=== PATIENT | male | born 1965 | race Caucasian/White ===

== ENCOUNTER → 2017-12-15 08:48 | Outpatient (CLI) | payer BC, SELFPAY ==
[2017-12-15 10:21] LABS: Absolute Lymphocyte Count 1.53 X10^3/ul (0.83-4.51); Absolute Neutrophil Count 3.1 X10^3/uL (2.0-7.7); Basophil# 0.02 X10^3/uL; Basophil% 0.4 % (0-1); Eosinophil# 0.12 X10^3/uL; Eosinophils% 2.4 % (0-5); Hematocrit 48.6 % (40-54); Hemoglobin 16.6 g/dl (13.0-16.5); Lymphocyte # 1.53 X10^3/ul (4.0); Lymphocyte % 30.3 % (19-41); Mean Corp Hgb Conc 34.2 g/gl (32-36); Mean Corpuscular Hgb 31.3 pg (27.0-32.0); Mean Corpuscular Volume 91.5 fL (80-94); Mean Platelet Vol. 10.6 fl (6.2-12.0); Monocyte% 5.9 % (0-10); Neutrophil # 3.07 X10^3/uL (2.7-7.7); Neutrophil % 60.8 % (47-70); Platelet Count 222 K/mm3 (150-450); RBC Distribution Width CV 12.3 % (11.6-14.6); RBC Distribution Width SD 41.3 fl (35.1-43.9); Red Blood Count 5.31 M/mm3 (4.6-6.2); White Blood Count 5.1 K/mm3 (4.4-11.0)
[2017-12-15 10:23] LABS: POSITIVE COUNT NO; POSITIVE DIFFERENTIAL NO; POSITIVE MORPHOLOGY NO
[2017-12-15 10:37] LABS: Erythrocyte Sedimentation Rate 4 mm/hr (0-20)
[2017-12-15 11:03] LABS: ALB/GLOB Ratio 1.1 RATIO (0.9-2.4); AST(SGOT) 25 U/L (15-37); Alanine Aminotransfer ALT/SGPT 56 U/L (16-61); Albumin, Serum 3.9 g/dL (3.2-5.0); Alkaline Phosphatase 90 U/L (45-117); Anion Gap 7 (5-15); BUN 15 mg/dL (7-18); BUN/Creat Ratio 12.6 RATIO (10-20); CRP < 2.90 mg/L (0.0-3.0); Chloride 102 mmol/L (98-107); Creatinine, Serum 1.19 mg/dL (0.70-1.30); EST Glomerular Filtration Rate 68 mL/min (>60); Est Glom Filt Rate - Afr Amer 82 mL/min (>60); Globulin 3.6 g/dL (2.2-4.2); Glucose 114 mg/dL (74-106); Potassium 4.2 mmol/L (3.5-5.1); Protein, Total 7.5 g/dL (6.4-8.2); Rheumatoid Factor < 10.0 IU/mL (<15); Sodium Level 138 mmol/L (136-145)
[2017-12-16 14:07] LABS: Anti-Centromere B Ab <0.2 AI (0.0-0.9); Anti-Chromatin <0.2 AI (0.0-0.9); Anti-Jo <0.2 AI (0.0-0.9); Anti-Scleroderma-70 AB <0.2 AI (0.0-0.9); RNP Ab <0.2 AI (0.0-0.9); SJOGREN'S Anti-SS-A test < 0.2 AI (0.0-0.9); SJOGREN'S Anti-SS-B test < 0.2 AI (0.0-0.9); Smith Ab <0.2 AI (0.0-0.9)
[2017-12-17 09:52] LABS: Angiotensin Convert Enzyme 63 U/L (14-82)
[2017-12-17 09:53] LABS: Anti-dsDNA Ab <1 IU/mL (0-9)
== END ==
PROVIDERS: Family Provider Family Medicine; PCP Family Medicine; Visit Provider Family Medicine
DX: M25.50 Pain in unspecified joint (principal)
CPT/HCPCS: 36415; 80053; 82164; 84443; 84550; 85025; 85652; 86038; 86140; 86225; 86235; 86431

== ENCOUNTER 2018-02-02 18:00 | Outpatient (RCR) | payer BC, SELFPAY ==
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
--- NOTE | 2018-02-24 13:42 | HP.PTDCSUM_ITS ---
HP - PT D/C Summary It has been my pleasure to treat SANTOS LIAO under orders from Ceferino Perez, for the diagnosis of Bilateral elbow pain/left knee pain for a total of 7 visit(s). Discharge Date: 02/02/18 Please see the following information for a summary of their discharge status. - Subjective Subjective: Pt. reports my knee is doing a lot better, but I still get pain in my elbows. Pt. reports knee is 85% better, elbows are 50% better. Pt. reports being HEP compliant without issues. Pt. educated on importantance to body mechanics, stretching and eroganomics with desk. Pt. reports understanding. - Pain B elbows Pain Intensity (Out of 10): 1 L knee Pain Intensity (Out of 10): 0 - Overall Improvement % Improvement: 80 - Objective Objective/Function: Pt. continues to have pain in bilateral lateral epicondyles , but has improved knee pain. Pt. has started a walking progression routine with good tolerance. Pt. continues to stretch with decend results. He is to continue with his HEP as tolerated. - Goals Goal 1:: Patient will be I with HEP and progression Goal 2:: Patient will maintain proper posture t/o tx session to demo increased core/scap s/s Goal 3:: Patient will demo 5/5 strength in elbows with 0/10 pain Goal 4:: Patient will report 2/10 pain for 1 week - Plan Plan: Pt. to be DC to HEP at this point in time. - D/C Information Discharge Comments: Pt. was treated for biltateral elbow pain with strengthening , stretching, eccentric strengthening, postural strengthening. Pt. made some progress with postural changes, but still had irritation with work related activities. He had good progress with his knee pain. Pt. is to trial exercises on his own at this point in time. If there are questions or concerns regarding this patient's physical therapy, please feel free to call me at [phone]. Thank you for the referral of this patient. Sincerely, Sonny Stacy
== END 2018-02-02 19:00 | disposition home or self-care (01) ==
LOC: PT 18:00
PROVIDERS: Family Provider Family Medicine; PCP Family Medicine; Visit Provider Family Medicine
DX: M25.522 Pain in left elbow (principal); M25.521 Pain in right elbow; M79.7 Fibromyalgia
CPT/HCPCS: 97110; 97162

== ENCOUNTER → 2018-02-23 08:42 | Outpatient (CLI) | payer BC, SELFPAY ==
[2018-02-23 10:33] LABS: Absolute Lymphocyte Count 1.46 X10^3/ul (0.83-4.51); Basophil# 0.01 X10^3/uL; Basophil% 0.2 % (0-1); Eosinophil# 0.11 X10^3/uL; Eosinophils% 2.2 % (0-5); Hematocrit 47.6 % (40-54); Hemoglobin 16.5 g/dl (13.0-16.5); Lymphocyte # 1.46 X10^3/ul (4.0); Mean Corp Hgb Conc 34.7 g/gl (32-36); Mean Corpuscular Hgb 31.1 pg (27.0-32.0); Mean Corpuscular Volume 89.6 fL (80-94); Mean Platelet Vol. 10.7 fl (6.2-12.0); Monocyte# 0.44 X10^3/uL; Monocyte% 8.7 % (0-10); Neutrophil # 3.02 X10^3/uL (2.7-7.7); Neutrophil % 59.9 % (47-70); Platelet Count 203 K/mm3 (150-450); RBC Distribution Width CV 12.3 % (11.6-14.6); RBC Distribution Width SD 40.1 fl (35.1-43.9); Red Blood Count 5.31 M/mm3 (4.6-6.2)
[2018-02-23 10:53] LABS: ALB/GLOB Ratio 1.1 RATIO (0.9-2.4); AST(SGOT) 25 U/L (15-37); Alanine Aminotransfer ALT/SGPT 59 U/L (16-61); Alkaline Phosphatase 90 U/L (45-117); Anion Gap 6 (5-15); BUN 16 mg/dL (7-18); BUN/Creat Ratio 13.8 RATIO (10-20); Calcium,Total 8.9 mg/dL (8.5-10.1); Chloride 104 mmol/L (98-107); Creatinine, Serum 1.16 mg/dL (0.70-1.30); EST Glomerular Filtration Rate 70 mL/min (>60); Est Glom Filt Rate - Afr Amer 85 mL/min (>60); Ferritin 185 ng/mL (26-388); Globulin 3.5 g/dL (2.2-4.2); Glucose 116 mg/dL (74-106); Potassium 3.9 mmol/L (3.5-5.1); Protein, Total 7.5 g/dL (6.4-8.2); Sodium Level 139 mmol/L (136-145); T4 Free Direct 0.78 ng/dL (0.76-1.46); Thyroid Stim Hormone (TSH) 1.85 uIU/mL (0.358-3.74)
[2018-02-23 11:13] LABS: POSITIVE COUNT NO; POSITIVE DIFFERENTIAL NO; POSITIVE MORPHOLOGY NO
[2018-02-27 10:28] LABS: Immunoglobulin E 62 IU/mL (0-100)
== END ==
PROVIDERS: Family Provider Family Medicine; PCP Family Medicine; Visit Provider Family Medicine
DX: R19.7 Diarrhea, unspecified (principal); R68.89 Other general symptoms and signs
CPT/HCPCS: 36415; 80053; 82728; 82785; 84439; 84443; 85025; 87506

== ENCOUNTER 2018-06-20 07:55 | Day surgery (SDC) | payer BC, SELFPAY ==
[2018-06-20 08:09] VITALS: BP 159/93; PULSE 98; RESP 18; TEMP 36.9; O2SAT 99; BMI 32.1
[2018-06-20 09:06] VITALS: BP 125/92; BP 159/93; PULSE 99; RESP 18; TEMP 37.6; O2SAT 94
[2018-06-20 09:10] VITALS: BP 101/66; BP 159/93; PULSE 94; RESP 18; O2SAT 95
--- NOTE | 2018-06-20 09:10 | OP.ENDO_ITS ---
Patient Name: Gael Rosado Procedure Date: 06/20/2018 8:43 AM Date of : 1965 Age: 52 Procedure: Colonoscopy Indications: Rectal bleeding Providers: Dangelo Hope MD Referring MD: Dangelo Hope MD Medicines: See the Anesthesia note for documentation of the administered medications Patient Profile: Last Colonoscopy: 3 years ago. Complications: No immediate complications. Procedure: Pre-Anesthesia Assessment: - Prior to the procedure, a History and Physical was performed, and patient medications and allergies were reviewed. The patient's tolerance of previous anesthesia was also reviewed. The risks and benefits of the procedure and the sedation options and risks were discussed with the patient. All questions were answered, and informed consent was obtained. Prior Anticoagulants: The patient has taken no previous anticoagulant or antiplatelet agents. ASA Grade Assessment: II - A patient with mild systemic disease. After reviewing the risks and benefits, the patient was deemed in satisfactory condition to undergo the procedure. After I obtained informed consent, the scope was passed under direct vision. Throughout the procedure, the patient's blood pressure, pulse, and oxygen saturations were monitored continuously. The adult colonoscope was introduced through the anus and advanced to the terminal ileum. The colonoscopy was performed without difficulty. The patient tolerated the procedure well. The quality of the bowel preparation was good. Scope In: 8:53:55 AM Scope Withdrawal Time 0 hours 6 minutes 15 seconds Scope Out: 9:01:56 AM Total Procedure Duration Time 0 hours 8 minutes 1 second Findings: Non-bleeding internal hemorrhoids were found during retroflexion. The hemorrhoids were mild and small. An anal fissure was found on perianal exam. The exam was otherwise without abnormality. Impression: - Non-bleeding internal hemorrhoids. - Anal fissure found on perianal exam. may need to be treated with diltizem cream - The examination was otherwise normal. - No specimens collected. Recommendation: - Resume previous diet. - Continue present medications. - Await pathology results. - Repeat colonoscopy in 10 years for surveillance. - Return to my office in 1 week. Procedure Code(s): --- Professional --- 13287, Colonoscopy, flexible; diagnostic, including collection of specimen(s) by brushing or washing, when performed (separate procedure) Diagnosis Code(s): --- Professional --- K64.8, Other hemorrhoids K60.2, Anal fissure, unspecified K62.5, Hemorrhage of anus and rectum CPT copyright 2017 [employer]. All rights reserved. The codes documented in this report are preliminary and upon drapery operator review may be revised to meet current compliance requirements. MD Dangelo Livingston MD 06/20/2018 9:10:01 AM This report has been signed electronically. Number of Addenda: 0 Note Initiated On: 06/20/2018 8:43 AM
[2018-06-20 09:15] VITALS: BP 117/73; BP 159/93; PULSE 88; RESP 18; O2SAT 95
[2018-06-20 09:22] VITALS: BP 118/80; BP 159/93; PULSE 79; RESP 18; TEMP 36.4; O2SAT 98
[2018-06-20 09:57] VITALS: BP 159/93
== END 2018-06-20 10:01 | disposition home or self-care (01) ==
LOC: EN 07:56 → AC 07:57
PROVIDERS: Family Provider Family Medicine; PCP Family Medicine; Referring Provider Surgery; Visit Provider Surgery
PROC: 0DJD8ZZ Inspection of Lower Intestinal Tract, Via Natural or Artificial Opening Endoscopic (ICD-10-PCS; CPT 45378; principal; 2018-06-20 08:55)
DX: K62.5 Hemorrhage of anus and rectum (principal); K60.2 Anal fissure, unspecified; K64.8 Other hemorrhoids; F32.9 Major depressive disorder, single episode, unspecified; F41.9 Anxiety disorder, unspecified; J45.909 Unspecified asthma, uncomplicated
CPT/HCPCS: 45378; J7120; J1610

== ENCOUNTER 2019-01-31 05:31 | Day surgery (SDC) | payer BC, SELFPAY ==
[2019-01-12 07:29] VITALS: BMI 32.1
--- NOTE | 2019-01-25 06:16 | EKG12_ITS ---
Test Reason : PRE-OP Blood Pressure : / mmHG Vent. Rate : 092 BPM Atrial Rate : 092 BPM P-R Int : 140 ms QRS Dur : 080 ms QT Int : 344 ms P-R-T Axes : 038 035 040 degrees QTc Int : 425 ms Normal sinus rhythm Normal ECG Confirmed by ANGELO PARRISH ([id number]), medical transcription editor LIAT ARREDONDO ([id number]) on 01/30/2019 3:09:30 PM Referred By: Ruddy Vargas Confirmed By:ANGELO PARRISH
[2019-01-25 07:25] LABS: Hematocrit 45.3 % (40-54); Hemoglobin 15.5 g/dl (13.0-16.5); Mean Corp Hgb Conc 34.2 g/gl (32-36); Mean Corpuscular Volume 90.6 fL (80-94); Mean Platelet Vol. 10.3 fl (6.2-12.0); Platelet Count 251 K/mm3 (150-450); RBC Distribution Width CV 12.7 % (11.6-14.6); RBC Distribution Width SD 41.3 fl (35.1-43.9); White Blood Count 6.2 K/mm3 (4.4-11.0)
[2019-01-25 07:27] LABS: Scan Indicated on CBC? Y/N NO
[2019-01-25 07:44] LABS: Anion Gap 3 (5-15); BUN 14 mg/dL (7-18); BUN/Creat Ratio 12.5 RATIO (10-20); Calcium,Total 8.7 mg/dL (8.5-10.1); Chloride 107 mmol/L (98-107); Creatinine, Serum 1.12 mg/dL (0.70-1.30); EST Glomerular Filtration Rate 73 mL/min (>60); Est Glom Filt Rate - Afr Amer 88 mL/min (>60); Glucose 156 mg/dL (74-106); Sodium Level 140 mmol/L (136-145)
[2019-01-31] VITALS (11 sets, daily range): BP systolic 87–155; BP diastolic 59–94; PULSE 63–93; RESP 14–18; TEMP 35.9–36.9; O2SAT 94–100; BMI 33.7
--- NOTE | 2019-01-31 | HEM_PTH ---
PATIENT: SANTOS LIAO [place] [facility] [place][id number] AGE/SX: 53/M ROOM: RE01/31/[address]: Dr. Ruddy Vargas MD : 1965 BED: DIS: 01/31/2019 SPEC #: [id number] RECD: 01/31/19 09:30 STATUS: CRAIG ANGEL #: [id number] DELMER: 01/31/19 00:[address]: Ruddy Vargas DEPT: SURGICAL PATHOLOGY RECD BY: Norbert Avelar ENTERED: 01/31/19 10:31 SP TYPE: HEMORRHOID OTHR DR: Dr. Ceferino Perez MD Tissues: HEMORRHOIDS Procedures: Surgery Specimen Level III HEADER OPERATION: Hemorrhoidopexy, PPH stapled PRE-OP DIAGNOSIS: Internal bleeding hemorrhoids TISSUE SUBMITTED: Internal hemorrhoids MICROSCOPIC DIAGNOSIS Hemorrhoid, hemorrhoidectomy: Submucosal vascular ectasia and thrombosis consistent with hemorrhoid. AM:johnson 02/01/19 MICROSCOPIC DESCRIPTION Slides are reviewed. GROSS DESCRIPTION Received in fixative is one container labeled with the patient's name and designated internal hemorrhoids. The specimen consists of a tortuous segment of mucosal-lined soft tissue measuring 6.1 x 2.8 x 1.3 cm. Sections through the tissue demonstrate recent submucosal hemorrhage. Floor Tech sections are submitted in one cassette. / CE:johnson 01/31/19 TC:5 [facility]: [id number]
--- NOTE | 2019-01-31 06:07 | PCM.HP.BLA ---
Problem List (1) Internal bleeding hemorrhoids Status: Acute History and Physical Date of Admission: 01/31/19 Intake Vital Signs 01/12/19 Body Mass Index (BMI) 32.1 01/12/19 Blood Pressure 150/93 H 01/12/19 Blood Pressure Location Rt brachial 01/12/19 Blood Pressure Position Sitting 01/12/19 Respiratory Rate 18 01/12/19 Pulse Rate 111 H 01/12/19 Pulse Source Monitor 01/12/19 Temperature 98.1 F 01/12/19 Temperature Source Oral 01/12/19 Pulse Ox 98 01/12/19 Oxygen Delivery Method room air Intake Visit Reasons: PPH/PER [place] Chief Complaint: rectal bleeding Mgmt Consultant Required: No Is patient in pain?: No Allergies shellfish derived Allergy (Intermediate, Verified 01/12/19 07:29) Vomiting vilazodone HCl [From [facility]] Allergy (Verified 01/12/19 07:29) Hives Medications Albuterol Inhaler [Ventolin Hfa (SP)] 1 - 2 puff INHALATION Q4H PRN PRN 12/11/14 [History Confirmed 01/12/19] Astepro 2 spray NASAL DAILY 12/11/14 [History Confirmed 01/12/19] escitalopram 10 mg tablet 5 mg PO DAILY tab 06/14/18 [History Confirmed 01/12/19] gabapentin 300 mg capsule 300 mg PO TID 06/14/18 [History Confirmed 01/12/19] milnacipran 12.5 mg tablet 50 mg PO BID tab 06/14/18 [History Confirmed 01/12/19] Ascorbic Acid [Vitamin C] 500 mg PO DAILY 06/17/18 [History Confirmed 01/12/19] Cholecalciferol (Vitamin D3) [Vitamin D3] 1,000 unit PO DAILY 06/17/18 [History Confirmed 01/12/19] Ginkgo Biloba 60 mg PO DAILY 06/17/18 [History Confirmed 01/12/19] L.acidoph,Paracasei, B.lactis [Probiotic] 1 ea PO DAILY 06/17/18 [History Confirmed 01/12/19] Magnesium Oxide [Magnesium] 500 mg PO QHS 06/17/18 [History Confirmed 01/12/19] Melatonin/Pyridoxine [Melatonin 5 mg Tablet] 1 ea PO QHS 06/17/18 [History Confirmed 01/12/19] Turmeric Root Extract [Turmeric] 500 mg PO DAILY 06/17/18 [History Confirmed 01/12/19] nifedipine 60 g TOPICAL BID #60 g 06/20/18 [Rx Confirmed 01/12/19] amlodipine 2.5 mg tablet 2.5 mg PO DAILY 11/01/18 [History Confirmed 01/12/19] cyanocobalamin (B12)-cobamamide 5,000 mcg-100 mcg sublingual lozenge fanta SUBLINGUAL ea 11/01/18 [History Confirmed 01/12/19] [facility] Medical History Anxiety and depression (Acute) Asthma (Acute) Fibromyalgia (Acute) Rectal bleeding (Acute) Sleep apnea (Acute) HTN (hypertension) (Chronic) Surgical History History of colonoscopy (Acute ~06/2018) History of hernia repair (Acute) History of vasectomy (Acute) Family History Mother Arthritis Breast cancer Diabetes Father Arthritis Colon cancer Hypertension Cancer skin cancer Social History Smoking Status: Never smoker alcohol intake: current alcohol intake frequency: a few times a month substance use type: does not use HPI HPI HPI: SANTOS LIAO, is a 53 M who presents to the office today for HPI HPI Surgical H&P: Yes HPI: SANTOS LIAO, is a 53 M who presents to the office today for ongoing surgical consultation regarding bleeding internal hemorrhoids. The patient is referred by Dr. Dangelo Hope. Dr. Hope is already performed a colonoscopy which demonstrated significant internal hemorrhoids. An attempt was made to perform hemorrhoidal banding in the office but the patient did not tolerate that well and became diaphoretic. It is of note that the patient almost literally has daily bright red bleeding. It is usually painless. He is tried diltiazem cream and steroid creams without definitive resolution. It is of additional note that the patient was noted to have a small anal fissure. This was felt to have been successfully treated with diltiazem cream. The patient works with [employer]. He is quite sedentary. He does however take a twice daily fiber supplement. He has initiated a new exercise routine. He is on a self-improvement weight loss program. ROS General General: Yes fatigue; no weight change, appetite, colon cancer, breast cancer or weakness HEENT HEENT: No difficulty swallowing, eye injury, eye surgery, swollen glands or hoarseness Endo Endocrine: No thyroid disease, diabetes mellitus, thyroid cancer, Hair loss, heat intolerance or cold intolerance Skin Skin: No rash or changing moles Breast Breast: No left breast lump, right breast lump, nipple discharge, breast pain, abnormal mammogram, abnormal US or breast enlargement Musc Musculoskeletal: No back problems, arthritis, rheumatoid arthritis, gout or joint pain Cardio Cardiovascular: No murmur, pacemaker, heart disease, atrial fibrillation, high blood pressure, heart attack, heart stent, palpitations, shortness of breat with exertion or chest pain Psych Psychiatric: Yes depression and anxiety; no hearing voices Resp Respiratory: No shortness of breath, Yes sleep apnea, No cough, No COPD, Yes asthma, No emphysema, No wheezing Gastro Gastrointestinal: No abdominal pain, No nausea or vomiting, No diarrhea, No constipation, Yes blood in stool, No acid reflux, Yes hemorrhoids, No ulcers, No gallbladder problem, No black,tarry stools Rajeev Hematologic: No blood thinners, No blood disorders, No bleeding, No anemia, No blood clots Neuro Neurologic: No weakness Exam Const General: cooperative, healthy appearing Nutritional Appearance: overweight Orientation: alert, awake [facility] Head: normal to inspection Chest Breast Palpation: No nipple discharge Resp Effort & Inspection: normal respiratory effort Auscultation: clear to auscultation bilaterally Cardio Rate: regular rate Rhythm: regular rhythm Heart Sounds: no murmurs GI Palpation: soft, no hepatosplenomegaly Auscultation: normal bowel sounds Other: External anus appears clean. Subtle internal hemorrhoid mostly noted on the right on visual inspection. Seemingly healed small anterior anal fissure Skin General: no rashes or lesions noted Neuro General: alert Extrem General: no calf tenderness bilaterally Psych Affect: normal affect Assessment & Plan Problems 1. Internal bleeding hemorrhoids K64.8 Plan Very pleasant 53-year-old gentleman with signs and symptoms of bleeding internal hemorrhoids. I would concur with Dr. Hope that I believe the patient would be a good candidate for a PPH stapled hemorrhoidal pexy. In great detail I described the technique, benefit, risks, alternatives and compared and contrasted it to a surgical hemorrhoidectomy. The patient is otherwise medically nicely compliant. He is aware that the hemorrhoidal pexy can only be performed once. He is aware that there is an increased risk of recurrence. This is contrasted with improved comfort with the procedure. He is aware that placement of the staple line is very important. He has had an opportunity to ask and have questions answered. He is interested in proceeding and attempt to help resolve his rectal bleeding. I appreciate the opportunity of assisting with his surgical care. CC: Dr. Dangelo Hope and Dr. Ceferino Vargas M.D., F.A.C.S. Coding Level of Care Code Off vis,est,level 3 Diagnoses Internal bleeding hemorrhoids K64.8 01/12/19 0751 <Electronically signed by Ruddy Vargas MD> Date Ruddy Vargas MD I have re-examined the patient. There are no clinical changes since date of exam.
--- NOTE | 2019-01-31 06:55 | PCM.DC.REC ---
Discharge Diet: No Restrictions Discharge Activity: Return to Normal Activity, May Not Drive - while you are taking narcotic pain medications. Do not drive, work with heavy equipment or sign legal documents for 24 hours after your surgery. No driving for 3 to 5 days Additional Activity Instructions:: Please continue with taking your fiber supplementation twice daily. Mineral oil 30 cc (1 ounce) daily in food or drink for 1 week Additional Dressing/Incision Instructions:: You may remove any dressings tomorrow. You may use gauze or hygiene pad as needed for any drainage. Sitz baths may be utilized if they offer any comfort. This would be using only warm soapy water. Allergies/Adverse Reactions: Allergies shellfish derived Allergy (Intermediate, Verified 01/24/19 11:26) Vomiting vilazodone HCl [From [facility]] Allergy (Verified 01/24/19 11:26) Hives Medications to take at Discharge Albuterol Inhaler [Ventolin Hfa] 1 - 2 puff INHALATION Q4H PRN PRN 12/11/14 Astepro 2 spray NASAL DAILY 12/11/14 escitalopram 10 mg tablet 2.5 mg PO DAILY tab 06/14/18 gabapentin 300 mg capsule 300 mg PO BID 06/14/18 milnacipran 12.5 mg tablet 100 mg PO BID tab 06/14/18 Ascorbic Acid [Vitamin C] 500 mg PO DAILY 06/17/18 Cholecalciferol (Vitamin D3) [Vitamin D3] 1,000 unit PO DAILY 06/17/18 Ginkgo Biloba 60 mg PO DAILY 06/17/18 L.acidoph,Paracasei, B.lactis [Probiotic] 1 ea PO DAILY 06/17/18 Magnesium Oxide [Magnesium] 500 mg PO BID 06/17/18 Melatonin/Pyridoxine [Melatonin 5 mg Tablet] 1 ea PO QHS 06/17/18 Turmeric Root Extract [Turmeric] 500 mg PO DAILY 06/17/18 amlodipine 2.5 mg tablet 5 mg PO DAILY 11/01/18 cyanocobalamin (B12)-cobamamide 5,000 mcg-100 mcg sublingual lozenge 1 fanta SUBLINGUAL DAILY ea 11/01/18 Hydrocodone Bitart/Apap 5-325 [[place] 5MG-325MG] 1 tablet PO Q4H PRN PRN 3 Days #10 tablet 01/31/19 Metronidazole 250 mg PO TID 5 Days #15 tablet 01/31/19 The following prescriptions were given: Hydrocodone Bitart/Apap 5-325 [[place] 5MG-325MG] 1 tablet PO Q4H PRN PRN 3 Days #10 tablet PRN Reason: Pain Metronidazole 250 mg PO TID 5 Days #15 tablet Primary Care Physician: Ceferino Perez MD [Primary Care Provider] - Test Results: Test results from this visit will be discussed in further detail at your follow-up appointment, if applicable. Please Follow Up With: Ruddy Vargas MD - [phone] When: Plan to have a follow up approximately 3 weeks after surgery.
--- NOTE | 2019-01-31 06:58 | DCINST_ITS ---
Discharge Diet: No Restrictions Discharge Activity: Return to Normal Activity, May Not Drive - while you are taking narcotic pain medications. Do not drive, work with heavy equipment or sign legal documents for 24 hours after your surgery. No driving for 3 to 5 days Additional Activity Instructions:: Please continue with taking your fiber supplementation twice daily. Mineral oil 30 cc (1 ounce) daily in food or drink for 1 week Additional Dressing/Incision Instructions:: You may remove any dressings tomorrow. You may use gauze or hygiene pad as needed for any drainage. Sitz baths may be utilized if they offer any comfort. This would be using only warm soapy water. Allergies/Adverse Reactions: Allergies shellfish derived Allergy (Intermediate, Verified 01/24/19 11:26) Vomiting vilazodone HCl [From [facility]] Allergy (Verified 01/24/19 11:26) Hives Medications to take at Discharge Albuterol Inhaler [Ventolin Hfa] 1 - 2 puff INHALATION Q4H PRN PRN 12/11/14 Astepro 2 spray NASAL DAILY 12/11/14 escitalopram 10 mg tablet 2.5 mg PO DAILY tab 06/14/18 gabapentin 300 mg capsule 300 mg PO BID 06/14/18 milnacipran 12.5 mg tablet 100 mg PO BID tab 06/14/18 Ascorbic Acid [Vitamin C] 500 mg PO DAILY 06/17/18 Cholecalciferol (Vitamin D3) [Vitamin D3] 1,000 unit PO DAILY 06/17/18 Ginkgo Biloba 60 mg PO DAILY 06/17/18 L.acidoph,Paracasei, B.lactis [Probiotic] 1 ea PO DAILY 06/17/18 Magnesium Oxide [Magnesium] 500 mg PO BID 06/17/18 Melatonin/Pyridoxine [Melatonin 5 mg Tablet] 1 ea PO QHS 06/17/18 Turmeric Root Extract [Turmeric] 500 mg PO DAILY 06/17/18 amlodipine 2.5 mg tablet 5 mg PO DAILY 11/01/18 cyanocobalamin (B12)-cobamamide 5,000 mcg-100 mcg sublingual lozenge 1 fanta SUBLINGUAL DAILY ea 11/01/18 Hydrocodone Bitart/Apap 5-325 [[place] 5MG-325MG] 1 tablet PO Q4H PRN PRN 3 Days #10 tablet 01/31/19 Metronidazole 250 mg PO TID 5 Days #15 tablet 01/31/19 The following prescriptions were given: Hydrocodone Bitart/Apap 5-325 [[place] 5MG-325MG] 1 tablet PO Q4H PRN PRN 3 Days #10 tablet PRN Reason: Pain Metronidazole 250 mg PO TID 5 Days #15 tablet Primary Care Physician: Ceferino Perez MD [Primary Care Provider] - Test Results: Test results from this visit will be discussed in further detail at your follow- up appointment, if applicable. Please Follow Up With: Ruddy Vargas MD - [phone] When: Plan to have a follow up approximately 3 weeks after surgery.
[2019-01-31] MEDS: Lubricating Jelly 60 GM Tube 30 GM TOPICAL (07:43)
[2019-01-31] MEDS: Bupivacaine Mpf 0.5% 30 ML VIAL (08:00)
[2019-01-31] MEDS: BUPIVACAINE LIPOSOME/PF 20 ML VIAL OPERA.SITE (08:00)
--- NOTE | 2019-01-31 08:03 | PCM.OPRPT ---
Problem List (1) Internal bleeding hemorrhoids Status: Acute Report of Operation Date of Procedure: 01/31/19 Pre-Operative Diagnosis: Bleeding internal hemorrhoids Post-Operative Diagnosis: same Surgery/Procedure Performed:: PPH stapled hemorrhoidopexy Description of Surgical Findings:: Timeout and informed consent was obtained. 53-year-old gent was taken the operating room. He underwent general endotracheal intubation anesthesia. He was subsequently placed prone jackknife with careful shoulder and pelvic rolls. He received 2 g of cefotetan intravenously preprocedure. The perianal area was prepped with soap because of iodine allergy. 20 cc of Exparel was further diluted with 10 cc of 0.5% Marcaine. 10 cc was initially injected circumferentially. Gentle anal examination demonstrated a 2+ smooth prostate. Rather tight anal tone. I used very gentle pressure on the anal dilator copiously lubricated in order to insert it. Then placed the protective clear plastic circular sheath. I then inserted the measuring suturing plastic device. That allowed me to get 4 cm proximally. A 0 Prolene was then used in a circumferential pursestring fashion at 4 cm from the anal verge completely circumferentially. Took great care inserting that suture line and it adjusting the suturing device to assure that there was no coiling or twisting. Having placed the suture I then remove the plastic suturing device and tested the suture line. To be nicely circumferential. I then inserted the PPH stapler and finished the pursestring lines through the stapler. I applied pressure to secured the pursestring and then carefully inserted and closed with a stapler to depth. 4 cm was achieved. The stapler was then fired. Several minutes were allowed for hemostasis. The stapler was removed. A circumferential portion of internal hemorrhoidal tissue rectal tissue had indeed been removed. I then palpated the staple line appeared to be nicely intact in good position I then inspected the staple line with a lighted anal speculum. Staple line appeared to be intact and hemostatic. I then placed Gelfoam with dibucaine ointment inserted that transanally. It appeared that the small external component particular on the left side had already nicely retracted. The remainder of the local was injected in the perianal tissues. Dry gauze cover dressing applied. Sponge and instrument and needle counts were reported the surgeon be correct. Blood loss was minimal. Specimen internal hemorrhoid tissue. Drains none. Blood loss minimal. Ruddy Vargas M.D., F.A.C.S. Type of Anesthesia:: General Anesthesiologist: Ulices Cruz
[2019-01-31] MEDS: HYDROcodone Bitartrate/Apap 5/325 Tablet PO (12:46)
== END 2019-01-31 13:29 | disposition home or self-care (01) ==
LOC: SDC 05:32 → AC 05:32
PROVIDERS: Family Provider Family Medicine; PCP Family Medicine; Referring Provider Surgery; Visit Provider Surgery
PROC: (CPT 46947; principal; 2019-01-31 07:00)
DX: K64.8 Other hemorrhoids (principal); I10 Essential (primary) hypertension; J45.909 Unspecified asthma, uncomplicated
CPT/HCPCS: 00902; 46947; 36415; 80048; 85027; 88304; 93005; J7120; J2405

== ENCOUNTER → 2019-06-05 12:59 | Outpatient (CLI) | payer BC, SELFPAY ==
[2019-01-31 05:54] VITALS: BMI 33.7
--- NOTE | 2019-06-05 13:02 | RAD_ITS ---
STUDY: X-RAY - LEFT FOOT CLINICAL: Male, 53 years old. Dropped chair on foot a couple weeks ago. Persistent.. TECHNIQUE: 3 view(s) of the foot. COMPARISON: None. FINDINGS: No visible fracture. No osseous destruction. Alignment anatomic. Mild degenerative changes. Soft tissues unremarkable. RAD/Foot min 3 Views IMPRESSION: No acute osseous abnormality. Electronically Signed: Bran Neville, at 19:49 EDT Tel , Service support ,
== END ==
PROVIDERS: Family Provider Family Medicine; PCP Family Medicine; Referring Provider Family Medicine; Visit Provider Family Medicine
DX: S90.30XA Contusion of unspecified foot, initial encounter (principal)
CPT/HCPCS: 73630

== ENCOUNTER → 2019-06-10 10:20 | Outpatient (CLI) | payer BC, SELFPAY ==
[2019-01-31 05:54] VITALS: BMI 33.7
--- NOTE | 2019-06-10 10:23 | US_ITS ---
STUDY: ABDOMINAL ULTRASOUND REASON FOR EXAM: Male, 53 years old. Left upper quadrant pain. TECHNIQUE: Transabdominal ultrasound was performed with real-time and static flores scale imaging. TECHNICAL QUALITY: Limited. Examination limited due to a combination of factors including obesity and bowel gas. COMPARISON: None. FINDINGS: Liver: The liver measures 15.1 cm. There is marked increased echogenicity consistent with fatty infiltration. The bile ducts are within normal limits. There is hepatic color flow. The direction of portal flow is hepatopetal. There is no demonstrated mass lesion. Portal vein measurement: Gallbladder: Normal distended gallbladder. The gallbladder wall measures 2.5 mm. There is a negative sonographic Almanzar's sign. There is no pericholecystic fluid. There are no gallstones. Common Bile Duct (C.B.D.): The common bile duct measures 3.5 mm. Pancreas: There is nonvisualization of the pancreas. Spleen: Normal size of the spleen. The spleen measures 10.4 cm. Right Kidney: Normal size of the right kidney. The right kidney measures 10.0 cm. Normal renal cortex. The right cortex measures 1.6 cm. There is no demonstrated renal mass or cyst. There is no right hydronephrosis. Left Kidney: Normal size of the left kidney. The left kidney measures 9.7 cm. Normal renal cortex. The left cortex measures 1.5 cm. There is no demonstrated renal mass or cyst. There is no left hydronephrosis. Aorta: 2.5 cm I.V.C.: The IVC is patent. There is no ascites. US/Abdomen Complete IMPRESSION: Significantly limited by patient's size and bowel gas. Marked fatty liver. No definite acute abnormalities. Electronically Signed: Manan Garcia MD at 0:00 EDT , Service support ,
== END ==
PROVIDERS: Family Provider Family Medicine; PCP Family Medicine; Referring Provider Family Medicine; Visit Provider Family Medicine
DX: R10.12 Left upper quadrant pain (principal)
CPT/HCPCS: 76700

== ENCOUNTER → 2019-07-10 | Outpatient (CLI) | payer BC, SELFPAY ==
[2019-01-31 05:54] VITALS: BMI 33.7
[2019-07-10 10:00] LABS: Absolute Neutrophil Count 4.2 X10^3/uL (2.0-7.7); Basophil# 0.05 X10^3/uL; Basophil% 0.8 % (0-1); Eosinophil# 0.15 X10^3/uL; Eosinophils% 2.3 % (0-5); Hematocrit 47.4 % (40-54); Hemoglobin 15.8 g/dL (13.0-16.5); Lymphocyte % 27.1 % (19-41); Mean Corp Hgb Conc 33.3 g/dL (32-36); Mean Corpuscular Hgb 30.5 pg (27.0-32.0); Mean Corpuscular Volume 91.5 fL (80-94); Mean Platelet Vol. 10.5 fl (6.2-12.0); Monocyte# 0.47 X10^3/uL; Monocyte% 7.1 % (0-10); NRBC Flagged by Analyzer 0 % (0-5); Neutrophil # 4.15 X10^3/uL (2.7-7.7); Neutrophil % 62.5 % (47-70); Platelet Count 224 K/mm3 (150-450); RBC Distribution Width CV 12.2 % (11.6-14.6); RBC Distribution Width SD 40.8 fl (35.1-43.9); Red Blood Count 5.18 M/mm3 (4.6-6.2); White Blood Count 6.6 K/mm3 (4.4-11.0)
[2019-07-10 10:25] LABS: Microalbumin,Random Urine 38.6 mg/L (NO RANGE EST.)
[2019-07-10 10:29] LABS: BUN 15 mg/dL (7-18); Creatinine, Serum 1.16 mg/dL (0.70-1.30); EST Glomerular Filtration Rate 70 mL/min (>60); Glucose 123 mg/dL (74-106)
[2019-07-10 10:30] LABS: ALB/GLOB Ratio 1.1 RATIO (0.9-2.4); AST(SGOT) 25 U/L (15-37); Alanine Aminotransfer ALT/SGPT 49 U/L (16-61); Albumin, Serum 3.9 g/dL (3.2-5.0); Alkaline Phosphatase 98 U/L (45-117); Anion Gap 6 (5-15); BUN/Creat Ratio 12.9 RATIO (10-20); Calcium,Total 9.1 mg/dL (8.5-10.1); Chloride 103 mmol/L (98-107); Est Glom Filt Rate - Afr Amer 84 mL/min (>60); Globulin 3.5 g/dL (2.2-4.2); Magnesium 2.4 mg/dL (1.6-2.6); Potassium 4.2 mmol/L (3.5-5.1); Protein, Total 7.4 g/dL (6.4-8.2); Sodium Level 138 mmol/L (136-145); Thyroid Stim Hormone (TSH) 2.45 uIU/mL (0.358-3.74)
== END | disposition home or self-care (01) ==
LOC: MTLAB 08:25
PROVIDERS: Family Provider Family Medicine; PCP Family Medicine; Referring Provider Family Medicine; Visit Provider Family Medicine
DX: G43.109 Migraine with aura, not intractable, without status migrainosus (principal); I10 Essential (primary) hypertension; M79.7 Fibromyalgia
CPT/HCPCS: 36415; 80053; 82043; 83735; 84443; 85025

== ENCOUNTER → 2020-07-25 15:26 | Outpatient (CLI) | payer BC, SELFPAY ==
[2019-01-31 05:54] VITALS: BMI 33.7
== END ==
PROVIDERS: PCP Family Medicine; Referring Provider Family Medicine; Visit Provider Family Medicine
DX: U07.1 COVID-19 (principal)
CPT/HCPCS: 87633; 87635; U0003

== ENCOUNTER → 2020-09-24 06:20 | Outpatient (CLI) | payer BC, SELFPAY ==
[2019-01-31 05:54] VITALS: BMI 33.7
--- NOTE | 2020-09-24 06:25 | RAD_ITS ---
STUDY: X-RAY - LEFT SHOULDER REASON FOR EXAM: Pain in left acromioclavicular joint/anterior shoulder, fall 9 days ago. TECHNIQUE: 4 view(s) of the shoulder. COMPARISON: None. FINDINGS: Normal glenohumeral articulation. Normal acromioclavicular joint. Normal acromion. Normal humeral head and visualized proximal humerus. The soft tissue structures are unremarkable. Normal visualized pulmonary apex. RAD/Shoulder min 2 Views IMPRESSION: Normal x-ray examination of the left shoulder. Electronically Signed: Kirill Villela MD at 13:50 EST Tel , Service support ,
== END ==
PROVIDERS: PCP Family Medicine; Referring Provider Pain Medicine Pain Medicine; Visit Provider Pain Medicine Pain Medicine
DX: M25.512 Pain in left shoulder (principal)
CPT/HCPCS: 73030

== ENCOUNTER → 2021-02-04 06:05 | Outpatient (CLI) | payer BC, SELFPAY ==
[2019-01-31 05:54] VITALS: BMI 33.7
[2021-02-04 06:40] LABS: Absolute Lymphocyte Count 2.38 X10^3/uL (0.83-4.51); Absolute Neutrophil Count 3.3 X10^3/uL (2.0-7.7); Basophil# 0.05 X10^3/uL; Basophil% 0.7 % (0-1); Eosinophil# 0.42 X10^3/uL; Eosinophils% 6.3 % (0-5); Hematocrit 48.1 % (40-54); Hemoglobin 16.5 g/dL (13.0-16.5); Lymphocyte # 2.38 X10^3/ul (0.83-4.51); Lymphocyte % 35.5 % (19-41); Mean Corp Hgb Conc 34.3 g/dL (32-36); Mean Corpuscular Hgb 31.1 pg (27.0-32.0); Mean Corpuscular Volume 90.8 fL (80-94); Mean Platelet Vol. 10.1 fl (6.2-12.0); Monocyte# 0.51 X10^3/uL; Monocyte% 7.6 % (0-10); NRBC Flagged by Analyzer 0 % (0-5); Neutrophil # 3.32 X10^3/uL (2.7-7.7); Neutrophil % 49.6 % (47-70); Platelet Count 214 K/mm3 (150-450); RBC Distribution Width CV 12.2 % (11.6-14.6); White Blood Count 6.7 K/mm3 (4.4-11.0)
[2021-02-04 06:44] LABS: Erythrocyte Sedimentation Rate 6 mm/hr (0-20)
[2021-02-04 07:39] LABS: ALB/GLOB Ratio 1.3 RATIO (0.9-2.4); AST(SGOT) 25 U/L (15-37); Alanine Aminotransfer ALT/SGPT 39 U/L (16-61); Albumin, Serum 3.9 g/dL (3.2-5.0); Alkaline Phosphatase 83 U/L (45-117); Anion Gap 8 (5-15); BUN 19 mg/dL (7-18); BUN/Creat Ratio 17.6 RATIO (10-20); CRP < 2.90 mg/L (0.0-3.0); Calcium,Total 9.1 mg/dL (8.5-10.1); Chloride 106 mmol/L (98-107); Cholesterol 293 mg/dL (200); Creatinine, Serum 1.08 mg/dL (0.70-1.30); EST Glomerular Filtration Rate 75 mL/min (>60); Est Glom Filt Rate - Afr Amer 91 mL/min (>60); GGTP 78 U/L (15-85); Globulin 3.1 g/dL (2.2-4.2); Glucose 107 mg/dL (74-106); High Density Lipoprotein 46 mg/dL; Lipase 125 U/L (73-393); PSA,Total - Annual Screen 3.63 ng/mL (0.00-4.00); Potassium 3.8 mmol/L (3.5-5.1); Sodium Level 140 mmol/L (136-145); Thyroid Stim Hormone (TSH) 5.06 uIU/mL (0.358-3.74); Triglycerides 344 mg/dL; Very Low Density Lipoprotein 69 mg/dL (5-40)
[2021-02-05 22:13] LABS: Endomysial Antibody IgA Negative (Negative)
[2021-02-06 17:02] LABS: Immunoglobulin A 99 mg/dL (90-386); t-Transglutaminase IgA <2 U/mL (0-3)
[2021-02-06 17:03] LABS: ANTINUCLEAR ANTIBODIES DIRECT Negative (Negative)
[2021-02-06 17:30] LABS: Calprotectin, Stool 27 ug/g (0-120)
== END ==
PROVIDERS: PCP Family Medicine; Referring Provider Family Medicine; Visit Provider Family Medicine
DX: R19.7 Diarrhea, unspecified (principal); E78.00 Pure hypercholesterolemia, unspecified; Z12.5 Encounter for screening for malignant neoplasm of prostate
CPT/HCPCS: 36415; 80053; 80061; 82784; 82977; 83516; 83690; 83993; 84153; 84443; 85025; 85652; 86038; 86140; 86255; 87177; 87209; 87506; G0103

== ENCOUNTER → 2021-02-05 07:41 | Outpatient (CLI) | payer BC, SELFPAY ==
[2019-01-31 05:54] VITALS: BMI 33.7
--- NOTE | 2021-02-05 07:43 | US_ITS ---
STUDY: ABDOMINAL ULTRASOUND - RIGHT UPPER QUADRANT REASON FOR VISIT: Male, 55 years old . 3 week history of chronic right upper quadrant and epigastric pain. TECHNIQUE: Ultrasound evaluation of the right upper quadrant was performed with real-time and static flores-scale imaging. TECHNICAL QUALITY: Adequate. COMPARISON: Comparison is made with prior examination of 06/10/2019. FINDINGS: Liver: The liver measures 14.1 cm. There is increased echogenicity consistent with fatty infiltration. The bile ducts are within normal limits. There is hepatic color flow. The direction of portal flow is hepatopetal. There is no demonstrated mass lesion. Gallbladder: Normal distended gallbladder. The gallbladder wall measures 2.2 mm. There is a negative sonographic Almanzar''s sign. There is no pericholecystic fluid. There are no gallstones. Common Bile Duct (C.B.D.): The common bile duct measures 3.4 mm. Pancreas: Normal size of the head, body and tail of the pancreas. There is normal echogenicity of the pancreas. There is no demonstrated pancreatic mass or cyst. Right Kidney: Normal size of the right kidney. The right kidney measures 9.9 cm x 5.1 cm x 5.6 cm. Normal renal cortex. The right cortex measures 1.7 cm. There is no demonstrated renal mass or cyst. There is no right hydronephrosis. US/Abdomen Limited IMPRESSION: Fatty infiltration of the liver. Electronically Signed: Abdelrahman Mckeon MD at 10:50 EDT , Service support ,
== END ==
PROVIDERS: PCP Family Medicine; Referring Provider Family Medicine; Visit Provider Family Medicine
DX: R10.84 Generalized abdominal pain (principal)
CPT/HCPCS: 76705

== ENCOUNTER → 2021-02-20 13:41 | Outpatient (CLI) | payer BC, SELFPAY ==
[2019-01-31 05:54] VITALS: BMI 33.7
[2021-02-17 08:16] VITALS: BMI 33.7
--- NOTE | 2021-02-20 14:04 | CT_ITS ---
STUDY: CT ABDOMEN WITH CONTRAST REASON FOR EXAM: Male, 55 years old. Upper abdominal pain and diarrhea. RADIATION DOSAGE (If Supplied By Facility): CTDIvol = ( 15.69 ) mGy, DLP = ( 780.35 ) mGycm TECHNIQUE: Transaxial images were obtained post I.V. administration of Oral and amp; IV Readi-CAT and amp; 100mL Isovue-300, and with oral contrast. Sagittal and coronal images were reconstructed. Individualized dose optimization techniques were used for this CT. COMPARISON: None. FINDINGS: The visualized lung bases are unremarkable. Coronary artery calcification. There is decreased attenuation of the liver consistent with steatosis. Normal gallbladder and extrahepatic biliary system. Normal spleen. Normal pancreas. Normal bilateral adrenal glands. Normal right kidney. Normal left kidney. Normal visualized stomach. Normal small intestine. Normal colon. The appendix is visualized and appears normal. There is scattered atherosclerotic calcification of the abdominal aorta, without a demonstrated aneurysm. Normal inferior vena cava. Normal retroperitoneum. Normal abdominal wall. Normal osseous structures. CT/Abdomen WITH IV Contrast IMPRESSION: Diffuse fatty infiltration of the liver. Electronically Signed: Abdelrahman Mckeon MD at 15:07 EDT , Service support ,
== END ==
PROVIDERS: PCP Family Medicine; Referring Provider Family Medicine; Visit Provider Family Medicine
DX: R10.84 Generalized abdominal pain (principal)
CPT/HCPCS: 74160; Q9967

== ENCOUNTER 2021-02-25 07:24 | Day surgery (SDC) | payer BC, SELFPAY ==
[2021-02-17 08:16] VITALS: BMI 33.7
[2021-02-25] VITALS (7 sets, daily range): BP systolic 116–140; BP diastolic 62–86; PULSE 82–102; RESP 18; TEMP 36.3–36.5; O2SAT 95–98; BMI 31.6
[2021-02-25] MEDS: Lactated Ringers 1,000 ML 100 ML IV (08:05)
--- NOTE | 2021-02-25 08:23 | PCM.HP.BLA ---
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 lactis 1 ea PO DAILY 06/17/18 [History Confirmed 02/17/21] ginkgo biloba 60 mg PO DAILY 06/17/18 [History Confirmed 02/17/21] melatonin-pyridoxine (vit B6) 1 ea PO QHS 06/17/18 [History Confirmed 02/17/21] amlodipine 2.5 mg tablet 5 mg PO DAILY 11/01/18 [History Confirmed 02/17/21] cyanocobalamin (B12)-cobamamide 5,000 mcg-100 mcg sublingual lozenge 1 fanta SUBLINGUAL DAILY ea 11/01/18 [History Confirmed 02/17/21] ascorbic acid (vitamin C) 500 mg tablet,extended release 1,000 mg PO DAILY tab 02/17/21 [History Confirmed 02/17/21] cholecalciferol (vitamin D3) 25 mcg (1,000 unit) capsule 5,000 unit PO DAILY cap 02/17/21 [History Confirmed 02/17/21] levothyroxine 25 mcg capsule 25 mcg PO DAILY 02/17/21 [History Confirmed 02/17/21] pantoprazole 40 mg tablet,delayed release 40 mg PO DAILY 02/17/21 [History Confirmed 02/17/21] sucralfate 1 gram tablet 1 g PO QACHS #90 tab 02/17/21 [Rx Confirmed 02/17/21] [facility] Medical History (Updated 02/17/21 @ 08:[address] Fredrick Evans MD) Abdominal pain Anxiety and depression Asthma Belching Diarrhea Fibromyalgia GERD (gastroesophageal reflux disease) HTN (hypertension) Internal bleeding hemorrhoids Rectal bleeding Sleep apnea Surgical History (Updated 02/17/21 @ 08:05 by Palmira Bell) History of colonoscopy (~06/2018) History of hemorrhoidectomy History of hernia repair History of vasectomy Family History Mother Arthritis Breast cancer Diabetes Father Arthritis Colon cancer Hypertension Cancer skin cancer Social History Smoking Status: Never smoker alcohol intake: current alcohol intake frequency: a few times a month substance use type: does not use HPI HPI HPI: SANTOS LIAO, is a 55 M who presents to the office today for several complaints. The patient reports that he has been having diarrhea since July when he had Covid. The patient also reports he has been having upper abdominal pain in the right upper quadrant and left upper quadrant and it radiates down to his right lower quadrant and back. Patient had several stool studies which were all negative and ultrasound the gallbladder which was normal. The patient was started on a PPI about 2 weeks ago and it has been helping. ROS General General: Yes fatigue; No weight change, appetite, colon cancer, breast cancer or weakness HEENT HEENT: No difficulty swallowing, eye injury, eye surgery, swollen glands or hoarseness Endo Endocrine: Yes thyroid disease; No diabetes mellitus, thyroid cancer, Hair loss, heat intolerance or cold intolerance Skin Skin: No rash or changing moles Breast Breast: No left breast lump, right breast lump, nipple discharge, breast pain, abnormal mammogram, abnormal US or breast enlargement Musc Musculoskeletal: Yes arthritis; No back problems, rheumatoid arthritis, gout or joint pain Cardio Cardiovascular: No murmur, pacemaker, heart disease, atrial fibrillation, high blood pressure, heart attack, heart stent, palpitations, shortness of breat with exertion or chest pain Psych Psychiatric: Yes anxiety; No depression or hearing voices Resp Respiratory: No shortness of breath, Yes sleep apnea, No cough, No COPD, Yes asthma, No emphysema and No wheezing Gastro Gastrointestinal: Yes abdominal pain, Yes nausea or vomiting, Yes diarrhea, No constipation, No blood in stool, Yes acid reflux, No hemorrhoids, No ulcers, No gallbladder problem and No black,tarry stools Rajeev Hematologic: No blood thinners, No blood disorders, No bleeding, No anemia and No blood clots Neuro Neurologic: No system reviewed and no additional complaints, except as documented, No as per HPI, No abnormal gait, No abnormal hearing, No abnormal movements, No abnormal speech, No behavioral changes, No burning sensations, No confusion, No convulsions, No disequilibrium, No dizziness, No localized weakness, No frequent falls, No headache(s), No lack of coordination, No loss of vision, No memory loss, No numbness, No other visual disturbances, No radicular pain, No restless legs, No sensory deficit, No syncope, No tingling, No tremor(s), No weakness and No other Exam Const General: cooperative Orientation: alert and oriented x3 HENMT Head: normal to inspection Neck Neck: normal visual inspection and full ROM Chest Chest palpation & inspection: normal inspection of the chest Resp Effort & Inspection: normal respiratory effort Auscultation: clear to auscultation bilaterally Cardio Rate: regular rate Rhythm: regular rhythm GI Inspection: non-distended Palpation: soft and nontender Skin General: no rashes or lesions noted Neuro General: patient alert and patient oriented x3 Extrem General: full ROM Psych Appearance: grossly normal Mental Status: mental status grossly normal Assessment and Plan Assessment and Plan (1) Diarrhea: Status: Acute Qualifiers: Diarrhea type: unspecified type Qualified Code(s): R19.7 - Diarrhea, unspecified (2) GERD (gastroesophageal reflux disease): Status: Acute Qualifiers: Esophagitis presence: esophagitis presence not specified Qualified Code(s): K21.9 - Gastro-esophageal reflux disease without esophagitis (3) Abdominal pain: Status: Acute Qualifiers: Abdominal location: generalized Qualified Code(s): R10.84 - Generalized abdominal pain Orders: Orders: Colonoscopy Today R19.7, K21.9 EGD Today K21.9 Plan - Dr. Fredrick Evans MD: The patient has generalized abdominal pain especially in his right lower quadrant pain radiating to the back. Patient reports diarrhea since July when he had Covid. Patient has had several stool studies which are normal. I recommend that the patient add Carafate to his regimen of PPI. I have also offered the patient an EGD and colonoscopy to check for H. pylori and microscopic colitis. I will take random biopsies throughout the colon and biopsies of the antrum to check for H. pylori. I explained endoscopy in detail to the patient. I explained the risks including but not limited to stroke or heart attack with anesthesia, perforation of the GI tract, bleeding, infection. I explained that any of these could necessitate further emergency surgery. The patient understands and all questions were answered sufficiently. The patient wishes to proceed with procedure. Fredrick Evans MD Pager: [place] [phone] Office: The patient's EGD was denied by his insurance for precertification. The patient would like to proceed with EGD as well as colonoscopy anyway. He says he will sign a waiver stating that he will pay if his appeals and I have any plans to appeal this after it is done. Plan on proceeding with EGD and colonoscopy and patient will appeal and pay if necessary. Fredrick Evans MD Pager: [address], [place] [phone] Office:
--- NOTE | 2021-02-25 08:30 | IMM_PTH ---
PATIENT: SANTOS LIAO LOC: EN U#:[id number] AGE/SX: 55/M ROOM: RE02/25/[address]: Dr. Fredrick Evans MD : 1965 BED: DIS: 02/25/2021 SPEC #: [id number] RECD: 02/25/21 12:59 STATUS: CRAIG ANGEL #: [id number] DELMER: 02/25/21 08:[address]: Fredrick Evans DEPT: IMMUNOHISTOCHEMISTRY RECD BY: Kimmie Diane ENTERED: 02/25/21 12:59 SP TYPE: IMMUNO OTHR DR: Dr. Ceferino Perez MD Tissues: A - Stomach, NOS Procedures: H Pylori (initial) PHYSICIAN & INSTITUTION [place] [id number] SPECIMEN INFORMATION: Tissue Source: A ? Antrum biopsy Clinical Info: Diarrhea, GERD, abdomen pain Specimen Number: [id number] CPT code: 84383 METHODOLOGY: Deparaffinized sections of prefer/formalin-fixed tissue or PAP/DQ stained slides are incubated with monoclonal/polyclonal antibodies/oligonucleotide probes. Localization is made via biotin free immunoperoxidase method. Appropriate controls are performed and reacted as expected. Results on target cell population are indicated in the following table: RESULTS: ANTIBODY / CLONE RESULT Block A H Pylori (polyclonal) negative These tests were developed and their performance characteristics determined by [facility]. They may not have been cleared or approved by the U.S. Food and Drug Administration. The FDA has determined that such clearance or approval is not necessary. INTERPRETATION: A. Antrum, biopsy: Negative for Helicobacter pylori organisms. SJ:johnson 02/26/2021
--- NOTE | 2021-02-25 08:30 | EGD_PTH ---
PATIENT: SANTOS LIAO LOC: EN U#:[id number] AGE/SX: 55/M ROOM: RE02/25/[address]: Dr. Fredrick Evans MD : 1965 BED: DIS: 02/25/2021 SPEC #: [id number] RECD: 02/25/21 10:30 STATUS: CRAIG ANGEL #: [id number] DELMER: 02/25/21 08:[address]: Fredrick Evans DEPT: SURGICAL PATHOLOGY RECD BY: Elizabeth Camarillo ENTERED: 02/25/21 11:31 SP TYPE: EGD BIOPSY DAVID DR: Dr. Ceferino Perez MD Tissues: A - Gastric mucous membrane B - COLON BIOPSY C - Transverse colon Procedures: Surgery Specimen Level IV HEADER OPERATION: Colonoscopy, EGD ([facility] [place]) PRE-OP DIAGNOSIS: Diarrhea, GERD, abdomen pain TISSUE SUBMITTED: A - Antrum biopsy for histo and H. pylori, B - Random colonic biopsy, C - Transverse polyp MICROSCOPIC DIAGNOSIS A. Antrum biopsy: Mild gastritis. See microscopic description and comment. B. Colon, random biopsy: Fragments of colonic mucosa, no pathologic diagnosis. C. Transverse colon polyp, biopsy: Fragments of tubular adenoma. SJ:johnson 02/26/2021 COMMENT A. The results of immunohistochemistry for Helicobacter pylori will be reported separately ([id number]). MICROSCOPIC DESCRIPTION Slides are reviewed. A. The specimen shows fragments of gastric mucosa with chronic inflammatory cell infiltrates in the lamina propria consisting of lymphocytes and plasma cells, consistent with mild chronic gastritis. GROSS DESCRIPTION A - Received in fixative is one container labeled with the patient's name and designated antrum biopsy. The specimen consists of two irregular fragments of light carlton soft tissue that in aggregate measure 0.4 x 0.3 x 0.1 cm. The specimen is totally submitted in one cassette. B - Received in fixative is one container labeled with the patient's name and designated random colonic biopsy. The specimen consists of multiple irregular fragments of light carlton soft tissue that in aggregate measure 1.5 x 0.5 x 0.1 cm. The specimen is totally submitted in one cassette. C - Received in fixative is one container labeled with the patient's name and designated transverse colon polyp biopsy. The specimen consists of two irregular fragments of light carlton soft tissue that in aggregate measure 0.8 x 0.3 x 0.1 cm. The specimen is totally submitted in one cassette. / SJ:rg 02/25/21 TC:5 CPT: 55160 x3
--- NOTE | 2021-02-25 09:06 | OP.CCLET_ITS ---
02/25/2021 Ceferino Perez [address] [place] [address] Re : Upper GI endoscopy procedure for Gael Rosado Dear Dr. Perez This procedure was performed on Thursday, February 25, 2021. My impressions and recommendations are as follows: Impressions : - Gastritis. Biopsied. - Normal esophagus. - Normal examined duodenum. Recommendations : - Discharge patient to home. - Resume previous diet. - Continue present medications. - Await pathology results. My findings are described in the full procedure note, which is enclosed. If I can be of further assistance, please feel free to contact me at Doctor phone number(s): , Work: . Sincerely, Fredrick Evans MD 02/25/2021 9:05:44 AM This report has been signed electronically.
--- NOTE | 2021-02-25 09:06 | OP.EGD_ITS ---
Patient Name: Gael Rosado Procedure Date: 02/25/2021 8:26 AM Date of : 1965 Age: 55 Procedure: Upper GI endoscopy Indications: Epigastric abdominal pain, Abdominal pain in the right upper quadrant Providers: Fredrick Evans MD Referring MD: Ceferino Perez Medicines: Monitored Anesthesia Care Patient Profile: This is a 55 year old male. Refer to note in patient chart for documentation of history and physical. Complications: No immediate complications. Procedure: Pre-Anesthesia Assessment: - Prior to the procedure, a History and Physical was performed, and patient medications and allergies were reviewed. The patient's tolerance of previous anesthesia was also reviewed. The risks and benefits of the procedure and the sedation options and risks were discussed with the patient. All questions were answered, and informed consent was obtained. Prior Anticoagulants: The patient has taken no previous anticoagulant or antiplatelet agents. After reviewing the risks and benefits, the patient was deemed in satisfactory condition to undergo the procedure. After obtaining informed consent, the endoscope was passed under direct vision. Throughout the procedure, the patient's blood pressure, pulse, and oxygen saturations were monitored continuously. The gastroscope was introduced through the mouth, and advanced to the second part of duodenum. The upper GI endoscopy was accomplished without difficulty. The patient tolerated the procedure well. Scope In: 8:41:04 AM Scope Out: 8:43:26 AM Total Procedure Duration Time 0 hours 2 minutes 22 seconds Findings: Scattered moderate inflammation was found in the gastric antrum. Biopsies were taken with a cold forceps for Helicobacter pylori testing. The esophagus was normal. The examined duodenum was normal. Impression: - Gastritis. Biopsied. - Normal esophagus. - Normal examined duodenum. Recommendation: - Discharge patient to home. - Resume previous diet. - Continue present medications. - Await pathology results. Procedure Code(s): --- Professional --- 14897, Esophagogastroduodenoscopy, flexible, transoral; with biopsy, single or multiple Diagnosis Code(s): --- Professional --- K29.70, Gastritis, unspecified, without bleeding R10.13, Epigastric pain R10.11, Right upper quadrant pain CPT copyright 2017 [employer]. All rights reserved. The codes documented in this report are preliminary and upon adjuster leader review may be revised to meet current compliance requirements. Fredrick Evans MD 02/25/2021 9:05:44 AM This report has been signed electronically. Number of Addenda: 0 Note Initiated On: 02/25/2021 8:26 AM
--- NOTE | 2021-02-25 09:08 | OP.COLON_ITS ---
Patient Name: Gael Rosado Procedure Date: 02/25/2021 8:45 AM Date of : 1965 Age: 55 Procedure: Colonoscopy Indications: Abdominal pain in the right lower quadrant, Abdominal pain in the right upper quadrant, Chronic diarrhea Providers: Fredrick Evans MD Referring MD: Ceferino Perez Medicines: Monitored Anesthesia Care Patient Profile: This is a 55 year old male. Refer to note in patient chart for documentation of history and physical. Last Colonoscopy: date unknown. Complications: No immediate complications. Estimated blood loss: Minimal. Procedure: Pre-Anesthesia Assessment: - Prior to the procedure, a History and Physical was performed, and patient medications and allergies were reviewed. The patient's tolerance of previous anesthesia was also reviewed. The risks and benefits of the procedure and the sedation options and risks were discussed with the patient. All questions were answered, and informed consent was obtained. Prior Anticoagulants: The patient has taken no previous anticoagulant or antiplatelet agents. After reviewing the risks and benefits, the patient was deemed in satisfactory condition to undergo the procedure. After I obtained informed consent, the scope was passed under direct vision. Throughout the procedure, the patient's blood pressure, pulse, and oxygen saturations were monitored continuously. The Colonoscope was introduced through the anus and advanced to the cecum, identified by appendiceal orifice and ileocecal valve. The colonoscopy was performed without difficulty. The patient tolerated the procedure well. The quality of the bowel preparation was good. Scope In: 8:46:41 AM Scope Withdrawal Time 0 hours 12 minutes 43 seconds Scope Out: 9:01:36 AM Total Procedure Duration Time 0 hours 14 minutes 55 seconds Findings: A medium polyp was found in the transverse colon. The polyp was removed with a hot snare. Resection and retrieval were complete. Biopsies for histology were taken with a cold forceps from the entire colon for evaluation of microscopic colitis. For hemostasis, one hemostatic clip was successfully placed in the descending colon. There was no bleeding at the end of the procedure. The exam was otherwise without abnormality on direct and retroflexion views. Impression: - One medium polyp in the transverse colon, removed with a hot snare. Resected and retrieved. - The examination was otherwise normal on direct and retroflexion views. - Biopsies were taken with a cold forceps from the entire colon for evaluation of microscopic colitis. - One hemostatic clip was successfully placed in the descending colon. Recommendation: - Discharge patient to home. - Resume previous diet. - Continue present medications. - Await pathology results. - Repeat colonoscopy in 5 years for surveillance based on pathology results. Procedure Code(s): --- Professional --- 96986, 58, Colonoscopy, flexible; with control of bleeding, any method 19658, Colonoscopy, flexible; with removal of tumor(s), polyp(s), or other lesion(s) by snare technique Diagnosis Code(s): --- Professional --- D12.3, Benign neoplasm of transverse colon (hepatic flexure or splenic flexure) R10.31, Right lower quadrant pain R10.11, Right upper quadrant pain K52.9, Noninfective gastroenteritis and colitis, unspecified CPT copyright 2017 [employer]. All rights reserved. The codes documented in this report are preliminary and upon quantitative manager review may be revised to meet current compliance requirements. Fredrick Evans MD 02/25/2021 9:08:12 AM This report has been signed electronically. Number of Addenda: 0 Note Initiated On: 02/25/2021 8:45 AM
--- NOTE | 2021-02-25 09:09 | OP.CCLET_ITS ---
02/25/2021 Ceferino Perez [address] [place] [address] Re : Colonoscopy procedure for Gael Rosado Dear Dr. Perez This procedure was performed on Thursday, February 25, 2021. My impressions and recommendations are as follows: Impressions : - One medium polyp in the transverse colon, removed with a hot snare. Resected and retrieved. - The examination was otherwise normal on direct and retroflexion views. - Biopsies were taken with a cold forceps from the entire colon for evaluation of microscopic colitis. - One hemostatic clip was successfully placed in the descending colon. Recommendations : - Discharge patient to home. - Resume previous diet. - Continue present medications. - Await pathology results. - Repeat colonoscopy in 5 years for surveillance based on pathology results. My findings are described in the full procedure note, which is enclosed. If I can be of further assistance, please feel free to contact me at Doctor phone number(s): , Work: . Sincerely, Fredrick Evans MD 02/25/2021 9:08:12 AM This report has been signed electronically.
== END 2021-02-25 09:59 ==
LOC: EN 07:24 → AC 07:25
PROVIDERS: PCP Family Medicine; Referring Provider Family Medicine; Visit Provider Surgery
PROC: 0DJD8ZZ Inspection of Lower Intestinal Tract, Via Natural or Artificial Opening Endoscopic (ICD-10-PCS; CPT 45378; principal; 2021-02-25 08:25)
DX: D12.3 Benign neoplasm of transverse colon (principal); K29.50 Unspecified chronic gastritis without bleeding; K21.00 Gastro-esophageal reflux disease with esophagitis, without bleeding; K52.9 Noninfective gastroenteritis and colitis, unspecified; I10 Essential (primary) hypertension; K21.9 Gastro-esophageal reflux disease without esophagitis; M79.7 Fibromyalgia; F41.9 Anxiety disorder, unspecified; F32.9 Major depressive disorder, single episode, unspecified; Z98.52 Vasectomy status
CPT/HCPCS: 43239; 45382; 45385; 88305; 88342; J7120; J2405

== ENCOUNTER → 2021-03-10 08:36 | Outpatient (CLI) | payer BC, SELFPAY ==
[2021-02-25 07:49] VITALS: BMI 31.6
[2021-03-10 11:04] LABS: ALB/GLOB Ratio 1.3 RATIO (0.9-2.4); AST(SGOT) 14 U/L (15-37); Alanine Aminotransfer ALT/SGPT 25 U/L (16-61); Albumin, Serum 3.9 g/dL (3.2-5.0); Alkaline Phosphatase 88 U/L (45-117); Anion Gap 8 (5-15); BUN 14 mg/dL (7-18); BUN/Creat Ratio 11.7 RATIO (10-20); Calcium,Total 9.2 mg/dL (8.5-10.1); Chloride 104 mmol/L (98-107); EST Glomerular Filtration Rate 66 mL/min (>60); Est Glom Filt Rate - Afr Amer 80 mL/min (>60); Glucose 103 mg/dL (74-106); Potassium 3.9 mmol/L (3.5-5.1); Protein, Total 6.9 g/dL (6.4-8.2); Sodium Level 139 mmol/L (136-145); T4 Free Direct 0.97 ng/dL (0.76-1.46); Thyroid Stim Hormone (TSH) 1.28 uIU/mL (0.358-3.74)
[2021-03-10 12:11] LABS: Hepatitis C Antibody Non-Reactive (Nonreactive)
== END ==
PROVIDERS: PCP Family Medicine; Referring Provider Family Medicine; Visit Provider Family Medicine
DX: E03.9 Hypothyroidism, unspecified (principal); K76.0 Fatty (change of) liver, not elsewhere classified
CPT/HCPCS: 36415; 80053; 84439; 84443; 86803

== ENCOUNTER → 2021-03-14 07:47 | Outpatient (CLI) | payer BC, SELFPAY ==
[2021-02-25 07:49] VITALS: BMI 31.6
--- NOTE | 2021-03-14 07:52 | US_ITS ---
STUDY: ABDOMINAL ULTRASOUND - ELASTOGRAPHY REASON FOR VISIT: Male, 55 years old. Fatty infiltration of the liver. TECHNIQUE: Liver stiffness measurements were obtained on a [employer] RS 85 ultrasound machine using a CA 1-7 probe following the SRU guidelines. 3 measurements were obtained using a 2-D-SWE method. The IQR/M was 8% suggesting a quality data set. TECHNICAL QUALITY: Adequate. COMPARISON: Comparison is made with a prior examination dated 02/05/2021. FINDINGS: Liver: Fatty infiltration of the liver. Median liver stiffness measured 7.3 kPa. US/Elastography Parenchyma/Organ IMPRESSION: Liver stiffness measures 7.3 kPa compatible with F2 Metavir score. Electronically Signed: Abdelrahman Mckeon MD at 10:03 EDT , Service support ,
== END ==
PROVIDERS: PCP Family Medicine; Referring Provider Family Medicine; Visit Provider Family Medicine
DX: K76.0 Fatty (change of) liver, not elsewhere classified (principal)
CPT/HCPCS: 76981

== ENCOUNTER → 2021-03-21 09:52 | Outpatient (CLI) | payer BC, SELFPAY ==
[2021-02-25 07:49] VITALS: BMI 31.6
--- NOTE | 2021-03-21 09:59 | NM_ITS ---
CLINICAL: 55-year-old male with history of abdominal pain. RADIONUCLIDE HEPATOBILIARY SCINTIGRAPHY COMPARISON: Abdominal ultrasound report 02/05/2021, CT of the abdomen-pelvis report 02/20/2021 FINDINGS: Following the intravenous administration of 5.0 mCi of 99m Tc Mebrofenin, hepatobiliary images reveal: 1. Relatively prompt and homogeneous radiopharmaceutical concentration is noted by a normal sized liver. No parenchymal defects are identified. 2. Gallbladder activity is identified at 10 minutes post radiopharmaceutical administration. 3. Small intestinal tract is observed at 45 minutes following tracer injection. 4. Washout of the radiopharmaceutical by the hepatic parenchyma appears qualitatively normal. The patient was administered a fatty meal (8 ounces Boost). The post fatty meal ingestion gallbladder ejection fraction calculated at 29 minutes following fatty meal administration was noted to be 92.0 % (normal greater than 30%). Duodenal-gastric reflux is demonstrated following the administration of the fatty meal. NM/Hepatobilliary Img w/Pharm Int IMPRESSION: 1. A gallbladder ejection fraction calculated to be greater than 30% following the administration of an ingested fatty meal makes the probability of functional hepatobiliary disease (gallbladder and/or sphincter of Oddi dyskinesia) and/or organic hepatobiliary disease (chronic acalculous cholecystitis and/or cystic duct syndrome) to be low. ([employer] and [employer], J Nucl Med 43: 1603, 2002). 2. There is scintigraphic evidence of post fatty meal duodenal gastric reflux as described above. Electronically Signed: Saúl Shanks DO at 7:55 EDT Tel , Service support ,
== END ==
PROVIDERS: PCP Family Medicine; Referring Provider Family Medicine; Visit Provider Family Medicine
DX: R10.84 Generalized abdominal pain (principal)
CPT/HCPCS: 78227; A9537

== ENCOUNTER 2021-04-08 08:30 | Outpatient (RCR) | payer BC, SELFPAY ==
[2021-02-25 07:49] VITALS: BMI 31.6
== END 2021-04-12 23:59 ==
LOC: NS 08:30
PROVIDERS: PCP Family Medicine; Visit Provider Family Medicine
DX: Z71.3 Dietary counseling and surveillance (principal); K76.0 Fatty (change of) liver, not elsewhere classified; Z68.32 Body mass index [BMI] 32.0-32.9, adult
CPT/HCPCS: 97802

== ENCOUNTER 2021-05-06 08:23 | Outpatient (RCR) | payer BC, SELFPAY ==
[2021-02-25 07:49] VITALS: BMI 31.6
== END 2021-05-13 23:59 ==
LOC: NS 08:23
PROVIDERS: PCP Family Medicine; Visit Provider Family Medicine
DX: Z71.3 Dietary counseling and surveillance (principal); K76.0 Fatty (change of) liver, not elsewhere classified; Z68.32 Body mass index [BMI] 32.0-32.9, adult
CPT/HCPCS: 97802

== ENCOUNTER → 2021-05-21 06:15 | Outpatient (CLI) | payer BC, SELFPAY ==
[2021-05-21 07:58] LABS: ALB/GLOB Ratio 1.2 RATIO (0.9-2.4); AST(SGOT) 23 U/L (15-37); Alanine Aminotransfer ALT/SGPT 34 U/L (16-61); Albumin, Serum 3.8 g/dL (3.2-5.0); Alkaline Phosphatase 87 U/L (45-117); Anion Gap 3 (5-15); BUN 18 mg/dL (7-18); BUN/Creat Ratio 15.4 RATIO (10-20); CRP, High Sensitivity Cardiac 1.22 mg/L; Calcium,Total 9.2 mg/dL (8.5-10.1); Chloride 106 mmol/L (98-107); Cholesterol 231 mg/dL (200); Creatinine, Serum 1.17 mg/dL (0.70-1.30); EST Glomerular Filtration Rate 68 mL/min (>60); Est Glom Filt Rate - Afr Amer 83 mL/min (>60); Globulin 3.3 g/dL (2.2-4.2); Glucose 111 mg/dL (74-106); High Density Lipoprotein 37 mg/dL; Potassium 3.8 mmol/L (3.5-5.1); Protein, Total 7.1 g/dL (6.4-8.2); Sodium Level 139 mmol/L (136-145); Triglycerides 400 mg/dL
[2021-05-23 10:30] LABS: LDL, Direct 120295 134 mg/dL (0-99)
== END ==
PROVIDERS: PCP Family Medicine; Referring Provider Family Medicine; Visit Provider Family Medicine
DX: E78.00 Pure hypercholesterolemia, unspecified (principal); I10 Essential (primary) hypertension
CPT/HCPCS: 36415; 80053; 80061; 83721; 86141

== ENCOUNTER 2021-06-03 08:31 | Outpatient (RCR) | payer BC, SELFPAY ==
[2021-05-14 00:40] VITALS: BMI 31.6
== END 2021-06-12 23:59 ==
LOC: NS 08:31
PROVIDERS: PCP Family Medicine; Visit Provider Family Medicine
DX: Z71.3 Dietary counseling and surveillance (principal); K76.0 Fatty (change of) liver, not elsewhere classified; Z68.32 Body mass index [BMI] 32.0-32.9, adult
CPT/HCPCS: 97803

== ENCOUNTER 2021-07-01 08:26 | Outpatient (RCR) | payer BC, SELFPAY ==
[2021-06-13 00:30] VITALS: BMI 31.6
== END 2021-07-13 23:59 ==
LOC: NS 08:26
PROVIDERS: PCP Family Medicine; Visit Provider Family Medicine
DX: Z71.3 Dietary counseling and surveillance (principal); K76.0 Fatty (change of) liver, not elsewhere classified; Z68.32 Body mass index [BMI] 32.0-32.9, adult
CPT/HCPCS: 97803

== ENCOUNTER 2021-07-29 08:43 | Outpatient (RCR) | payer BC, SELFPAY ==
[2021-07-14 00:24] VITALS: BMI 31.6
== END 2021-08-12 23:59 ==
LOC: NS 08:43
PROVIDERS: PCP Family Medicine; Visit Provider Family Medicine
DX: Z71.3 Dietary counseling and surveillance (principal); K76.0 Fatty (change of) liver, not elsewhere classified
CPT/HCPCS: 97803

== ENCOUNTER 2021-08-26 11:20 | Outpatient (RCR) | payer BC, SELFPAY ==
[2021-08-13 00:29] VITALS: BMI 31.6
== END 2021-09-12 23:59 ==
LOC: NS 11:20
PROVIDERS: PCP Family Medicine; Visit Provider Family Medicine
DX: Z71.3 Dietary counseling and surveillance (principal); K76.0 Fatty (change of) liver, not elsewhere classified; Z68.32 Body mass index [BMI] 32.0-32.9, adult
CPT/HCPCS: 97803

== ENCOUNTER → 2022-01-12 | Outpatient (CLI) | payer BC, SELFPAY ==
[2022-01-12 07:35] LABS: Microalbumin,Random Urine 7.7 mg/L (NO RANGE EST.); Microalbumin:Creatinine Ratio 3.6 mg/g CRE (<30 mg/g CRE)
[2022-01-12 07:42] LABS: ALB/GLOB Ratio 1.2 RATIO (0.9-2.4); AST(SGOT) 15 U/L (15-37); Alanine Aminotransfer ALT/SGPT 23 U/L (16-61); Albumin, Serum 3.8 g/dL (3.2-5.0); Alkaline Phosphatase 78 U/L (45-117); Anion Gap 4 (5-15); BUN 22 mg/dL (7-18); BUN/Creat Ratio 17.1 RATIO (10-20); Calcium,Total 9.2 mg/dL (8.5-10.1); Chloride 106 mmol/L (98-107); Cholesterol 197 mg/dL (200); Creatinine, Serum 1.29 mg/dL (0.70-1.30); EST Glomerular Filtration Rate 61 mL/min (>60); Est Glom Filt Rate - Afr Amer 74 mL/min (>60); Globulin 3.2 g/dL (2.2-4.2); Glucose 112 mg/dL (74-106); High Density Lipoprotein 64 mg/dL; Potassium 3.7 mmol/L (3.5-5.1); Sodium Level 139 mmol/L (136-145); Triglycerides 73 mg/dL; Very Low Density Lipoprotein 15 mg/dL (5-40)
== END | disposition home or self-care (01) ==
LOC: LAB 06:15
PROVIDERS: PCP Family Medicine; Referring Provider Family Medicine; Visit Provider Family Medicine
DX: I10 Essential (primary) hypertension (principal); E78.00 Pure hypercholesterolemia, unspecified
CPT/HCPCS: 36415; 80053; 80061; 82043; 82570

== ENCOUNTER → 2022-04-16 | Outpatient (CLI) | payer BC, SELFPAY ==
[2022-04-16 07:42] LABS: Absolute Neutrophil Count 3.5 X10^3/uL (2.0-7.7); Basophil# 0.05 X10^3/uL; Basophil% 0.7 % (0-1); Eosinophil# 0.59 X10^3/uL; Eosinophils% 8.8 % (0-5); Hematocrit 45.1 % (40-54); Hemoglobin 15.2 g/dL (13.0-16.5); Lymphocyte % 28.4 % (19-41); Mean Corp Hgb Conc 33.7 g/dL (32-36); Mean Corpuscular Hgb 30.8 pg (27.0-32.0); Mean Corpuscular Volume 91.3 fL (80-94); Mean Platelet Vol. 10.5 fl (6.2-12.0); Monocyte# 0.69 X10^3/uL; Monocyte% 10.3 % (0-10); NRBC Flagged by Analyzer 0 % (0-5); Neutrophil # 3.45 X10^3/uL (2.7-7.7); Neutrophil % 51.5 % (47-70); Platelet Count 253 K/mm3 (150-450); RBC Distribution Width CV 12.2 % (11.6-14.6); RBC Distribution Width SD 40.5 fl (35.1-43.9); Red Blood Count 4.94 M/mm3 (4.6-6.2); White Blood Count 6.7 K/mm3 (4.4-11.0)
== END | disposition home or self-care (01) ==
LOC: LAB 06:15
PROVIDERS: PCP Family Medicine; Visit Provider Family Medicine
DX: J30.9 Allergic rhinitis, unspecified (principal)
CPT/HCPCS: 36415; 85025

== ENCOUNTER → 2022-07-28 | Outpatient (CLI) | payer BC, SELFPAY ==
--- NOTE | 2022-07-28 16:17 | RAD_ITS ---
INDICATION: cough EXAMINATION/TECHNIQUE: X-RAY - XR Chest 2 Views COMPARISON: None. FINDINGS: The lungs are clear. The cardiomediastinal silhouette is unremarkable. No pleural effusion or pneumothorax. No acute osseous abnormalities. RAD/Chest PA and Lateral IMPRESSION: No acute radiographic abnormalities. Electronically Signed: Cheng Royal MD at 17:21 EST ,
== END | disposition home or self-care (01) ==
LOC: MTRAD 16:17
PROVIDERS: PCP Family Medicine; Referring Provider Family Medicine; Visit Provider Family Medicine
DX: R05.9 Cough, unspecified (principal)
CPT/HCPCS: 71046

== ENCOUNTER → 2022-10-13 | Outpatient (CLI) | payer BC, SELFPAY ==
--- NOTE | 2022-10-13 12:45 | RAD_ITS ---
EXAM: XR CHEST, 2 VIEWS CLINICAL INDICATION: COUGH TECHNIQUE: Frontal and lateral views of the chest. This report was created using [employer] report generation technology. COMPARISON: 07/28/2022 FINDINGS: LUNGS AND PLEURAL SPACES: Unremarkable. No consolidation or edema. No pneumothorax. No effusion. HEART: Unremarkable. Cardiac silhouette not enlarged. MEDIASTINUM: Central airways and mediastinal contour are unremarkable. BONES/JOINTS: Unremarkable. SOFT TISSUES: Unremarkable. RAD/Chest PA and Lateral IMPRESSION: No radiographic evidence of acute cardiopulmonary disease. Electronically Signed: Mariusz Rivera MD at 17:34 EST ,
== END | disposition home or self-care (01) ==
LOC: MTRAD 12:44
PROVIDERS: PCP Family Medicine; Referring Provider Family Medicine; Visit Provider Family Medicine
DX: R05.9 Cough, unspecified (principal)
CPT/HCPCS: 71046

== ENCOUNTER → 2022-10-31 | Outpatient (CLI) | payer BC, SELFPAY ==
[2022-10-31 09:57] LABS: Absolute Lymphocyte Count 1.53 X10^3/uL (0.83-4.51); Absolute Neutrophil Count 3.2 X10^3/uL (2.0-7.7); Basophil# 0.03 X10^3/uL; Basophil% 0.5 % (0-1); Eosinophil# 0.38 X10^3/uL; Eosinophils% 6.7 % (0-5); Hematocrit 44.2 % (40-54); Hemoglobin 14.9 g/dL (13.0-16.5); Lymphocyte # 1.53 X10^3/ul (0.83-4.51); Lymphocyte % 26.8 % (19-41); Mean Corp Hgb Conc 33.7 g/dL (32-36); Mean Corpuscular Hgb 31.2 pg (27.0-32.0); Mean Corpuscular Volume 92.7 fL (80-94); Mean Platelet Vol. 10.4 fl (6.2-12.0); Monocyte# 0.56 X10^3/uL; Monocyte% 9.8 % (0-10); NRBC Flagged by Analyzer 0 % (0-5); Neutrophil # 3.18 X10^3/uL (2.7-7.7); Neutrophil % 55.8 % (47-70); Platelet Count 283 K/mm3 (150-450); RBC Distribution Width CV 12.4 % (11.6-14.6); RBC Distribution Width SD 41.9 fl (35.1-43.9); Red Blood Count 4.77 M/mm3 (4.6-6.2); White Blood Count 5.7 K/mm3 (4.4-11.0)
[2022-10-31 10:30] LABS: Microalbumin,Random Urine 15.2 mg/L (NO RANGE EST.); Microalbumin:Creatinine Ratio 10.6 mg/g CRE (<30 mg/g CRE)
[2022-10-31 10:31] LABS: ALB/GLOB Ratio 1.1 RATIO (0.9-2.4); AST(SGOT) 16 U/L (15-37); Alanine Aminotransfer ALT/SGPT 27 U/L (16-61); Albumin, Serum 3.6 g/dL (3.2-5.0); Alkaline Phosphatase 74 U/L (45-117); Anion Gap 7 (5-15); BUN 16 mg/dL (7-18); BUN/Creat Ratio 12.7 RATIO (10-20); Calcium,Total 9.5 mg/dL (8.5-10.1); Chloride 107 mmol/L (98-107); Cholesterol 215 mg/dL (200); Creatinine, Serum 1.26 mg/dL (0.70-1.30); EST Glomerular Filtration Rate 62 mL/min (>60); Est Glom Filt Rate - Afr Amer 76 mL/min (>60); Globulin 3.4 g/dL (2.2-4.2); Glucose 116 mg/dL (74-106); High Density Lipoprotein 67 mg/dL; PSA,Total - Annual Screen 5.09 ng/mL (0.00-4.00); Potassium 4.5 mmol/L (3.5-5.1); Sodium Level 141 mmol/L (136-145); Triglycerides 119 mg/dL; Very Low Density Lipoprotein 24 mg/dL (5-40)
[2022-11-02 08:05] LABS: Vitamin D,25 Hydroxy 76.8 ng/mL
[2022-11-02 09:23] LABS: Hemoglobin A1c 5.5 % (3.8-5.6)
== END | disposition home or self-care (01) ==
LOC: LAB 09:26
PROVIDERS: PCP Family Medicine; Referring Provider Family Medicine; Visit Provider Family Medicine
DX: Z00.00 Encounter for general adult medical examination without abnormal findings (principal)
CPT/HCPCS: 36415; 80053; 80061; 82043; 82306; 82570; 83036; 84153; 84443; 85025; G0103

== ENCOUNTER → 2023-02-04 | Outpatient (CLI) | payer BC, SELFPAY ==
[2023-02-04 10:36] LABS: PSA,Total- Diagnostic 3.98 ng/mL (0.0-4.0)
== END | disposition home or self-care (01) ==
LOC: LAB 09:07
PROVIDERS: PCP Family Medicine; Referring Provider Urology; Visit Provider Urology
DX: R97.20 Elevated prostate specific antigen [PSA] (principal)
CPT/HCPCS: 36415; 84153

== ENCOUNTER → 2023-02-16 | Outpatient (CLI) | payer BC, SELFPAY ==
--- NOTE | 2023-02-16 08:30 | MRI_ITS ---
STUDY: MR PELVIS WITH AND WITHOUT CONTRAST (PROSTATE) REASON FOR EXAM: Male, 57 years old. Elevated PSA TECHNIQUE: Standardized multiparametric prostate MRI with T1, T2, DWI/ADC sequences were obtained in 3 orthogonal planes, and dynamic contrast enhancement sequences. 17ml Clariscan contrast material was administered intravenously for the contrast portion of the examination. COMPARISON: None. FINDINGS: The prostate volume measures 32 mm3. The contours of the prostate gland are smooth. There is not mass effect on the bladder base. The transition zone is homogenous. PI-RADS DWI score 3 - Focal mildly hypointense on ADC and isointense/mildly hyperintense on high b-value DWI, best seen on image 16 series 501 and 500. PI-RADS T2W score 3 - Heterogeneous signal intensity with obscured margins measuring 8 x 8.7 mm in the lateral right prostatic base. Contrast enhancement no early or contemporaneous enhancement; or diffuse multifocal enhancement NOT corresponding to a focal finding on T2W and/or DWI or focal ehancement responding to a lesion demonstrating features of BPH onT2WI (including features of extruded BPH in the PZ). The peripheral zone is homogenous. PI-RADS DWI score 1 - No abnormality (normal) on ADC or high b-value DWI. PI-RADS T2W score 1 - Uniformaly hyperintense (normal). Contrast enhancement no early or contemporaneous enhancement; or diffuse multifocal enhancement NOT corresponding to a focal finding on T2W and/or DWI or focal enhancement responding to a lesion demonstrating features of BPH onT2WI (including features of extruded BPH in the PZ). The seminal vesicles demonstrate normal margins and T2 signal pattern. No mass lesion or invasion depicted. The rectoprostatic angles are normal. Urinary bladder is normal without wall thickening. The vascular structures of the are normal. The visualized hollow viscus structures are normal. No bone marrow edema or mass lesion depicted. MRI/Pelvis W/WO Contrast IMPRESSION: 1. PIRADS v2.1 2019 -- 3 - Intermediate (clinically significant cancer is equivocal). Electronically Signed: Yoshi Leon (Brooks), at 16:06 EDT ,
[2023-02-16 08:39] LABS: CREATININE FINGERSTICK < 0.9 mg/dL (0.70-1.30); EGFR FINGERSTICK > 60.0000 mL/min (>60)
== END | disposition home or self-care (01) ==
PROVIDERS: PCP Family Medicine; Referring Provider Urology; Visit Provider Urology
DX: R97.20 Elevated prostate specific antigen [PSA] (principal)
CPT/HCPCS: 72197; A9575

== ENCOUNTER 2023-03-28 15:50 | Emergency (ER) | payer BC, SELFPAY ==
[2023-03-28 15:50] VITALS: BP 175/93; PULSE 107; RESP 18; TEMP 37.1; O2SAT 98; BMI 31.9
--- NOTE | 2023-03-28 16:24 | EX.ED.GENINJ ---
HPI <JACKY Grant - Last Filed: 03/28/23 17:43> History of Present Illness Chief Complaint: Laceration Narrative Narrative: Patient presenting today with a laceration to his left fifth finger that he got while using hand-held clippers to cut bushes earlier this afternoon. His tetanus is up-to-date. He is not on any blood thinners. He denies any other injury. PFS <JACKY Grant - Last Filed: 03/28/23 17:43> [facility] Medical History Abdominal pain Alcohol use Anxiety and depression Asthma Belching CPAP (continuous positive airway pressure) dependence Diarrhea Fibromyalgia Gastric reflux GERD (gastroesophageal reflux disease) History of edema History of IBS History of pain when walking History of steroid therapy History of stress test History of ulceration HTN (hypertension) Injury of head and neck Internal bleeding hemorrhoids Marijuana use Non-smoker Rectal bleeding Sleep apnea Substance abuse Syncope Thyroid disease Wears glasses Home Medications Astepro 2 spray DAILY 12/11/14 [History Last Taken Unknown] albuterol sulfate 90 mcg/actuation aerosol inhaler 1 - 2 puff inhalation Q4H PRN PRN Asthma 12/11/14 [History Last Taken Unknown] escitalopram oxalate 10 mg tablet (Lexapro) 2.5 mg PO DAILY 06/14/18 [History Last Taken Unknown] L.acidoph, paracasei,B. lactis 10 billion cell capsule 1 ea PO DAILY 06/17/18 [History Last Taken Unknown] ginkgo biloba 60 mg capsule 60 mg PO DAILY 06/17/18 [History Last Taken Unknown] melatonin 5 mg-pyridoxine (vitamin B6) 1 mg tablet 1 ea PO QHS 06/17/18 [History Last Taken Unknown] amlodipine 2.5 mg tablet 5 mg PO DAILY 11/01/18 [History Last Taken 02/25/21] cyanocobalamin (B12)-cobamamide 5,000 mcg-100 mcg sublingual lozenge (B12) 1 fanta sublingual DAILY 11/01/18 [History Last Taken Unknown] ascorbic acid (vitamin C) 500 mg tablet,extended release 1,000 mg PO DAILY 02/17/21 [History Last Taken Unknown] cholecalciferol (vitamin D3) 25 mcg (1,000 unit) capsule 5,000 unit PO DAILY 02/17/21 [History Last Taken Unknown] levothyroxine 25 mcg capsule 25 mcg PO DAILY 02/17/21 [History Last Taken 02/25/21] pantoprazole 40 mg tablet,delayed release 40 mg PO DAILY 02/17/21 [History Last Taken 02/25/21] sucralfate 1 gram tablet (Carafate) 1 g PO QACHS #90 tabs 02/17/21 [Rx Last Taken Unknown] Allergy/AdvReac Type Severity Reaction Status Date / Time shellfish derived Allergy Intermediate Vomiting Verified 03/28/23 15:52 vilazodone HCl [From Viibryd] Allergy Hives Verified 03/28/23 15:52 Family History Mother Arthritis Breast cancer Diabetes Father Arthritis Colon cancer Hypertension Cancer skin cancer Surgical History History of colonoscopy (~06/2018) History of hemorrhoidectomy History of hernia repair History of vasectomy Social History Smoking Status: Never smoker alcohol intake: current alcohol intake frequency: a few times a month substance use type: does not use ROS <JACKY Grant - Last Filed: 03/28/23 17:43> ROS ED Constitutional Constitutional ED: Denies chills or fever(s) Cardiovascular Cardiovascular: Denies chest pain Respiratory/Chest Respiratory/Chest: Denies cough or dyspnea Gastrointestinal Gastrointestinal: Denies abdominal pain, nausea or vomiting Musculoskeletal Musculoskeletal: Denies arthralgias or myalgias Integumentary Reports laceration EXAM <JACKY Grant - Last Filed: 03/28/23 17:43> Physical Exam Const Vital Signs: 03/28/23 15:50 03/28/23 17:39 Temperature 98.7 F Temperature Source Temporal Pulse Rate 107 H Respiratory Rate 18 Blood Pressure 175/93 H 138/75 H Blood Pressure Mean 120 Pulse Ox 98 Oxygen Delivery Method Room Air Positive well nourished, well developed and no apparent distress General Appearance ED: well developed HEENT Reports normocephalic and head/scalp atraumatic Mouth ED: Yes moist mucous membranes normal Eyes PERRL and EOMs intact bilaterally Neck full ROM and supple Chest Wall inspection of chest normal Resp normal respiratory effort and clear to auscultation bilaterally Cardio regular rate and regular rhythm GI soft to palpation, non-tender, non-distended and no masses Back/Spine normal ROM and normal to inspection Extremity normal to inspection and full ROM Extremity Narrative: 3 cm laceration subcutaneous in depth to the left fifth finger with full flexion and extension to the MCP, DIP, and PIP joints. Radial pulses 2+ bilaterally, good capillary refill, sensation intact Neuro oriented x3, CN's II-XII intact bilaterally, moves all extremities, no focal motor deficits and no sensory deficits noted Sensorium / Orientation: awake and alert Psych mental status grossly normal and thought process normal <Dr. Lavon Ochoa, - Last Filed: 03/28/23 22:38> Physical Exam Const Vital Signs: 03/28/23 15:50 03/28/23 17:39 Temperature 98.7 F Temperature Source Temporal Pulse Rate 107 H Respiratory Rate 18 Blood Pressure 175/93 H 138/75 H Blood Pressure Mean 120 Pulse Ox 98 Oxygen Delivery Method Room Air PROC <JACKY Grant - Last Filed: 03/28/23 17:43> Procedures Lacerations Laceration: Depth: Skin Shape: Flap Prep: Chlorhexadine Laceration repair: Digital block, Irrigated, Lidocaine and Skin sutures Irrigated (ml): 50 Number of Sutures/[place]: 7 Suture Information: Ethilon (5-0) [facility] <JACKY Grant - Last Filed: 03/28/23 17:43> [facility] Narrative Medical decision making narrative: 3 cm laceration to the tip of the left fifth finger. This was soaked in warm soapy water and extensively irrigated with saline and cleaned with chlorhexidine. Tetanus is up-to-date. Digital block was performed with 1% lidocaine and this was sutured. Bacitracin ointment was applied and it was bandaged. He has been given education on signs of infection to look out for. He is to have the stitches removed in 7 to 10 days. He will be discharged home in stable condition and is comfortable with plan. <Dr. Lavon Ochoa, - Last Filed: 03/28/23 22:38> [facility] Narrative Medical decision making narrative: 3 cm laceration to the tip of the left fifth finger. This was soaked in warm soapy water and extensively irrigated with saline and cleaned with chlorhexidine. Tetanus is up-to-date. Digital block was performed with 1% lidocaine and this was sutured. Bacitracin ointment was applied and it was bandaged. He has been given education on signs of infection to look out for. He is to have the stitches removed in 7 to 10 days. He will be discharged home in stable condition and is comfortable with plan. This patient was seen with a PA/IT INFRASTRUCTURE MANAGER Individually assessed they patient including history and physical. I have reviewed everything on the chart that is available and agree with the documentation provided by the PA/IT INFRASTRUCTURE MANAGER including discussion about the assessment, treatment plan, discussion, and return precautions. Patient with laceration to left fifth finger. Bleeding is well controlled. Tetanus up-to-date. Sutures were placed. See procedure note. Patient given wound care instructions and return precautions. Discharge Plan Triage Chief Complaint: Laceration ED Midlevel Provider: Olamide Ernst ED Provider: Lavon Ochoa Dx/Rx/DC Orders Clinical Impression: Laceration Instructions: ED Laceration: All Closures Prescriptions: No Action escitalopram oxalate [Lexapro] 10 mg tablet 2.5 mg PO DAILY B12 5,000-100 mcg lozenge 1 fanta SUBLINGUAL DAILY amlodipine 2.5 mg tablet 5 mg PO DAILY sucralfate [Carafate] 1 gram tablet 1 g PO QACHS Qty: 90 0RF pantoprazole 40 mg tablet,delayed release (DR/EC) 40 mg PO DAILY levothyroxine 25 mcg capsule 25 mcg PO DAILY Astepro 2 spray NASAL DAILY albuterol sulfate 1 INHALER inhaler 1 - 2 puff inhalation Q4H PRN PRN (Reason: Asthma) ginkgo biloba 60 MG capsule 60 mg PO DAILY melatonin-pyridoxine (vit B6) 1 EACH tablet 1 ea PO QHS L.acidoph, paracasei,B. lactis 1 EACH capsule 1 ea PO DAILY ascorbic acid (vitamin C) 500 mg tablet extended release 1,000 mg PO DAILY cholecalciferol (vitamin D3) 25 mcg (1,000 unit) capsule 5,000 unit PO DAILY Primary Care Provider: Ceferino Perez Referrals: Ceferino Perez MD [Primary Care Provider] - 10 Day for suture removal Activity Restrictions/Additional Instructions: Have stitches removed in 7 to 10 days. Please return or follow-up with PCP sooner for any signs of infection such as increased redness, swelling, purulent discharge, or fever. Disposition Disposition: Home, Self Care Discharge Date/Time: 03/28/23 17:40
[2023-03-28 17:39] VITALS: BP 138/75
== END 2023-03-28 17:40 | disposition home or self-care (01) ==
PROVIDERS: Emergency Provider Student in an Organized Health Care Education/Training Program; PCP Family Medicine; Visit Provider Student in an Organized Health Care Education/Training Program
DX: S61.217A Laceration without foreign body of left little finger without damage to nail, initial encounter (principal); I10 Essential (primary) hypertension; J45.909 Unspecified asthma, uncomplicated; F41.8 Other specified anxiety disorders; Z79.899 Other long term (current) drug therapy; K21.9 Gastro-esophageal reflux disease without esophagitis; Z99.89 Dependence on other enabling machines and devices; Z98.52 Vasectomy status; W26.8XXA Contact with other sharp object(s), not elsewhere classified, initial encounter; Y93.89 Activity, other specified
CPT/HCPCS: 12002; 99282

== ENCOUNTER → 2023-07-13 | Outpatient (CLI) | payer BC, SELFPAY ==
[2023-07-13 10:02] LABS: Absolute Lymphocyte Count 1.31 X10^3/uL (0.83-4.51); Absolute Neutrophil Count 2.5 X10^3/uL (2.0-7.7); Basophil# 0.04 X10^3/uL; Basophil% 0.8 % (0-1); Eosinophil# 0.74 X10^3/uL; Eosinophils% 14.5 % (0-5); Hematocrit 43.9 % (40-54); Hemoglobin 14.7 g/dL (13.0-16.5); Lymphocyte # 1.31 X10^3/ul (0.83-4.51); Lymphocyte % 25.6 % (19-41); Mean Corp Hgb Conc 33.5 g/dL (32-36); Mean Corpuscular Hgb 31.1 pg (27.0-32.0); Mean Corpuscular Volume 92.8 fL (80-94); Mean Platelet Vol. 10.6 fl (6.2-12.0); Monocyte# 0.51 X10^3/uL; NRBC Flagged by Analyzer 0 % (0-5); Neutrophil % 48.7 % (47-70); Platelet Count 253 K/mm3 (150-450); RBC Distribution Width CV 12.5 % (11.6-14.6); RBC Distribution Width SD 42.5 fl (35.1-43.9); Red Blood Count 4.73 M/mm3 (4.6-6.2); White Blood Count 5.1 K/mm3 (4.4-11.0)
[2023-07-13 10:29] LABS: Microalbumin,Random Urine < 5.0 mg/L (NO RANGE EST.)
[2023-07-13 10:44] LABS: AST(SGOT) 26 U/L (15-37); Alanine Aminotransfer ALT/SGPT 58 U/L (16-61); Albumin, Serum 3.7 g/dL (3.2-5.0); Alkaline Phosphatase 78 U/L (45-117); Anion Gap 3 (5-15); BUN 22 mg/dL (7-18); BUN/Creat Ratio 17.3 RATIO (10-20); Calcium,Total 9.5 mg/dL (8.5-10.1); Chloride 109 mmol/L (98-107); Creatinine, Serum 1.27 mg/dL (0.70-1.30); EST Glomerular Filtration Rate 62 mL/min (>60); Est Glom Filt Rate - Afr Amer 75 mL/min (>60); Globulin 3.6 g/dL (2.2-4.2); Glucose 112 mg/dL (74-106); PSA,Total- Diagnostic 4.93 ng/mL (0.0-4.0); Potassium 4.1 mmol/L (3.5-5.1); Protein, Total 7.3 g/dL (6.4-8.2); Sodium Level 136 mmol/L (136-145)
== END | disposition home or self-care (01) ==
LOC: MTLAB 08:58
PROVIDERS: PCP Family Medicine; Referring Provider Family Medicine; Visit Provider Family Medicine
DX: J45.909 Unspecified asthma, uncomplicated (principal); R97.20 Elevated prostate specific antigen [PSA]; I10 Essential (primary) hypertension
CPT/HCPCS: 36415; 80053; 82043; 82570; 84153; 85025

== ENCOUNTER → 2024-01-15 | Outpatient (CLI) | payer BC, SELFPAY ==
[2024-01-15 10:05] LABS: Absolute Lymphocyte Count 1.67 X10^3/uL (0.83-4.51); Absolute Neutrophil Count 2.9 X10^3/uL (2.0-7.7); Basophil# 0.03 X10^3/uL; Basophil% 0.5 % (0-1); Eosinophil# 0.54 X10^3/uL; Eosinophils% 9.4 % (0-5); Hematocrit 45.9 % (40-54); Hemoglobin 15.5 g/dL (13.0-16.5); Lymphocyte # 1.67 X10^3/ul (0.83-4.51); Mean Corp Hgb Conc 33.8 g/dL (32-36); Mean Corpuscular Hgb 30.9 pg (27.0-32.0); Mean Corpuscular Volume 91.4 fL (80-94); Mean Platelet Vol. 10.1 fl (6.2-12.0); Monocyte# 0.64 X10^3/uL; Monocyte% 11.1 % (0-10); NRBC Flagged by Analyzer 0 % (0-5); Neutrophil # 2.85 X10^3/uL (2.7-7.7); Neutrophil % 49.7 % (47-70); Platelet Count 286 K/mm3 (150-450); RBC Distribution Width CV 12.5 % (11.6-14.6); RBC Distribution Width SD 41.1 fl (35.1-43.9); Red Blood Count 5.02 M/mm3 (4.6-6.2); White Blood Count 5.8 K/mm3 (4.4-11.0)
[2024-01-15 10:35] LABS: ALB/GLOB Ratio 1.2 RATIO (0.9-2.4); AST(SGOT) 20 U/L (15-37); Alanine Aminotransfer ALT/SGPT 40 U/L (16-61); Alkaline Phosphatase 80 U/L (45-117); Anion Gap 4 (5-15); BUN 19 mg/dL (7-18); BUN/Creat Ratio 15.3 RATIO (10-20); Calcium,Total 9.7 mg/dL (8.5-10.1); Chloride 107 mmol/L (98-107); Cholesterol 247 mg/dL (200); Creatinine, Serum 1.24 mg/dL (0.70-1.30); EST Glomerular Filtration Rate 63 mL/min (>60); Est Glom Filt Rate - Afr Amer 77 mL/min (>60); Globulin 3.3 g/dL (2.2-4.2); Glucose 119 mg/dL (74-106); High Density Lipoprotein 52 mg/dL; PSA,Total- Diagnostic 4.53 ng/mL (0.0-4.0); Potassium 4.5 mmol/L (3.5-5.1); Protein, Total 7.3 g/dL (6.4-8.2); Sodium Level 139 mmol/L (136-145); Triglycerides 99 mg/dL; Very Low Density Lipoprotein 20 mg/dL (5-40)
[2024-01-15 10:44] LABS: Microalbumin,Random Urine 15.7 mg/L (NO RANGE EST.)
== END | disposition home or self-care (01) ==
LOC: LAB 09:30
PROVIDERS: PCP Family Medicine; Referring Provider Family Medicine; Visit Provider Family Medicine
DX: M79.7 Fibromyalgia (principal); I10 Essential (primary) hypertension; R97.20 Elevated prostate specific antigen [PSA]
CPT/HCPCS: 36415; 80053; 80061; 82043; 82570; 84153; 85025

== ENCOUNTER → 2024-04-25 | Outpatient (CLI) | payer BC, SELFPAY ==
--- NOTE | 2024-04-25 | TISS_PTH ---
PATIENT: SANTOS LIAO [facility]: [facility] U#:[id number] AGE/SX: 58/M ROOM: RE04/25/[address]: Dr. Ceferino Perez MD : 1965 BED: DIS: 04/25/2024 SPEC #: [id number] RECD: 04/25/24 17:24 STATUS: CRAIG ANGEL #: [id number] DELMER: 04/25/24 00:[address]: Ceferino Perez DEPT: SURGICAL PATHOLOGY RECD BY: Vinicius Preciado Tissues: TISSUE SURGICALLY REMOVED Procedures: Surgery Specimen Level IV HEADER OPERATION: Mole excision PRE-OP DIAGNOSIS: Atypical nevus, right lower abdomen TISSUE SUBMITTED: Elliptical lesion right mid abdomen MICROSCOPIC DIAGNOSIS Skin lesion, right mid abdomen, biopsy: Verrucoid keratosis and hyperkeratosis with focal actinic change. AM 04/27/2024 COMMENT Case has been reviewed in consultation with Dr. Ashraf who concurs with the above diagnosis. IDC:SJ MICROSCOPIC DESCRIPTION Slides are reviewed. GROSS DESCRIPTION Received is one container labeled with the patient's name and not further designated. The specimen consists of a carlton-white skin ellipse measuring 0.8 x 0.3cm and up to 0.3cm in thickness. The skin surface shows a carlton-brown lesion measuring 0.5 x 0.3cm. The specimen is inked, serially sectioned and submitted entirely in one cassette. 04/26/2024 TC:5 CPT:94465
== END | disposition home or self-care (01) ==
PROVIDERS: PCP Family Medicine; Referring Provider Family Medicine; Visit Provider Family Medicine
DX: D36.7 Benign neoplasm of other specified sites (principal)
CPT/HCPCS: 88305

== ENCOUNTER → 2024-06-01 | Outpatient (CLI) | payer BC, SELFPAY ==
--- NOTE | 2024-06-01 08:50 | RAD_ITS ---
STUDY: X-RAY - LEFT SHOULDER REASON FOR EXAM: Male, 58 years old. left shoulder pain TECHNIQUE: 4 view(s) of the shoulder. COMPARISON: None. FINDINGS: Normal glenohumeral articulation. Normal acromioclavicular joint. Normal acromion. Normal humeral head and visualized proximal humerus. The soft tissue structures are unremarkable. There is no demonstrated fracture. Normal visualized pulmonary apex. RAD/Shoulder min 2 Views IMPRESSION: Normal x-ray examination of the shoulder. Electronically Signed: Manan Garcia MD at 23:56 EDT ,
== END | disposition home or self-care (01) ==
PROVIDERS: PCP Family Medicine; Referring Provider Family Medicine; Visit Provider Family Medicine
DX: M25.512 Pain in left shoulder (principal)
CPT/HCPCS: 73030

== ENCOUNTER → 2024-06-10 | Outpatient (CLI) | payer BC, SELFPAY ==
[2024-06-10 09:21] LABS: Absolute Lymphocyte Count 1.71 X10^3/uL (0.83-4.51); Absolute Neutrophil Count 3.1 X10^3/uL (2.0-7.7); Basophil# 0.04 X10^3/uL; Basophil% 0.7 % (0-1); Eosinophil# 0.62 X10^3/uL; Eosinophils% 10.3 % (0-5); Hematocrit 43.1 % (40-54); Hemoglobin 14.9 g/dL (13.0-16.5); Lymphocyte # 1.71 X10^3/ul (0.83-4.51); Lymphocyte % 28.5 % (19-41); Mean Corp Hgb Conc 34.6 g/dL (32-36); Mean Corpuscular Hgb 31.4 pg (27.0-32.0); Mean Corpuscular Volume 90.7 fL (80-94); Mean Platelet Vol. 10.1 fl (6.2-12.0); Monocyte# 0.55 X10^3/uL; Monocyte% 9.2 % (0-10); NRBC Flagged by Analyzer 0 % (0-5); Neutrophil # 3.06 X10^3/uL (2.7-7.7); Platelet Count 269 K/mm3 (150-450); RBC Distribution Width CV 12.2 % (11.6-14.6); RBC Distribution Width SD 40.3 fl (35.1-43.9); Red Blood Count 4.75 M/mm3 (4.6-6.2)
[2024-06-10 09:47] LABS: ALB/GLOB Ratio 1.2 RATIO (0.9-2.4); AST(SGOT) 16 U/L (15-37); Alanine Aminotransfer ALT/SGPT 35 U/L (16-61); Alkaline Phosphatase 91 U/L (45-117); Anion Gap 5 (5-15); BUN 18 mg/dL (7-18); BUN/Creat Ratio 13.6 RATIO (10-20); Calcium,Total 9.4 mg/dL (8.5-10.1); Chloride 110 mmol/L (98-107); Cholesterol 180 mg/dL (200); Creatinine, Serum 1.32 mg/dL (0.70-1.30); EST Glomerular Filtration Rate 59 mL/min (>60); Est Glom Filt Rate - Afr Amer 71 mL/min (>60); Globulin 3.3 g/dL (2.2-4.2); Glucose 110 mg/dL (74-106); High Density Lipoprotein 64 mg/dL; PSA,Total - Annual Screen 4.33 ng/mL (0.00-4.00); Potassium 4.3 mmol/L (3.5-5.1); Protein, Total 7.3 g/dL (6.4-8.2); Sodium Level 140 mmol/L (136-145); T4 Free Direct 0.96 ng/dL (0.76-1.46); Triglycerides 59 mg/dL; Very Low Density Lipoprotein 12 mg/dL (5-40)
== END | disposition home or self-care (01) ==
LOC: LAB 09:06
PROVIDERS: PCP Family Medicine; Referring Provider Family Medicine; Visit Provider Family Medicine
DX: E03.9 Hypothyroidism, unspecified (principal); E78.5 Hyperlipidemia, unspecified; I10 Essential (primary) hypertension; M79.7 Fibromyalgia; R97.20 Elevated prostate specific antigen [PSA]
CPT/HCPCS: 36415; 80053; 80061; 84153; 84439; 84443; 85025; G0103

== ENCOUNTER 2024-07-03 10:07 | Emergency (ER) | payer BC, SELFPAY ==
[2024-07-03 10:07] VITALS: BP 161/89; PULSE 69; RESP 16; TEMP 36.7; O2SAT 100; BMI 30.6
--- NOTE | 2024-07-03 11:26 | CT_ITS ---
STUDY: CT ABDOMEN AND PELVIS WITH CONTRAST REASON FOR EXAM: Male, 58 years old. RLQ Pain RADIATION DOSAGE (If Supplied By Facility): CTDIvol = ( 14.40 ) mGy, DLP = ( 870.14 ) mGycm TECHNIQUE: IV 100mL Isovue-300 was administered. Transaxial images were obtained from the dome of the diaphragm to the symphysis pubis. Multiplanar coronal and sagittal images were reformatted. The protocol utilizes one or more of the following dose reduction techniques: automated exposure control, adjustment of mA and/or kV according to patient size,and/or use of iterative reconstruction technique. COMPARISON: No relevant prior comparison study available FINDINGS: The visualized lung bases are unremarkable. The visualized portions of the heart are within normal limits. Hepatic steatosis. No focal lesion is seen. Normal gallbladder and extrahepatic biliary system. Septated 1.6 cm low-density lesion in the spleen could represent cyst or hemangioma. Normal pancreas. Normal bilateral adrenal glands. Normal visualized stomach. Normal caliber small bowel loops. The descending colon is not well distended. No evidence of acute diverticulitis. The appendix is visualized and appears normal. Normal abdominal aorta. No retroperitoneal adenopathy. Normal right kidney. Normal left kidney. Normal urinary bladder. Enlarged heterogeneous prostate. Correlation with PSA level is recommended. Densities in the region of the rectum could represent surgical anastomosis sutures or foreign body. Normal abdominal wall. Degenerative changes at the level of L5-S1. CT/Abdomen/Pelvis W IV Cont ONLY IMPRESSION: 1. No focal acute inflammatory process. 2. Splenic lesion could represent cysts or hemangioma. Correlation with nonemergent ultrasound might be of value. 3. Surgical clips or less likely foreign body in the region of the rectum. Electronically Signed: Burt Ramos MD at 12:37 EDT ,
--- NOTE | 2024-07-03 11:31 | ED.VIS.GI ---
HPI HPI - GI History of Present Illness Chief Complaint: Abd Pain Informant: patient and spouse/S.O. Narrative Narrative: 58-year-old male presenting to the emergency room with right lower quadrant abdominal pain. Patient states that for the past week he has had some discomfort on the right side of his abdomen. He notes chronic diarrhea but no change in that. States by Wednesday it seemed to have gotten better but symptoms returned Wednesday and are now worsening. Notes loss of appetite last ate around 2200 hrs. last night. He went to primary care today who felt that he had rebound on exam and felt he could have appendicitis so sent him to emergency. Patient notes a prior umbilical hernia repair. No other abdominal surgeries per the patient [facility] Medical History Wears glasses Alcohol use Substance abuse Marijuana use History of steroid therapy Thyroid disease Injury of head and neck Syncope History of ulceration History of IBS Gastric reflux Non-smoker CPAP (continuous positive airway pressure) dependence History of pain when walking History of edema History of stress test Abdominal pain Diarrhea Belching GERD (gastroesophageal reflux disease) Internal bleeding hemorrhoids HTN (hypertension) Fibromyalgia Sleep apnea Asthma Anxiety and depression Rectal bleeding Home Medications ?Medication ?Instructions ?Recorded ?Last Taken ?Type Astepro 2 spray DAILY 12/11/14 Unknown History albuterol sulfate 90 mcg/actuation 1 - 2 puff inhalation Q4H PRN PRN 12/11/14 Unknown History aerosol inhaler Asthma escitalopram oxalate 10 mg tablet 2.5 mg PO DAILY 06/14/18 Unknown History (Lexapro) L.acidoph, paracasei,B. lactis 10 1 ea PO DAILY 06/17/18 Unknown History billion cell capsule ginkgo biloba 60 mg capsule 60 mg PO DAILY 06/17/18 Unknown History melatonin 5 mg-pyridoxine (vitamin 1 ea PO QHS 06/17/18 Unknown History B6) 1 mg tablet amlodipine 2.5 mg tablet 5 mg PO DAILY 11/01/18 02/25/21 History cyanocobalamin (B12)-cobamamide 1 fanta sublingual DAILY 11/01/18 Unknown History 5,000 mcg-100 mcg sublingual lozenge (B12) ascorbic acid (vitamin C) 500 mg 1,000 mg PO DAILY 02/17/21 Unknown History tablet,extended release cholecalciferol (vitamin D3) 25 5,000 unit PO DAILY 02/17/21 Unknown History mcg (1,000 unit) capsule levothyroxine 25 mcg capsule 25 mcg PO DAILY 02/17/21 02/25/21 History pantoprazole 40 mg tablet,delayed 40 mg PO DAILY 02/17/21 02/25/21 History release sucralfate 1 gram tablet (Carafate) 1 g PO QACHS #90 tabs 02/17/21 Unknown Rx Allergy/AdvReac Type Severity Reaction Status Date / Time shellfish derived Allergy Intermediate Vomiting Verified 07/03/24 10:07 vilazodone HCl (From Viibryd) Allergy Hives Verified 07/03/24 10:07 Family History Mother Arthritis Breast cancer Diabetes Father Arthritis Colon cancer Hypertension Cancer skin cancer Surgical History History of hemorrhoidectomy History of colonoscopy (~06/2018) History of hernia repair History of vasectomy Social History Smoking Status: Never smoker alcohol intake: current alcohol intake frequency: a few times a month substance use type: does not use ROS ROS ED Constitutional Constitutional ED: Denies chills, fever(s) or weight loss Eyes Eyes: Denies change in vision or diplopia ENT ENT ED: Denies ear pain, rhinorrhea or sore throat Cardiovascular Cardiovascular: Denies chest pain, orthopnea, palpitations or racing heartbeat Respiratory/Chest Respiratory/Chest: Denies cough, dyspnea or orthopnea Gastrointestinal Gastrointestinal: Reports abdominal pain and diarrhea; Denies nausea or vomiting Genitourinary Genitourinary ED: Denies dysuria, hematuria or urinary frequency Musculoskeletal Musculoskeletal: Denies arthralgias or myalgias Integumentary Denies abscess or rash Neurologic Neurologic: Denies headache(s) or weakness Psychiatric Psychiatric: Denies anxiety, depression, suicidal ideation or suicidal thoughts Endocrine Endocrinology: Denies polydipsia, polyphagia or polyuria Allergic/Immunologic Allergic/Immunologic ED: Denies mouth swelling, tongue swelling or urticaria EXAM Physical Exam Const Vital Signs: 07/03/24 10:07 07/03/24 12:07 Temperature 98.0 F Temperature Source Oral Pulse Rate 69 64 Respiratory Rate 16 16 Blood Pressure 161/89 H 126/76 H Blood Pressure Mean 113 92 Pulse Ox 100 98 Oxygen Delivery Method Room Air Positive well nourished General Appearance ED: NAD HEENT Reports normocephalic, head/scalp atraumatic and moist mucous membranes Eyes PERRL and EOMs intact bilaterally Neck no lymphadenopathy, supple and no JVD Resp normal respiratory effort and clear to auscultation bilaterally Cardio regular rate, regular rhythm and no murmurs GI GI Narrative: Mild tenderness right lower quadrant of the abdomen without guarding or rebound normal active bowel sounds. The abdomen is soft Palpation: soft Back/Spine no CVA tenderness and normal ROM Extremity normal to inspection General Extremety ED: Negative for edema General Extremity: Negative for edema Neuro oriented x3 and CN's II-XII intact bilaterally Sensorium / Orientation: alert Motor Exam: strength 5/5 throughout Psych mental status grossly normal Mood & Affect: Negative for depressed or tearful Skin no rashes or lesions noted and no wounds MDM MDM MDM Narrative Medical decision making narrative: Differential diagnosis includes but not limited to appendicitis colitis mesenteric adenitis epiploic appendagitis ureteral stone UTI White count 5.3 hemoglobin 15.2 platelet count 288 BUN and creatinine normal glucose is 112 urinalysis is normal LFTs within normal limits. CT then pelvis does not demonstrate any evidence of appendicitis or colitis. I do not see any kidney stone. Please see radiologist read for full details. At this point I do not believe the patient needs to be admitted to the hospital. I do not see an obvious cause for the patient's right lower quadrant pain. Would recommend PCP follow-up if symptoms persist return if worsening History & Record Review Discussion w/independent historian: Patient Lab Data Attestation: I reviewed the patient's lab results. Labs: Laboratory Results - last 24 hr 07/03/24 11:15 WBC 5.3 RBC 4.55 L Hgb 15.2 Hct 41.2 MCV 90.5 MCH 33.4 H MCHC 36.9 H RDW Std Deviation 41.3 RDW Coeff of Raymon 12.7 Plt Count 288 MPV 10.8 Immature Gran % (Auto) 0.000 Neut % (Auto) 60.8 Lymph % (Auto) 25.5 Hoke % (Auto) 9.1 Eos % (Auto) 4.2 Baso % (Auto) 0.4 Absolute Neuts (auto) 3.2 Absolute Lymphs (auto) 1.34 Nucleated RBC % 0 Sodium 141 Potassium 4.2 Chloride 109 H Carbon Dioxide 27.0 Anion Gap 6 BUN 15 Creatinine 1.00 Estim Creat Clear Calc 79.07 Est GFR (MDRD) Af Amer 99 Est GFR (MDRD) Non-Af 82 BUN/Creatinine Ratio 15.1 Glucose 112 H Calcium 9.6 Total Bilirubin 0.60 Direct Bilirubin 0.20 AST 14 L ALT 35 Alkaline Phosphatase 81 Total Protein 6.7 Albumin 3.8 Globulin 2.9 Urine Color Yellow Urine Clarity Clear Urine pH 6.0 Ur Specific [place] 1.015 Urine Protein Negative Urine Glucose (UA) Normal Urine Ketones Negative Urine Occult Blood Negative Urine Nitrite Negative Urine Bilirubin Negative Urine Urobilinogen Normal Ur Leukocyte Esterase Negative Urine RBC 0 SEEN Urine WBC 0 SEEN Ur Squamous Epith Cells 0 SEEN Urine Bacteria 0 SEEN Urine Mucus 0 SEEN Radiography Diagnostic Testing: Clinical Impression(s) from Imaging Studies Abdomen/Pelvis CT 07/03/24 11:26 IMPRESSION: 1. No focal acute inflammatory process. 2. Splenic lesion could represent cysts or hemangioma. Correlation with nonemergent ultrasound might be of value. 3. Surgical clips or less likely foreign body in the region of the rectum. Electronically Signed: Burt Ramos MD at 12:37 EDT , Discharge Plan Triage Chief Complaint: Abd Pain ED Provider: Dangelo Quintero Dx/Rx/DC Orders Clinical Impression: Abdominal pain Instructions: ED Abdominal Pain Unkn Cause Male... Prescriptions: No Action escitalopram oxalate [Lexapro] 10 mg tablet 2.5 mg PO DAILY B12 5,000-100 mcg lozenge 1 fanta SUBLINGUAL DAILY amlodipine 2.5 mg tablet 5 mg PO DAILY sucralfate [Carafate] 1 gram tablet 1 g PO QACHS Qty: 90 0RF pantoprazole 40 mg tablet,delayed release (DR/EC) 40 mg PO DAILY levothyroxine 25 mcg capsule 25 mcg PO DAILY Astepro 2 spray NASAL DAILY albuterol sulfate 1 INHALER inhaler 1 - 2 puff inhalation Q4H PRN PRN (Reason: Asthma) ginkgo biloba 60 MG capsule 60 mg PO DAILY melatonin-pyridoxine (vit B6) 1 EACH tablet 1 ea PO QHS justin Issa,B. lactis 1 EACH capsule 1 ea PO DAILY ascorbic acid (vitamin C) 500 mg tablet extended release 1,000 mg PO DAILY cholecalciferol (vitamin D3) 25 mcg (1,000 unit) capsule 5,000 unit PO DAILY Primary Care Provider: Ceferino Perez Referrals: Ceferino Perez MD [Primary Care Provider] - 3-5 Days if not improving Print Language: Guyanese Disposition Disposition: Home, Self Care Discharge Date/Time: 07/03/24 13:25
[2024-07-03 11:39] LABS: Bacteria 0 SEEN /hpf (None Seen); Mucous, Urine 0 SEEN /hpf (<or=2+); Red Blood Cells-Urine 0 SEEN /hpf (0-5); Squamous Epithelial Cells - UA 0 SEEN /hpf (0-5); White Blood Cells 0 SEEN /hpf (0-5)
[2024-07-03] MEDS: Ondansetron 4 MG/2 ML Vial IV (11:39)
[2024-07-03] MEDS: Morphine 4 MG/ML Syringe IV (11:39)
[2024-07-03 11:43] LABS: Absolute Lymphocyte Count 1.34 X10^3/uL (0.83-4.51); Absolute Neutrophil Count 3.2 X10^3/uL (2.0-7.7); Basophil# 0.02 X10^3/uL; Basophil% 0.4 % (0-1); Color, Urine Yellow (Yellow); Eosinophil# 0.22 X10^3/uL; Eosinophils% 4.2 % (0-5); Glucose, Dipstick Normal (Normal); Hematocrit 41.2 % (40-54); Hemoglobin 15.2 g/dL (13.0-16.5); Ketone-Dipstick Negative (Negative); Leukocyte Esterase-Dipstick Negative /ul (Negative); Lymphocyte # 1.34 X10^3/ul (0.83-4.51); Lymphocyte % 25.5 % (19-41); Mean Corp Hgb Conc 36.9 g/dL (32-36); Mean Corpuscular Hgb 33.4 pg (27.0-32.0); Mean Corpuscular Volume 90.5 fL (80-94); Mean Platelet Vol. 10.8 fl (6.2-12.0); Monocyte# 0.48 X10^3/uL; Monocyte% 9.1 % (0-10); NRBC Flagged by Analyzer 0 % (0-5); Neutrophil % 60.8 % (47-70); Nitrite-Dipstick Negative (Negative); Occult Blood-Urine Negative /ul (Negative); Platelet Count 288 K/mm3 (150-450); Protein-Dipstick Negative (Negative); RBC Distribution Width CV 12.7 % (11.6-14.6); RBC Distribution Width SD 41.3 fl (35.1-43.9); Red Blood Count 4.55 M/mm3 (4.6-6.2); Specific Gravity, Urine 1.015 (1.002-1.030); Urine Bilirubin Dipstick Negative (Negative); Urine Clarity Clear (Clear); Urine Urobilinogen Normal (Normal); White Blood Count 5.3 K/mm3 (4.4-11.0)
[2024-07-03 12:07] VITALS: BP 126/76; PULSE 64; RESP 16; O2SAT 98
[2024-07-03 12:08] LABS: AST(SGOT) 14 U/L (15-37); Alanine Aminotransfer ALT/SGPT 35 U/L (16-61); Albumin, Serum 3.8 g/dL (3.2-5.0); Alkaline Phosphatase 81 U/L (45-117); Anion Gap 6 (5-15); BUN 15 mg/dL (7-18); BUN/Creat Ratio 15.1 RATIO (10-20); Calcium,Total 9.6 mg/dL (8.5-10.1); Chloride 109 mmol/L (98-107); EST Glomerular Filtration Rate 82 mL/min (>60); Est Glom Filt Rate - Afr Amer 99 mL/min (>60); Estimated Creatinine Clearance 79.07 ml/min; Globulin 2.9 g/dL (2.2-4.2); Glucose 112 mg/dL (74-106); Potassium 4.2 mmol/L (3.5-5.1); Protein, Total 6.7 g/dL (6.4-8.2); Sodium Level 141 mmol/L (136-145)
== END 2024-07-03 13:25 | disposition home or self-care (01) ==
PROVIDERS: Emergency Provider Emergency Medicine; PCP Family Medicine; Visit Provider Emergency Medicine
DX: R10.9 Unspecified abdominal pain (principal); I10 Essential (primary) hypertension; Z80.0 Family history of malignant neoplasm of digestive organs; R19.7 Diarrhea, unspecified; K21.9 Gastro-esophageal reflux disease without esophagitis; G47.30 Sleep apnea, unspecified; Z99.89 Dependence on other enabling machines and devices; J45.909 Unspecified asthma, uncomplicated; F41.9 Anxiety disorder, unspecified; F32.A Depression, unspecified; Z98.52 Vasectomy status
CPT/HCPCS: 74177; 80048; 80076; 81001; 85025; 96374; 96375; 99283; Q9967; A4216; J2405

== ENCOUNTER 2024-07-04 07:00 | Outpatient (RCR) | payer BC, SELFPAY | END 2024-07-04 19:00 | disposition home or self-care (01) | LOC: PT 07:00 | PROVIDERS: PCP Family Medicine; Referring Provider Physician Assistant; Visit Provider Physician Assistant | DX: M25.512 Pain in left shoulder (principal) | CPT/HCPCS: 97110; 97162 ==

== ENCOUNTER 2024-09-07 10:00 | Outpatient (RCR) | payer BC, SELFPAY ==
--- NOTE | 2024-08-22 08:45 | HP.PTEVAL_ITS ---
Patient's Visit Information Visit Information Visit Information: SANTOS LIAO is a 58 year old M referred to Physical Therapy by Lei Villegas PA-C with a diagnosis of IMPINGEMENT SYNDROME OF LEFT SHOULDER, PAIN IN LEFT SHOULDER. Date of Evaluation: 08/22/24 Physical Therapist: Luis Soriano, PT, Cert MDT, OCS Visit Plan Frequency: 2x /Week Duration: 4 Weeks Plan: PT INTERVENTIONS RTC/SCAPULAR STRENGTHENING ,POSTURAL EX'S , AND US/ESTIM FOR PAIN TO SHOULDER AND LONG HEAD Subjective Subjective: This 58 y/o male presents to physical therapy with left shoulder pain . Patient developed left shoulder FOR ~ [address] did x- rays -. Patient had PT for 6 visits not getting better ,seen orthopedic DR tried prednisone pack which helped but stopped and pain return . Dr prescribed muscle relaxer. Orthopedic PA and recommended PT . RTD orthopedic 09/12/24 ,.Pain anterior > posterior described as ache occasional sharp pain. cat Aggravating factors lifting OH ,reaching behind back activities above 90 degrees . Patient used leave blower increase pain. Alleviating factors rest and medication. Has occasional paresthesia/tingling in hands. Pain affects sleeping. Pain cand affects job demands and housework . Goals to decrease pain during work and ADLS. SOCIAL: VOCATION: [employer] Pain Left Shoulder: Pain Intensity (Out of 10): 5 Pain Intensity Range: 9 Objective Objective: POSTURE: mild forward posture rounded shoulders NEURO: denies paresthesia/tingling ,reflexes C5-6-7 2/3 PALAPTION: bicipital groove ,longg head AROM: shoulder flexion 160 degrees ,abduction 160 degrees ,ER 90 degree ,IR T12 MMT: infraspinatus 16.9 ,supraspinatus 12.8 pain ,deltoid 12.2 ,subscapularis 17.3 Special Tests R Shoulder Drop Sign - IS Test: Negative R Shoulder Empty Can - SS: Positive R Shoulder Belly Press - SupScap: Negative R Shoulder Neer - Impingement: Positive R Shoulder [place] Don - Impingement: Positive R Shoulder [place]ri[place] - SLAP/A-C: Positive R Shoulder Shrug Sign - OA/Adhesive Capsulitis: Negative Balance/Special Test Scores Quick DASH Score: 25.0000 Goals Goal 1:: Patient to be I with HEP for shoulder Goal Time Frame: 4-6 Weeks Goal 2:: Patient to improve peak force RTC /deltoid ny 5-10 # to improve function with ADL and housework tasks Goal Time Frame: 4-6 Weeks Goal 3:: Patient to improve quick dash by 5 points to improve QOL and function Goal Time Frame: 4-6 Weeks Goal 4:: Patient to demonstrate 60% improvement with less pain and improved function Goal Time Frame: 4-6 Weeks Goal 5:: Patient to AROM without pain with all functional activities. Goal Time Frame: 4-6 Weeks Rehabilitation Potential Physical Therapy Diagnosis: Patient to has pain in shoulder with possible tendinopathy and and long head bicep tender with pain with motion and weakness thus benefit from skilled PT Rehabilitation Potential: Good Anticipated Interventions Patient/Client Instruction: Educate patient on: Condition and Plan of Care For the Purpose of:: To decrease pain, To increase ROM, To improve muscle performance and motor function, To improve ability to perform ADL's, To improve ability of physical actions for home/community/work/leisure, To improve health of tissue, To decrease soft tissue restriction, To increase flexibility/ROM, To improve balance, To prevent re-injury and To improve tolerance to ADL's Therapeutic Exercise to Include: Strength training, Postural training, Flexibilty training and Active ROM Comment: RTC For the Purpose of:: To decrease pain, To increase ROM, To improve muscle performance and motor function, To improve ability to perform ADL's, To increase tolerance to activity/condition/position, To improve ability of physical actions for home/community/work/leisure, To improve health of tissue, To decrease soft tissue restriction and To increase flexibility/ROM TENS: Yes IF ES: Yes Cryotherapy (ice pack, ice massage): Yes Thermo therapy (hot pack): Yes Ultrasound (thermal/non thermal): Yes For the Purpose of:: To decrease pain, To increase ROM, To improve nutrient delivery to tissue, To increase oxygenation perfusion, To improve health of tissue and To decrease soft tissue restriction Text: Thank you for the opportunity to evaluate your patient. For Medicare and Medicare HMO plans, please review the plan of care and approve it. It will need to be FAXED BACK to us at [phone] for Medicare purposes. For Medicare only, by signing this I certify the plan of care. Please let me know if there are questions or concerns regarding this plan of care. Physician Signature: Date:
--- NOTE | 2024-09-07 10:35 | HP.PTDCSUM ---
Discharge Summary D/C summary: It has been my pleasure to treat SANTOS LIAO referred by Lei Villegas PA-C, with the diagnosis of IMPINGEMENT SYNDROME OF LEFT SHOULDER, PAIN IN LEFT SHOULDER for a total of 6 visit(s). Discharge Date: Please see the following information for a summary of their discharge status. Subjective Subjective: About same ,pain worse in morning Pain Left Shoulder: Pain Intensity (Out of 10): 5 Overall Improvement % Improvement: 20 Objective Objective/Function: POSTURE: mild forward posture rounded shoulders NEURO: denies paresthesia/tingling ,reflexes C5-6-7 2/3 PALAPTION: bicipital groove ,longg head AROM: shoulder flexion 160 degrees ,abduction 160 degrees ,ER 90 degree ,IR T12 MMT: infraspinatus 22.9 ,supraspinatus 17.8 pain ,deltoid 18.2 ,subscapularis 23.3 Goals Goal 1:: Patient to be I with HEP for shoulder Goal 2:: Patient to improve peak force RTC /deltoid ny 5-10 # to improve function with ADL and housework tasks Goal 3:: Patient to improve quick dash by 5 points to improve QOL and function Goal 4:: Patient to demonstrate 60% improvement with less pain and improved function Goal 5:: Patient to AROM without pain with all functional activities. Plan Plan: D/C RTD D/C Information d/c sentence: If there are questions or concerns regarding this patient's physical therapy, please feel free to call me at [phone]. Thank you for the referral of this patient. Sincerely, Luis Soriano, PT, Cert MDT, OCS Balance/Gait/Functional tests Balance/Special Test Scores Quick DASH Score: 22.7250 Improvement % Improvement: 20
== END 2024-09-07 19:00 | disposition home or self-care (01) ==
LOC: PT 10:00
PROVIDERS: PCP Family Medicine; Referring Provider Physician Assistant; Visit Provider Physician Assistant
DX: M75.42 Impingement syndrome of left shoulder (principal); M25.512 Pain in left shoulder
CPT/HCPCS: 97035; 97110; 97162; 97530

== ENCOUNTER → 2024-09-22 | Outpatient (CLI) | payer BC, SELFPAY ==
[2024-09-22 10:32] LABS: Absolute Lymphocyte Count 1.23 X10^3/uL (0.83-4.51); Absolute Neutrophil Count 4.2 X10^3/uL (2.0-7.7); Basophil# 0.03 X10^3/uL; Basophil% 0.5 % (0-1); Eosinophil# 0.29 X10^3/uL; Eosinophils% 4.6 % (0-5); Hematocrit 47.6 % (40-54); Hemoglobin 15.7 g/dL (13.0-16.5); Lymphocyte # 1.23 X10^3/ul (0.83-4.51); Lymphocyte % 19.5 % (19-41); Mean Corpuscular Hgb 30.3 pg (27.0-32.0); Mean Corpuscular Volume 91.9 fL (80-94); Mean Platelet Vol. 10.4 fl (6.2-12.0); Monocyte# 0.58 X10^3/uL; Monocyte% 9.2 % (0-10); NRBC Flagged by Analyzer 0 % (0-5); Neutrophil # 4.15 X10^3/uL (2.7-7.7); Neutrophil % 65.9 % (47-70); Platelet Count 251 K/mm3 (150-450); RBC Distribution Width CV 12.2 % (11.6-14.6); RBC Distribution Width SD 41.2 fl (35.1-43.9); Red Blood Count 5.18 M/mm3 (4.6-6.2); White Blood Count 6.3 K/mm3 (4.4-11.0)
[2024-09-22 11:08] LABS: ALB/GLOB Ratio 1.3 RATIO (0.9-2.4); AST(SGOT) 13 U/L (15-37); Alanine Aminotransfer ALT/SGPT 27 U/L (16-61); Albumin, Serum 4.1 g/dL (3.2-5.0); Alkaline Phosphatase 90 U/L (45-117); Anion Gap 6 (5-15); BUN 20 mg/dL (7-18); BUN/Creat Ratio 16.3 RATIO (10-20); CRP < 2.90 mg/L (0.0-3.0); Calcium,Total 9.4 mg/dL (8.5-10.1); Chloride 108 mmol/L (98-107); Creatinine, Serum 1.23 mg/dL (0.70-1.30); EST Glomerular Filtration Rate 64 mL/min (>60); Est Glom Filt Rate - Afr Amer 77 mL/min (>60); Globulin 3.2 g/dL (2.2-4.2); Glucose 121 mg/dL (74-106); Lipase 54 U/L (13-75); Magnesium 2.3 mg/dL (1.6-2.6); Potassium 3.9 mmol/L (3.5-5.1); Protein, Total 7.3 g/dL (6.4-8.2); Sodium Level 137 mmol/L (136-145)
== END | disposition home or self-care (01) ==
LOC: MTLAB 08:39
PROVIDERS: PCP Family Medicine; Referring Provider Family Medicine; Visit Provider Family Medicine
DX: K57.32 Diverticulitis of large intestine without perforation or abscess without bleeding (principal); R11.0 Nausea
CPT/HCPCS: 36415; 80053; 83690; 83735; 85025; 86140

== ENCOUNTER → 2025-01-31 | Outpatient (CLI) | payer BC, SELFPAY ==
--- NOTE | 2025-01-31 07:21 | EKG12_ITS ---
Test Reason : PREOP Blood Pressure : */* mmHG Vent. Rate : 74 BPM Atrial Rate : 74 BPM P-R Int : 156 ms QRS Dur : 88 ms QT Int : 356 ms P-R-T Axes : 65 20 24 degrees QTcB Int : 395 ms Normal sinus rhythm RSR' or QR pattern in V1 suggests right ventricular conduction delay Borderline ECG Confirmed by CAMILLE GERMAN, ANUPAM ([id number]), editor magazine [employer] ([id number]) on 01/31/2025 1:01:36 PM Referred By: Jonny Burch Confirmed By: ANUPAM OBRIEN MD
[2025-01-31 08:31] LABS: Absolute Lymphocyte Count 2.15 X10^3/uL (0.83-4.51); Absolute Neutrophil Count 4.3 X10^3/uL (2.0-7.7); Basophil# 0.04 X10^3/uL; Basophil% 0.5 % (0-1); Eosinophils% 2.7 % (0-5); Hematocrit 43.5 % (40-54); Lymphocyte # 2.15 X10^3/ul (0.83-4.51); Lymphocyte % 29.1 % (19-41); Mean Corp Hgb Conc 34.5 g/dL (32-36); Mean Corpuscular Hgb 31.8 pg (27.0-32.0); Mean Corpuscular Volume 92.4 fL (80-94); Mean Platelet Vol. 10.1 fl (6.2-12.0); Monocyte# 0.66 X10^3/uL; Monocyte% 8.9 % (0-10); NRBC Flagged by Analyzer 0 % (0-5); Neutrophil # 4.33 X10^3/uL (2.7-7.7); Neutrophil % 58.5 % (47-70); Platelet Count 226 K/mm3 (150-450); RBC Distribution Width CV 12.3 % (11.6-14.6); RBC Distribution Width SD 41.6 fl (35.1-43.9); Red Blood Count 4.71 M/mm3 (4.6-6.2); White Blood Count 7.4 K/mm3 (4.4-11.0)
[2025-01-31 09:16] LABS: Anion Gap 13 (5-15); BUN 22 mg/dL (4-19); BUN/Creat Ratio 20.2 RATIO (10-20); Calcium,Total 9.5 mg/dL (7.6-11.0); Carbon Dioxide 21.5 mmol/L (21.0-32.0); Chloride 106 mmol/L (98-108); Creatinine, Serum 1.07 mg/dL (0.70-1.20); EST Glomerular Filtration Rate 79 (>60); Glucose 121 mg/dL (70-99); Potassium 3.7 mmol/L (3.3-5.1); Sodium Level 140 mmol/L (133-145)
== END | disposition home or self-care (01) ==
LOC: PSN 07:20
PROVIDERS: PCP Family Medicine; Referring Provider Student in an Organized Health Care Education/Training Program; Visit Provider Student in an Organized Health Care Education/Training Program
DX: Z01.810 Encounter for preprocedural cardiovascular examination (principal); Z01.818 Encounter for other preprocedural examination
CPT/HCPCS: 36415; 80048; 85025; 93005

== ENCOUNTER 2025-06-26 06:59 | Day surgery (SDC) | payer BC, SELFPAY ==
--- NOTE | 2025-06-21 13:53 | PAT.ANE_ITS ---
Pre-Assessment Diagnosis/Proposed Procedure Planned Operative Procedure(s): CSCOPE Anesthesia History Anesthesia History - supervisor lead refinery: Anesthesia History - supervisor lead refinery Hx Hospitalization No 06/21/25 13:26 Any Problems With Anesthesia No 06/21/25 13:26 Cholinesterase deficiency No 06/21/25 13:26 You/Your Family Experience No 06/21/25 13:26 fever (hyperthermia) with Relationship Recent Exposure to Contagious No 02/25/21 07:49 Disease Does patient have nerve No 06/21/25 13:26 stimulator Patient instructed to have device shut off --Does patient have Pacemaker or ICD? When Was Last Pacemaker Check QUESTION #4 FULL TEXT: You/Your Family Experience fever (hyperthermia) with Anesthesia Last Oral Intake Last Oral intake: Last Oral Intake NPO since Meds taken in AM with sips of water? Meds patient instructed to take am of surgery PONV PONV - supervisor lead refinery: PONV - supervisor lead refinery Female No 06/21/25 13:26 HX of Motion Sickness Yes 06/21/25 13:26 HX of N/V After Surgery No 06/21/25 13:26 Non-Smoker Yes 06/21/25 13:26 Duration of Surgery greater No 06/21/25 13:26 than 60 minutes Number of Risk Factors 2 06/21/25 13:26 PONV Score Moderate Risk 06/21/25 13:26 Height & Weight Height & Weight: Anesthesia: Height & Weight Height 5 ft 5 in 06/18/25 08:12 Respiratory Assessment Respiratory Assessment - supervisor lead refinery: Respiratory Tract Infection Hx - supervisor lead refinery Hx Respiratory Tract Infection No 06/21/25 13:26 STOP Sleep Apnea STOP Sleep Apnea - supervisor lead refinery: STOP Sleep Apnea - supervisor lead refinery Hx Hypertension Yes 06/21/25 13:26 Hx Sleep Apnea Yes 06/21/25 13:26 CPAP Yes 06/21/25 13:26 BIPAP No 06/21/25 13:26 Do you snore loudly (louder No 06/21/25 13:26 than talking or can be heard Do you often feel tired/ No 06/21/25 13:26 fatigued/ sleepy during daytime? Has anyone observed you stop No 06/21/25 13:26 breathing during sleep? STOP Results Positive 06/21/25 13:26 QUESTION #5 FULL TEXT : Do you snore loudly (louder than talking or can be heard through closed doors)? Tobacco Use History Tobacco Use History - supervisor lead refinery: Tobacco Use History - supervisor lead refinery Tobacco Use Smoking Status Current every day smoker 06/21/25 13:26 Hx Tobacco Use No 06/21/25 13:26 Years Smoking Packs Smoked per Day Smoking Cessation Date was within the last 15 years Hx Smoking Cessation Date Hx Smoking Cessation Counseling Hematologic Medial History Hematologic Hx - supervisor lead refinery: Hematologic Medical Hx - hr representative Hx of Blood Transfusion No 06/21/25 13:26 Hx of Transfusion in last 3 No 06/21/25 13:26 Months Date of Last Transfusion (if within last 3 months) Ever experience any problems No 06/21/25 13:26 with transfusion(s)? Specify any problems Hx of Preganancy in last 3 N/A 06/21/25 13:26 Months Nurse Filling Out Transfusion NBUCHER 06/21/25 13:26 & Questions: Date: 06/21/25 06/21/25 13:26 Time: 13:27 06/21/25 13:26 Patient unable to answer at this time (ie. confused, unrespo /Reproduction History /Reproductive History - supervisor lead refinery: /Reproductive Hx- supervisor lead refinery Hx Now No 06/21/25 13:26 Gestational Age (in weeks): EDC: Hx Hx Para Hx Section SAB No 06/21/25 13:26 [facility] History (Updated 06/21/25 @ 13:31 by Shira Fox) Loss of hearing Hypothyroid High cholesterol Blood in stool Wears glasses Alcohol use Substance abuse Marijuana use History of steroid therapy Thyroid disease Injury of head and neck Syncope History of ulceration History of IBS Gastric reflux Non-smoker CPAP (continuous positive airway pressure) dependence History of pain when walking History of edema History of stress test Abdominal pain Diarrhea Belching GERD (gastroesophageal reflux disease) Internal bleeding hemorrhoids HTN (hypertension) Fibromyalgia Sleep apnea Asthma Anxiety and depression Rectal bleeding Home Medications ?Medication ?Instructions ?Recorded ?Last Taken ?Type Astepro 2 spray DAILY 12/11/14 Unkno wn History albuterol sulfate 90 mcg/actuation 1 - 2 puff inhalati on Q4H PRN PRN 12/11/14 Unknown History aerosol inhaler Asthma ginkgo biloba 60 mg capsule 60 mg PO DAILY 06/17/18 Un known History amlodipine 2.5 mg tablet 2.5 mg PO DAILY 11/01/18 History cyanocobalamin (B12)-cobamamide 1 fanta sublingual DAILY 11/01/18 Unknown History 5,000 mcg-100 mcg sublingual lozenge (B12) ascorbic acid (vitamin C) 500 mg 1,000 mg PO DAILY 04/02 Unknown History tablet,extended release cholecalciferol (vitamin D3) 25 5,000 unit PO DAILY Unknown History mcg (1,000 unit) capsule levothyroxine 25 mcg capsule 25 mcg PO DAILY 02/17/21 02/25/21 History acetylcysteine 600 mg capsule (NAC) 600 mg PO BID 03/07 Unknown History budesonide-formoterol HFA 160 1 inh inhalation DAILY 1 Unknown History mcg-4.5 mcg/actuation aerosol inhaler clonidine HCl 0.1 mg tablet 0.1 mg PO QHS 06/18/25 Unk nown History escitalopram oxalate 5 mg tablet 5 mg PO QDAY 06/18/25 Unknown History famotidine 20 mg tablet 20 mg PO BID 06/18/25 Unknow n History irbesartan 75 mg tablet 75 mg PO QPM 06/18/25 Unknow n History pantoprazole 20 mg tablet,delayed 20 mg PO QDAY Unknown History release Allergy/AdvReac Type Severity Reaction Status Date / Time shellfish derived Allergy Intermediate Vomiting Verified 06/21/25 13:23 vilazodone HCl (From Viibryd) Allergy Hives Verified 06/21/25 13:23 Family History (Updated 06/18/25 @ 08:12 by Anali Torres LPN) Mother Arthritis Breast cancer Diabetes Father Arthritis Colon cancer Hypertension Cancer skin cancer Acute Crohn's disease Surgical History History of repair of rotator cuff History of hemorrhoidectomy History of colonoscopy (~06/2018) History of hernia repair History of vasectomy Social History (Updated 06/18/25 @ 08:12 by Anali Torres LPN) Smoking Status: Current every day smoker tobacco type: pipe alcohol intake: current alcohol intake frequency: a few times a month substance use type: marijuana Audit: Pertinent Findings Pertinent Findings EKG Perinent findings: 01/31/2025. Normal sinus rhythm. RSR or QR pattern in V1 suggests right ventricular conduction delay. Recommendation Anesthesia Recommendation Anesthesia recommendation: OPTIMIZED for anesthesia
[2025-06-26 07:25] VITALS: BP 138/74; PULSE 67; RESP 16; TEMP 36.9; O2SAT 97; BMI 30.5
[2025-06-26] MEDS: Lactated Ringers 1,000 ML 15 ML IV (07:36)
--- NOTE | 2025-06-26 07:44 | PCM.PRE.AN2 ---
ASA Classification* ASA Classification ASA Classification: 2 Assessment & Plan Anesthesia* Anesthesia Assessment Anesthesia Assessment: Discussed sedation and/or anesthesia options, risks, benefits, and alternatives with patient/parents/legal guardian/POA. Questions invited. The patient/parents/legal guardian/POA seems to understand and agrees to proceed with anesthesia plan. Reviewed the physical assessment, medical history, allergy history and patient home medications list prior to surgery/procedure/anesthetic and documented any changes. Performed airway and anesthesia risk assessments. Anesthesia Type Anesthesia Type: MAC History Source History Obtained from:: Patient and Chart Anesthesia Focused Assessment* Temperature: 98.4 F Pulse Rate: 67 Blood Pressure: 138/74 Respiratory Rate: 16 Pulse Ox: 97 Oxygen Delivery Method: Room Air Airway Assessment Mouth opens: >3 cm Mallampati Score: I Teeth Condition: Intact Neck Range of motion (ROM): Limited ROM (Slight Decrease) Labs Anesthesia Preop lab: CBC WBC, (4.4-11.0) 7.4 K/mm3 01/31/25, 07:39 RBC, (4.6-6.2) 4.71 M/mm3 01/31/25, 07:39 Hgb, (13.0-16.5) 15.0 g/dL 01/31/25, 07:39 Hct, (40-54) 43.5 % 01/31/25, 07:39 Plt Count, (150-450) 226 K/mm3 01/31/25, 07:39 CHEMISTRY Potassium, (3.3-5.1) 3.7 mmol/L 01/31/25, 07:39 Sodium, (133-145) 140 mmol/L 01/31/25, 07:39 Magnesium, (1.6-2.6) 2.3 mg/dL 09/22/24, 08:47 BUN, (4-19) 22 mg/dL H 01/31/25, 07:39 Creatinine, (0.70-1.20) 1.07 mg/dL 01/31/25, 07:39 Glucose, (70-99) 121 mg/dL H 01/31/25, 07:39 TSH, (0.358-3.740) 1.560 uIU/mL 06/10/24, 09:08 COAG Pre-Assessment Diagnosis/Proposed Procedure Planned Operative Procedure(s): CSCOPE Anesthesia History Anesthesia History - extractor loader and unloader: Anesthesia History - extractor loader and unloader Hx Hospitalization No 06/21/25 13:26 Any Problems With Anesthesia No 06/21/25 13:26 Cholinesterase deficiency No 06/21/25 13:26 You/Your Family Experience No 06/21/25 13:26 fever (hyperthermia) with Relationship Recent Exposure to Contagious No 06/26/25 07:25 Disease Does patient have nerve No 06/21/25 13:26 stimulator Patient instructed to have device shut off --Does patient have Pacemaker No 06/26/25 07:25 or ICD? When Was Last Pacemaker Check QUESTION #4 FULL TEXT: You/Your Family Experience fever (hyperthermia) with Anesthesia Last Oral Intake Last Oral intake: Last Oral Intake NPO since 00:00 06/26/25 07:25 Meds taken in AM with sips of Yes 06/26/25 07:25 water? Meds patient instructed to see med list 06/26/25 07:25 take am of surgery Any additional information?: Yes Meds taken in AM with sips of water?: Yes PONV PONV - extractor loader and unloader: PONV - extractor loader and unloader Female No 06/21/25 13:26 HX of Motion Sickness Yes 06/21/25 13:26 HX of N/V After Surgery No 06/21/25 13:26 Non-Smoker Yes 06/21/25 13:26 Duration of Surgery greater No 06/21/25 13:26 than 60 minutes Number of Risk Factors 2 06/21/25 13:26 PONV Score Moderate Risk 06/21/25 13:26 Height & Weight Height & Weight: Anesthesia: Height & Weight Height 5 ft 5 in 06/26/25 07:25 Weight: 83.3 kg 06/26/25 07:25 Body Mass Index (BMI) 30.5 06/26/25 07:25 Respiratory Assessment Respiratory Assessment - extractor loader and unloader: Respiratory Tract Infection Hx - extractor loader and unloader Hx Respiratory Tract Infection No 06/21/25 13:26 STOP Sleep Apnea STOP Sleep Apnea - extractor loader and unloader: STOP Sleep Apnea - extractor loader and unloader Hx Hypertension Yes 06/21/25 13:26 Hx Sleep Apnea Yes 06/21/25 13:26 CPAP Yes 06/21/25 13:26 BIPAP No 06/21/25 13:26 Do you snore loudly (louder No 06/21/25 13:26 than talking or can be heard Do you often feel tired/ No 06/21/25 13:26 fatigued/ sleepy during daytime? Has anyone observed you stop No 06/21/25 13:26 breathing during sleep? STOP Results Positive 06/21/25 13:26 QUESTION #5 FULL TEXT : Do you snore loudly (louder than talking or can be heard through closed doors)? 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 Specify any problems Hx of Preganancy in last 3 N/A 06/21/25 13:26 Months Nurse Filling Out Transfusion NBUCHER 06/21/25 13:26 & Questions: Date: 06/21/25 06/21/25 13:26 Time: 13:27 06/21/25 13:26 Patient unable to answer at this time (ie. confused, unrespo /Reproduction History /Reproductive History - extractor loader and unloader: /Reproductive Hx- extractor loader and unloader Hx Now No 06/21/25 13:26 Gestational Age (in weeks): EDC: Hx Hx Para Hx Section SAB No 06/21/25 13:26 Active Medications Active Medications: Current Medications Generic Name Dose Route Start Last Admin Trade Name Freq PRN Reason Stop Dose Admin Lactated Ringer's 1,000 mls @ 15 mls/hr 06/26/25 07:15 06/26/25 07:36 IV 15 mls/hr .Q48H BERTHA Administration PFSH Medical History Loss of hearing Hypothyroid High cholesterol Blood in stool Wears glasses Alcohol use Substance abuse Marijuana use History of steroid therapy Thyroid disease Injury of head and neck Syncope History of ulceration History of IBS Gastric reflux Non-smoker CPAP (continuous positive airway pressure) dependence History of pain when walking History of edema History of stress test Abdominal pain Diarrhea Belching GERD (gastroesophageal reflux disease) Internal bleeding hemorrhoids HTN (hypertension) Fibromyalgia Sleep apnea Asthma Anxiety and depression Rectal bleeding Home Medications ?Medication ?Instructions ?Recorded ?Last Taken ?Type Astepro 2 spray DAILY 12/11/14 Unknown History albuterol sulfate 90 mcg/actuation 1 - 2 puff inhalation Q4H PRN PRN 12/11/14 Unknown History aerosol inhaler Asthma ginkgo biloba 60 mg capsule 60 mg PO DAILY 06/17/18 Unknown History amlodipine 2.5 mg tablet 2.5 mg PO DAILY 11/01/18 06/26/25 06:00 History cyanocobalamin (B12)-cobamamide 1 fanta sublingual DAILY 11/01/18 Unknown History 5,000 mcg-100 mcg sublingual lozenge (B12) ascorbic acid (vitamin C) 500 mg 1,000 mg PO DAILY 02/17/21 Unknown History tablet,extended release cholecalciferol (vitamin D3) 25 5,000 unit PO DAILY 02/17/21 Unknown History mcg (1,000 unit) capsule levothyroxine 25 mcg capsule 25 mcg PO DAILY 02/17/21 06/26/25 06:00 History acetylcysteine 600 mg capsule (NAC) 600 mg PO BID 06/18/25 Unknown History budesonide-formoterol HFA 160 1 inh inhalation DAILY 06/18/25 Unknown History mcg-4.5 mcg/actuation aerosol inhaler clonidine HCl 0.1 mg tablet 0.1 mg PO QHS 06/18/25 Unknown History escitalopram oxalate 5 mg tablet 5 mg PO QDAY 06/18/25 06/26/25 06:00 History famotidine 20 mg tablet 20 mg PO BID 06/18/25 Unknown History irbesartan 75 mg tablet 75 mg PO QPM 06/18/25 Unknown History pantoprazole 20 mg tablet,delayed 20 mg PO QDAY 06/18/25 06/25/25 06:00 History release Allergy/AdvReac Type Severity Reaction Status Date / Time shellfish derived Allergy Intermediate Vomiting Verified 06/26/25 07:23 vilazodone HCl (From Viibryd) Allergy Hives Verified 06/26/25 07:23 Family History Mother Arthritis Breast cancer Diabetes Father Arthritis Colon cancer Hypertension Cancer skin cancer Acute Crohn's disease Surgical History History of repair of rotator cuff History of hemorrhoidectomy History of colonoscopy (~06/2018) History of hernia repair History of vasectomy Social History Smoking Status: Current every day smoker tobacco type: pipe alcohol intake: current alcohol intake frequency: a few times a month substance use type: marijuana Review of Systems (Anesthesia) ROS Narrative System reviewed and no additional complaints, except as documented. Physical Exam Resp clear to auscultation bilaterally
[2025-06-26 07:50] VITALS: BP 138/74; PULSE 67; RESP 16; TEMP 36.9; O2SAT 97
--- NOTE | 2025-06-26 08:05 | PCM.HP.BLA ---
History and Physical Date of Admission: 06/26/25 Intake Vital Signs 07/03/2410:07 06/18/2508:12 Height 5 ft 5 in 5 ft 5 in Weight: 190 lb BMI 31.6 BP 137/72 H Blood Pressure Location Rt brachial Position Sitting Respiration 18 Pulse 72 Pulse Source Monitor Temp 98.2 F Temp Source Temporal Pulse Oximetry (%) 98 Oxygen Delivery Method room air Intake Visit Reasons: BLOOD IN STOOL Chief Complaint: Diarrhea/abdominal pain/GERD Allergies shellfish derived Allergy (Intermediate, Verified 06/18/25 08:13) Vomiting vilazodone HCl (From Viibryd) Allergy (Verified 06/18/25 08:13) Hives [facility] Medical History (Updated 06/18/25 @ 08:11 by Anali Torres LPN) Blood in stool Wears glasses Alcohol use Substance abuse Marijuana use History of steroid therapy Thyroid disease Injury of head and neck Syncope History of ulceration History of IBS Gastric reflux Non-smoker CPAP (continuous positive airway pressure) dependence History of pain when walking History of edema History of stress test Abdominal pain Diarrhea Belching GERD (gastroesophageal reflux disease) Internal bleeding hemorrhoids HTN (hypertension) Fibromyalgia Sleep apnea Asthma Anxiety and depression Rectal bleeding Surgical History (Updated 06/18/25 @ 08:11 by Anali Torres LPN) History of repair of rotator cuff History of hemorrhoidectomy History of colonoscopy (~06/2018) History of hernia repair History of vasectomy Family History (Updated 06/18/25 @ 08:12 by Anali Torres LPN) Mother Arthritis Breast cancer Diabetes Father Arthritis Colon cancer Hypertension Cancer skin cancer Acute Crohn's disease Social History (Updated 06/18/25 @ 08:12 by Anali Torres LPN) Smoking Status: Never smoker alcohol intake: current alcohol intake frequency: a few times a month substance use type: marijuana HPI HPI HPI: Patient is a 59-year-old male here for blood in the stool. He reports this is the 1 episode that happened and it was bright red. He does not note any pain. He is not having any abdominal pain. His last colonoscopy was in 2020 and a tubular adenoma was removed. He has also been having some diarrhea and notes that his father was recently diagnosed with Crohn's disease. ROS General General: Yes fatigue; No weight change, appetite, colon cancer, breast cancer or weakness HEENT HEENT: No difficulty swallowing, eye injury, eye surgery, swollen glands or hoarseness Endo Endocrine: Yes thyroid disease; No diabetes mellitus, thyroid cancer, Hair loss, heat intolerance or cold intolerance Skin Skin: No rash or changing moles Musc Musculoskeletal: Yes arthritis; No back problems, rheumatoid arthritis, gout or joint pain Cardio Cardiovascular: Yes high blood pressure; No murmur, pacemaker, heart disease, atrial fibrillation, heart attack, heart stent, palpitations, shortness of breath with exertion or chest pain Psych Psychiatric: Yes depression and anxiety; No hearing voices Resp Respiratory: Yes shortness of breath, Yes sleep apnea, No cough, No COPD, Yes asthma, No emphysema and No wheezing Gastro Gastrointestinal: Yes abdominal pain, Yes nausea or vomiting, Yes diarrhea, No constipation, Yes blood in stool, No acid reflux, No hemorrhoids, No ulcers, No gallbladder problem and No black,tarry stools Rajeev Hematologic: No blood thinners, No blood disorders, No bleeding, No anemia and No blood clots Neuro Neurologic: No numbness, No tingling and No weakness Exam Const General: cooperative Orientation: alert and oriented x3 HENMT Head: normal to inspection Neck Neck: normal visual inspection and full ROM Chest Chest palpation & inspection: normal inspection of the chest Resp Effort & Inspection: normal respiratory effort Auscultation: clear to auscultation bilaterally Cardio Rate: regular rate Rhythm: regular rhythm GI Inspection: non-distended Palpation: soft and nontender Skin General: no rashes or lesions noted Neuro General: patient alert and patient oriented x3 Extrem General: full ROM Psych Appearance: grossly normal Mental Status: mental status grossly normal Assessment and Plan Assessment and Plan (1) Blood in stool: Status: Acute Plan: I explained endoscopy in detail to the patient. I explained the risks including but not limited to stroke or heart attack with anesthesia, perforation of the GI tract, bleeding, infection. I explained that any of these could necessitate further emergency surgery. The patient understands and all questions were answered sufficiently. The patient wishes to proceed with procedure. Fredrick Evans MD Pager: [facility] [address] [place] [address], [address] [place] [address] Office: I have examined the patient and the H&P has been reviewed. There are no clinical changes since date of exam.
--- NOTE | 2025-06-26 08:27 | OP.PROVAT_ITS ---
06/26/2025 Ceferino Perez [address]] [address] [place] [address] Re : Colonoscopy procedure for Gael Rosado Dear Dr. Perez This procedure was performed on Thursday, June 26, 2025. My impressions and recommendations are as follows: Impressions : - The entire examined colon is normal on direct and retroflexion views. - No specimens collected. Recommendations : - Discharge patient to home. - Resume previous diet. - Continue present medications. - Repeat colonoscopy in 10 years for screening purposes. My findings are described in the full procedure note, which is enclosed. If I can be of further assistance, please feel free to contact me at Doctor phone number(s): , Work: . Sincerely, Fredrick Evans MD 06/26/2025 8:27:11 AM This report has been signed electronically.
--- NOTE | 2025-06-26 08:27 | OP.COLON_ITS ---
Patient Name: Gael Rosado Procedure Date: 06/26/2025 8:10 AM Date of : 1965 Age: 59 Procedure: Colonoscopy Indications: Gastrointestinal bleeding Providers: Fredrick Evans MD Referring MD: Ceferino Perez Medicines: Propofol per Anesthesia Patient Profile: This is a 59 year old male. Refer to note in patient chart for documentation of history and physical. Last Colonoscopy: none. The patient's first colonoscopy is today. Complications: No immediate complications. Procedure: Pre-Anesthesia Assessment: - Prior to the procedure, a History and Physical was performed, and patient medications and allergies were reviewed. The patient's tolerance of previous anesthesia was also reviewed. The risks and benefits of the procedure and the sedation options and risks were discussed with the patient. All questions were answered, and informed consent was obtained. Prior Anticoagulants: The patient has taken no anticoagulant or antiplatelet agents. After reviewing the risks and benefits, the patient was deemed in satisfactory condition to undergo the procedure. After I obtained informed consent, the scope was passed under direct vision. Throughout the procedure, the patient's blood pressure, pulse, and oxygen saturations were monitored continuously. The colonoscope was introduced through the anus and advanced to the cecum, identified by appendiceal orifice and ileocecal valve. The colonoscopy was performed without difficulty. The patient tolerated the procedure well. The quality of the bowel preparation was good. The ileocecal valve, appendiceal orifice, and rectum were photographed. Scope In: 8:16:00 AM Scope Withdrawal Time 0 hours 6 minutes 35 seconds Scope Out: 8:24:46 AM Total Procedure Duration Time 0 hours 8 minutes 46 seconds Findings: The entire examined colon appeared normal on direct and retroflexion views. Impression: - The entire examined colon is normal on direct and retroflexion views. - No specimens collected. Recommendation: - Discharge patient to home. - Resume previous diet. - Continue present medications. - Repeat colonoscopy in 10 years for screening purposes. Procedure Code(s): --- Professional --- 35261, Colonoscopy, flexible; diagnostic, including collection of specimen(s) by brushing or washing, when performed (separate procedure) Diagnosis Code(s): --- Professional --- K92.2, Gastrointestinal hemorrhage, unspecified CPT copyright 2021 [employer]. All rights reserved. The codes documented in this report are preliminary and upon director funds development review may be revised to meet current compliance requirements. Fredrick Evans MD 06/26/2025 8:27:11 AM This report has been signed electronically. Number of Addenda: 0 Note Initiated On: 06/26/2025 8:10 AM
[2025-06-26 08:30] VITALS: BP 103/71; BP 138/74; PULSE 70; RESP 16; TEMP 36.2; O2SAT 94
--- NOTE | 2025-06-26 08:34 | PCM.POST.ANE ---
Anesthesia: Postop Eval I Current Vital Signs Temperature: 97 F Pulse Rate: 67 Blood Pressure: 103/71 Respiratory Rate: 16 Pulse Ox: 96 Oxygen Delivery Method: Room Air Assessment Airway patent: Yes Spontaneous unlabored respirations: Yes Mental status: Awake and Calm nausea: No Vomiting: No Anesthesia Complication: No Fluid Hydration Crystalloid volume administer (ml): 300 Total IV fluid infused: 300 Progress Note Anesthesia document: Postop Eval 1 completed: Yes
[2025-06-26 08:35] VITALS: BP 103/71; BP 115/58; BP 138/74; PULSE 67; RESP 16; TEMP 36.1; O2SAT 95; O2SAT 96
[2025-06-26 08:40] VITALS: BP 121/71; BP 138/74; PULSE 63; RESP 16; TEMP 36.1; O2SAT 98
--- NOTE | 2025-06-26 08:51 | PCM.POSTANE2 ---
Anesthesia Postop Eval I Sum Postop Eval Completion status Anesthesia document: Postop Eval 1 completed: Yes Anesthesia Postop Eval I Summary Anesthesia Postop Eval I Summary: Anesthesia Postop Eval I: Assessment Summary Airway patent Yes 06/26/25 08:35 [email or web address] Spontaneous unlabored Yes 06/26/25 08:35 [email or web address] respirations Mental status Awake,Calm 06/26/25 08:35 [email or web address] nausea No 06/26/25 08:35 [email or web address] Vomiting No 06/26/25 08:35 [email or web address] Anesthesia Postop Eval I: Fluid Summary Crystalloid volume administer 300 06/26/25 08:35 [email or web address] (ml) Colloids volume administered ( ml) Blood Product volume administered (ml) Total IV fluid infused 300 06/26/25 08:35 [email or web address] Anesthesia Postop Eval I: Summary Notes Anesthesia Complication No 06/26/25 08:35 [email or web address] Anesthesia Complication Comment: Post-operative progress note Anesthesia: Postop Eval II Evaluation Mental status: Awake and Calm Pain Level: 0 nausea: No Vomiting: No Complications Anesthesia Complication: No
[2025-06-26 08:53] VITALS: BP 138/74
== END 2025-06-26 09:18 | disposition home or self-care (01) ==
LOC: EN 07:00 → AC 07:01
PROVIDERS: PCP Family Medicine; Referring Provider Family Medicine; Visit Provider Surgery
PROC: 0DJD8ZZ Inspection of Lower Intestinal Tract, Via Natural or Artificial Opening Endoscopic (ICD-10-PCS; CPT 45378; principal; 2025-06-26 07:55)
DX: K92.2 Gastrointestinal hemorrhage, unspecified (principal); I10 Essential (primary) hypertension; K21.9 Gastro-esophageal reflux disease without esophagitis; J45.909 Unspecified asthma, uncomplicated; F17.200 Nicotine dependence, unspecified, uncomplicated; E03.9 Hypothyroidism, unspecified; Z79.890 Hormone replacement therapy; Z79.899 Other long term (current) drug therapy
CPT/HCPCS: 45378; J2405

== ENCOUNTER → 2025-06-28 | Outpatient (CLI) | payer BC, SELFPAY ==
--- OUTSIDE RECORDS SUMMARY | 2025-06-28 06:29 | XMS RPT_ITS | CCD ---
Author Organization [facility] Care Team Providers Care Decontamination Technician Name Role Phone Chris GERMAN, Dr. De La Vega Primary Care Provider [phone] Dr. Jonny Burch DO Attending Provider Dr. Jonny Burch DO Referring Provider Kelly GERMAN, Dr. Tomas Attending Provider Chris GERMAN, Dr. De La Vega Primary Care Physician Dr. Ceferino Perez MD Referring Provider [phone] Nathan GERMAN, Dr. Alcala Attending Physician Lei De La Fuente Attending Unavailable Lei De La Fuente Referring Unavailable Perez, Ceferino Primary Care Unavailable Perez, Ceferino Primary Care Unavailable Lei De La Fuente Attending Unavailable Lei De La Fuente Referring Unavailable Perez, Ceferino Primary Care Unavailable Dangelo Quintero Attending Unavailable Perez, Ceferino Primary Care Unavailable Jonny Burch Attending Unavailable Jonny Burch Referring Unavailable Perez, Ceferino Attending Unavailable Perez, Ceferino Referring Unavailable Perez, Ceferino Primary Care Unavailable Perez, Ceferino Referring Unavailable Perez, Ceferino Primary Care Unavailable Fredrick Evans Consulting Unavailable Fredrick Evans Attending Unavailable Thom Mendoza Attending Unavailable Perez, Ceferino Primary Care Unavailable Jonny Burch Referring Unavailable Perez, Ceferino Referring Unavailable Perez, Ceferino Primary Care Unavailable Fredrick Evans Attending Unavailable Perez, Ceferino Referring Unavailable Perez, Ceferino Primary Care Unavailable Fredrick Evans Attending Unavailable Allergies Allergy Classification Reported Allergen(s) Allergy Type Date of Onset Reaction(s) Facility (11 sources) Shellfish; Translations: [shellfish derived] Allergy to substance 02-25-2021 Vomiting [facility] (11 sources) vilazodone; Translations: [vilazodone HCl] Drug Allergy 02-25-2021 Hives [facility] Medications Current Medications Medication Drug Class(es) Dates Sig (Normalized) Sig (Original) acetylcysteine 600 mg oral capsule (1 source) Antidote, Mucolytic, Antidote for Acetaminophen Overdose Start: 06-18-2025 take 1 capsule by mouth twice daily Albuterol Sulfate (10 sources) beta2-Adrenergic Agonist Start: 12-11-2014 take 1 puff(s) by inhalation every four hours as needed Albuterol Sulfate Active 1 - 2 PUFF INHALATION EVERY 4 HOURS NEEDED December 11, 2014 9:08am Start: 12-11-2014 Start: 12-11-2014 Albuterol Sulf ate 1 INHALER inhaler Active 1 - 2 NMA INHALATION EVERY 4 HOURS NEEDED as needed for Asthma December 11, 2014 12:00am Start: 12-11-2014 take 1 puff(s) by in halation every four hours as needed Albuterol Sulfate Active 1 - 2 PUFF INHALATION EVERY 4 HOURS NEEDED December 10, 2014 11:00pm Start: 12-11-2014 take 1 puff(s) by in halation every four hours as needed Albuterol Sulfate Active 1 - 2 PUFF INHALATION EVERY 4 HOURS NEEDED December 11, 2014 12:00am amLODIPine 2.5 mg oral tablet (10 sources) Dihydropyridine Calcium Channel Mandy Start: 11-01-2018 take 2 tablets by mouth once daily Start: 11-01-2018 take 5 mg by mouth once daily Amlodipine Active 5 MG PO DAILY November 01, 2018 1:00am ascorbic acid 500 mg extended release oral tablet (20 sources) Vitamin C Start: 02-17-2021 take 2 tablets by mo uth once daily Start: 02-17-2021 take 1000 mg by mout h once daily Ascorbic Acid (Vitamin C) Active 1000 MG PO DAILY February 17, 2021 8:11am Start: 06-17-2018 End: 02-17-2021 take 1 tablet by mouth once daily Ascorbic Acid (Vitamin C) 500 MG tablet extended release Discontinued 500 mg PO DAILY June 17, 2018 12:00am February 17, 2021 8:14am azelastine (10 sources) Histamine-1 Receptor Antagonist Start: 12-11-2014 Astepro Active 2 SPR AY NASAL DAILY December 11, 2014 8:58am Start: 12-11-2014 Start: 12-11-2014 Astepro Active 2 NMA NASAL DAILY December 11, 2014 12:00am Start: 12-11-2014 Astepro Active 2 SPRAY NASAL DAILY December 10, 2014 11:00pm Start: 12-11-2014 Astepro Active 2 SPRAY NASAL DAILY December 11, 2014 12:00am Budesonide-Formoterol (1 source) Corticosteroid, beta2-Adrenergic Agonist Start: 06-18-2025 cholecalciferol 0.025 mg ora l capsule (20 sources) Vitamin D Start: 02-17-2021 take 1 capsule by mouth once daily Start: 06-17-2018 End: 02-17-2021 take 1 capsule by mouth once daily Cholecalciferol (Vitamin D3) 1,000 UNIT capsule Discontinued 1000 U PO DAILY June 17, 2018 12:00am February 17, 2021 8:14am cloNIDine hydrochloride 0.1 mg oral tablet (1 source) Central alpha-2 Adrenergic Agonist Start: 06-18-2025 take 1 tablet by mouth at bedtime cobamamide 0.1 mg / vitamin b12 5 mg sublingual tablet (10 sources) Vitamin B12 Start: 11-01-2018 Start: 11-01-2018 Cyanocobalamin -Cobamamide (B12) 5,000-100 mcg lozenge Active 1 LOZENGE SL DAILY November 01, 2018 1:00am escitalopram 5 mg oral tablet (11 sources) Serotonin Reuptake Inhibitor Start: 06-18-2025 take 1 tablet by mouth once daily Start: 06-14-2018 End: 06-18-2025 take 2.5 mg by mouth once daily Escitalopram Oxalate (Lexapro) 10 mg tablet Discontinued 2.5 mg PO DAILY June 14, 2018 12:00am June 18, 2025 8:16am famotidine 20 mg oral tablet (1 source) Histamine-2 Receptor Antagonist Start: 06-18-2025 take 1 tablet by mouth twice daily Ginkgo Biloba (10 sources) Start: 06-17-2018 take 60 mg by mouth once daily Ginkgo Biloba Active 60 MG PO DAILY June 17, 2018 8:39am Start: 06-17-2018 take 1 capsule by mouth once d aily Start: 06-17-2018 take 1 capsule by mouth once d aily Ginkgo Biloba 60 MG capsule Active 60 mg PO DAILY June 17, 2018 12:00am Start: 06-17-2018 take 60 mg by mouth once daily Ginkgo Biloba Active 60 MG PO DAILY June 16, 2018 11:00pm Start: 06-17-2018 take 60 mg by mouth once daily Ginkgo Biloba Active 60 MG PO DAILY June 17, 2018 12:00am irbesartan 75 mg oral tablet (1 source) Angiotensin 2 Receptor Mandy Start: 06-18-2025 take 1 tablet by mouth once daily in the evening L.Acidoph, Paracasei,B. Lactis (8 sources) Start: 06-17-2018 L.Acidoph, Paracasei,B. Lactis Active 1 EACH PO DAILY June 17, 2018 8:39am Start: 06-17-2018 L.Acidoph, Par acasei,B. Lactis Active 1 EACH PO DAILY June 16, 2018 11:00pm Start: 06-17-2018 L.Acidoph, Par acasei,B. Lactis Active 1 EACH PO DAILY June 17, 2018 12:00am levothyroxine sodium 0.025 mg oral capsule (10 sources) l-Thyroxine Start: 02-17-2021 take 1 capsule by mouth once daily pantoprazole 20 mg delayed release oral tablet (11 sources) Proton Pump Inhibitor Start: 06-18-2025 take 1 tablet by mouth once daily Start: 02-17-2021 End: 06-18-2025 take 1 tablet by mouth once daily Pantoprazole 40 mg tablet,delayed release (DR/EC) Discontinued 40 mg PO DAILY February 17, 2021 12:00am June 18, 2025 8:14am Completed/Discontinued Medications Medication Drug Class(es) Dates Sig (Normalized) Sig (Original) acetaminophen 325 mg / HYDROcodone bitartrate 5 mg oral tablet (10 sources) Opioid Agonist Start: 01-31-2019 End: 02-03-2019 Hydrocodone-Acetamino phen 1 TABLET tablet Discontinued 1 {tbl} PO EVERY 4 HOURS NEEDED as needed for Pain 10 3 0 January 31, 2019 12:00am February 02, 2019 12:00am February 03, 2019 12:08am Postoperative pain Other acute postprocedural pain Start: 01-31-2019 End: 02-03-2019 take 1 tablet by mouth every four hours as needed Hydrocodone-Acetaminophen Discontinued 1 TABLET PO EVERY 4 HOURS NEEDED 10 January 31, 2019 12:00am February 03, 2019 12:08am busPIRone hydrochloride 5 mg oral tablet (20 sources) Start: 06-17-2018 End: 11-01-2018 take 1 tablet by mouth once daily Buspirone 10 MG tablet Discontinued 10 mg PO DAILY June 17, 2018 12:00am November 01, 2018 9:20am Start: 06-17-2018 End: 11-01-2018 take 1 tablet by mouth at bedtime Buspirone 5 MG tablet Discontinued 5 mg PO AT BEDTIME June 17, 2018 12:00am November 01, 2018 9:20am gabapentin 300 mg oral capsule (10 sources) Anti-epileptic Agent Start: 06-14-2018 End: 02-17-2021 take 1 capsule by mouth twice daily Gabapentin 300 mg capsule Discontinued 300 mg PO TWICE A DAY June 14, 2018 12:00am February 17, 2021 8:13am hydrocortisone 25 mg/ml topical cream (10 sources) Corticosteroid Start: 11-01-2018 End: 12-13-2018 Hydrocortisone (Proctozone-Hc) 2.5 % cream with perineal applicator Discontinued 1 NMA RC TWICE A DAY as needed for hemorrhoids 30 14 2 November 01, 2018 1:00am December 12, 2018 12:00am December 13, 2018 12:07am L.Acidoph,Paracasei, B.Animalis 1 EACH capsule (2 sources) Start: 06-17-2018 End: 06-18-2025 take 1 capsule by mouth once daily L.Acidoph,Paracasei ,B.Animalis 1 EACH capsule Discontinued 1 NMA PO DAILY June 17, 2018 12:00am June 18, 2025 8:14am Start: 06-17-2018 take 1 capsule by mouth once daily L.Acidoph,Paracasei,B.Animalis 1 EACH ca psule Active 1 NMA PO DAILY June 17, 2018 12:00am magnesium oxide 500 mg oral capsule (10 sources) Start: 06-17-2018 End: 02-17-2021 take 1 capsule by mouth twice daily Magnesium Oxide 500 MG capsule Discontinued 500 mg PO TWICE A DAY June 17, 2018 12:00am February 17, 2021 8:12am melatonin 5 mg / vitamin b6 1 mg oral tablet (10 sources) Start: 06-17-2018 End: 06-18-2025 take 1 tablet by mouth at bedtime Melatonin-Pyridoxine (Vit B6) 1 EACH tablet Discontinued 1 NMA PO AT BEDTIME June 17, 2018 12:00am June 18, 2025 8:14am Start: 06-17-2018 Melatonin-Pyri doxine (Vit B6) Active 1 EACH PO AT BEDTIME June 17, 2018 12:00am metroNIDAZOLE 250 mg oral tablet (10 sources) Nitroimidazole Antimicrobial Start: 01-31-2019 End: 02-05-2019 take 1 tablet by mouth three times daily Metronidazole 250 MG tablet Discontinued 250 mg PO THREE TIMES A DAY 15 5 0 January 31, 2019 12:00am February 04, 2019 12:00am February 05, 2019 12:07am milnacipran hydrochloride 12.5 mg oral tablet (10 sources) Serotonin and Norepinephrine Reuptake Inhibitor Start: 06-14-2018 End: 02-17-2021 take 1 tablet by mouth twice daily Milnacipran (Savella) 12.5 mg tablet Discontinued 100 mg PO TWICE A DAY June 14, 2018 12:00am February 17, 2021 8:13am naproxen 500 mg oral tablet (10 sources) Nonsteroidal Anti-inflammatory Drug Start: 12-11-2014 End: 11-01-2018 take 1 tablet by mouth once daily as needed for pain Naproxen 500 MG tablet Discontinued 500 mg PO DAILY NEEDED as needed for Mild/Moderate Pain December 11, 2014 12:00am November 01, 2018 9:20am sucralfate 1000 mg oral tablet (10 sources) Aluminum Complex Start: 02-17-2021 End: 06-18-2025 take 1 tablet by mouth at bedtime Sucralfate (Carafate) 1 gram tablet Discontinued 1 g PO before meals and at bedtime 90 0 February 17, 2021 12:00am June 18, 2025 8:15am Turmeric Root Extract (10 sources) Start: 06-17-2018 End: 02-17-2021 take 500 mg by mouth once daily Turmeric Root Extract Discontinued 500 MG PO DAILY June 17, 2018 8:39am February 17, 2021 8:13am Start: 06-17-2018 End: 02-17-2021 take 1 capsule by mouth once daily Turmeric Root Extract 500 MG capsule Discontinued 500 mg PO DAILY June 17, 2018 12:00am February 17, 2021 8:13am Start: 06-17-2018 End: 02-17-2021 take 500 mg by mouth once daily Turmeric Root Extract Discontinued 500 MG PO DAILY June 16, 2018 11:00pm February 17, 2021 7:13am Start: 06-17-2018 End: 02-17-2021 take 500 mg by mouth once daily Turmeric Root Extract Discontinued 500 MG PO DAILY June 17, 2018 12:00am February 17, 2021 8:13am Problems Active Problems Problem Classification Problem Date Documented Da te Episodic/Chronic Diverticulosis and diverticulitis (1 source) Diverticulitis of large intestine without perforation or abscess without bleeding; Translations: [Diverticulitis of large intestine without perforation or abscess without bleeding] Onset: Chronic Esophageal disorders (10 sources) Gastroesophageal reflux disease; Translations: [Gastro-esophageal reflux disease without esophagitis] 02-17-2021 Chronic Gastrointestinal hemorrhage (3 sources) Hematochezia; Translations: [Melena] Onset: 06-18-2025 Episodic Hemorrhoids (10 sources) Bleeding internal hemorrhoids; Translations: [Other hemorrhoids] 01-31-2019 Episodic Open wounds of head; neck; and trunk (6 sources) Laceration - injury; Translations: [Laceration] 03-28-2023 Episodic Other gastrointestinal disorders (10 sources) Diarrhea; Translations: [Diarrhea, unspecified] 02-17-2021 Episodic Other gastrointestinal disorders (10 sources) Burping; Translations: [Eructation] 02-17-2021 Episodic Past or Other Problems Problem Classification Problem Date Documented Da te Episodic/Chronic Abdominal pain (11 sources) Abdominal pain; Translations: [Unspecified abdominal pain] Onset: 07-25-2024 02-17-2021 Episodic Other connective tissue disease (1 source) Impingement syndrome of left shoulder; Translations: [Impingement syndrome of left shoulder] Onset: 09-08-2024 Episodic Other non-traumatic joint disorders (1 source) Pain in left shoulder; Translations: [Pain in left shoulder] Onset: 09-08-2024 Episodic Results Test Name Value Interpretation Reference Range Facility Colonoscopy Reporton 14-2 025 Colonoscopy Report [facility] Records Department [address] [place] [address] Colonoscopy Report MR#: [id number] Acct: [id number] Name: SANTOS ROSADO Rep #: [id number] : 1965 59 From: Fredrick Evans MD PCP: Dr. Ceferino Perez MD Status:REG [facility] Patient Name: Santos Rosado Procedure Date: 06/26/2025 8:10 AM Date of : 1965 Age: 59 Procedure: Colonoscopy Indications: Gastrointestinal bleeding Providers: Fredrick Evans MD Referring MD: Ceferino Perez Medicines: Propofol per Anesthesia Patient Profile: This is a 59 year old male. Refer to note in patient chart for documentation of history and physical. Last Colonoscopy: none. The patient's first colonoscopy is today. Complications: No immediate complications. Procedure: Pre-Anesthesia Assessment: - Prior to the procedure, a History and Physical was performed, and patient medications and allergies were reviewed. The patient's tolerance of previous anesthesia was also reviewed. The risks and benefits of the procedure and the sedation options and risks were discussed with the patient. All questions were answered, and informed consent was obtained. Prior Anticoagulants: The patient has taken no anticoagulant or antiplatelet agents. After reviewing the risks and benefits, the patient was deemed in satisfactory condition to undergo the procedure. After I obtained informed consent, the scope was passed under direct vision. Throughout the procedure, the patient's blood pressure, pulse, and oxygen saturations were monitored continuously. The colonoscope was introduced through the anus and advanced to the cecum, identified by appendiceal orifice and ileocecal valve. The colonoscopy was performed without difficulty. The patient tolerated the procedure well. The quality of the bowel preparation was good. The ileocecal valve, appendiceal orifice, and rectum were photographed. Scope In: 8:16:00 AM Scope Withdrawal Time 0 hours 6 minutes 35 seconds Scope Out: 8:24:46 AM Total Procedure Duration Time 0 hours 8 minutes 46 seconds Findings: The entire examined colon appeared normal on direct and retroflexion views. Impression: - The entire examined colon is normal on direct and retroflexion views. - No specimens collected. Recommendation: - Discharge patient to home. - Resume previous diet. - Continue present medications. - Repeat colonoscopy in 10 years for screening purposes. Procedure Code(s): --- Professional --- 38248, Colonoscopy, flexible; diagnostic, including collection of specimen(s) by brushing or washing, when performed (separate procedure) Diagnosis Code(s): --- Professional --- K92.2, Gastrointestinal hemorrhage, unspecified CPT copyright 2021 [employer]. All rights reserved. The codes documented in this report are preliminary and upon label coder review may be revised to meet current compliance requirements. Fredrick Evans MD 06/26/2025 8:27:11 AM This report has been signed electronically. Number of Addenda: 0 Note Initiated On: 06/26/2025 8:10 AM 06/26/25826 Date Fredrick Evans MD Cosigner Signature: Date (if indicated) CC: Dr. Fredrick Evans MD; Dr. Ceferino Perez MD Date Dictated: 06/26/25809 Date Transcribed: Skin Care Consultant: LO [facility] MR/OP.Shi 06-26-2025 MR/OP.[facility] Medical Records Department [address] [place] [id number] [place] [address] Physician Letter MR#: [id number] Acct: [id number] Name: SANTOS ROSADO Rep #: [id number] : 1965 59 From: Fredrick Evans MD PCP: Dr. Ceferino Perez MD Status:REG [facility] 06/26/2025 Ceferino Perez [address] [place] [address] Re : Colonoscopy procedure for Santos Rosado Dear Dr. Perez This procedure was performed on Thursday, June 26, 2025. My impressions and recommendations are as follows: Impressions : - The entire examined colon is normal on direct and retroflexion views. - No specimens collected. Recommendations : - Discharge patient to home. - Resume previous diet. - Continue present medications. - Repeat colonoscopy in 10 years for screening purposes. My findings are described in the full procedure note, which is enclosed. If I can be of further assistance, please feel free to contact me at Doctor phone number(s): , Work: . Sincerely, Fredrick Evans MD 06/26/2025 8:27:11 AM This report has been signed electronically. 06/26/25826 Date Fredrick Evans MD Cosign Signature: Date (if indicated) CC: Dr. Fredrick Evans MD; Dr. Ceferino Perez MD Date Dictated: 06/26/25809 Date Transcribed: Skin Care Consultant: [facility] Medical Records Department [address] [place] [address] Anesthesia Postop Eval I 06/26/25833 MR#: [id number] Acct: [id number] Name: SANTOS ROSADO Rep #: [id number] : 1965 59 From: Lei Girard PCP: Dr. Ceferino Perez MD Status:REG SDC Y Race: C Location: [facility] Anesthesia: Postop Eval I Current Vital Signs Temperature: 97 F Pulse Rate: 67 Blood Pressure: 103/71 Respiratory Rate: 16 Pulse Ox: 96 Oxygen Delivery Method: Room Air Assessment Airway patent: Yes Spontaneous unlabored respirations: Yes Mental status: Awake and Calm nausea: No Vomiting: No Anesthesia Complication: No Fluid Hydration Crystalloid volume administer (ml): 300 Total IV fluid infused: 300 Progress Note Anesthesia document: Postop Eval 1 completed: Yes 06/26/25834 Date Lei Moser Signature: Date CC: Signed Normal [facility] MR/CBNAOTYO6jv 06-26-2025 MR/POSTOPAN2 [facility] Medical Records Department [address] [place] [address] Anesthesia Postop Eval II 06/26/25850 MR#: [id number] Acct: [id number] Name: SANTOS ROSADO Rep #: [id number] : 1965 59 From: Miguel Cornejo MD PCP: Dr. Ceferino Perez MD Status:REG [facility] Y Race: C Location: [place] [address] Anesthesia Postop Eval I Sum Postop Eval Completion status Anesthesia document: Postop Eval 1 completed: Yes Anesthesia Postop Eval I Summary Anesthesia Postop Eval I Summary: Anesthesia Postop Eval I: Assessment Summary Airway patent Yes 06/26/25 08:35 [email or web address] Spontaneous unlabored Yes 06/26/25 08:35 [email or web address] respirations Mental status Awake,Calm 06/26/25 08:35 [email or web address] nausea No 06/26/25 08:35 [email or web address] Vomiting No 06/26/25 08:35 [email or web address] Anesthesia Postop Eval I: Fluid Summary Crystalloid volume administer 300 06/26/25 08:35 [email or web address] (ml) Colloids volume administered ( ml) Blood Product volume administered (ml) Total IV fluid infused 300 06/26/25 08:35 [email or web address] Anesthesia Postop Eval I: Summary Notes Anesthesia Complication No 06/26/25 08:35 [email or web address] Anesthesia Complication Comment: Post-operative progress note Anesthesia: Postop Eval II Evaluation Mental status: Awake and Calm Pain Level: 0 nausea: No Vomiting: No Complications Anesthesia Complication: No 06/26/25850 Miguel Moser Signature: Date CC: Signed Normal [facility] MR/PATErnesto 06-21-2025 MR/PAT.SCOTTY [facility] Medical Records Department [address] [place] [address] PAT - Anesthesia 06/21/25 1353 MR#: [id number] Acct: [id number] Name: SANTOS ROSADO Rep #: [id number] : 1965 59 From: Juan Daniel Ramires MD PCP: Dr. Ceferino Perez MD Status:PRE [facility] Y Race: C Location: [facility] Pre-Assessment Diagnosis/Proposed Procedure Planned Operative Procedure(s): CSCOPE Anesthesia History Anesthesia History - food and beverage analyst: Anesthesia History - food and beverage analyst Hx Hospitalization No 06/21/25 13:26 Any Problems With Anesthesia No 06/21/25 13:26 Cholinesterase deficiency No 06/21/25 13:26 You/Your Family Experience No 06/21/25 13:26 fever (hyperthermia) with Relationship Recent Exposure to Contagious No 02/25/21 07:49 Disease Does patient have nerve No 06/21/25 13:26 stimulator Patient instructed to have device shut off --Does patient have Pacemaker or ICD? When Was Last Pacemaker Check QUESTION #4 FULL TEXT: You/Your Family Experience fever (hyperthermia) with Anesthesia Last Oral Intake Last Oral intake: Last Oral Intake NPO since Meds taken in AM with sips of water? Meds patient instructed to take am of surgery PONV PONV - food and beverage analyst: PONV - food and beverage analyst Female No 06/21/25 13:26 HX of Motion Sickness Yes 06/21/25 13:26 HX of N/V After Surgery No 06/21/25 13:26 Non-Smoker Yes 06/21/25 13:26 Duration of Surgery greater No 06/21/25 13:26 than 60 minutes Number of Risk Factors 2 06/21/25 13:26 PONV Score Moderate Risk 06/21/25 13:26 Height Weight Height Weight: Anesthesia: Height Weight Height 5 ft 5 in 06/18/25 08:12 Respiratory Assessment Respiratory Assessment - food and beverage analyst: Respiratory Tract Infection Hx - food and beverage analyst Hx Respiratory Tract Infection No 06/21/25 13:26 STOP Sleep Apnea STOP Sleep Apnea - food and beverage analyst: STOP Sleep Apnea - food and beverage analyst Hx Hypertension Yes 06/21/25 13:26 Hx Sleep Apnea Yes 06/21/25 13:26 CPAP Yes 06/21/25 13:26 BIPAP No 06/21/25 13:26 Do you snore loudly (louder No 06/21/25 13:26 than talking or can be heard Do you often feel tired/ No 06/21/25 13:26 fatigued/ sleepy during daytime? Has anyone observed you stop No 06/21/25 13:26 breathing during sleep? STOP Results Positive 06/21/25 13:26 QUESTION #5 FULL TEXT : Do you snore loudly (louder than talking or can be heard through closed doors)? 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 Specify any problems Hx of Preganancy in last 3 N/A 06/21/25 13:26 Months Nurse Filling Out Transfusion NBUCHER 06/21/25 13:26 Questions: Date: 06/21/25 06/21/25 13:26 Time: 13:27 06/21/25 13:26 Patient unable to answer at this time (ie. confused, unrespo /Reproducti on History /Reproducti ve History - food and beverage analyst: /Reproducti ve Hx- food and beverage analyst Hx Now No 06/21/25 13:26 Gestational Age (in weeks): EDC: Hx Hx Para Hx Section SAB No 06/21/25 13:26 [facility] Medical History (Updated 06/21/25 @ 13:31 by Shira Fox) Loss of hearing Hypothyroid High cholesterol Blood in stool Wears glasses Alcohol use Substance abuse Marijuana use History of steroid therapy Thyroid disease Injury of head and neck Syncope History of ulceration History of IBS Gastric reflux Non-smoker CPAP (continuous positive airway pressure) dependence History of pain when walking History of edema History of stress test Abdominal pain Diarrhea Belching GERD (gastroesophageal reflux disease) Internal bleeding hemorrhoids HTN (hypertension) Fibromyalgia Sleep apnea Asthma Anxiety and depression Rectal bleeding Home Medications ???Medication ???Instructions ???Recorded ???Last Taken ???Type Astepro 2 spray DAILY 12/11/14 Unknown His tory albuterol sulfate 90 mcg/actuation 1 - 2 puff inhalation Q4H PRN [place] N 12/11/14 Unknown History aerosol inhaler Asthma (more content not included)... Normal [facility] Surgery Visit Reporton 06-18 Surgery Visit Report [facility] [address] [place] [address] OFFICE VISIT Date of Service: 06/18/25 MR#: [id number] Acct: [id number] Name: SANTOS ROSADO Rep #: [id number] : 1965 Provider: Dr. Fredrick yang MD Age/Sex: 59/M Location: [facility] Status: Signed Intake Vital Signs 07/03/24 10:07 06/18/25 08:12 Height 5 ft 5 in 5 ft 5 in Weight: 190 lb BMI 31.6 BP 137/72 H Blood Pressure Location Rt brachial Position Sitting Respiration 18 Pulse 72 Pulse Source Monitor Temp 98.2 F Temp Source Temporal Pulse Oximetry (%) 98 Oxygen Delivery Method room air Intake Visit Reasons: BLOOD IN STOOL Chief Complaint: Diarrhea/abdominal pain/GERD Allergies shellfish derived Allergy (Intermediate, Verified 06/18/25 08:13) Vomiting vilazodone HCl (From Viibryd) Allergy (Verified 06/18/25 08:13) Hives [facility] Medical History (Updated 06/18/25 @ 08:11 by Anali Torres LPN) Blood in stool Wears glasses Alcohol use Substance abuse Marijuana use History of steroid therapy Thyroid disease Injury of head and neck Syncope History of ulceration History of IBS Gastric reflux Non-smoker CPAP (continuous positive airway pressure) dependence History of pain when walking History of edema History of stress test Abdominal pain Diarrhea Belching GERD (gastroesophageal reflux disease) Internal bleeding hemorrhoids HTN (hypertension) Fibromyalgia Sleep apnea Asthma Anxiety and depression Rectal bleeding Surgical History (Updated 06/18/25 @ 08:11 by Anali Torres LPN) History of repair of rotator cuff History of hemorrhoidectomy History of colonoscopy ( 06/2018) History of hernia repair History of vasectomy Family History (Updated 06/18/25 @ 08:12 by Anali Torres LPN) Mother Arthritis Breast cancer Diabetes Father Arthritis Colon cancer Hypertension Cancer skin cancer Acute Crohn's disease Social History (Updated 06/18/25 @ 08:12 by Anali Torres LPN) Smoking Status: Never smoker alcohol intake: current alcohol intake frequency: a few times a month substance use type: marijuana HPI HPI HPI: Patient is a 59-year-old male here for blood in the stool. He reports this is the 1 episode that happened and it was bright red. He does not note any pain. He is not having any abdominal pain. His last colonoscopy was in 2020 and a tubular adenoma was removed. He has also been having some diarrhea and notes that his father was recently diagnosed with Crohn's disease. ROS General General: Yes fatigue; No weight change, appetite, colon cancer, breast cancer or weakness HEENT HEENT: No difficulty swallowing, eye injury, eye surgery, swollen glands or hoarseness Endo Endocrine: Yes thyroid disease; No diabetes mellitus, thyroid cancer, Hair loss, heat intolerance or cold intolerance Skin Skin: No rash or changing moles Musc Musculoskeletal: Yes arthritis; No back problems, rheumatoid arthritis, gout or joint pain Cardio Cardiovascular: Yes high blood pressure; No murmur, pacemaker, heart disease, atrial fibrillation, heart attack, heart stent, palpitations, shortness of breath with exertion or chest pain Psych Psychiatric: Yes depression and anxiety; No hearing voices Resp Respiratory: Yes shortness of breath, Yes sleep apnea, No cough, No COPD, Yes asthma, No emphysema and No wheezing Gastro Gastrointestinal: Yes abdominal pain, Yes nausea or vomiting, Yes diarrhea, No constipation, Yes blood in stool, No acid reflux, No hemorrhoids, No ulcers, No gallbladder problem and No black,tarry stools Rajeev Hematologic: No blood thinners, No blood disorders, No bleeding, No anemia and No blood clots Neuro Neurologic: No numbness, No tingling and No weakness Exam Const General: cooperative Orientation: alert and oriented x3 HENMT Head: normal to inspection Neck Neck: normal visual inspection and full ROM Chest Chest palpation inspection: normal inspection of the chest Resp Effort Inspection: normal respiratory effort Auscultation: clear to auscultation bilaterally Cardio Rate: regular rate Rhythm: regular rhythm GI Inspection: non-distended Palpation: soft and nontender Skin General: no rashes or lesions noted Neuro General: patient alert and patient oriented x3 Extrem General: full ROM Psych Appearance: grossly normal Mental Status: mental status grossly normal Assessment and Plan Assessment and Plan (1) Blood in stool: Status: Acute Plan: I explained endoscopy in detail to the patient. I explained the risks including but not limited to stroke or heart attack with anesthesia, perforation of the GI tract, bleeding, infection. I explained that any of these could (more content not included)... Normal [facility] 12 Lead EKGon 01-31-2025 12 Lead EKG [facility] Cardiovascular Services [address] [place] [address] 12 Lead EKG 01/31/25 0733 MR#: [id number] Acct: [id number] Name: SANTOS ROSADO Rep #: [id number] : 1965 59 From: Thom Mendoza MD Attending Dr: Dr. Jonny Burch, Status: REG CLI Ordering Dr: Juany Whitney Date: 01/31/25 Location: [facility] Sex: M C Admitted: Test Reason : PREOP Blood Pressure : */* mmHG Vent. Rate : 74 BPM Atrial Rate : 74 BPM P-R Int : 156 ms QRS Dur : 88 ms QT Int : 356 ms P-R-T Axes : 65 20 24 degrees QTcB Int : 395 ms Normal sinus rhythm RSR' or QR pattern in V1 suggests right ventricular conduction delay Borderline ECG Confirmed by KELLY GERMAN, THOM ([id number]), technical editor DK PACE ([id number]) on 01/31/2025 1:01:36 PM Referred By: Jonny Burch Confirmed By: THOM MENDOZA MD 01/31/25 1301 Date Thom Mendoza MD CC: Dr. Ceferino Perez MD; Dr. Jonny Burch DO; JACKY Lee Signed Normal [facility] Absolute lymphocyte countOrd ered By: Jonny Burch on 01-31-2025 Lymphocytes Auto (Unsp spec) [#/Vol] 2.15 10*3/uL 0.83-4.51 [facility] Absolute neutrophil countOrd ered By: Jonny Burch on 01-31-2025 Neutrophils (Bld) [#/Vol] 4.3 10*3/uL 2.0-7.7 [facility] Anion gap in Serum or Plasma Ordered By: Jonny Burch on 01-31-2025 Anion gap [Moles/Vol] 13 mmol/L 01-25 [facility] Automated lymphocyte count a s percentage of total leukocytesOrdered By: Jonny Burch on 01-31-2025 Lymphocytes/100 WBC Auto (Unsp spec) 29.1 % [facility] BUN/creatinine ratioOrdered By: Jonny Burch on 01-31-2025 Urea nitrogen/Creatinine [Mass ratio] 20.2 mg/mg High 07-02 [facility] Basic Metabolic Profile (BMP )on 01-31-2025 BUN/CRE 20.2 RATIO High 07-02 [facility] Comment on above: Performed By: #### L 500.2500, L100.0100 #### [facility] [address] [place], [address] Calcium [Mass/Vol] 9.5 mg/dL Normal 7.6-11.0 [facility] Comment on above: Performed By: #### L 500.2500, L100.0100 #### [facility] [address] [place], [address] Chloride [Moles/Vol] 106 mmol/L Normal 98-108 [facility] Comment on above: Performed By: #### L 500.2500, L100.0100 #### [facility] [address] [place], [address] CO2 [Moles/Vol] 21.5 mmol/L Normal 21.0-32.0 [facility] Comment on above: Performed By: #### L 500.2500, L100.0100 #### [facility] [address] [place], [address] Creatinine [Mass/Vol] 1.07 mg/dL Normal 0.70-1.20 [facility] Comment on above: Performed By: #### L 500.2500, L100.0100 #### [facility] [address] [place], [address] GAP 13 Normal 5-15 [facility] Comment on above: Performed By: #### L 500.2500, L100.0100 #### [facility] [address] [place], [address] GFR/1.73 sq M.predicted among non-blacks MDRD (S/P/Bld) [Vol rate/Area] 79 mL/min/{1.73_m2} Normal >60 [facility] Comment on above: Result Comment: mL/m in/1.73m2 CKD-EPI Creatinine Equation (2020) Performed By: #### L 500.2500, L100.0100 #### [facility] [address] [place], [address] Glucose [Mass/Vol] 121 mg/dL High 70-99 [facility] Comment on above: Performed By: #### L 500.2500, L100.0100 #### [facility] [address] [place], [address] Potassium [Moles/Vol] 3.7 mmol/L Normal 3.3-5.1 [facility] Comment on above: Performed By: #### L 500.2500, L100.0100 #### [facility] [address] [place], [address] Sodium [Moles/Vol] 140 mmol/L Normal 133-145 [facility] Comment on above: Performed By: #### L 500.2500, L100.0100 #### [facility] [address] [place], [address] Urea nitrogen [Mass/Vol] 22 mg/dL High 4-19 [facility] Comment on above: Performed By: #### L 500.2500, L100.0100 #### [facility] [address] [place], [address] Basophil percentageOrdered B y: Jonny Burch on 01-31-2025 Basophils/100 WBC (Bld) 0.5 % 0-1 [facility] CBC W/Diff, Automatedon 01-12 Absolute Lymph 2.15 X10 3/uL Normal 0.83-4.51 [facility] Comment on above: Performed By: #### L 500.2500, L100.0100 #### [facility] [address] [place], [address] Absolute Neut 4.3 X10 3/uL Normal 2.0-7.7 [facility] Comment on above: Performed By: #### L 500.2500, L100.0100 #### [facility] [address] [place], [address] Basophils/100 WBC (Bld) 0.5 % Normal 0-1 [facility] Comment on above: Performed By: #### L 500.2500, L100.0100 #### [facility] [address] [place], [address] Eosinophils/100 WBC (Bld) 2.7 % Normal 0-5 [facility] Comment on above: Performed By: #### L 500.2500, L100.0100 #### [facility] [address] [place], [address] Erythrocyte distribution width (RBC) [Ratio] 12.3 % Normal 11.6-14.6 [facility] Comment on above: Performed By: #### L 500.2500, L100.0100 #### [facility] [address] [place], [address] Hematocrit (Bld) [Volume fraction] 43.5 % Normal 40-54 [facility] Comment on above: Performed By: #### L 500.2500, L100.0100 #### [facility] [address] [place], [address] Hemoglobin (Bld) [Mass/Vol] 15.0 g/dL Normal 13.0-16.5 [facility] Comment on above: Performed By: #### L 500.2500, L100.0100 #### [facility] [address] [place], [address] IG% 0.300 Normal 0.0-0.9 [facility] Comment on above: Result Comment: IG% - Immature Granulocytes (promyelocytes, myelocytes and metamyelocytes) > 1% indicates that a LEFT SHIFT is Present. Performed By: #### L 500.2500, L100.0100 #### [facility] [address] [place], [address] Lymphocytes/100 WBC (Bld) 29.1 % Normal 19-41 [facility] Comment on above: Performed By: #### L 500.2500, L100.0100 #### [facility] [address] [place], [address] MCH (RBC) [Entitic mass] 31.8 pg Normal 27.0-32.0 [facility] Comment on above: Performed By: #### L 500.2500, L100.0100 #### [facility] [address] [place], [address] MCHC (RBC) [Mass/Vol] 34.5 g/dL Normal 32-36 [facility] Comment on above: Performed By: #### L 500.2500, L100.0100 #### [facility] [address] [place], [address] MCV (RBC) [Entitic vol] 92.4 fL Normal 80-94 [facility] Comment on above: Performed By: #### L 500.2500, L100.0100 #### [facility] [address] [place], [address] Monocytes/100 WBC (Bld) 8.9 % Normal 0-10 [facility] Comment on above: Performed By: #### L 500.2500, L100.0100 #### [facility] [address] [place], [address] Neutrophils/100 WBC (Bld) 58.5 % Normal 47-70 [facility] Comment on above: Performed By: #### L 500.2500, L100.0100 #### [facility] [address] [place], [address] Nucleated RBC (Bld) [#/Vol] 0 10*3/uL Normal 0-5 [facility] Comment on above: Performed By: #### L 500.2500, L100.0100 #### [facility] [address] [place], [address] Platelet mean volume (Bld) [Entitic vol] 10.1 fL Normal 6.2-12.0 [facility] Comment on above: Performed By: #### L 500.2500, L100.0100 #### [facility] [address] [place], [address] Platelets (Bld) [#/Vol] 226 10*3/uL Normal 150-450 [facility] Comment on above: Performed By: #### L 500.2500, L100.0100 #### [facility] [address] [place], [address] RBC (Bld) [#/Vol] 4.71 10*6/uL Normal 4.6-6.2 [facility] Comment on above: Performed By: #### L 500.2500, L100.0100 #### [facility] [address] [place], [address] RDW SD 41.6 fl Normal 35.1-43.9 [facility] Comment on above: Performed By: #### L 500.2500, L100.0100 #### [facility] [address] [place], [address] WBC (Bld) [#/Vol] 7.4 10*3/uL Normal 4.4-11.0 [facility] Comment on above: Performed By: #### L 500.2500, L100.0100 #### [facility] [address] [place], [address] Carbon dioxide, total [Moles /volume] in Central venous bloodOrdered By: Jonny Burch on 01-31-2025 CO2 [Moles/Vol] 21.5 mmol/L 21.0-32.0 [facility] Chloride assayOrdered By: Megan Burch on 01-31-2025 Chloride [Moles/Vol] 106 mmol/L 98-108 [facility] Electrocardiogram reportOrde red By: Thom Mendoza on 01-31-2025 EKG study [facility] Cardiovascular Services [address] [place] [address] 12 Lead EKG 01/31/25 0733 MR#: [id number] Acct: [id number] Name: SANTOS ROSADO Rep #:[id number] : 1965 59 From: Thom Mendoza MD Attending Dr: Dr. Jonny Burch, DO Status: REG CLI Ordering Dr: Juany Whitney Date: Location: PSN Sex: M C Admitted: Test Reason : PREOP Blood Pressure : */* mmHG Vent. Rate : 74 BPM Atrial Rate : 74 BPM P-R Int : 156 ms QRS Dur : 88 ms QT Int : 356 ms P-R-T Axes : 65 20 24 degrees QTcB Int : 395 ms Normal sinus rhythm RSR' or QR pattern in V1 suggests right ventricular conduction delay Borderline ECG Confirmed by THOM MENDOZA MD ([id number]), technical editor DK PACE ([id number]) on :01:36 PM Referred By: Jonny Burch Confirmed By: THOM MENDOZA MD 01/31/25 1301 Date _ Thom Mendoza MD CC: Dr. Ceferino Perez MD; Dr. Jonny Burch DO; JACKY Lee ~ Signed [facility] Work Phone: Eosinophil percentageOrdered By: Jonny Burch on 01-31-2025 Eosinophils/100 WBC (Bld) 2.7 % 0-5 [facility] Erythrocyte distribution wid th ratioOrdered By: Jonny Burch on 01-31-2025 Erythrocyte distribution width (RBC) [Ratio] 12.3 % 11.6-14.6 [facility] Erythrocyte distribution wid th standard deviationOrdered By: Jonny Burch on 01-31-2025 Erythrocyte distribution width (RBC) [Ratio] 41.6 fl 35.1-43.9 [facility] Glomerular filtration rate ( GFR) estimation/1.73 sq m using serum, plasma, or whole bOrdered By: Jonny Burch on 01-31-2025 GFR/1.73 sq M.predicted among non-blacks MDRD (S/P/Bld) [Vol rate/Area] 79 mL/min/{1.73_m2} >60 [facility] Comment on above: mL/min/1.73m2 CKD-EP I Creatinine Equation (2020) Hematocrit Auto (Bld) [Volum e fraction]Ordered By: Jonny Burch on 01-31-2025 Hematocrit (Bld) [Volume fraction] 43.5 % 40-54 [facility] Hemoglobin measurementOrdere d By: Jonny Burch on 01-31-2025 Hemoglobin (Bld) [Mass/Vol] 15.0 g/dL 13.0-16.5 [facility] Immature granulocytes/100 WB C Auto (Bld)Ordered By: Jonny Burch on 01-31-2025 Immature granulocytes/100 WBC (Bld) 0.300 % 0.0-0.9 [facility] Comment on above: IG% - Immature Granu locytes (promyelocytes, myelocytes and metamyelocytes) > 1% indicates that a LEFT SHIFT is Present. MCV (mean corpuscular volume ) determinationOrdered By: Jonny Burch on 01-31-2025 MCV (RBC) [Entitic vol] 92.4 fL 80-94 [facility] Mean corpuscular hemoglobin (MCH) determinationOrdered By: Jonny Burch on 01-31-2025 MCH (RBC) [Entitic mass] 31.8 pg 27.0-32.0 [facility] Mean corpuscular hemoglobin concentration (MCHC) determinationOrdered By: Jonny Burch on 01-31-2025 MCHC (RBC) [Mass/Vol] 34.5 g/dL 32-36 [facility] Mean platelet volume determi nationOrdered By: Jonny Burch on 01-31-2025 Platelet mean volume (Bld) [Entitic vol] 10.1 fL 6.2-12.0 [facility] Monocyte percentageOrdered B y: Jonny Burch on 01-31-2025 Monocytes/100 WBC (Bld) 8.9 % 0-10 [facility] Neutrophil percentageOrdered By: Jonny Burch on 01-31-2025 Neutrophils/100 WBC (Bld) 58.5 % 47-70 [facility] Nucleated red blood cell per centageOrdered By: Jonny Burch on 01-31-2025 Nucleated RBC/100 WBC (Bld) [Ratio] 0 % 0-5 [facility] Platelet countOrdered By: Megan Burch on 01-31-2025 Platelets (Bld) [#/Vol] 226 10*3/uL 150-450 [facility] Potassium measurement (mass/ volume)Ordered By: Jnony Burch on 01-31-2025 Potassium (Unsp spec) [Mass/Vol] 3.7 mmol/L 3.3-5.1 [facility] RBC Auto (Bld) [#/Vol]Ordere d By: Jonny Burch on 01-31-2025 RBC (Bld) [#/Vol] 4.71 10*6/uL 4.6-6.2 [facility] Serum creatinine measurement (mass/volume)Ordered By: Jonny Burch on 01-31-2025 Creatinine [Mass/Vol] 1.07 mg/dL 0.70-1.20 [facility] Serum glucose measurement (m ass/volume)Ordered By: Jonny Burch on 01-31-2025 Glucose [Mass/Vol] 121 mg/dL High 70-99 [facility] Serum or plasma calcium hanny urement (mass/volume)Ordered By: Jonny Burch on 01-31-2025 Calcium [Mass/Vol] 9.5 mg/dL 7.6-11.0 [facility] Serum or plasma urea nitroge n measurement (mass/volume)Ordered By: Jonny Burch on 01-31-2025 Urea nitrogen [Mass/Vol] 22 mg/dL High 4-19 [facility] Sodium levelOrdered By: Don Burch on 01-31-2025 Sodium [Moles/Vol] 140 mmol/L 133-145 [facility] White blood cell (WBC) count Ordered By: Jonny Burch on 01-31-2025 WBC (Bld) [#/Vol] 7.4 10*3/uL 4.4-11.0 [facility] CBC W/Diff, Automatedon 09-13 Absolute Lymph 1.23 X10 3/uL Normal 0.83-4.51 [facility] Comment on above: Order Comment: Order Date: 09/22/24 Order Info: 0184-1 - CBCD Performed By: #### L 100.0100, L500.4050, L501.2450, L501.5200, L501.6710 #### [facility] [address] [place], [address] Absolute Neut 4.2 X10 3/uL Normal 2.0-7.7 [facility] Comment on above: Order Comment: Order Date: 09/22/24 Order Info: 0184-1 - CBCD Performed By: #### L 100.0100, L500.4050, L501.2450, L501.5200, L501.6710 #### [facility] [address] [place], [address] Basophils/100 WBC (Bld) 0.5 % Normal 0-1 [facility] Comment on above: Order Comment: Order Date: 09/22/24 Order Info: 0184-1 - CBCD Performed By: #### L 100.0100, L500.4050, L501.2450, L501.5200, L501.6710 #### [facility] [address] [place], [address] Eosinophils/100 WBC (Bld) 4.6 % Normal 0-5 [facility] Comment on above: Order Comment: Order Date: 09/22/24 Order Info: 0184-1 - CBCD Performed By: #### L 100.0100, L500.4050, L501.2450, L501.5200, L501.6710 #### [facility] [address] [place], [address] Erythrocyte distribution width (RBC) [Ratio] 12.2 % Normal 11.6-14.6 [facility] Comment on above: Order Comment: Order Date: 09/22/24 Order Info: 0184-1 - CBCD Performed By: #### L 100.0100, L500.4050, L501.2450, L501.5200, L501.6710 #### [facility] [address] [place], [address] Hematocrit (Bld) [Volume fraction] 47.6 % Normal 40-54 [facility] Comment on above: Order Comment: Order Date: 09/22/24 Order Info: 0184-1 - CBCD Performed By: #### L 100.0100, L500.4050, L501.2450, L501.5200, L501.6710 #### [facility] [address] [place], [address] Hemoglobin (Bld) [Mass/Vol] 15.7 g/dL Normal 13.0-16.5 [facility] Comment on above: Order Comment: Order Date: 09/22/24 Order Info: 0184-1 - CBCD Performed By: #### L 100.0100, L500.4050, L501.2450, L501.5200, L501.6710 #### [facility] [address] [place], [address] IG% 0.300 Normal 0.0-0.9 [facility] Comment on above: Order Comment: Order Date: 09/22/24 Order Info: 0184-1 - CBCD Result Comment: IG% - Immature Granulocytes (promyelocytes, myelocytes and metamyelocytes) > 1% indicates that a LEFT SHIFT is Present. Performed By: #### L 100.0100, L500.4050, L501.2450, L501.5200, L501.6710 #### [facility] [address] [place], [address] Lymphocytes/100 WBC (Bld) 19.5 % Normal 19-41 [facility] Comment on above: Order Comment: Order Date: 09/22/24 Order Info: 0184-1 - CBCD Performed By: #### L 100.0100, L500.4050, L501.2450, L501.5200, L501.6710 #### [facility] [address] [place], [address] MCH (RBC) [Entitic mass] 30.3 pg Normal 27.0-32.0 [facility] Comment on above: Order Comment: Order Date: 09/22/24 Order Info: 0184-1 - CBCD Performed By: #### L 100.0100, L500.4050, L501.2450, L501.5200, L501.6710 #### [facility] [address] [place], [address] MCHC (RBC) [Mass/Vol] 33.0 g/dL Normal 32-36 [facility] Comment on above: Order Comment: Order Date: 09/22/24 Order Info: 0184-1 - CBCD Performed By: #### L 100.0100, L500.4050, L501.2450, L501.5200, L501.6710 #### [facility] [address] [place], [address] MCV (RBC) [Entitic vol] 91.9 fL Normal 80-94 [facility] Comment on above: Order Comment: Order Date: 09/22/24 Order Info: 0184-1 - CBCD Performed By: #### L 100.0100, L500.4050, L501.2450, L501.5200, L501.6710 #### [facility] [address] [place], [address] Monocytes/100 WBC (Bld) 9.2 % Normal 0-10 [facility] Comment on above: Order Comment: Order Date: 09/22/24 Order Info: 0184-1 - CBCD Performed By: #### L 100.0100, L500.4050, L501.2450, L501.5200, L501.6710 #### [facility] [address] [place], [address] Neutrophils/100 WBC (Bld) 65.9 % Normal 47-70 [facility] Comment on above: Order Comment: Order Date: 09/22/24 Order Info: 0184-1 - CBCD Performed By: #### L 100.0100, L500.4050, L501.2450, L501.5200, L501.6710 #### [facility] [address] [place], [address] Nucleated RBC (Bld) [#/Vol] 0 10*3/uL Normal 0-5 [facility] Comment on above: Order Comment: Order Date: 09/22/24 Order Info: 0184-1 - CBCD Performed By: #### L 100.0100, L500.4050, L501.2450, L501.5200, L501.6710 #### [facility] [address] [place], [address] Platelet mean volume (Bld) [Entitic vol] 10.4 fL Normal 6.2-12.0 [facility] Comment on above: Order Comment: Order Date: 09/22/24 Order Info: 0184-1 - CBCD Performed By: #### L 100.0100, L500.4050, L501.2450, L501.5200, L501.6710 #### [facility] [address] [place], [address] Platelets (Bld) [#/Vol] 251 10*3/uL Normal 150-450 [facility] Comment on above: Order Comment: Order Date: 09/22/24 Order Info: 0184-1 - CBCD Performed By: #### L 100.0100, L500.4050, L501.2450, L501.5200, L501.6710 #### [facility] [address] [place], [address] RBC (Bld) [#/Vol] 5.18 10*6/uL Normal 4.6-6.2 [facility] Comment on above: Order Comment: Order Date: 09/22/24 Order Info: 0184-1 - CBCD Performed By: #### L 100.0100, L500.4050, L501.2450, L501.5200, L501.6710 #### [facility] [address] [place], [address] RDW SD 41.2 fl Normal 35.1-43.9 [facility] Comment on above: Order Comment: Order Date: 09/22/24 Order Info: 0184-1 - CBCD Performed By: #### L 100.0100, L500.4050, L501.2450, L501.5200, L501.6710 #### [facility] [address] [place], [address] WBC (Bld) [#/Vol] 6.3 10*3/uL Normal 4.4-11.0 [facility] Comment on above: Order Comment: Order Date: 09/22/24 Order Info: 0184-1 - CBCD Performed By: #### L 100.0100, L500.4050, L501.2450, L501.5200, L501.6710 #### [facility] [address] [place], [address] CRPon 09-22-2024 C-REACTIVE PROT < 2.90 Normal 0.0-3.0 [facility] Comment on above: Order Comment: Order Date: 09/22/24 Order Info: 0786-1 - CMP Order Info: 3040-3 - LIPASE Order Info: [id number] - MG Order Info: 62237-4 - CRP Result Comment: C-Re active Protein (CRP) provides useful information for the diagnosis, therapy and monitoring of inflammatory processes and associated diseases. For the evaluation of Relative Risk for Cardiovascular Disease, a High Sensitivity CRP (HSCRP) should be ordered. Performed By: #### L 100.0100, L500.4050, L501.2450, L501.5200, L501.6710 #### [facility] [address] [place], [address] Comprehensive Metabolic Prof ilon 09-22-2024 Albumin [Mass/Vol] 4.1 g/dL Normal 3.2-5.0 [facility] Comment on above: Order Comment: Order Date: 09/22/24 Order Info: 0786-1 - CMP Order Info: 3040-3 - LIPASE Order Info: [id number] - MG Order Info: 56270-9 - CRP Performed By: #### L 100.0100, L500.4050, L501.2450, L501.5200, L501.6710 #### [facility] [address] [place], [address] Albumin/Globulin [Mass ratio] 1.3 {ratio} Normal 0.9-2.4 [facility] Comment on above: Order Comment: Order Date: 09/22/24 Order Info: 0786-1 - CMP Order Info: 3040-3 - LIPASE Order Info: 14908-6 - MG Order Info: 02327-9 - CRP Performed By: #### L 100.0100, L500.4050, L501.2450, L501.5200, L501.6710 #### [facility] [address] [place], [address] ALK P 90 U/L Normal 45-117 [facility] Comment on above: Order Comment: Order Date: 09/22/24 Order Info: 0786-1 - CMP Order Info: 3040-3 - LIPASE Order Info: [id number] - MG Order Info: 74660-7 - CRP Performed By: #### L 100.0100, L500.4050, L501.2450, L501.5200, L501.6710 #### [facility] [address] [place], [address] ALT [Catalytic activity/Vol] 27 U/L Normal 16-61 [facility] Comment on above: Order Comment: Order Date: 09/22/24 Order Info: 0786-1 - CMP Order Info: 3040-3 - LIPASE Order Info: [id number] - MG Order Info: 80884-2 - CRP Performed By: #### L 100.0100, L500.4050, L501.2450, L501.5200, L501.6710 #### [facility] [address] [place], [address] AST [Catalytic activity/Vol] 13 U/L Low 15-37 [facility] Comment on above: Order Comment: Order Date: 09/22/24 Order Info: 0786-1 - CMP Order Info: 3040-3 - LIPASE Order Info: [id number] - MG Order Info: 83763-2 - CRP Performed By: #### L 100.0100, L500.4050, L501.2450, L501.5200, L501.6710 #### [facility] [address] [place], [address] Bilirubin [Mass/Vol] 1.20 mg/dL High 0.20-1.00 [facility] Comment on above: Order Comment: Order Date: 09/22/24 Order Info: 0786-1 - CMP Order Info: 3040-3 - LIPASE Order Info: 18347-9 - MG Order Info: 66196-6 - CRP Result Comment: For patients on eltrombopag therapy, use of Dimension [place] TBIL is not recommended. Performed By: #### L 100.0100, L500.4050, L501.2450, L501.5200, L501.6710 #### [facility] [address] [place], [address] BUN/CRE 16.3 RATIO Normal 10-20 [facility] Comment on above: Order Comment: Order Date: 09/22/24 Order Info: 0786-1 - CMP Order Info: 3040-3 - LIPASE Order Info: [id number] - MG Order Info: [id number] - CRP Performed By: #### L 100.0100, L500.4050, L501.2450, L501.5200, L501.6710 #### [facility] [address] [place], [address] CA,Total 9.4 mg/dL Normal 8.5-10.1 [facility] Comment on above: Order Comment: Order Date: 09/22/24 Order Info: 0786-1 - CMP Order Info: 3040-3 - LIPASE Order Info: 69383-2 - MG Order Info: 31256-8 - CRP Performed By: #### L 100.0100, L500.4050, L501.2450, L501.5200, L501.6710 #### [facility] [address] [place], [address] Chloride [Moles/Vol] 108 mmol/L High 98-107 [facility] Comment on above: Order Comment: Order Date: 09/22/24 Order Info: 0786-1 - CMP Order Info: 3040-3 - LIPASE Order Info: [id number] - MG Order Info: 06959-1 - CRP Performed By: #### L 100.0100, L500.4050, L501.2450, L501.5200, L501.6710 #### [facility] [address] [place], [address] CO2 [Moles/Vol] 23.0 mmol/L Normal 21.0-32.0 [facility] Comment on above: Order Comment: Order Date: 09/22/24 Order Info: 0786-1 - CMP Order Info: 3040-3 - LIPASE Order Info: [id number] - MG Order Info: 66357-6 - CRP Performed By: #### L 100.0100, L500.4050, L501.2450, L501.5200, L501.6710 #### [facility] [address] [place], [address] Creatinine [Mass/Vol] 1.23 mg/dL Normal 0.70-1.30 [facility] Comment on above: Order Comment: Order Date: 09/22/24 Order Info: 0786-1 - CMP Order Info: 3040-3 - LIPASE Order Info: 11623-5 - MG Order Info: 11785-4 - CRP Result Comment: The validity of the calculated GFR GFRAA in patients over 70 years has not been determined. Clinical correlation is essential. Performed By: #### L 100.0100, L500.4050, L501.2450, L501.5200, L501.6710 #### [facility] [address] [place], [address] EST GFR - AA 77 mL/min Normal >60 [facility] Comment on above: Order Comment: Order Date: 09/22/24 Order Info: 0786-1 - CMP Order Info: 3040-3 - LIPASE Order Info: 62377-8 - MG Order Info: 28354-0 - CRP Result Comment: Afri can Slovak GFR Calc Performed By: #### L 100.0100, L500.4050, L501.2450, L501.5200, L501.6710 #### [facility] [address] [place], [place], [address] GAP 6 Normal 5-15 [facility] Comment on above: Order Comment: Order Date: 09/22/24 Order Info: 0786-1 - CMP Order Info: 3040-3 - LIPASE Order Info: [id number] - MG Order Info: 41305-2 - CRP Performed By: #### L 100.0100, L500.4050, L501.2450, L501.5200, L501.6710 #### [facility] [address] [place], [place], [address] GFR/1.73 sq M.predicted among non-blacks MDRD (S/P/Bld) [Vol rate/Area] 64 mL/min/{1.73_m2} Normal >60 [facility] Comment on above: Order Comment: Order Date: 09/22/24 Order Info: 0786-1 - CMP Order Info: 3040-3 - LIPASE Order Info: [id number] - MG Order Info: 22982-3 - CRP Result Comment: Non- GFR Calc Performed By: #### L 100.0100, L500.4050, L501.2450, L501.5200, L501.6710 #### [facility] [address] [place], [address] Globulin (S) [Mass/Vol] 3.2 g/dL Normal 2.2-4.2 [facility] Comment on above: Order Comment: Order Date: 09/22/24 Order Info: 0786-1 - CMP Order Info: 3040-3 - LIPASE Order Info: [id number] - MG Order Info: 24600-2 - CRP Performed By: #### L 100.0100, L500.4050, L501.2450, L501.5200, L501.6710 #### [facility] [address] [place], [address] Glucose [Mass/Vol] 121 mg/dL High 74-106 [facility] Comment on above: Order Comment: Order Date: 09/22/24 Order Info: 0786-1 - CMP Order Info: 3040-3 - LIPASE Order Info: 74816-4 - MG Order Info: 52554-3 - CRP Result Comment: Fast ing Glucose result from 100 to 125 mg/dL suggests IMPAIRED HOMEOSTASIS per A.D.A. criteria. Performed By: #### L 100.0100, L500.4050, L501.2450, L501.5200, L501.6710 #### [facility] [address] [place], [address] Potassium [Moles/Vol] 3.9 mmol/L Normal 3.5-5.1 [facility] Comment on above: Order Comment: Order Date: 09/22/24 Order Info: 0786-1 - CMP Order Info: 3040-3 - LIPASE Order Info: [id number] - MG Order Info: 78587-6 - CRP Performed By: #### L 100.0100, L500.4050, L501.2450, L501.5200, L501.6710 #### [facility] [address] [place], [address] Sodium [Moles/Vol] 137 mmol/L Normal 136-145 [facility] Comment on above: Order Comment: Order Date: 09/22/24 Order Info: 86-1 - CMP Order Info: 3040-3 - LIPASE Order Info: [id number] - MG Order Info: 51531-4 - CRP Performed By: #### L 100.0100, L500.4050, L501.2450, L501.5200, L501.6710 #### [facility] [address] [place], [address] T PROT 7.3 g/dL Normal 6.4-8.2 [facility] Comment on above: Order Comment: Order Date: 09/22/24 Order Info: 86-1 - CMP Order Info: 3040-3 - LIPASE Order Info: [id number] - MG Order Info: 11085-2 - CRP Performed By: #### L 100.0100, L500.4050, L501.2450, L501.5200, L501.6710 #### [facility] [address] [place], [address] Urea nitrogen [Mass/Vol] 20 mg/dL High 7-18 [facility] Comment on above: Order Comment: Order Date: 09/22/24 Order Info: 86-1 - CMP Order Info: 3040-3 - LIPASE Order Info: 89510-0 - MG Order Info: 45777-0 - CRP Performed By: #### L 100.0100, L500.4050, L501.2450, L501.5200, L501.6710 #### [facility] [address] [place], [address] Lipaseon 09-22-2024 Lipase [Catalytic activity/Vol] 54 U/L Normal 13-75 [facility] Comment on above: Order Comment: Order Date: 09/22/24 Order Info: 0786-1 - CMP Order Info: 3040-3 - LIPASE Order Info: 63692-9 - MG Order Info: 15194-4 - CRP Result Comment: Mary fitzpatrick note: LIPASE revised reference range effective 22. New Lipase methodology. Expected to produce lower values than the previous assay method. NEW Reference Range: 13 - 75 U/L Performed By: #### L 100.0100, L500.4050, L501.2450, L501.5200, L501.6710 #### [facility] [address] [place], [address] Magnesiumon 09-22-2024 Magnesium [Mass/Vol] 2.3 mg/dL Normal 1.6-2.6 [facility] Comment on above: Order Comment: Order Date: 09/22/24 Order Info: 0786-1 - CMP Order Info: 3040-3 - LIPASE Order Info: 58630-8 - MG Order Info: [id number] - CRP Performed By: #### L 100.0100, L500.4050, L501.2450, L501.5200, L501.6710 #### [facility] [address] [place], [place], [address] PT D/C Summary (1)on 024 PT D/C Summary (1) [facility] [address] [place] [address] / REHABILITATION SERVICES DISCHARGE SUMMARY MR#: [id number] Acct: [id number] Name: SANTOS ROSADO Rep #: [id number] : 1965 59 From: Luis Soriano PT, Cert. MD [place], [facility] Referring DrAshley: MELONIE Villegas Status: REG R CR Insurance: [employer] SELF PAY INSURANCE Discharge Summary D/C summary: It has been my pleasure to treat SANTOS ROSADO referred by Lei Villegas PA-C, with the diagnosis of IMPINGEMENT SYNDROME OF LEFT SHOULDER, PAIN IN LEFT SHOULDER for a total of 6 visit(s). Discharge Date: Please see the following information for a summary of their discharge status. Subjective Subjective: About same ,pain worse in morning Pain Left Shoulder: Pain Intensity (Out of 10): 5 Overall Improvement % Improvement: 20 Objective Objective/Function: POSTURE: mild forward posture rounded shoulders NEURO: denies paresthesia/tingling ,reflexes C5-6-7 2/3 PALAPTION: bicipital groove ,longg head AROM: shoulder flexion 160 degrees ,abduction 160 degrees ,ER 90 degree ,IR T12 MMT: infraspinatus 22.9 ,supraspinatus 17.8 pain ,deltoid 18.2 ,subscapularis 23.3 Goals Goal 1:: Patient to be I with HEP for shoulder Goal 2:: Patient to improve peak force RTC /deltoid ny 5-10 # to improve function with ADL and housework tasks Goal 3:: Patient to improve quick dash by 5 points to improve QOL and function Goal 4:: Patient to demonstrate 60% improvement with less pain and improved function Goal 5:: Patient to AROM without pain with all functional activities. Plan Plan: D/C RTD D/C Information d/c sentence: If there are questions or concerns regarding this patient's physical therapy, please feel free to call me at [phone]. Thank you for the referral of this patient. Sincerely, Luis Soriano PT, Cert T, OCS Balance/Gait/Functio nal tests Balance/Special Test Scores Quick DASH Score: 22.7250 Improvement % Improvement: 09/08/24 1410 CC: MELONIE Villegas; Dr. Ceferino Perez MD JLA Signed Normal [facility] Inital Evaluation (1) - PTon 08-22-2024 Inital Evaluation (1) - PT [facility] [address] [place] [address] [address] [place] [address] / REHABILITATION SERVICES INITIAL EVALUATION MR#: [id number] Acct: [id number] Name: SANTOS ROSADO Rep #: [id number] : 1965 58 From: Luis Soriano PT, Jessica. T, OCS Referring Dr.: Lei Villegas PA-C Status: REG R CR Insurance: [employer] SELF PAY INSURANCE Patient's Visit Information Visit Information Visit Information: SANTOS ROSADO is a 58 year old M referred to Physical Therapy by Lei Villegas PA-C with a diagnosis of IMPINGEMENT SYNDROME OF LEFT SHOULDER, PAIN IN LEFT SHOULDER. Date of Evaluation: 08/22/24 Physical Therapist: Luis Soriano, PT, Cert MDT, OCS Visit Plan Frequency: 2x /Week Duration: 4 Weeks Plan: PT INTERVENTIONS RTC/SCAPULAR STRENGTHENING ,POSTURAL EX'S , AND US/ESTIM FOR PAIN TO SHOULDER AND LONG HEAD Subjective Subjective: This 58 y/o male presents to physical therapy with left shoulder pain . Patient developed left shoulder FOR [address] did x-rays -. Patient had PT for 6 visits not getting better ,seen orthopedic DR tried prednisone pack which helped but stopped and pain return . Dr prescribed muscle relaxer. Orthopedic PA and recommended PT . RTD orthopedic 09/12/24 ,.Pain anterior > posterior described as ache occasional sharp pain. cat Aggravating factors lifting [place] ,reaching behind back activities above 90 degrees . Patient used leave blower increase pain. Alleviating factors rest and medication. Has occasional paresthesia/tingling in hands. Pain affects sleeping. Pain cand affects job demands and housework . Goals to decrease pain during work and ADLS. SOCIAL: VOCATION: [employer] Pain Left Shoulder: Pain Intensity (Out of 10): 5 Pain Intensity Range: 9 Objective Objective: POSTURE: mild forward posture rounded shoulders NEURO: denies paresthesia/tingling ,reflexes C5-6-7 2/3 PALAPTION: bicipital groove ,longg head AROM: shoulder flexion 160 degrees ,abduction 160 degrees ,ER 90 degree ,IR T12 MMT: infraspinatus 16.9 ,supraspinatus 12.8 pain ,deltoid 12.2 ,subscapularis 17.3 Special Tests R Shoulder Drop Sign - IS Test: Negative R Shoulder Empty Can - SS: Positive R Shoulder Belly Press - SupScap: Negative R Shoulder Neer - Impingement: Positive R Shoulder [place] - Impingement: Positive R Shoulder [place] - SLAP/A-C: Positive R Shoulder Shrug Sign - OA/Adhesive Capsulitis: Negative Balance/Special Test Scores Quick DASH Score: 25.0000 Goals Goal 1:: Patient to be I with HEP for shoulder Goal Time Frame: 4-6 Weeks Goal 2:: Patient to improve peak force RTC /deltoid ny 5-10 # to improve function with ADL and housework tasks Goal Time Frame: 4-6 Weeks Goal 3:: Patient to improve quick dash by 5 points to improve QOL and function Goal Time Frame: 4-6 Weeks Goal 4:: Patient to demonstrate 60% improvement with less pain and improved function Goal Time Frame: 4-6 Weeks Goal 5:: Patient to AROM without pain with all functional activities. Goal Time Frame: 4-6 Weeks Rehabilitation Potential Physical Therapy Diagnosis: Patient to has pain in shoulder with possible tendinopathy and and long head bicep tender with pain with motion and weakness thus benefit from skilled PT Rehabilitation Potential: Good Anticipated Interventions Patient/Client Instruction: Educate patient on: Condition and Plan of Care For the Purpose of:: To decrease pain, To increase ROM, To improve muscle performance and motor function, To improve ability to perform ADL's, To improve ability of physical actions for home/community/work/ leisure, To improve health of tissue, To decrease soft tissue restriction, To increase flexibility/ROM, To improve balance, To prevent re-injury and To improve tolerance to ADL's Therapeutic Exercise to Include: Strength training, Postural training, Flexibilty training and Active ROM Comment: RTC For the Purpose of:: To decrease pain, To increase ROM, To improve muscle performance and motor function, To improve ability to perform ADL's, To increase tolerance to activity/condition/p osition, To improve ability of physical actions for home/community/work/ leisure, To improve health of tissue, To decrease soft tissue restriction and To increase flexibility/ROM TENS: Yes IF ES: Yes Cryotherapy (ice pack, ice massage): Yes Thermo therapy (hot pack): Yes Ultrasound (thermal/non thermal): Yes For the Purpose of:: To decrease pain, To increase ROM, To improve nutrient delivery to tissue, To increase oxygenation perfusion, To improve health of tissue and To decrease soft tissue restriction Text: Thank you for the opportunity to evaluate your patient. For Medicare and Medicare HMO plans, please review the plan of care and approve it. It will need to be FAXED BACK to us at (more content not included)... Normal [facility] PT D/C Summary (1)on 024 PT D/C Summary (1) [facility] [address] [place] [address] / REHABILITATION SERVICES DISCHARGE SUMMARY MR#: [id number] Acct: [id number] Name: SANTOS ROSADO Rep #: [id number] : 1965 58 From: Luis Soriano PT, Jessica. MD [place], OCS Referring Dr.: Dr. Foreign Baig MD Status: REG R Insurance: ANTH SELF PAY INSURANCE Discharge Summary D/C summary: It has been my pleasure to treat SANTOS ROSADO referred by Foreign Baig MD, with the diagnosis of LEFT SHOULDER PAIN for a total of 6 visit(s). Discharge Date: Please see the following information for a summary of their discharge status. Subjective Subjective: About same Pain Left Shoulder: Pain Intensity (Out of 10): 4 Objective Objective/Function: POSTURE: mild forward posture NEURO: denies paresthesia/tingling ,reflexes C5-6-7 2/3 PALAPTION: tender anterior AC AROM: shoulder flexion 160 degrees ,abduction 160 degrees eccentric pain ,ER 90 degree ,IR L1 MMT: infraspinatus 15.3 ,supraspinatus 9.7 ,deltoid 13.1 Goals Goal 1:: Patient to be I with HEP for shoulder Goal 2:: Patient to demonstrate 60% improvement with less pain and improved function. Goal 3:: Patient to improve peak force RTC /deltoid ny 5-10 # to improve function with ADL and housework tasks., Goal 4:: Patient to improve quick dash by 5 points to improve QOL and function Plan Plan: RTD ..MAY NEED MRI D/C Information d/c sentence: If there are questions or concerns regarding this patient's physical therapy, please feel free to call me at [phone]. Thank you for the referral of this patient. Sincerely, Luis Soriano, ADIEL, Cert MDT, OCS Balance/Gait/Functio nal tests Balance/Special Test Scores Quick DASH Score: 38.6350 08/15/24 1420 CC: Dr. Foreign Baig MD; Dr. Ceferino Perez MD BERNARDA Signed Normal [facility] Abdomen/Pelvis W IV Cont ONL Yon 07-03-2024 Abdomen/Pelvis W IV Cont ONLY [facility] Imaging Services [address] [place] [id number] Abdomen/Pelvis W IV Cont ONLY MR#: [id number] Acct: [id number] Name: SANTOS ROSADO Rep #: [id number] : 1965 M 58 From: Burt Bender PCP: Dr. Ceferino Perez MD Status: REG ER Study: Abdomen/Pelvis W IV Cont ONLY Date of Exam: Exam# [id number] Ordering Dr: Dangelo Quintero DO [id number] STUDY: CT ABDOMEN AND PELVIS WITH CONTRAST REASON FOR EXAM: Male, 58 years old. RLQ Pain RADIATION DOSAGE (If Supplied By Facility): CTDIvol = ( 14.40 ) mGy, DLP = ( 870.14 ) mGycm TECHNIQUE: IV 100mL Isovue-300 was administered. Transaxial images were obtained from the dome of the diaphragm to the symphysis pubis. Multiplanar coronal and sagittal images were reformatted. The protocol utilizes one or more of the following dose reduction techniques: automated exposure control, adjustment of mA and/or kV according to patient size,and/or use of iterative reconstruction technique. COMPARISON: No relevant prior comparison study available FINDINGS: The visualized lung bases are unremarkable. The visualized portions of the heart are within normal limits. Hepatic steatosis. No focal lesion is seen. Normal gallbladder and extrahepatic biliary system. Septated 1.6 cm low-density lesion in the spleen could represent cyst or hemangioma. Normal pancreas. Normal bilateral adrenal glands. Normal visualized stomach. Normal caliber small bowel loops. The descending colon is not well distended. No evidence of acute diverticulitis. The appendix is visualized and appears normal. Normal abdominal aorta. No retroperitoneal adenopathy. Normal right kidney. Normal left kidney. Normal urinary bladder. Enlarged heterogeneous prostate. Correlation with PSA level is recommended. Densities in the region of the rectum could represent surgical anastomosis sutures or foreign body. Normal abdominal wall. Degenerative changes at the level of L5-S1. CT/Abdomen/Pelvis W IV Cont ONLY IMPRESSION: 1. No focal acute inflammatory process. 2. Splenic lesion could represent cysts or hemangioma. Correlation with nonemergent ultrasound might be of value. 3. Surgical clips or less likely foreign body in the region of the rectum. Electronically Signed: Burt Ramos MD at 12:37 EDT , CC: Dr. Dangelo Quintero DO; Dr. Ceferino Perez MD Skin Care Consultant: Signed Normal [facility] Basic Metabolic Profile (BMP )on 07-03-2024 BUN/CRE 15.1 RATIO Normal 07-02 [facility] Comment on above: Performed By: #### L 100.0100, L500.4050, L501.2450, L501.5200, L501.6710 #### [facility] [address] [place], [address] CA,Total 9.6 mg/dL Normal 8.5-10.1 [facility] [place] Comment on above: Performed By: #### L 100.0100, L500.4050, L501.2450, L501.5200, L501.6710 #### [facility] [address] [place], [address] Chloride [Moles/Vol] 109 mmol/L High 98-107 [facility] Comment on above: Performed By: #### L 100.0100, L500.4050, L501.2450, L501.5200, L501.6710 #### [facility] [address] [place], [address] CO2 [Moles/Vol] 27.0 mmol/L Normal 21.0-32.0 [facility] Comment on above: Performed By: #### L 100.0100, L500.4050, L501.2450, L501.5200, L501.6710 #### [facility] [address] [place], [address] Creatinine [Mass/Vol] 1.00 mg/dL Normal 0.70-1.30 [facility] Comment on above: Result Comment: The validity of the calculated GFR GFRAA in patients over 70 years has not been determined. Clinical correlation is essential. Performed By: #### L 100.0100, L500.4050, L501.2450, L501.5200, L501.6710 #### [facility] [address] [place], [address] ECRCL 79.07 ml/min Normal [facility] Comment on above: Performed By: #### L 100.0100, L500.4050, L501.2450, L501.5200, L501.6710 #### [facility] [address] [place], [address] EST GFR - AA 99 mL/min Normal >60 [facility] Comment on above: Result Comment: Afri can Slovak GFR Calc Performed By: #### L 100.0100, L500.4050, L501.2450, L501.5200, L501.6710 #### [facility] [address] [place], [address] GAP 6 Normal 5-15 [facility] Comment on above: Performed By: #### L 100.0100, L500.4050, L501.2450, L501.5200, L501.6710 #### [facility] [address] [place], [address] GFR/1.73 sq M.predicted among non-blacks MDRD (S/P/Bld) [Vol rate/Area] 82 mL/min/{1.73_m2} Normal >60 [facility] Comment on above: Result Comment: Non- GFR Calc Performed By: #### L 100.0100, L500.4050, L501.2450, L501.5200, L501.6710 #### [facility] [address] [place], [address] Glucose [Mass/Vol] 112 mg/dL High 74-106 [facility] Comment on above: Result Comment: Fast ing Glucose result from 100 to 125 mg/dL suggests IMPAIRED HOMEOSTASIS per A.D.A. criteria. Performed By: #### L 100.0100, L500.4050, L501.2450, L501.5200, L501.6710 #### [facility] [address] [place], [address] Potassium [Moles/Vol] 4.2 mmol/L Normal 3.5-5.1 [facility] Comment on above: Performed By: #### L 100.0100, L500.4050, L501.2450, L501.5200, L501.6710 #### [facility] [address] [place], [address] Sodium [Moles/Vol] 141 mmol/L Normal 136-145 [facility] Comment on above: Performed By: #### L 100.0100, L500.4050, L501.2450, L501.5200, L501.6710 #### [facility] [address] [place], [address] Urea nitrogen [Mass/Vol] 15 mg/dL Normal 7-18 [facility] Comment on above: Performed By: #### L 100.0100, L500.4050, L501.2450, L501.5200, L501.6710 #### [facility] [address] [place], [address] CBC W/Diff, Automatedon 10-2 Absolute Lymph 1.34 X10 3/uL Normal 0.83-4.51 [facility] Comment on above: Performed By: #### L 100.0100, L500.4050, L501.2450, L501.5200, L501.6710 #### [facility] [address] [place], [address] Absolute Neut 3.2 X10 3/uL Normal 2.0-7.7 [facility] Comment on above: Performed By: #### L 100.0100, L500.4050, L501.2450, L501.5200, L501.6710 #### [facility] [address] [place], [address] Basophils/100 WBC (Bld) 0.4 % Normal 0-1 [facility] Comment on above: Performed By: #### L 100.0100, L500.4050, L501.2450, L501.5200, L501.6710 #### [facility] [address] [place], [address] Eosinophils/100 WBC (Bld) 4.2 % Normal 0-5 [facility] Comment on above: Performed By: #### L 100.0100, L500.4050, L501.2450, L501.5200, L501.6710 #### [facility] [address] [place], [address] Erythrocyte distribution width (RBC) [Ratio] 12.7 % Normal 11.6-14.6 [facility] Comment on above: Performed By: #### L 100.0100, L500.4050, L501.2450, L501.5200, L501.6710 #### [facility] [address] [place], [address] Hematocrit (Bld) [Volume fraction] 41.2 % Normal 40-54 [facility] Comment on above: Performed By: #### L 100.0100, L500.4050, L501.2450, L501.5200, L501.6710 #### [facility] [address] [place], [address] Hemoglobin (Bld) [Mass/Vol] 15.2 g/dL Normal 13.0-16.5 [facility] Comment on above: Performed By: #### L 100.0100, L500.4050, L501.2450, L501.5200, L501.6710 #### [facility] [address] [place], [address] IG% 0.000 Normal 0.0-0.9 [facility] Comment on above: Result Comment: IG% - Immature Granulocytes (promyelocytes, myelocytes and metamyelocytes) > 1% indicates that a LEFT SHIFT is Present. Performed By: #### L 100.0100, L500.4050, L501.2450, L501.5200, L501.6710 #### [facility] [address] [place], [address] Lymphocytes/100 WBC (Bld) 25.5 % Normal 19-41 [facility] Comment on above: Performed By: #### L 100.0100, L500.4050, L501.2450, L501.5200, L501.6710 #### [facility] [address] [place], [address] MCH (RBC) [Entitic mass] 33.4 pg High 27.0-32.0 [facility] Comment on above: Performed By: #### L 100.0100, L500.4050, L501.2450, L501.5200, L501.6710 #### [facility] [address] [place], [address] MCHC (RBC) [Mass/Vol] 36.9 g/dL High 32-36 [facility] Comment on above: Performed By: #### L 100.0100, L500.4050, L501.2450, L501.5200, L501.6710 #### [facility] [address] [place], [address] MCV (RBC) [Entitic vol] 90.5 fL Normal 80-94 [facility] Comment on above: Performed By: #### L 100.0100, L500.4050, L501.2450, L501.5200, L501.6710 #### [facility] [address] [place], [address] Monocytes/100 WBC (Bld) 9.1 % Normal 0-10 [facility] Comment on above: Performed By: #### L 100.0100, L500.4050, L501.2450, L501.5200, L501.6710 #### [facility] [address] [place], [address] Neutrophils/100 WBC (Bld) 60.8 % Normal 47-70 [facility] Comment on above: Performed By: #### L 100.0100, L500.4050, L501.2450, L501.5200, L501.6710 #### [facility] [address] [place], [address] Nucleated RBC (Bld) [#/Vol] 0 10*3/uL Normal 0-5 [facility] Comment on above: Performed By: #### L 100.0100, L500.4050, L501.2450, L501.5200, L501.6710 #### [facility] [address] [place], [address] Platelet mean volume (Bld) [Entitic vol] 10.8 fL Normal 6.2-12.0 [facility] Comment on above: Performed By: #### L 100.0100, L500.4050, L501.2450, L501.5200, L501.6710 #### [facility] [address] [place], [address] Platelets (Bld) [#/Vol] 288 10*3/uL Normal 150-450 [facility] Comment on above: Performed By: #### L 100.0100, L500.4050, L501.2450, L501.5200, L501.6710 #### [facility] [address] [place], [address] RBC (Bld) [#/Vol] 4.55 10*6/uL Low 4.6-6.2 [facility] Comment on above: Performed By: #### L 100.0100, L500.4050, L501.2450, L501.5200, L501.6710 #### [facility] [address] [place], [address] RDW SD 41.3 fl Normal 35.1-43.9 [facility] Comment on above: Performed By: #### L 100.0100, L500.4050, L501.2450, L501.5200, L501.6710 #### [facility] [address] [place], [address] WBC (Bld) [#/Vol] 5.3 10*3/uL Normal 4.4-11.0 [facility] Comment on above: Performed By: #### L 100.0100, L500.4050, L501.2450, L501.5200, L501.6710 #### [facility] [address] [place], [address] Emergency Department Summary on 07-03-2024 Emergency Department Summary [facility] Medical Records Department [address] [place] [address] Emergency Department Summary 07/03/24 MR#: [id number] Acct: [id number] Name: SANTOS ROSADO Rep #: [id number] : 1965 58 From: Dangelo Quintero DO PCP: Dr. Ceferino Perez MD Status:DEP ER Location: ED HPI HPI - GI History of Present Illness Chief Complaint: Abd Pain Informant: patient and spouse/S.O. Narrative Narrative: 58-year-old male presenting to the emergency room with right lower quadrant abdominal pain. Patient states that for the past week he has had some discomfort on the right side of his abdomen. He notes chronic diarrhea but no change in that. States by Wednesday it seemed to have gotten better but symptoms returned Wednesday and are now worsening. Notes loss of appetite last ate around 2200 hrs. last night. He went to primary care today who felt that he had rebound on exam and felt he could have appendicitis so sent him to emergency. Patient notes a prior umbilical hernia repair. No other abdominal surgeries per the [facility] Medical History Wears glasses Alcohol use Substance abuse Marijuana use History of steroid therapy Thyroid disease Injury of head and neck Syncope History of ulceration History of IBS Gastric reflux Non-smoker CPAP (continuous positive airway pressure) dependence History of pain when walking History of edema History of stress test Abdominal pain Diarrhea Belching GERD (gastroesophageal reflux disease) Internal bleeding hemorrhoids HTN (hypertension) Fibromyalgia Sleep apnea Asthma Anxiety and depression Rectal bleeding Home Medications ???Medication ???Instructions ???Recorded ???Last Taken ???Type Astepro 2 spray DAILY 12/11/14 Unknown History albuterol sulfate 90 mcg/actuation 1 - 2 puff inhalation Q4H PRN PRN 12/11/14 Unknown History aerosol inhaler Asthma escitalopram oxalate 10 mg tablet 2.5 mg PO DAILY 06/14/18 Unknown History (Lexapro) L.acidoph, paracasei,B. lactis 10 1 ea PO DAILY 06/17/18 Unknown History billion cell capsule ginkgo biloba 60 mg capsule 60 mg PO DAILY 06/17/18 Unknown History melatonin 5 mg-pyridoxine (vitamin 1 ea PO QHS 06/17/18 Unknown History B6) 1 mg tablet amlodipine 2.5 mg tablet 5 mg PO DAILY 11/01/18 02/25/21 History cyanocobalamin (B12)-cobamamide 1 fanta sublingual DAILY 11/01/18 Unknown History 5,000 mcg-100 mcg sublingual lozenge (B12) ascorbic acid (vitamin C) 500 mg 1,000 mg PO DAILY 02/17/21 Unknown History tablet,extended release cholecalciferol (vitamin D3) 25 5,000 unit PO DAILY 02/17/21 Unknown History mcg (1,000 unit) capsule levothyroxine 25 mcg capsule 25 mcg PO DAILY 02/17/21 02/25/21 History pantoprazole 40 mg tablet,delayed 40 mg PO DAILY 02/17/21 02/25/21 History release sucralfate 1 gram tablet (Carafate) 1 g PO QACHS #90 tabs 02/17/21 Unknown Rx Allergy/AdvReac Type Severity Reaction Status Date / Time shellfish derived Allergy Intermediate Vomiting Verified 07/03/24 10:07 vilazodone HCl (From Viibryd) Allergy Hives Verified 07/03/24 10:07 Family History Mother Arthritis Breast cancer Diabetes Father Arthritis Colon cancer Hypertension Cancer skin cancer Surgical History History of hemorrhoidectomy History of colonoscopy ( 06/2018) History of hernia repair History of vasectomy Social History Smoking Status: Never smoker alcohol intake: current alcohol intake frequency: a few times a month substance use type: does not use ROS ROS ED Constitutional Constitutional ED: Denies chills, fever(s) or weight loss Eyes Eyes: Denies change in vision or diplopia ENT ENT ED: Denies ear pain, rhinorrhea or sore throat Cardiovascular Cardiovascular: Denies chest pain, orthopnea, palpitations or racing heartbeat Respiratory/Chest Respiratory/Chest: Denies cough, dyspnea or orthopnea Gastrointestinal Gastrointestinal: Reports abdominal pain and diarrhea; Denies nausea or vomiting Genitourinary Genitourinary ED: Denies dysuria, hematuria or urinary frequency Musculoskeletal Musculoskeletal: Denies arthralgias or myalgias Integumentary Denies abscess or rash Neurologic Neurologic: Denies headache(s) or weakness Psychiatric Psychiatric: Denies anxiety, depression, suicidal ideation or suicidal thoughts Endocrine Endocrinology: Denies polydipsia, polyphagia or polyuria Allergic/Immunologic Allergic/Immunologic ED: Denies mouth swelling, tongue swelling or urticaria EXAM Physical Exam Const Vital Signs: 07/03/24 10:07 07/03/24 12:07 (more content not included)... Normal [facility] Liver Profileon 07-03-2024 Albumin [Mass/Vol] 3.8 g/dL Normal 3.2-5.0 [facility] Comment on above: Performed By: #### L 100.0100, L500.4050, L501.2450, L501.5200, L501.6710 #### [facility] [address] [place], [address] ALK P 81 U/L Normal 45-117 [facility] Comment on above: Performed By: #### L 100.0100, L500.4050, L501.2450, L501.5200, L501.6710 #### [facility] [address] [place], [address] ALT [Catalytic activity/Vol] 35 U/L Normal 16-61 [facility] Comment on above: Performed By: #### L 100.0100, L500.4050, L501.2450, L501.5200, L501.6710 #### [facility] [address] [place], [address] AST [Catalytic activity/Vol] 14 U/L Low 15-37 [facility] Comment on above: Performed By: #### L 100.0100, L500.4050, L501.2450, L501.5200, L501.6710 #### [facility] [address] [place], [address] Bilirubin [Mass/Vol] 0.60 mg/dL Normal 0.20-1.00 [facility] Comment on above: Result Comment: For patients on eltrombopag therapy, use of Dimension [place] TBIL is not recommended. Performed By: #### L 100.0100, L500.4050, L501.2450, L501.5200, L501.6710 #### [facility] [address] [place], [address] Bilirubin.direct [Mass/Vol] 0.20 mg/dL Normal 0.00-0.30 [facility] Comment on above: Performed By: #### L 100.0100, L500.4050, L501.2450, L501.5200, L501.6710 #### [facility] [address] [place], [address] Globulin (S) [Mass/Vol] 2.9 g/dL Normal 2.2-4.2 [facility] Comment on above: Performed By: #### L 100.0100, L500.4050, L501.2450, L501.5200, L501.6710 #### [facility] [address] [place], [address] T PROT 6.7 g/dL Normal 6.4-8.2 [facility] Comment on above: Performed By: #### L 100.0100, L500.4050, L501.2450, L501.5200, L501.6710 #### [facility] [address] [place], [address] Urinalysis, Completeon 07-03 BACTERIA 0 SEEN Normal None Seen [facility] Comment on above: Order Comment: Order Date: 09/22/24 Order Info: [id number] - CMP Order Info: [id number] - LIPASE Order Info: [id number] - MG Order Info: [id number] - CRP Performed By: #### L 100.0100, L500.4050, L501.2450, L501.5200, L501.6710 #### [facility] [address] [place], [address] EPI,SQUAMOUS 0 SEEN Normal 0-5 [facility] Comment on above: Order Comment: Order Date: 09/22/24 Order Info: [id number] - CMP Order Info: [id number] - LIPASE Order Info: [id number] - MG Order Info: [id number] - CRP Performed By: #### L 100.0100, L500.4050, L501.2450, L501.5200, L501.6710 #### [facility] [address] [place], [address] Mucus Ql (Urine sed) 0 SEEN Normal [facility] Comment on above: Order Comment: Order Date: 09/22/24 Order Info: [id number] - CMP Order Info: [id number] - LIPASE Order Info: [id number] - MG Order Info: [id number] - CRP Performed By: #### L 100.0100, L500.4050, L501.2450, L501.5200, L501.6710 #### [facility] [address] [place], [address] RBC 0 SEEN Normal 0-5 [facility] Comment on above: Order Comment: Order Date: 09/22/24 Order Info: [id number] - CMP Order Info: [id number] - LIPASE Order Info: [id number] - MG Order Info: [id number] - CRP Performed By: #### L 100.0100, L500.4050, L501.2450, L501.5200, L501.6710 #### [facility] [address] [place], [address] WBC 0 SEEN Normal 0-5 [facility] Comment on above: Order Comment: Order Date: 09/22/24 Order Info: [id number] - CMP Order Info: [id number] - LIPASE Order Info: [id number] - MG Order Info: [id number] - CRP Performed By: #### L 100.0100, L500.4050, L501.2450, L501.5200, L501.6710 #### [facility] [address] [place], [place], [address] Absolute lymphocyte countOrd ered By: Ceferino Perez on 01-15-2024 Lymphocytes Auto (Unsp spec) [#/Vol] 1.67 10*3/uL 0.83-4.51 [facility] Automated lymphocyte count a s percentage of total leukocytesOrdered By: Ceferino Perez on 01-15-2024 Lymphocytes/100 WBC Auto (Unsp spec) 29.0 % 19-41 [facility] Basophil percentageOrdered B y: Ceferino Perez on 01-15-2024 Basophil percentage 4.53 ng/mL 0.0-4.0 [facility] Comment on above: This test was perfor med using the TPSA assay method for the[employer] chemistry system. Values obtained with differentassay methods cannot be used interchangably.When changing PSA assays in the course of monitoring apatient, additional sequential testing should be carriedout to confirm baseline values. Basophils/100 WBC (Bld) 0.5 % 0-1 [facility] Bilirubin [Mass/Vol] 0.80 mg/dL 0.20-1.00 [facility] Comment on above: For patients on eltr ombopag therapy, use of Dimension [place] TBIL is not recommended. Chloride [Moles/Vol] 107 mmol/L 98-107 [facility] Cholesterol [Mass/Vol] 247 mg/dL <200 [facility] Comment on above: <200 mg/dL Desirable 200-240 mg/dL Borderline >240 mg/dL High Risk Eosinophils/100 WBC (Bld) 9.4 % 0-5 [facility] Glucose [Mass/Vol] 119 mg/dL 74-106 [facility] Comment on above: Fasting Glucose resu lt from 100 to 125 mg/dL suggests IMPAIRED HOMEOSTASIS per A.D.A. criteria. Hemoglobin (Bld) [Mass/Vol] 15.5 g/dL 13.0-16.5 [facility] Monocytes/100 WBC (Bld) 11.1 % 0-10 [facility] Neutrophils (Bld) [#/Vol] 2.9 10*3/uL 2.0-7.7 [facility] Neutrophils/100 WBC (Bld) 49.7 % 47-70 [facility] Potassium [Moles/Vol] 4.5 mmol/L 3.5-5.1 [facility] Protein [Mass/Vol] 7.3 g/dL 6.4-8.2 [facility] Sodium [Moles/Vol] 139 mmol/L 136-145 [facility] Triglyceride [Mass/Vol] 99 mg/dL <199 [facility] Comment on above: The drugs N-Acetylcy steine and Metamizole may falsely depress this assay.Serum Triglycerides Reference Interval Normal <150 mg/dL Borderline high 150 - 199 mg/dL High 200 - 499 mg/dL Very High > or = 500 mg/dL WBC (Bld) [#/Vol] 5.8 10*3/uL 4.4-11.0 [facility] Determination of erythrocyte mean corpuscular volume (MCV)Ordered By: Ceferino Perez on 01-15-2024 MCV (RBC) [Entitic vol] 91.4 fL 80-94 [facility] Erythrocyte distribution wid th ratioOrdered By: Ceferino Perez on 01-15-2024 Erythrocyte distribution width (RBC) [Ratio] 12.5 % 11.6-14.6 [facility] Erythrocyte distribution wid th standard deviationOrdered By: Ceferino Perez on 01-15-2024 Erythrocyte distribution width (RBC) [Entitic vol] 41.1 fL 35.1-43.9 [facility] Hematocrit Auto (Bld) [Volum e fraction]Ordered By: Ceferino Perez on 01-15-2024 Hematocrit (Bld) [Volume fraction] 45.9 % 40-54 [facility] Immature granulocytes/100 WB C Auto (Bld)Ordered By: Ceferino Perez on 01-15-2024 Immature granulocytes/100 WBC (Bld) 0.300 % 0.0-0.9 [facility] Comment on above: IG% - Immature Granu locytes (promyelocytes, myelocytes and metamyelocytes) > 1% indicates that a LEFT SHIFT is Present. Laboratory - Chemistry and C hemistry - challengeOrdered By: Ceferino Perez on 01-15-2024 Albumin/Globulin [Mass ratio] 1.2 {ratio} 0.9-2.4 [facility] ALP [Catalytic activity/Vol] 80 U/L 45-117 [facility] ALT [Catalytic activity/Vol] 40 U/L 16-61 [facility] Cholesterol in HDL [Mass/Vol] 52 mg/dL >40 [facility] Comment on above: The drugs N-Acetylcy steine and Metamizole may falsely depress this assay. Reference Range HDL <40 mg/dL Low HDL Cholesterol HDL >or= 60 mg/dL High HDL Cholesterol Cholesterol in LDL [Mass/Vol] 175 mg/dL 0-130 [facility] CO2 [Moles/Vol] 28.0 mmol/L 21.0-32.0 [facility] Globulin (S) [Mass/Vol] 3.3 g/dL 2.2-4.2 [facility] Urea nitrogen/Creatinine [Mass ratio] 15.3 mg/mg 10-20 [facility] - Hematology and Cell countsOrdered By: Ceferino Perez on 01-15-2024 MCH (RBC) [Entitic mass] 30.9 pg 27.0-32.0 [facility] MCHC (RBC) [Mass/Vol] 33.8 g/dL 32-36 [facility] Nucleated RBC/100 WBC (Bld) [Ratio] 0 % 0-5 [facility] Platelet mean volume (Bld) [Entitic vol] 10.1 fL 6.2-12.0 [facility] Platelets (Bld) [#/Vol] 286 10*3/uL 150-450 [facility] No Panel InformationOrdered By: Ceferino Perez on 01-15-2024 Estimated GFR (MDRD) Amer 77 mL/min >60 [facility] Comment on above: GFR Calc Estimated GFR (MDRD) Non-Af Amer 63 mL/min >60 [facility] Comment on above: Non- GFR Calc Urine Microalbumin/Creatinine Ratio 11.0 mg/g CRE <30 [facility] VLDL Cholesterol 20 mg/dL 5-40 [facility] RBC Auto (Bld) [#/Vol]Ordere d By: Ceferino Perez on 01-15-2024 RBC (Bld) [#/Vol] 5.02 10*6/uL 4.6-6.2 [facility] Serum or plasma calcium hanny urement (mass/volume)Ordered By: Ceferino Perez on 01-15-2024 Calcium [Mass/Vol] 9.7 mg/dL 8.5-10.1 [facility] Serum or plasma creatinine m easurement (mass/volume)Ordered By: Ceferino Perez on 01-15-2024 Creatinine [Mass/Vol] 1.24 mg/dL 0.70-1.30 [facility] Comment on above: The validity of the calculated GFR & GFRAA in patients over 70 years has not been determined. Clinical correlation is essential. Serum or plasma urea nitroge n measurement (mass/volume)Ordered By: Ceferino Perez on 01-15-2024 Urea nitrogen [Mass/Vol] 19 mg/dL 7-18 [facility] Thin prep Papanicolaou smear with manual screeningOrdered By: Ceferino Perez on 01-15-2024 Thin prep Papanicolaou smear with manual screening 4.0 g/dL 3.2-5.0 [facility] Thin prep Papanicolaou smear with manual screening 20 U/L 15-37 [facility] Thin prep Papanicolaou smear with manual screening 4 5-15 [facility] Thin prep Papanicolaou smear with manual screening 15.7 mg/L NO RANGE EST. [facility] Urine creatinine measurement (mass/volume)Ordered By: Ceferino Perez on 01-15-2024 Creatinine (U) [Mass/Vol] 143.00 mg/dL NO RANGE EST. [facility] Absolute lymphocyte countOrd ered By: Ceferino Perez on 07-13-2023 Lymphocytes Auto (Unsp spec) [#/Vol] 1.31 10*3/uL 0.83-4.51 [facility] Basophil percentageOrdered B y: Ceferino Perez on 07-13-2023 Basophils/100 WBC (Bld) 0.8 % 0-1 [facility] Bilirubin [Mass/Vol] 0.60 mg/dL 0.20-1.00 [facility] Comment on above: For patients on eltr ombopag therapy, use of Dimension [place] TBIL is not recommended. Chloride [Moles/Vol] 109 mmol/L 98-107 [facility] Eosinophils/100 WBC (Bld) 14.5 % 0-5 [facility] Glucose [Mass/Vol] 112 mg/dL 74-106 [facility] Comment on above: Fasting Glucose resu lt from 100 to 125 mg/dL suggests IMPAIRED HOMEOSTASIS per A.D.A. criteria. Neutrophils (Bld) [#/Vol] 2.5 10*3/uL 2.0-7.7 [facility] Neutrophils/100 WBC (Bld) 48.7 % 47-70 [facility] Potassium [Moles/Vol] 4.1 mmol/L 3.5-5.1 [facility] Protein [Mass/Vol] 7.3 g/dL 6.4-8.2 [facility] Sodium [Moles/Vol] 136 mmol/L 136-145 [facility] WBC (Bld) [#/Vol] 5.1 10*3/uL 4.4-11.0 [facility] Blood erythrocytes count (nu mber/volume)Ordered By: Ceferino Perez on 07-13-2023 RBC (Bld) [#/Vol] 4.73 10*6/uL 4.6-6.2 [facility] Blood hemoglobin measurement (mass/volume)Ordered By: Ceferino Perez on 07-13-2023 Hemoglobin (Bld) [Mass/Vol] 14.7 g/dL 13.0-16.5 [facility] Blood lymphocytes/100 leukoc ytesOrdered By: Ceferino Perez on 07-13-2023 Lymphocytes/100 WBC (Bld) 25.6 % 19-41 [facility] Blood monocytes/100 leukocyt esOrdered By: Ceferino Perez on 07-13-2023 Monocytes/100 WBC (Bld) 10.0 % 0-10 [facility] Blood platelet mean volumeOr dered By: Ceferino Perez on 07-13-2023 Platelet mean volume (Bld) [Entitic vol] 10.6 fL 6.2-12.0 [facility] Determination of erythrocyte mean corpuscular volume (MCV)Ordered By: Ceferino Perez on 07-13-2023 MCV (RBC) [Entitic vol] 92.8 fL 80-94 [facility] Hematocrit Auto (Bld) [Volum e fraction]Ordered By: Ceferino Perez on 07-13-2023 Hematocrit (Bld) [Volume fraction] 43.9 % 40-54 [facility] Laboratory - Chemistry and C hemistry - challengeOrdered By: Ceferino Perez on 07-13-2023 ALP [Catalytic activity/Vol] 78 U/L 45-117 [facility] ALT [Catalytic activity/Vol] 58 U/L 16-61 [facility] CO2 [Moles/Vol] 24.0 mmol/L 21.0-32.0 [facility] Globulin (S) [Mass/Vol] 3.6 g/dL 2.2-4.2 [facility] Urea nitrogen/Creatinine [Mass ratio] 17.3 mg/mg 10-20 [facility] Laboratory - Hematology and Cell countsOrdered By: Ceferino Perez on 07-13-2023 Erythrocyte distribution width (RBC) [Entitic vol] 42.5 fL 35.1-43.9 [facility] Erythrocyte distribution width (RBC) [Ratio] 12.5 % 11.6-14.6 [facility] Immature granulocytes/100 WBC (Bld) 0.400 % 0.0-0.9 [facility] Comment on above: IG% - Immature Granu locytes (promyelocytes, myelocytes and metamyelocytes) > 1% indicates that a LEFT SHIFT is Present. MCH (RBC) [Entitic mass] 31.1 pg 27.0-32.0 [facility] Nucleated RBC/100 WBC (Bld) [Ratio] 0 % 0-5 [facility] MCHC Auto (RBC) [Mass/Vol]Or dered By: Ceferino Perez on 07-13-2023 MCHC (RBC) [Mass/Vol] 33.5 g/dL 32-36 [facility] No Panel InformationOrdered By: Ceferino Perez on 07-13-2023 Estimated GFR (MDRD) Amer 75 mL/min >60 [facility] Comment on above: GFR Calc Estimated GFR (MDRD) Non-Af Amer 62 mL/min >60 [facility] Comment on above: Non- GFR Calc Prostate Specific Antigen Total 4.93 ng/mL 0.0-4.0 [facility] Comment on above: This test was perfor med using the TPSA assay method [facility]. Values obtained with differentassay methods cannot be used interchangably.When changing PSA assays in the course of monitoring apatient, additional sequential testing should be carriedout to confirm baseline values. Urine Microalbumin/Creatinine Ratio TNP [facility] Comment on above: Test not performed Platelets bldOrdered By: Jeanine Perez on 07-13-2023 Platelets (Bld) [#/Vol] 253 10*3/uL 150-450 [facility] Serum or plasma albumin hanny urement (mass/volume)Ordered By: Ceferino Perez on 07-13-2023 Albumin [Mass/Vol] 3.7 g/dL 3.2-5.0 [facility] Serum or plasma albumin/glob ulin mass ratioOrdered By: Ceferino Perez on 07-13-2023 Albumin/Globulin [Mass ratio] 1.0 {ratio} 0.9-2.4 [facility] Serum or plasma calcium hanny urement (mass/volume)Ordered By: Ceferino Perez on 07-13-2023 Calcium [Mass/Vol] 9.5 mg/dL 8.5-10.1 [facility] Serum or plasma creatinine m easurement (mass/volume)Ordered By: Ceferino Perez on 07-13-2023 Creatinine [Mass/Vol] 1.27 mg/dL 0.70-1.30 [facility] Comment on above: The validity of the calculated GFR & GFRAA in patients over 70 years has not been determined. Clinical correlation is essential. Serum or plasma urea nitroge n measurement (mass/volume)Ordered By: Ceferino Perez on 07-13-2023 Urea nitrogen [Mass/Vol] 22 mg/dL 7-18 [facility] Thin prep Papanicolaou smear with manual screeningOrdered By: Ceferino Perez on 07-13-2023 Thin prep Papanicolaou smear with manual screening 26 U/L 15-37 [facility] Thin prep Papanicolaou smear with manual screening 3 5-15 [facility] Thin prep Papanicolaou smear with manual screening < 5.0 mg/L NO RANGE EST. [facility] Urine creatinine measurement (mass/volume)Ordered By: Ceferino Peerz on 07-13-2023 Creatinine (U) [Mass/Vol] 47.10 mg/dL NO RANGE EST. [facility] Basophil percentageOrdered B y: Michael Bocanegra on 02-16-2023 Basophil percentage < 0.9 mg/dL 0.70-1.30 [facility] No Panel InformationOrdered By: Michael Bocanegra on 02-16-2023 Bedside Estimated GFR (eGFR) > 60.0000 mL/min >60 [facility] No Panel InformationOrdered By: Michael Bocanegra on 02-04-2023 Prostate Specific Antigen Total 3.98 ng/mL 0.0-4.0 [facility] Comment on above: This test was perfor med using the TPSA assay method for the[facility]. Values obtained with differentassay methods cannot be used interchangably.When changing PSA assays in the course of monitoring apatient, additional sequential testing should be carriedout to confirm baseline values. Absolute lymphocyte countOrd ered By: Dr. Perez on 10-31-2022 Lymphocytes Auto (Unsp spec) [#/Vol] 1.53 10*3/uL 0.83-4.51 [facility] Basophil percentageOrdered B y: Dr. Perez on 10-31-2022 Basophils/100 WBC (Bld) 0.5 % 0-1 [facility] Bilirubin [Mass/Vol] 0.50 mg/dL 0.20-1.00 [facility] Comment on above: For patients on eltr ombopag therapy, use of Dimension [place] TBIL is not recommended. Chloride [Moles/Vol] 107 mmol/L 98-107 [facility] Cholesterol [Mass/Vol] 215 mg/dL <200 [facility] Comment on above: <200 mg/dL Desirable 200-240 mg/dL Borderline >240 mg/dL High Risk Eosinophils/100 WBC (Bld) 6.7 % 0-5 [facility] Glucose [Mass/Vol] 116 mg/dL 74-106 [facility] Comment on above: Fasting Glucose resu lt from 100 to 125 mg/dL suggests IMPAIRED HOMEOSTASIS per A.D.A. criteria. Neutrophils (Bld) [#/Vol] 3.2 10*3/uL 2.0-7.7 [facility] Neutrophils/100 WBC (Bld) 55.8 % 47-70 [facility] Potassium [Moles/Vol] 4.5 mmol/L 3.5-5.1 [facility] Protein [Mass/Vol] 7.0 g/dL 6.4-8.2 [facility] Sodium [Moles/Vol] 141 mmol/L 136-145 [facility] Triglyceride [Mass/Vol] 119 mg/dL <199 [facility] Comment on above: The drugs N-Acetylcy steine and Metamizole may falsely depress this assay.Serum Triglycerides Reference Interval Normal <150 mg/dL Borderline high 150 - 199 mg/dL High 200 - 499 mg/dL Very High > or = 500 mg/dL WBC (Bld) [#/Vol] 5.7 10*3/uL 4.4-11.0 [facility] Blood erythrocytes count (nu mber/volume)Ordered By: Dr. Perez on 10-31-2022 RBC (Bld) [#/Vol] 4.77 10*6/uL 4.6-6.2 [facility] Blood hemoglobin measurement (mass/volume)Ordered By: Dr. Perez on 10-31-2022 Hemoglobin (Bld) [Mass/Vol] 14.9 g/dL 13.0-16.5 [facility] Blood lymphocytes/100 leukoc ytesOrdered By: Dr. Perez on 10-31-2022 Lymphocytes/100 WBC (Bld) 26.8 % 19-41 [facility] Blood monocytes/100 leukocyt esOrdered By: Dr. ePrez on 10-31-2022 Monocytes/100 WBC (Bld) 9.8 % 0-10 [facility] Blood platelet mean volumeOr dered By: Dr. Perez on 10-31-2022 Platelet mean volume (Bld) [Entitic vol] 10.4 fL 6.2-12.0 [facility] Determination of erythrocyte mean corpuscular volume (MCV)Ordered By: Dr. Perez on 10-31-2022 MCV (RBC) [Entitic vol] 92.7 fL 80-94 [facility] Hematocrit Auto (Bld) [Volum e fraction]Ordered By: Dr. Perez on 10-31-2022 Hematocrit (Bld) [Volume fraction] 44.2 % 40-54 [facility] Laboratory - Chemistry and C hemistry - challengeOrdered By: Dr. Perez on 10-31-2022 ALP [Catalytic activity/Vol] 74 U/L 45-117 [facility] ALT [Catalytic activity/Vol] 27 U/L 16-61 [facility] CO2 [Moles/Vol] 27.0 mmol/L 21.0-32.0 [facility] Globulin (S) [Mass/Vol] 3.4 g/dL 2.2-4.2 [facility] Urea nitrogen/Creatinine [Mass ratio] 12.7 mg/mg 10-20 [facility] Laboratory - Hematology and Cell countsOrdered By: Dr. Perez on 10-31-2022 Erythrocyte distribution width (RBC) [Entitic vol] 41.9 fL 35.1-43.9 [facility] Erythrocyte distribution width (RBC) [Ratio] 12.4 % 11.6-14.6 [facility] Immature granulocytes/100 WBC (Bld) 0.400 % 0.0-0.9 [facility] Comment on above: IG% - Immature Granu locytes (promyelocytes, myelocytes and metamyelocytes) > 1% indicates that a LEFT SHIFT is Present. MCH (RBC) [Entitic mass] 31.2 pg 27.0-32.0 [facility] Nucleated RBC/100 WBC (Bld) [Ratio] 0 % 0-5 [facility] MCHC Auto (RBC) [Mass/Vol]Or dered By: Dr. Perez on 10-31-2022 MCHC (RBC) [Mass/Vol] 33.7 g/dL 32-36 [facility] No Panel InformationOrdered By: Dr. Perez on 10-31-2022 Estimated GFR (MDRD) Amer 76 mL/min >60 [facility] Comment on above: GFR Calc Estimated GFR (MDRD) Non-Af Amer 62 mL/min >60 [facility] Comment on above: Non- GFR Calc Prostate Specific Antigen Screen 5.09 ng/mL 0.00-4.00 [facility] Comment on above: This test was perfor med using the TPSA assay method [facility]. Values obtained with differentassay methods cannot be used interchangably.When changing PSA assays in the course of monitoring apatient, additional sequential testing should be carriedout to confirm baseline values. Thyroid Stimulating Hormone (TSH) 1.60 uIU/mL 0.358-3.74 [facility] Urine Microalbumin/Creatinine Ratio 10.6 mg/g CRE <30 [facility] Vitamin D 25-Hydroxy 76.8 ng/mL [facility] Comment on above: Vitamin D 25(OH) Sta tus Range Deficiency <20 ng/mL (50nmol/L) Insufficiency 20 - 30 ng/mL (50 - 75 nmol/L) Sufficiency 30 - 100 ng/mL (75 - 250 nmol/L) Toxicity >100 ng/mL (>250 nmol/L) Platelets bldOrdered By: Dr. Perez on 10-31-2022 Platelets (Bld) [#/Vol] 283 10*3/uL 150-450 [facility] Serum or plasma albumin hanny urement (mass/volume)Ordered By: Dr. Perez on 10-31-2022 Albumin [Mass/Vol] 3.6 g/dL 3.2-5.0 [facility] Serum or plasma albumin/glob ulin mass ratioOrdered By: Dr. Perez on 10-31-2022 Albumin/Globulin [Mass ratio] 1.1 {ratio} 0.9-2.4 [facility] Serum or plasma calcium hanny urement (mass/volume)Ordered By: Dr. Perez on 10-31-2022 Calcium [Mass/Vol] 9.5 mg/dL 8.5-10.1 [facility] Serum or plasma cholesterol in HDL measurement (mass/volume)Ordered By: Dr. Perez on 10-31-2022 Cholesterol in HDL [Mass/Vol] 67 mg/dL >40 [facility] Comment on above: The drugs N-Acetylcy steine and Metamizole may falsely depress this assay. Reference Range HDL <40 mg/dL Low HDL Cholesterol HDL >or= 60 mg/dL High HDL Cholesterol Serum or plasma cholesterol in VLDL measurement (mass/volume)Ordered By: Dr. Perez on 10-31-2022 Cholesterol in VLDL [Mass/Vol] 24 mg/dL 5-40 [facility] Serum or plasma creatinine m easurement (mass/volume)Ordered By: Dr. Perez on 10-31-2022 Creatinine [Mass/Vol] 1.26 mg/dL 0.70-1.30 [facility] Comment on above: The validity of the calculated GFR & GFRAA in patients over 70 years has not been determined. Clinical correlation is essential. Serum or plasma low density lipoprotein (LDL) cholesterol measurement (mass/volume)Ordered By: Dr. Perez on 10-31-2022 Cholesterol in LDL [Mass/Vol] 124 mg/dL 0-130 [facility] Serum or plasma urea nitroge n measurement (mass/volume)Ordered By: Dr. Perez on 10-31-2022 Urea nitrogen [Mass/Vol] 16 mg/dL 7-18 [facility] Thin prep Papanicolaou smear with manual screeningOrdered By: Dr. Perez on 10-31-2022 Thin prep Papanicolaou smear with manual screening 16 U/L 15-37 [facility] Thin prep Papanicolaou smear with manual screening 7 5-15 [facility] Thin prep Papanicolaou smear with manual screening 15.2 mg/L NO RANGE EST. [facility] Urine creatinine measurement (mass/volume)Ordered By: Dr. Perez on 10-31-2022 Creatinine (U) [Mass/Vol] 144.00 mg/dL NO RANGE EST. [facility] Whole blood hemoglobin A1c/t otal hemoglobin ratio (mass fraction)Ordered By: Dr. Perez on 10-31-2022 HbA1c (Bld) [Mass fraction] 5.5 % 3.8-5.6 [facility] Comment on above: Normal < 5.7 % Predi abetic 5.7 - 6.4 % Diabetic >or= 6.5 % Please note range changes. Absolute lymphocyte counton 04-16-2022 Lymphocytes Auto (Unsp spec) [#/Vol] 1.90 10*3/uL 0.83-4.51 [facility] Work Phone: Basophil percentageon 2021 Basophils/100 WBC (Bld) 0.7 % 0-1 [facility] Work Phone: [phone] Eosinophils/100 WBC (Bld) 8.8 % 0-5 [facility] Work Phone: [phone] Neutrophils (Bld) [#/Vol] 3.5 10*3/uL 2.0-7.7 [facility] Work Phone: Neutrophils/100 WBC (Bld) 51.5 % 47-70 [facility] Work Phone: WBC (Bld) [#/Vol] 6.7 10*3/uL 4.4-11.0 [facility] Work Phone: [phone] Blood erythrocytes count (nu mber/volume)on 04-16-2022 RBC (Bld) [#/Vol] 4.94 10*6/uL 4.6-6.2 [facility] Work Phone: Blood hemoglobin measurement (mass/volume)on 04-16-2022 Hemoglobin (Bld) [Mass/Vol] 15.2 g/dL 13.0-16.5 [facility] Work Phone: Blood lymphocytes/100 leukoc yteson 04-16-2022 Lymphocytes/100 WBC (Bld) 28.4 % 19-41 [facility] Work Phone: Blood monocytes/100 leukocyt eson 04-16-2022 Monocytes/100 WBC (Bld) 10.3 % 0-10 [facility] Work Phone: Blood platelet mean volumeon 04-16-2022 Platelet mean volume (Bld) [Entitic vol] 10.5 fL 6.2-12.0 [facility] Work Phone: Determination of erythrocyte mean corpuscular volume (MCV)on 04-16-2022 MCV (RBC) [Entitic vol] 91.3 fL 80-94 [facility] Work Phone: Hematocrit Auto (Bld) [Volum e fraction]on 04-16-2022 Hematocrit (Bld) [Volume fraction] 45.1 % 40-54 [facility] Work Phone: Laboratory - Hematology and Cell countson 04-16-2022 Erythrocyte distribution width (RBC) [Entitic vol] 40.5 fL 35.1-43.9 [facility] Work Phone: Erythrocyte distribution width (RBC) [Ratio] 12.2 % 11.6-14.6 [facility] Work Phone: Immature granulocytes/100 WBC (Bld) 0.300 % 0.0-0.9 [facility] Work Phone: Comment on above: IG% - Immature Granu locytes (promyelocytes, myelocytes and metamyelocytes) > 1% indicates that a LEFT SHIFT is Present. MCH (RBC) [Entitic mass] 30.8 pg 27.0-32.0 [facility] Work Phone: Nucleated RBC/100 WBC (Bld) [Ratio] 0 % 0-5 [facility] Work Phone: MCHC Auto (RBC) [Mass/Vol]on 04-16-2022 MCHC (RBC) [Mass/Vol] 33.7 g/dL 32-36 [facility] Work Phone: Platelets bldon 04-16-2022 Platelets (Bld) [#/Vol] 253 10*3/uL 150-450 [facility] Work Phone: Basophil percentageon 2021 Bilirubin [Mass/Vol] 0.50 mg/dL 0.20-1.00 [facility] Work Phone: Comment on above: For patients on eltr ombopag therapy, use of Dimension [place] TBIL is not recommended. Chloride [Moles/Vol] 106 mmol/L 98-107 [facility] Work Phone: Cholesterol [Mass/Vol] 197 mg/dL <200 [facility] Work Phone: Comment on above: <200 mg/dL Desirable 200-240 mg/dL Borderline >240 mg/dL High Risk Glucose [Mass/Vol] 112 mg/dL 74-106 [facility] Work Phone: Comment on above: Fasting Glucose resu lt from 100 to 125 mg/dL suggests IMPAIRED HOMEOSTASIS per A.D.A. criteria. Potassium [Moles/Vol] 3.7 mmol/L 3.5-5.1 [facility] Work Phone: Protein [Mass/Vol] 7.0 g/dL 6.4-8.2 [facility] Work Phone: Sodium [Moles/Vol] 139 mmol/L 136-145 [facility] Work Phone: Triglyceride [Mass/Vol] 73 mg/dL <199 [facility] Work Phone: Comment on above: The drugs N-Acetylcy steine and Metamizole may falsely depress this assay.Serum Triglycerides Reference Interval Normal <150 mg/dL Borderline high 150 - 199 mg/dL High 200 - 499 mg/dL Very High > or = 500 mg/dL Laboratory - Chemistry and C hemistry - challengeon 01-12-2022 ALP [Catalytic activity/Vol] 78 U/L 45-117 [facility] Work Phone: ALT [Catalytic activity/Vol] 23 U/L 16-61 [facility] Work Phone: CO2 [Moles/Vol] 29.0 mmol/L 21.0-32.0 [facility] Work Phone: Globulin (S) [Mass/Vol] 3.2 g/dL 2.2-4.2 [facility] Work Phone: Urea nitrogen/Creatinine [Mass ratio] 17.1 mg/mg 10-20 [facility] Work Phone: No Panel Informationon 01-12 Estimated GFR (MDRD) Amer 74 mL/min >60 [facility] Work Phone: Comment on above: GFR Calc Estimated GFR (MDRD) Non-Af Amer 61 mL/min >60 [facility] Work Phone: Comment on above: Non- GFR Calc Urine Microalbumin/Creatinine Ratio 3.6 mg/g CRE <30 [facility] Work Phone: Serum or plasma albumin hanny urement (mass/volume)on 01-12-2022 Albumin [Mass/Vol] 3.8 g/dL 3.2-5.0 [facility] Work Phone: Serum or plasma albumin/glob ulin mass ratioon 01-12-2022 Albumin/Globulin [Mass ratio] 1.2 {ratio} 0.9-2.4 [facility] Work Phone: Serum or plasma calcium hanny urement (mass/volume)on 01-12-2022 Calcium [Mass/Vol] 9.2 mg/dL 8.5-10.1 [facility] Work Phone: Serum or plasma cholesterol in HDL measurement (mass/volume)on 01-12-2022 Cholesterol in HDL [Mass/Vol] 64 mg/dL >40 [facility] Work Phone: Comment on above: The drugs N-Acetylcy steine and Metamizole may falsely depress this assay. Reference Range HDL <40 mg/dL Low HDL Cholesterol HDL >or= 60 mg/dL High HDL Cholesterol Serum or plasma cholesterol in VLDL measurement (mass/volume)on 01-12-2022 Cholesterol in VLDL [Mass/Vol] 15 mg/dL 5-40 [facility] Work Phone: Serum or plasma creatinine m easurement (mass/volume)on 01-12-2022 Creatinine [Mass/Vol] 1.29 mg/dL 0.70-1.30 [facility] Work Phone: Comment on above: The validity of the calculated GFR & GFRAA in patients over 70 years has not been determined. Clinical correlation is essential. Serum or plasma low density lipoprotein (LDL) cholesterol measurement (mass/volume)on 01-12-2022 Cholesterol in LDL [Mass/Vol] 118 mg/dL 0-130 [facility] Work Phone: Serum or plasma urea nitroge n measurement (mass/volume)on 01-12-2022 Urea nitrogen [Mass/Vol] 22 mg/dL 7-18 [facility] Work Phone: Thin prep Papanicolaou smear with manual screeningon 01-12-2022 Thin prep Papanicolaou smear with manual screening 15 U/L 15-37 [facility] Work Phone: Thin prep Papanicolaou smear with manual screening 4 5-15 [facility] Work Phone: Thin prep Papanicolaou smear with manual screening 7.7 mg/L NO RANGE EST. [facility] Work Phone: Urine creatinine measurement (mass/volume)on 01-12-2022 Creatinine (U) [Mass/Vol] 215.00 mg/dL NO RANGE EST. [facility] Work Phone: CNOVon 10-20-2019 CNOV Office Visit ([facility]) SANTOS ROSADO ([id number]) 1965 M Date Time Provider Department 10/20/19 6:00 PM ALYSSA LEON ([facility]) [facility] During your visit today, we recorded the following information about you: Temperature Pulse Respiration Blood pressure 97.1 degrees 77/minute 16/minute 122/86 Weight 84.3 kg Alyssa Leon APRN.CNP 10/20/2019 6:40 PM Signed Subjective HPI HPI Santos Rosado is a 54 year old male who presents today for CC of sinusitis. This started over 1 week ago. Has tried fluticason. Symptoms are worsened by nothing. Risk factors hx of sinusitis. .Patient presents with: Sinusitis: x 1 week PAST MEDICAL HISTORY Diagnosis Date - Abdominal pain, unspecified site - Allergic rhinitis, cause unspecified Allergic rhinitis - Dysthymic disorder Depression (non-psychotic) - Generalized osteoarthrosis, unspecified site - Internal hemorrhoids without mention of complication - Irritable bowel syndrome - Unspecified asthma(493.90) - Unspecified essential hypertension labile PAST SURGICAL HISTORY Procedure Laterality Date - COLONOSCOP W/ OR W/O BRSH SPEC 02/22/02 Colonoscopy - COLONOSCOPY 2013 - HERNIA REPAIR W/MESH 08/05/16 umbilical - VASECTOMY ALLERGIES Cats; Clindex [Other]; Dust Mites; Grass Pollen; Lobster (Crustaceans); Trees; Iodine [Contrast Dye] MEDICATIONS amLODIPine (NORVASC) 5 mg tablet Take 1 tablet by mouth once daily. escitalopram oxalate (LEXAPRO) 5 mg tablet Take 0.5 tablets by mouth once daily. gabapentin (NEURONTIN) 300 mg capsule Take 1 capsule by mouth twice daily. SAVELLA 100 mg tab Take 1 tablet by mouth twice daily. LACTOBACILLUS BIFIDUS ORAL Take 1 tablet by mouth once daily. OMEGA-3 FATTY ACIDS (FISH OIL CONCENTRATE ORAL) Take 720 mg by mouth once daily. Ascorbic Acid (VITAMIN C WITH RAJNI HIPS) 1,000 mg tablet Take 1,000 mg by mouth once daily. Cholecalciferol, Vitamin D3, (VITAMIN D-3) 5,000 unit tab Take 5,000 Units by mouth once daily. MELATONIN/PYRIDOXINE HCL, B6, (MELATONEX ORAL) Take 3 mg by mouth daily at bedtime. Cyanocobalamin-Cobam amide (B12) 5,000-100 mcg lozg Dissolve under the tongue. albuterol HFA (VENTOLIN HFA) 90 mcg/actuation inhaler Inhale 1 Puff as instructed as needed. CPAP ASTELIN 137 MCG/SPRAY NASAL SPRAY AEROSOL as directed magnesium oxide (MAG-OX) 400 mg (241.3 mg magnesium) tablet Take 1 tablet by mouth twice daily. oxyCODONE-acetaminop hen (PERCOCET) 5-325 mg tablet Take 1 tablet by mouth every 4 hours as needed for Pain. Herbal Complex No.174 (ECHINACEA AND GOLDENSEAL) 450 mg cap Take by mouth. On 1 week off 1 week GLUC/CHND/OM3/DHA/EP A/FISH/STR (GLUCOSAMINE CHONDROITIN PLUS ORAL) Take by mouth. ASPIRIN 81 MG TAB multivitamins(MULTIP LE VITAMIN TAB) Take one(1) tablet daily. NASONEX 50 MCG/ACTUATION SPRAY Two sprays each nostril daily. FAMILY HISTORY Problem Relation Age of Onset - Heart Paternal Grandmother pacemaker Social History Tobacco Use - Smoking status: Never Smoker - Smokeless tobacco: Never Used Substance Use Topics - Alcohol use: Yes Alcohol/week: 10.0 - 62.5 standard drinks Types: 4 - 5 Glasses of Wine (5oz) per week Comment: drinks wine occasionally - Drug use: No Review of Systems Constitutional: Negative for fever. HENT: Positive for congestion and sinus pain. Negative for ear pain, nosebleeds and sore throat. Respiratory: Negative for cough, shortness of breath and wheezing. Musculoskeletal: Negative for neck pain. Skin: Negative for itching and rash. Objective Blood pressure 122/86, pulse 77, temperature 36.2 ?C (97.1 ?F), temperature source Left Tympanic, resp. rate 16, weight 84.3 kg (185 lb 12.8 oz), SpO2 99 %. Physical Exam Constitutional: He is oriented to person, place, and time and well-developed, well-nourished, and in no distress. Non-toxic appearance. He does not have a sickly appearance. No distress. HENT: Head: Normocephalic and atraumatic. Right Ear: Hearing, tympanic membrane, external ear and ear canal normal. Left Ear: Hearing, tympanic membrane, external ear and ear canal normal. Nose: Right sinus exhibits maxillary sinus tenderness. Left sinus exhibits maxillary sinus tenderness. Mouth/Throat: Uvula is midline, oropharynx is clear and moist and mucous membranes are normal. Eyes: Pupils are equal, round, and reactive to light. Conjunctivae and lids are normal. Right eye exhibits no discharge. Left eye exhibits no discharge. No scleral icterus. Neck: Trachea normal and normal range of motion. Neck supple. Cardiovascular: Normal rate, regular rhythm and normal heart sounds. Pulmonary/Chest: Effort normal and breath sounds normal. Lymphadenopathy: He has no cervical adenopathy. Neurological: He is alert and oriented to person, place, and time. Skin: No rash noted. He is not diaphoretic. ASSESSMENT/PLAN: 1. Bacterial sinusitis - ICD9: 473.9, 041.9, ICD10: J32.9, B96.89 - Will begin treatment with Augmentin 875 mg PO BID for 10 days - Supportive care with plenty of fluids, rest, and analgesia prn. - Follow up in one week if symptoms persist or worsen. - AMOXICILLIN 875 MG-POTASSIUM CLAVULANATE 125 MG TABLET Prescription instructions reviewed with patient as applicable. Patient advised if symptoms do not improve or if symptoms worsen sooner, to contact the office for further evaluation by their primary care physician. Potential red flag symptoms discussed with the patient. Reviewed appropriate action plan to take if red flag symptoms occur. Patient agreeable to treatment plan. Alyssa Leon APRN.SPOOLING OPERATOR Referring Provider: SELF [[id number]] Allergies As of Date: 10/20/2019 Noted Allergy Reaction CATS 09/01/2006 5 - Intolerance CLINDEX [Other] 09/18/2005 Comments: HEART PALPITATION DUST MITES 09/01/2006 5 - Intolerance GRASS POLLEN 09/01/2006 5 - Intolerance LOBSTER (CRUSTACEANS) 09/01/2006 8 - GI Upset TREES 09/01/2006 5 - Intolerance IODINE (CONTRAST DYE) 12/11/2008 12 - Shortness of Breath Comments: diarrhea Date Reviewed: 10/20/2019 Reviewed by: Helena Hughes Ma - Fully Assessed Reason for Visit: Sinusitis [127] Cmt: x 1 week Primary Visit Diagnosis:Bacterial sinusitis [J32.9, B96.89] Order(s):amoxicillin -clavulanic acid (AUGMENTIN) 875-125 mg per tabletTake 1 tablet by mouth twice daily for 10 days.Disp: 20 tabletRfl: 0 Prescriptions as of 10/20/2019 Sig: AMLODIPINE 5 MG TABLET Take 1 tablet by mouth once d* ESCITALOPRAM 5 MG TABLET Take 0.5 tablets by mouth onc* GABAPENTIN 300 MG CAPSULE Take 1 capsule by mouth twice* SAVELLA 100 MG TABLET Take 1 tablet by mouth twice * LACTOBACILLUS BIFIDUS ORAL Take 1 tablet by mouth once d* FISH OIL CONCENTRATE ORAL Take 720 mg by mouth once abisai* ASCORBIC ACID (VITAMIN C) 1,0* Take 1,000 mg by mouth once d* CHOLECALCIFEROL (VITAMIN D3) * Take 5,000 Units by mouth onc* MELATONEX ORAL Take 3 mg by mouth daily at b* CYANOCOBALAMIN (B12)-COBAMAMI* Dissolve under the tongue. ALBUTEROL SULFATE HFA 90 MCG/* Inhale 1 Puff as instructed a* CPAP ASTELIN 137 MCG (0.1 %) NASAL* as directed MAGNESIUM OXIDE 400 MG (241.3* Take 1 tablet by mouth twice * AMOXICILLIN 875 MG-POTASSIUM * Take 1 tablet by mouth twice * OXYCODONE-ACETAMINOP HEN 5 MG-* Take 1 tablet by mouth every * Patient not taking: Reported on 10/20/2019 HERBAL COMPLEX NO.174 450 MG * Take by mouth. On 1 week off* GLUCOSAMINE CHONDROITIN PLUS * Take by mouth. ASPIRIN 81 MG TABLET MULTIPLE VITAMIN TABLET Take one(1) tablet daily. NASONEX 50 MCG/ACTUATION SPRAY Two sprays each nostril daily. Problem List As Of Date 10/20/2019 Noted Resolved ALLERGIC RHINITIS NOS [J30.9] More... Mild intermittent asthma without complication [* IRRITABLE COLON [K58.9] HYPERTENSION NOS [I10] More... DYSTHYMIC DISORDER [F34.1] More... INT HEMORRHOID W/O COMPL [K64.8] SKIN ANOMALY NEC [Q82.8] 04/19/2006 ABDOMINAL PAIN UNSPEC SITE [R10.9] Umbilical hernia [K42.9] 07/30/2016 CHRIS on CPAP [G47.33, Z99.89] 07/30/2016 Prescriptions ordered this encounter Disp Refills Start End AMOXICILLIN 875 MG-POTASSIUM CLAVULA* 20 t* 0 10/20/2019 10/30/2019 Route: ORAL Sig: Take 1 tablet by mouth twice daily for 10 days. Encounter Status:Closed by ALYSSA LEON CNP on 10/20/19 [facility] PROGRESSon 10-20-2019 PROGRESS HNO ID: [id number] Author: Alyssa (Mary) Service: ? Author Type: Nurse Practitioner Type: Progress Notes Filed: 10/20/2019 6:40 PM Note Text: Subjective HPI HPI Santos Rosado is a 54 year old male who presents today for CC of sinusitis. This started over 1 week ago. Has tried fluticason. Symptoms are worsened by nothing. Risk factors hx of sinusitis. .Patient presents with: Sinusitis: x 1 week PAST MEDICAL HISTORY Diagnosis Date - Abdominal pain, unspecified site - Allergic rhinitis, cause unspecified Allergic rhinitis - Dysthymic disorder Depression (non-psychotic) - Generalized osteoarthrosis, unspecified site - Internal hemorrhoids without mention of complication - Irritable bowel syndrome - Unspecified asthma(493.90) - Unspecified essential hypertension labile PAST SURGICAL HISTORY Procedure Laterality Date - COLONOSCOP W/ OR W/O [facility] SPEC 02/22/02 Colonoscopy - COLONOSCOPY 2013 - HERNIA REPAIR W/MESH 08/05/16 umbilical - VASECTOMY ALLERGIES Cats; Clindex [Other]; Dust Mites; Grass Pollen; Lobster (Crustaceans); Trees; Iodine [Contrast Dye] MEDICATIONS amLODIPine (NORVASC) 5 mg tablet Take 1 tablet by mouth once daily. escitalopram oxalate (LEXAPRO) 5 mg tablet Take 0.5 tablets by mouth once daily. gabapentin (NEURONTIN) 300 mg capsule Take 1 capsule by mouth twice daily. SAVELLA 100 mg tab Take 1 tablet by mouth twice daily. LACTOBACILLUS BIFIDUS ORAL Take 1 tablet by mouth once daily. OMEGA-3 FATTY ACIDS (FISH OIL CONCENTRATE ORAL) Take 720 mg by mouth once daily. Ascorbic Acid (VITAMIN C WITH RAJNI HIPS) 1,000 mg tablet Take 1,000 mg by mouth once daily. Cholecalciferol, Vitamin D3, (VITAMIN D-3) 5,000 unit tab Take 5,000 Units by mouth once daily. MELATONIN/PYRIDOXINE HCL, B6, (MELATONEX ORAL) Take 3 mg by mouth daily at bedtime. Cyanocobalamin-Cobam amide (B12) 5,000-100 mcg lozg Dissolve under the tongue. albuterol HFA (VENTOLIN HFA) 90 mcg/actuation inhaler Inhale 1 Puff as instructed as needed. CPAP ASTELIN 137 MCG/SPRAY NASAL SPRAY AEROSOL as directed magnesium oxide (MAG-OX) 400 mg (241.3 mg magnesium) tablet Take 1 tablet by mouth twice daily. oxyCODONE-acetaminop hen (PERCOCET) 5-325 mg tablet Take 1 tablet by mouth every 4 hours as needed for Pain. Herbal Complex No.174 (ECHINACEA AND GOLDENSEAL) 450 mg cap Take by mouth. On 1 week off 1 week GLUC/CHND/OM3/DHA/EP A/FISH/STR (GLUCOSAMINE CHONDROITIN PLUS ORAL) Take by mouth. ASPIRIN 81 MG TAB multivitamins(MULTIP LE VITAMIN TAB) Take one(1) tablet daily. NASONEX 50 MCG/ACTUATION SPRAY Two sprays each nostril daily. FAMILY HISTORY Problem Relation Age of Onset - Heart Paternal Grandmother pacemaker Social History Tobacco Use - Smoking status: Never Smoker - Smokeless tobacco: Never Used Substance Use Topics - Alcohol use: Yes Alcohol/week: 10.0 - 62.5 standard drinks Types: 4 - 5 Glasses of Wine (5oz) per week Comment: drinks wine occasionally - Drug use: No Review of Systems Constitutional: Negative for fever. HENT: Positive for congestion and sinus pain. Negative for ear pain, nosebleeds and sore throat. Respiratory: Negative for cough, shortness of breath and wheezing. Musculoskeletal: Negative for neck pain. Skin: Negative for itching and rash. Objective Blood pressure 122/86, pulse 77, temperature 36.2 ?C (97.1 ?F), temperature source Left Tympanic, resp. rate 16, weight 84.3 kg (185 lb 12.8 oz), SpO2 99 %. Physical Exam Constitutional: He is oriented to person, place, and time and well-developed, well-nourished, and in no distress. Non-toxic appearance. He does not have a sickly appearance. No distress. HENT: Head: Normocephalic and atraumatic. Right Ear: Hearing, tympanic membrane, external ear and ear canal normal. Left Ear: Hearing, tympanic membrane, external ear and ear canal normal. Nose: Right sinus exhibits maxillary sinus tenderness. Left sinus exhibits maxillary sinus tenderness. Mouth/Throat: Uvula is midline, oropharynx is clear and moist and mucous membranes are normal. Eyes: Pupils are equal, round, and reactive to light. Conjunctivae and lids are normal. Right eye exhibits no discharge. Left eye exhibits no discharge. No scleral icterus. Neck: Trachea normal and normal range of motion. Neck supple. Cardiovascular: Normal rate, regular rhythm and normal heart sounds. Pulmonary/Chest: Effort normal and breath sounds normal. Lymphadenopathy: He has no cervical adenopathy. Neurological: He is alert and oriented to person, place, and time. Skin: No rash noted. He is not diaphoretic. ASSESSMENT/PLAN: 1. Bacterial sinusitis - ICD9: 473.9, 041.9, ICD10: J32.9, B96.89 - Will begin treatment with Augmentin 875 mg PO BID for 10 days - Supportive care with plenty of fluids, rest, and analgesia prn. - Follow up in one week if symptoms persist or worsen. - AMOXICILLIN 875 MG-POTASSIUM CLAVULANATE 125 MG TABLET Prescription instructions reviewed with patient as applicable. Patient advised if symptoms do not improve or if symptoms worsen sooner, to contact the office for further evaluation by their primary care physician. Potential red flag symptoms discussed with the patient. Reviewed appropriate action plan to take if red flag symptoms occur. Patient agreeable to treatment plan. Alyssa Leon APRN.SPOOLING OPERATOR Normal [facility] Vital Signs Date Time Vital Sign Value Performing Clinician Pushpa ellison 06-18-2025 08:12-0400 Body height 165.[address] Ceferino Perez MD Work Phone: [facility] 06-18-2025 08:12-0400 Body mass index (BMI) [Ratio] 31.6 kg/m2 Dr. Ceferino Perez MD Work Phone: [facility] 06-18-2025 08:12-0400 Body temperature 98.2 [degF] Dr. Ceferino Perez MD Work Phone: [facility] 06-18-2025 08:12-0400 Body weight 86.[address] Ceferino Perez MD Work Phone: [facility] 06-18-2025 08:12-0400 Diastolic blood pressure 72 mm[Hg] Dr. Ceferino Perez MD Work Phone: [facility] 06-18-2025 08:12-0400 Heart rate 72 /min Dr. Ceferino Perez MD Work Phone: [facility] 06-18-2025 08:12-0400 Respiratory rate 18 /min Dr. Ceferino Perez MD Work Phone: [facility] 06-18-2025 08:12-0400 SaO2% (BldA) [Mass fraction] 98 % Dr. Ceferino Perez MD Work Phone: [facility] 06-18-2025 08:12-0400 Systolic blood pressure 137 mm[Hg] Dr. Ceferino Perez MD Work Phone: [facility] 03-28-2023 17:39-0400 Diastolic blood pressure 75 mm[Hg] [facility] 03-28-2023 17:39-0400 Systolic blood pressure 138 mm[Hg] [facility] 03-28-2023 15:50-0400 Body height 165.1 cm [facility] 03-28-2023 15:50-0400 Body mass index (BMI) [Ratio] 31.9 kg/m2 [facility] 03-28-2023 15:50-0400 Body temperature 98.7 [degF] [facility] 03-28-2023 15:50-0400 Body weight 87.08 kg [facility] 03-28-2023 15:50-0400 Heart rate 107 /min [facility] 03-28-2023 15:50-0400 Respiratory rate 18 /min [facility] 03-28-2023 15:50-0400 SaO2% (BldA) [Mass fraction] 98 % [facility] Encounters Encounter Date Encounter Type Care Provider Facility Start: 06-26-2025 ambulatory Ceferino Perez Facility:[facility] Start: 06-26-2025 End: 06-26-2025 ambulatory Ceferino Perez Facility:[facility] Start: 06-18-2025 End: 06-18-[address] Fredrick Evans MD -[facility] Work Phone: Start: 06-18-2025 End: 06-18-[address] Ceferino Perez MD Work Phone: -[facility] Start: 02-07-2025 Encounter for preprocedural cardiovascular examination Jonny Burch [facility] Start: 01-31-2025 End: 01-31-2025 Non-patient / Non-visit Dr. Thom Mendoza MD -[facility] Work Phone: Start: 01-31-2025 End: 01-31-[address] Ceferino Perez MD Work Phone: [facility] Work Phone: Start: 01-31-2025 End: 01-31-[address] Jonny Burch DO -Pulmonary Services/Neurology Work Phone: Start: 01-31-2025 End: 01-31-2025 ambulatory Ceferino Perez Facility:[facility] Start: 09-22-2024 End: 09-22-2024 ambulatory Ceferino Perez Facility:[facility] Start: 09-07-2024 End: 09-07-2024 ambulatory Lei RICO Facility:[facility] Start: 07-04-2024 End: 07-04-2024 ambulatory Ceferino Perez Facility:[facility] Start: 07-03-2024 End: 07-03-2024 Emergency department patient visit Ceferino Perez Facility:[facility] Start: 01-15-2024 End: 01-15-2024 ambulatory [facility] Work Phone: Start: 01-15-2024 End: 01-15-2024 Patient encounter procedure [facility]-Laboratory Work Phone: Start: 07-13-2023 End: 07-13-2023 ambulatory [facility] Work Phone: Start: 07-13-2023 End: 07-13-2023 [facility] Start: 03-28-2023 End: 03-28-2023 [facility] Start: 02-16-2023 End: 02-16-2023 Patient encounter procedure [facility] - [facility] Work Phone: Start: 02-04-2023 End: 02-04-2023 ambulatory [facility] Work Phone: Start: 02-04-2023 End: 02-04-2023 [facility] Start: 10-31-2022 End: 10-31-2022 ambulatory [facility] Work Phone: Start: 10-31-2022 End: 10-31-2022 [facility] Start: 10-13-2022 End: 10-13-2022 [facility] Start: 07-28-2022 End: 07-28-2022 ambulatory [facility] Work Phone: Start: 07-28-2022 End: 07-28-2022 [facility] Start: 04-16-2022 End: 04-16-2022 [facility] Start: 01-12-2022 End: 01-12-2022 [facility] Procedures Date Procedure Procedure Detail Performing Clinician Start: 02-16-2023 MRI of pelvis with contrast Start: 10-13-2022 Plain chest X-ray Start: 07-28-2022 Plain chest X-ray Plan of Treatment Date Care Activity Detail Author Start: 06-18-2025 Colonoscopy [facility] Start: 03-28-2023 Smpl repair scalp/neck/ax/genit/trun k 2.6-7.5cm RPR S/N/AX/GEN/TRNK2.6-7. 5CM [facility] Patient Education ED Laceration: All Closures [facility] Work Phone: Patient referral [facility] Work Phone: Payers Date Payer Category Payer Self-pay [id number] 2011 Unknown [id number] Unknown [id number] 2.16.8 [id number] Unknown [id number] 2.16.8 [id number] Unknown [id number] 2.16.8 [id number] Unknown [id number] 2.16.8 [id number] Unknown [id number] 2.16.8 [id number] Unknown [id number] 2.16.8 [id number] Unknown [id number] 2.16.8 [id number] Unknown [id number] 2.16.8 [id number] Unknown [id number] 2.16.8 [id number] Social History Date Type Detail Facility Start: 02-21-2021 End: 03-28-2023 Tobacco smoking status NHIS Unknown if ever smoked [facility] Start: 01-24-2019 Non-smoker [facility] Start: 1965 Sex Assigned At Male [facility] Start: 07-03-2024 End: 06-18-2025 Tobacco smoking status NHIS Never smoked tobacco (finding) [facility] Sex Male [facility] Medical Equipment Procedure Code Equipment Code Equipment Origin al Text Equipment Identifier Dates Colonoscopy RESOLUTION 360 C LIP 235 CM FDA Start: 02-25-2021 Colonoscopy RESOLUTION 360 C LIP 235 CM FDA Start: 02-25-2021 Colonoscopy RESOLUTION 360 C LIP 235 CM FDA Start: 02-25-2021 Colonoscopy RESOLUTION 360 C LIP 235 CM FDA Start: 02-25-2021 Colonoscopy RESOLUTION 360 C LIP 235 CM FDA Start: 02-25-2021 Colonoscopy RESOLUTION 360 C LIP 235 CM FDA Start: 02-25-2021 Colonoscopy RESOLUTION 360 C LIP 235 CM FDA Start: 02-25-2021 Colonoscopy RESOLUTION 360 C LIP 235 CM FDA Start: 02-25-2021 Colonoscopy RESOLUTION 360 C LIP 235 CM FDA Start: 02-25-2021 Colonoscopy RESOLUTION 360 C LIP 235 CM FDA Start: 02-25-2021 Clinical Note 06-26-2025 Note Date & Type Note Facility 06-26-2025 Note [facility] Medical Records Department [address] [place] [address] History Physical Exam 06/26/25 0805 MR#: [id number] Acct: [id number] Name: SANTOS ROSADO Rep #: [id number] : 1965 59 From: Fredrick Evans MD PCP: Dr. Ceferino Perez MD Status:[facility] Location: [place] [address] History and Physical Date of Admission: 06/26/25 Intake Vital Signs 07/03/2410:07 06/18/2508:12 Height 5 ft 5 in 5 ft 5 in Weight: 190 lb BMI 31.6 BP 137/72 H Blood Pressure Location Rt brachial Position Sitting Respiration 18 Pulse 72 Pulse Source Monitor Temp 98.2 F Temp Source Temporal Pulse Oximetry (%) 98 Oxygen Delivery Method room air Intake Visit Reasons: BLOOD IN STOOL Chief Complaint: Diarrhea/abdominal pain/GERD Allergies shellfish derived Allergy (Intermediate, Verified 06/18/25 08:13) Vomiting vilazodone HCl (From Viibryd) Allergy (Verified 06/18/25 08:13) Hives [facility] Medical History (Updated 06/18/25 @ 08:11 by Anali Torres LPN) Blood in stool Wears glasses Alcohol use Substance abuse Marijuana use History of steroid therapy Thyroid disease Injury of head and neck Syncope History of ulceration History of IBS Gastric reflux Non-smoker CPAP (continuous positive airway pressure) dependence History of pain when walking History of edema History of stress test Abdominal pain Diarrhea Belching GERD (gastroesophageal reflux disease) Internal bleeding hemorrhoids HTN (hypertension) Fibromyalgia Sleep apnea Asthma Anxiety and depression Rectal bleeding Surgical History (Updated 06/18/25 @ 08:11 by Anali Torres LPN) History of repair of rotator cuff History of hemorrhoidectomy History of colonoscopy ( 06/2018) History of hernia repair History of vasectomy Family History (Updated 06/18/25 @ 08:12 by Anali Torres LPN) Mother Arthritis Breast cancer Diabetes Father Arthritis Colon cancer Hypertension Cancer skin cancer Acute Crohn's disease Social History (Updated 06/18/25 @ 08:12 by Anali Torres LPN) Smoking Status: Never smoker alcohol intake: current alcohol intake frequency: a few times a month substance use type: marijuana HPI HPI HPI: Patient is a 59-year-old male here for blood in the stool. He reports this is the 1 episode that happened and it was bright red. He does not note any pain. He is not having any abdominal pain. His last colonoscopy was in 2020 and a tubular adenoma was removed. He has also been having some diarrhea and notes that his father was recently diagnosed with Crohn's disease. ROS General General: Yes fatigue; No weight change, appetite, colon cancer, breast cancer or weakness HEENT HEENT: No difficulty swallowing, eye injury, eye surgery, swollen glands or hoarseness Endo Endocrine: Yes thyroid disease; No diabetes mellitus, thyroid cancer, Hair loss, heat intolerance or cold intolerance Skin Skin: No rash or changing moles Musc Musculoskeletal: Yes arthritis; No back problems, rheumatoid arthritis, gout or joint pain Cardio Cardiovascular: Yes high blood pressure; No murmur, pacemaker, heart disease, atrial fibrillation, heart attack, heart stent, palpitations, shortness of breath with exertion or chest pain Psych Psychiatric: Yes depression and anxiety; No hearing voices Resp Respiratory: Yes shortness of breath, Yes sleep apnea, No cough, No COPD, Yes asthma, No emphysema and No wheezing Gastro Gastrointestinal: Yes abdominal pain, Yes nausea or vomiting, Yes diarrhea, No constipation, Yes blood in stool, No acid reflux, No hemorrhoids, No ulcers, No gallbladder problem and No black,tarry stools Rajeev Hematologic: No blood thinners, No blood disorders, No bleeding, No anemia and No blood clots Neuro Neurologic: No numbness, No tingling and No weakness Exam Const General: cooperative Orientation: alert and oriented x3 HENMT Head: normal to inspection Neck Neck: normal visual inspection and full ROM Chest Chest palpation inspection: normal inspection of the chest Resp Effort Inspection: normal respiratory effort Auscultation: clear to auscultation bilaterally Cardio Rate: regular rate Rhythm: regular rhythm GI Inspection: non-distended Palpation: soft and nontender Skin General: no rashes or lesions noted Neuro General: patient alert and patient oriented x3 Extrem General: full ROM Psych Appearance: grossly normal Mental Status: mental status grossly normal Assessment and Plan Assessment and Plan (1) Blood in stool: Status: Acute Plan: I explained endoscopy in detail to the patient. I explained the risks including but not limited to stroke or heart attack with anesthesia, perforation of the GI tract, bleeding, infection. I e (more content not included)... [facility] Progress note 06-18-2025 Note Date & Type Note Facility 06-18-[address] [facility] Discharge instructions 03-30-2023 Note Date & Type Note Facility 03-30-2023 Hospital Discharg e instructions Additional Instructions Have stitches removed in 7 to 10 days. Please return or follow-up with PCP sooner for any signs of infection such as increased redness, swelling, purulent discharge, or fever. [facility] Work Phone: Hospital Discharge instructions 03-28-2023 Note Date & Type Note Facility 03-28-2023 Hospital Discharg e instructions Additional Instructions Have stitches removed in 7 to 10 days. Please return or follow-up with PCP sooner for any signs of infection such as increased redness, swelling, purulent discharge, or fever. [facility] Work Phone: Evaluation note Note Date & Type Note Facility Evaluation note No assessment information availa ble [facility] Work Phone: Evaluation note Note Date & Type Note Facility Evaluation note Diagnosis Onset Date Resolution Blood in stool acute June 7:59am [facility] Work Phone: Progress note Note Date & Type Note Facility Progress note Note Date/Time June 18, 2025 8:16am [facility] [address] [place] [address] OFFICE VISIT Date of Service: 06/18/25 MR#: [id number] Acct: [id number] Name: SANTOS ROSADO Rep #: [id number] : 1965 Provider: Dr. Brian Evans MD Age/Sex: 59/M Location: [facility] Status: Signed Intake Vital Signs 07/03/24 10:07 06/18/25 08:12 Height 5 ft 5 in 5 ft 5 in Weight: 190 lb BMI 31.6 BP 137/72 H Blood Pressure Location Rt brachial Position Sitting Respiration 18 Pulse 72 Pulse Source Monitor Temp 98.2 F Temp Source Temporal Pulse Oximetry (%) 98 Oxygen Delivery Method room air Intake Visit Reasons: BLOOD IN STOOL Chief Complaint: Diarrhea/abdominal pain/GERD Allergies shellfish derived Allergy (Intermediate, Verified 06/18/25 08:13) Vomiting vilazodone HCl (From Viibryd) Allergy (Verified 06/18/25 08:13) [facility] Medical History (Updated 06/18/25 @ 08:11 by Anali Torres LPN) Blood in stool Wears glasses Alcohol use Substance abuse Marijuana use History of steroid therapy Thyroid disease Injury of head and neck Syncope History of ulceration History of IBS Gastric reflux Non-smoker CPAP (continuous positive airway pressure) dependence History of pain when walking History of edema History of stress test Abdominal pain Diarrhea Belching GERD (gastroesophageal reflux disease) Internal bleeding hemorrhoids HTN (hypertension) Fibromyalgia Sleep apnea Asthma Anxiety and depression Rectal bleeding Surgical History (Updated 06/18/25 @ 08:11 by Anali Torres LPN) History of repair of rotator cuff History of hemorrhoidectomy History of colonoscopy (~06/2018) History of hernia repair History of vasectomy Family History (Updated 06/18/25 @ 08:12 by Anali Torres LPN) Mother Arthritis Breast cancer Diabetes Father Arthritis Colon cancer Hypertension Cancer skin cancer Acute Crohn's disease Social History (Updated 06/18/25 @ 08:12 by Anali Torres LPN) Smoking Status: Never smoker alcohol intake: current alcohol intake frequency: a few times a month substance use type: marijuana HPI HPI HPI: Patient is a 59-year-old male here for blood in the stool. He reports this is the 1 episode that happened and it was bright red. He does not note any pain. He is not having any abdominal pain. His last colonoscopy was in 2020 and a tubular adenoma was removed. He has also been having some diarrhea and notes that his father was recently diagnosed with Crohn's disease. ROS General General: Yes fatigue; No weight change, appetite, colon cancer, breast cancer or weakness HEENT HEENT: No difficulty swallowing, eye injury, eye surgery, swollen glands or hoarseness Endo Endocrine: Yes thyroid disease; No diabetes mellitus, thyroid cancer, Hair loss, heat intolerance or cold intolerance Skin Skin: No rash or changing moles Musc Musculoskeletal: Yes arthritis; No back problems, rheumatoid arthritis, gout or joint pain Cardio Cardiovascular: Yes high blood pressure; No murmur, pacemaker, heart disease, atrial fibrillation, heart attack, heart stent, palpitations, shortness of breath with exertion or chest pain Psych Psychiatric: Yes depression and anxiety; No hearing voices Resp Respiratory: Yes shortness of breath, Yes sleep apnea, No cough, No COPD, Yes asthma, No emphysema and No wheezing Gastro Gastrointestinal: Yes abdominal pain, Yes nausea or vomiting, Yes diarrhea, No constipation, Yes blood in stool, No acid reflux, No hemorrhoids, No ulcers, No gallbladder problem and No black,tarry stools Rajeev Hematologic: No blood thinners, No blood disorders, No bleeding, No anemia and No blood clots Neuro Neurologic: No numbness, No tingling and No weakness Exam Const General: cooperative Orientation: alert and oriented x3 HENMT Head: normal to inspection Neck Neck: normal visual inspection and full ROM Chest Chest palpation & inspection: normal inspection of the chest Resp Effort & Inspection: normal respiratory effort Auscultation: clear to auscultation bilaterally Cardio Rate: regular rate Rhythm: regular rhythm GI Inspection: non-distended Palpation: soft and nontender Skin General: no rashes or lesions noted Neuro General: patient alert and patient oriented x3 Extrem General: full ROM Psych Appearance: grossly normal Mental Status: mental status grossly normal Assessment and Plan Assessment and Plan (1) Blood in stool: Status: Acute Plan: I explained endoscopy in detail to the patient. I explained the risks includingbut not limited to stroke or heart attack with anesthesia, perforation of the GItract, bleeding, infection. I explained that any of these could necessitate further emergency surgery. The patient understands and all questions were answered sufficiently. The patient wishes to proceed with procedure. Fredrick Evans MD Pager: [facility] [address] [place] [address], [address] [place] [address] Office: Orders: Orders Colonoscopy Today Coding Level of Care Code Off vis,new,level 3 Diagnoses Blood in stool K92.1 06/18/25 0816 <Electronically signed by Fredrick rod MD> Date _ Fredrick Evans MD Cosign Signature: Date (if applicable) CC: ~ [facility] Work Phone: Reason for referral (narrative) Note Date & Type Note Facility Reason for referral (narrative) No reason for referral information available [facility] Work Phone: Summary Purpose Family History No Family History Records Found Relationship Condition Age at Onset Recorded Date/T ming mother Arthritis Unknown Malignant neoplasm of breast Unknown Diabetes mellitus Unknown father Arthritis Unknown Malignant neoplasm of colon Unknown Hypertension Unknown Malignant neoplasm Unknown Relationship Condition Age at Onset Recorded Date/T ming mother Arthritis Unknown Malignant neoplasm of breast Unknown Diabetes mellitus Unknown father Arthritis Unknown Malignant neoplasm of colon Unknown Hypertension Unknown Malignant neoplasm Unknown Acute Crohn's disease Unknown Advance Directives No Advanced Directives Records Found Advance Directive Response Recorded Date/ Time Advance Directives Yes December 18 7:23am Living Will Yes February 21, 2021 11:38am Power of Nut Grinder Yes February 21 11:38am Advance Directive Response Recorded Date/ Time Advance Directives Yes December 18 6:23am Living Will Yes February 21, 2021 10:38am Power of Nut Grinder Yes February 21 10:38am Advance Directive Response Recorded Date/ Time Name of Medical Power of Nut Grinder Ashly March 28, 2023 3:58pm Advance Directives Yes December 18 7:23am Living Will Yes March 28, 2023 3:58pm Power of Nut Grinder Yes March 28 3:58pm Advance Directive Response Recorded Date/ Time Advance Directives Yes December 18 7:23am Living Will Yes March 28, 2023 3:58pm Power of Nut Grinder Yes March 28 3:58pm Name of Medical Power of Nut Grinder Ashly March 28, 2023 3:58pm Advance Directive Response Recorded Date/ Time Advance Directives Yes December 18 7:23am Living Will Yes March 28, 2023 3:58pm Power of Nut Grinder Yes March 28 3:58pm Advance Directive Response Recorded Date/ Time Advance Directives Yes December 18 7:23am Chief Complaint and Reason for Visit Chief Complaint E ORDERS Chief Complaint E ORDERS E ORDER Chief Complaint E ORDER EORDER- cough Chief Complaint EORDER- cough Cough EORDER Chief Complaint ELEVATED PSA LAC Chief Complaint LAC Chief Complaint Admit Date PRE OP January 31, 2025 7:20a m PRE OP January 31, 2025 7:33a m Chief Complaint Admit Date BLOOD IN STOOL June 18, 2025 7: 59am Reason for Visit Admit Date Blood in stool June 18, 2025 7: 59am Additional Source Comments (unrecognized sect ion and content) No Status Records FoundNo Status Records Found INFORMATION SOURCE (unrecogn ized section and content) DATE CREATED AUTHOR 10/20/2019 [facility] DATE CREATED AUTHOR AUTHOR'S ORGANIZ ATION 06/26/2025 [facility] Goals (unrecognized section and content) Goals may be documented in a n alternate sectionGoals may be documented in an alternate sectionGoals may be documented in an alternate sectionGoals may be documented in an alternate sectionGoals may be documented in an alternate sectionGoals may be documented in an alternate sectionGoals may be documented in an alternate sectionGoals may be documented in an alternate sectionGoals may be documented in an alternate sectionGoals may be documented in an alternate section Care Teams (unrecognized sec tion and content) Team Status: Active Member Role Status Dates Dr. Ceferino Perez MD Family Provider Active Dr. Ceferino Perez MD Primary Care Provider Active Team Status: Inactive Member Role Status Dates Dr. Ceferino Perez MD Primary Care Provide r, Attending Provider, Referring Provider Active Team Status: Inactive Member Role Status Dates Dr. Ceferino Perez MD Primary Care Provider Active Dr. Yvrose Beltran MD Attending Provider, Referring P marty Active Team Status: Inactive Member Role Status Dates Dr. Ceferino Perez MD Primary Care Provider Active Dr. Michael Bocanegra MD Attending Provider, Referr ing Provider Active Team Status: Active Member Role Status Dates Dr. Ceferino Perez MD Primary Care Provider Active Dr. Michael Bocanegra MD Attending Provider, Referr ing Provider Active Team Status: Inactive Member Role Status Dates Dr. Ceferino Perez MD Primary Care Provider Active Dr. Lavon Ochoa DO Emergency Provider Active Team Status: Inactive Member Role Status Dates Dr. Ceferino Perez MD Primary Care Provider Active Dr. Lavon Ochoa DO Attending Provider, Emergency Provider Active Team Status: Active Member Role Status Dates Dr. Ceferion Perez MD Primary Care Provider Active Team Status: Inactive Member Role Status Dates Dr. Ceferino Perez MD Primary Care Provider Active Start: January 31, 2025 End: January 31, 2025 Dr. Jonny Burch DO Attending Provider Active Start: January 31, 2025 End: January 31, 2025 Dr. Jonny Burch DO Referring Provider Active Start: January 31, 2025 End: January 31, 2025 Team Status: Active Member Role Status Dates Dr. Ceferino Perez MD Primary Care Provider Active Start: January 31, 2025 End: January 31, 2025 Dr. Thom Mendoza MD Attending Provider Active S tart: January 31, 2025 End: January 31, 2025 Dr. Jonny Burch DO Referring Provider Active Start: January 31, 2025 End: January 31, 2025 Team Status: Active Member Role/Relationship Status Dates Dr. Ceferino Perez MD Primary care physician Active Team Status: Inactive Member Role/Relationship Status Dates Dr. Ceferino Perez MD Primary care physician Active Start: June 18, 2025 End: June 18, 2025 Dr. Ceferino Perez MD Referring Provider Active St art: June 18, 2025 End: June 18, 2025 Dr. Fredrick Evans MD Attending physician Active Start: June 18, 2025 End: June 18, 2025 FOR RECORDS PERTAINING TO PATIENTS WHO ARE OR HAVE BEEN ENROLLED IN A CHEMICAL DEPENDENCY/SUBSTANCEABUSE PROGRAM, SOME INFORMATION MAY BE OMITTED. This clinical summary was aggregated from multiple sources. Caution should be exercised in using it in the provision of clinical care. This summary normalizes information from multiple sources, and as a consequence, information in this document may materially change the coding, format and clinical context of patient data. In addition, data may be omitted in some cases. CLINICAL DECISIONS SHOULD BE BASED ON THE PRIMARY CLINICAL RECORDS. [facility] [email or web address] [facility]. provides no warranty or guarantee of the accuracy or completeness of information in this document.
--- OUTSIDE RECORDS SUMMARY | 2025-06-28 06:29 | XMS RPT_ITS | CCD ---
Author Organization [facility] Care Team Providers Care Shotblaster Name Role Phone Chris GERMAN, Dr. De La Vega Primary Care Provider Dr. Jonny Burch DO Attending Provider Dr. Jonny Burch DO Referring Provider Kelly GERMAN, Dr. Tomas Attending Provider [phone] Chris GERMAN, Dr. De La Vega Primary Care Physician Dr. Ceferino Perez MD Referring Provider [phone] Nathan GERMAN, Dr. Alcala Attending Physician Lei [...] [shellfish derived] Allergy to substance 02-25-2021 Vomiting [facility] (11 sources) vilazodone; Translations: [vilazodone HCl] Drug Allergy 02-25-2021 Hives [facility] Medications Current Medications Medication Drug Class(es) Dates [...] Facility Colonoscopy Reporton 14-2 025 Colonoscopy Report [facility] Records Department [address] [place] [address] Colonoscopy Report MR#: [id number] Acct: [id number] Name: SANTOS ROSADO Rep #: [id number] : 1965 59 From: Fredrick Evans MD PCP: Dr. Ceferino Perez MD Status:[place] [facility] [place] Name: Santos Rosado Procedure Date: 06/26/2025 [...] screening purposes. Procedure Code(s): --- Professional --- 28585, Colonoscopy, flexible; diagnostic, including collection of specimen(s) by brushing or washing, when performed (separate procedure) Diagnosis Code(s): --- Professional --- K92.2, Gastrointestinal hemorrhage, unspecified CPT copyright 2021 [employer]. All rights reserved. The codes documented in this report are preliminary and upon treasury agent review may be revised to meet current compliance requirements. Fredrick Evans MD 06/26/2025 8:27:11 AM This report has been signed electronically. Number of Addenda: 0 Note Initiated On: 06/26/2025 8:10 AM 06/26/25826 Date Fredrick Evans MD Cosigner Signature: Date (if indicated) CC: Dr. Fredrick Evans MD; Dr. Ceferino Perez MD Date Dictated: 06/26/25809 Date Transcribed: Hem Marker: LO Vieyra [facility] MR/OP.Shi 06-26-2025 MR/OP.[facility] Medical Records Department [address] [place] [id number] [place] [address] Physician Letter MR#: [id number] Acct: [id number] Name: SANTOS ROSADO Rep #: [id number] : 1965 59 From: Fredrick Evans MD PCP: Dr. Ceferino Perez MD Status:[place] [facility] 06/26/2025 Ceferino Perez [address] [place] [address] Re : Colonoscopy procedure for Santos Rosado [...] Perez MD Date Dictated: 06/26/25809 Date Transcribed: Hem Marker: LO Vieyra [facility]2025 MR/[facility]OP.[facility] Medical Records Department [address] [place] [address] Anesthesia Postop Eval I 06/26/25833 MR#: [id number] Acct: [id number] Name: SANTOS ROSADO Rep #: [id number] : 1965 59 From: Lei Girard PCP: Dr. Ceferino Perez MD Status:REG SDC Y Race: C Location: [facility] Anesthesia: Postop Eval I Current Vital Signs [...] Lei Moser Signature: Date CC: Signed Normal [facility] MR/LTEFXSUR6ax 06-26-2025 MR/POSTOPAN2 [facility] Medical Records Department [address] [place] [address] Anesthesia Postop Eval II 06/26/25850 MR#: [id number] Acct: [id number] Name: SANTOS ROSADO Rep #: [id number] : 1965 59 From: Miguel Cornejo MD PCP: Dr. Ceferino Perez MD Status:[place] [facility] [place] Race: C Location: [place] [address] Anesthesia Postop Eval I Sum Postop Eval [...] Miguel Moser Signature: Date CC: Signed Normal [facility] MR/PATErnesto 06-21-2025 MR/PAT.SCOTTY [facility] Medical Records Department [address] [place] [address] PAT - Anesthesia 06/21/25 1353 MR#: [id number] Acct: [id number] Name: SANTOS ROSADO Rep #: [id number] : 1965 59 From: Juan Daniel Ramires MD PCP: Dr. 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 Hx Hospitalization No 06/21/25 13:26 Any Problems [...] take am of surgery PONV PONV - corporate aircraft mechanic: PONV - corporate aircraft mechanic Female No 06/21/25 13:26 HX of Motion [...] 06/18/25 08:12 Respiratory Assessment Respiratory Assessment - corporate aircraft mechanic: Respiratory Tract Infection Hx - corporate aircraft mechanic Hx Respiratory Tract Infection No 06/21/25 13:26 STOP Sleep Apnea STOP Sleep Apnea - corporate aircraft mechanic: STOP Sleep Apnea - corporate aircraft mechanic Hx Hypertension Yes 06/21/25 13:26 Hx Sleep [...] Tobacco Use History Tobacco Use History - corporate aircraft mechanic: Tobacco Use History - corporate aircraft mechanic Tobacco Use Smoking Status Current every day smoker 06/21/25 13:26 Hx Tobacco Use No 06/21/25 13:26 Years Smoking Packs Smoked per Day Smoking Cessation Date was within the last 15 years Hx Smoking Cessation Date Hx Smoking Cessation Counseling Hematologic Medial History Hematologic Hx - corporate aircraft mechanic: Hematologic 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 Normal [facility] Surgery Visit Reporton 06-18 Surgery Visit Report [facility] [address] [place] [address] OFFICE VISIT Date of Service: 06/18/25 MR#: [id number] Acct: [id number] Name: SANTOS ROSADO Rep #: [id number] : 1965 Provider: Dr. Fredrick yang MD Age/Sex: 59/M Location: [facility] Status: Signed Intake Vital Signs 07/03/24 10:07 [...] (From Viibryd) Allergy (Verified 06/18/25 08:13) Hives [facility] Medical History (Updated 06/18/25 @ 08:11 [...] these could (more content not included)... Normal [facility] 12 Lead EKGon 01-31-2025 12 Lead EKG [facility] Cardiovascular Services [address] [place] [address] 12 Lead EKG 01/31/25 0733 MR#: [id number] Acct: [id number] Name: SANTOS ROSADO Rep #: [id number] : 1965 59 From: Thom Mendoza MD Attending Dr: Dr. Jonny Burch, Status: REG CLI Ordering Dr: Juany Whitney Date: 01/31/25 Location: [facility] Sex: M C Admitted: Test Reason [...] Borderline ECG Confirmed by KELLY GERMAN, THOM ([id number]), supervising editor trailer DK PACE ([id number]) on 01/31/2025 1:01:36 PM Referred By: Jonny Burch Confirmed By: THOM MENDOZA MD 01/31/25 1301 Date Thom Mendoza MD CC: Dr. Ceferino Perez MD; Dr. Jonny Burch DO; JACKY Lee Signed Normal [facility] Absolute lymphocyte countOrd ered By: Jonny Burch on 01-31-2025 Lymphocytes Auto (Unsp spec) [#/Vol] 2.15 10*3/uL 0.83-4.51 [facility] Absolute neutrophil countOrd ered By: Jonny Burch on 01-31-2025 Neutrophils (Bld) [#/Vol] 4.3 10*3/uL 2.0-7.7 [facility] Anion gap in Serum or Plasma Ordered By: Jonny Burch on 01-31-2025 Anion gap [Moles/Vol] 13 mmol/L 01-25 [facility] Automated lymphocyte count a s percentage of total leukocytesOrdered By: Jonny Burch on 01-31-2025 Lymphocytes/100 WBC Auto (Unsp spec) 29.1 % [facility] BUN/creatinine ratioOrdered By: Jonny Burch on 01-31-2025 Urea nitrogen/Creatinine [Mass ratio] 20.2 mg/mg High 07-02 [facility] Basic Metabolic Profile (BMP )on 01-31-2025 BUN/CRE 20.2 RATIO High 07-02 [facility] Comment on above: Performed By: #### L 500.2500, L100.0100 #### [facility] [address] [place], [address] Calcium [Mass/Vol] 9.5 mg/dL Normal 7.6-11.[address] [facility] Comment on above: Performed By: #### L 500.2500, L100.0100 #### [facility] [address] [place], [address] Chloride [Moles/Vol] 106 mmol/L Normal 98-108 [facility] Comment on above: Performed By: #### L 500.2500, L100.0100 #### [facility] [address] [place], [address] CO2 [Moles/Vol] 21.5 mmol/L Normal 21.0-32.0 [facility] Comment on above: Performed By: #### L 500.2500, L100.0100 #### [facility] [address] [place], [address] Creatinine [Mass/Vol] 1.07 mg/dL Normal 0.70-1.20 [facility] Comment on above: Performed By: #### L 500.2500, L100.0100 #### [facility] [address] [place], [address] GAP 13 Normal 5-15 [facility] Comment on above: Performed By: #### L 500.2500, L100.0100 #### [facility] [address] [place], [address] GFR/1.73 sq M.predicted among non-blacks MDRD (S/P/Bld) [Vol rate/Area] 79 mL/min/{1.73_m2} Normal >60 [facility] Comment on above: Result Comment: mL/m in/1.73m2 CKD-EPI Creatinine Equation (2020) Performed By: #### L 500.2500, L100.0100 #### [facility] [address] [place], [address] Glucose [Mass/Vol] 121 mg/dL High 70-[address] [facility] Comment on above: Performed By: #### L 500.2500, L100.0100 #### [facility] [address] [place], [address] Potassium [Moles/Vol] 3.7 mmol/L Normal 3.3-5.1 [facility] Comment on above: Performed By: #### L 500.2500, L100.0100 #### [facility] [address] [place], [address] Sodium [Moles/Vol] 140 mmol/L Normal 133-[address] [facility] Comment on above: Performed By: #### L 500.2500, L100.0100 #### [facility] [address] [place], [address] Urea nitrogen [Mass/Vol] 22 mg/dL High 4-19 [facility] Comment on above: Performed By: #### L 500.2500, L100.0100 #### [facility] [address] [place], [address] Basophil percentageOrdered B y: Jonny Burch on 01-31-2025 Basophils/100 WBC (Bld) 0.5 % 0-1 [facility] CBC W/Diff, Automatedon 01-12 Absolute Lymph 2.15 X10 3/uL Normal 0.83-4.51 [facility] Comment on above: Performed By: #### L 500.2500, L100.0100 #### [facility] [address] [place], [address] Absolute Neut 4.3 X10 3/uL Normal 2.0-7.7 [facility] Comment on above: Performed By: #### L 500.2500, L100.0100 #### [facility] [address] [place], [address] Basophils/100 WBC (Bld) 0.5 % Normal 0-1 [facility] Comment on above: Performed By: #### L 500.2500, L100.0100 #### [facility] [address] [place], [address] Eosinophils/100 WBC (Bld) 2.7 % Normal 0-5 [facility] Comment on above: Performed By: #### L 500.2500, L100.0100 #### [facility] [address] [place], [address] Erythrocyte distribution width (RBC) [Ratio] 12.3 % Normal 11.6-14.6 [facility] Comment on above: Performed By: #### L 500.2500, L100.0100 #### [facility] [address] [place], [address] Hematocrit (Bld) [Volume fraction] 43.5 % Normal 40-54 [facility] Comment on above: Performed By: #### L 500.2500, L100.0100 #### [facility] [address] [place], [address] Hemoglobin (Bld) [Mass/Vol] 15.0 g/dL Normal 13.0-16.5 [facility] Comment on above: Performed By: #### L 500.2500, L100.0100 #### [facility] [address] [place], [address] IG% 0.300 Normal 0.0-0.9 [facility] Comment on above: Result Comment: IG% - Immature Granulocytes (promyelocytes, myelocytes and metamyelocytes) > 1% indicates that a LEFT SHIFT is Present. Performed By: #### L 500.2500, L100.0100 #### [facility] [address] [place], [address] Lymphocytes/100 WBC (Bld) 29.1 % Normal 19-41 [facility] Comment on above: Performed By: #### L 500.2500, L100.0100 #### [facility] [address] [place], [address] MCH (RBC) [Entitic mass] 31.8 pg Normal 27.0-32.0 [facility] Comment on above: Performed By: #### L 500.2500, L100.0100 #### [facility] [address] [place], [address] MCHC (RBC) [Mass/Vol] 34.5 g/dL Normal 32-36 [facility] Comment on above: Performed By: #### L 500.2500, L100.0100 #### [facility] [address] [place], [address] MCV (RBC) [Entitic vol] 92.4 fL Normal 80-94 [facility] Comment on above: Performed By: #### L 500.2500, L100.0100 #### [facility] [address] [place], [address] Monocytes/100 WBC (Bld) 8.9 % Normal 0-10 [facility] Comment on above: Performed By: #### L 500.2500, L100.0100 #### [facility] [address] [place], [address] Neutrophils/100 WBC (Bld) 58.5 % Normal 47-70 [facility] Comment on above: Performed By: #### L 500.2500, L100.0100 #### [facility] [address] [place], [address] Nucleated RBC (Bld) [#/Vol] 0 10*3/uL Normal 0-5 [facility] Comment on above: Performed By: #### L 500.2500, L100.0100 #### [facility] [address] [place], [address] Platelet mean volume (Bld) [Entitic vol] 10.1 fL Normal 6.2-12.0 [facility] Comment on above: Performed By: #### L 500.2500, L100.0100 #### [facility] [address] [place], [address] Platelets (Bld) [#/Vol] 226 10*3/uL Normal 150-450 [facility] Comment on above: Performed By: #### L 500.2500, L100.0100 #### [facility] [address] [place], [address] RBC (Bld) [#/Vol] 4.71 10*6/uL Normal 4.6-6.2 [facility] Comment on above: Performed By: #### L 500.2500, L100.0100 #### [facility] [address] [place], [address] RDW SD 41.6 fl Normal 35.1-43.9 [facility] Comment on above: Performed By: #### L 500.2500, L100.0100 #### [facility] [address] [place], [address] WBC (Bld) [#/Vol] 7.4 10*3/uL Normal 4.4-11.[address] [facility] Comment on above: Performed By: #### L 500.2500, L100.0100 #### [facility] [address] [place], [address] Carbon dioxide, total [Moles /volume] in Central venous bloodOrdered By: Jonny Burch on 01-31-2025 CO2 [Moles/Vol] 21.5 mmol/L 21.0-32.0 [facility] Chloride assayOrdered By: Megan Burch on 01-31-2025 Chloride [Moles/Vol] 106 mmol/L 98-108 [facility] Electrocardiogram reportOrde red By: Thom Mendoza on 01-31-2025 EKG study [facility] Cardiovascular Services [address] [place] [address] 12 Lead EKG 01/31/25 0733 MR#: [id number] Acct: [id number] Name: SANTOS ROSADO Rep #:[id number] : 1965 59 From: Thom Mendoza MD [...] Borderline ECG Confirmed by THOM MENDOZA MD ([id number]), supervising editor trailer DK PACE ([id number]) on :01:36 PM Referred By: Jonny Burch Confirmed By: THOM MENDOZA MD 01/31/25 1301 Date _ Thom Mendoza MD CC: Dr. Ceferino Perez MD; Dr. Jonny Burch DO; JACKY Lee ~ Signed [facility] Work Phone: Eosinophil percentageOrdered By: Jonny Burch on 01-31-2025 Eosinophils/100 WBC (Bld) 2.7 % 0-5 [facility] Erythrocyte distribution wid th ratioOrdered By: Jonny Burch on 01-31-2025 Erythrocyte distribution width (RBC) [Ratio] 12.3 % 11.6-14.6 [facility] Erythrocyte distribution wid th standard deviationOrdered By: Jonny Burch on 01-31-2025 Erythrocyte distribution width (RBC) [Ratio] 41.6 fl 35.1-43.9 [facility] Glomerular filtration rate ( GFR) estimation/1.73 sq m using serum, plasma, or whole bOrdered By: Jonny Burch on 01-31-2025 GFR/1.73 sq M.predicted among non-blacks MDRD (S/P/Bld) [Vol rate/Area] 79 mL/min/{1.73_m2} >60 [facility] Comment on above: mL/min/1.73m2 CKD-EP I Creatinine Equation (2020) Hematocrit Auto (Bld) [Volum e fraction]Ordered By: Jonny Burch on 01-31-2025 Hematocrit (Bld) [Volume fraction] 43.5 % 40-54 [facility] Hemoglobin measurementOrdere d By: Jonny Burch on 01-31-2025 Hemoglobin (Bld) [Mass/Vol] 15.0 g/dL 13.0-16.5 [facility] Immature granulocytes/100 WB C Auto (Bld)Ordered By: Jonny Burch on 01-31-2025 Immature granulocytes/100 WBC (Bld) 0.300 % 0.0-0.9 [facility] Comment on above: IG% - Immature Granu locytes (promyelocytes, myelocytes and metamyelocytes) > 1% indicates that a LEFT SHIFT is Present. MCV (mean corpuscular volume ) determinationOrdered By: Jonny Burch on 01-31-2025 MCV (RBC) [Entitic vol] 92.4 fL 80-94 [facility] Mean corpuscular hemoglobin (MCH) determinationOrdered By: Jonny Burch on 01-31-2025 MCH (RBC) [Entitic mass] 31.8 pg 27.0-32.0 [facility] Mean corpuscular hemoglobin concentration (MCHC) determinationOrdered By: Jonny Burch on 01-31-2025 MCHC (RBC) [Mass/Vol] 34.5 g/dL 32-36 [facility] Mean platelet volume determi nationOrdered By: Jonny Burch on 01-31-2025 Platelet mean volume (Bld) [Entitic vol] 10.1 fL 6.2-12.0 [facility] Monocyte percentageOrdered B y: Jonny Burch on 01-31-2025 Monocytes/100 WBC (Bld) 8.9 % 0-10 [facility] Neutrophil percentageOrdered By: Jonny Burch on 01-31-2025 Neutrophils/100 WBC (Bld) 58.5 % 47-70 [facility] Nucleated red blood cell per centageOrdered By: Jonny Burch on 01-31-2025 Nucleated RBC/100 WBC (Bld) [Ratio] 0 % 0-5 [facility] Platelet countOrdered By: Megan Burch on 01-31-2025 Platelets (Bld) [#/Vol] 226 10*3/uL 150-450 [facility] Potassium measurement (mass/ volume)Ordered By: oJnny Burch on 01-31-2025 Potassium (Unsp spec) [Mass/Vol] 3.7 mmol/L 3.3-5.1 [facility] RBC Auto (Bld) [#/Vol]Ordere d By: Jonny Burch on 01-31-2025 RBC (Bld) [#/Vol] 4.71 10*6/uL 4.6-6.2 [facility] Serum creatinine measurement (mass/volume)Ordered By: Jonny Burch on 01-31-2025 Creatinine [Mass/Vol] 1.07 mg/dL 0.70-1.20 [facility] Serum glucose measurement (m ass/volume)Ordered By: Jonny Burch on 01-31-2025 Glucose [Mass/Vol] 121 mg/dL High 70-[address] [facility] Serum or plasma calcium hanny urement (mass/volume)Ordered By: Jonny Burch on 01-31-2025 Calcium [Mass/Vol] 9.5 mg/dL 7.6-11.[address] [facility] Serum or plasma urea nitroge n measurement (mass/volume)Ordered By: Jonny Burch on 01-31-2025 Urea nitrogen [Mass/Vol] 22 mg/dL High 4-19 [facility] Sodium levelOrdered By: Don Burch on 01-31-2025 Sodium [Moles/Vol] 140 mmol/L 133-[address] [facility] White blood cell (WBC) count Ordered By: Jonny Burch on 01-31-2025 WBC (Bld) [#/Vol] 7.4 10*3/uL 4.4-11.[address] [facility] CBC W/Diff, Automatedon 09-13 Absolute Lymph 1.23 X10 3/uL Normal 0.83-4.51 [facility] Comment on above: Order Comment: Order Date: 09/22/24 Order Info: 0184-1 - CBCD Performed By: #### L 100.0100, L500.4050, L501.2450, L501.5200, L501.6710 #### [facility] [address] [place], [address] Absolute Neut 4.2 X10 3/uL Normal 2.0-7.7 [facility] Comment on above: Order Comment: Order Date: 09/22/24 Order Info: 0184-1 - CBCD Performed By: #### L 100.0100, L500.4050, L501.2450, L501.5200, L501.6710 #### [facility] [address] [place], [address] Basophils/100 WBC (Bld) 0.5 % Normal 0-1 [facility] Comment on above: Order Comment: Order Date: 09/22/24 Order Info: 0184-1 - CBCD Performed By: #### L 100.0100, L500.4050, L501.2450, L501.5200, L501.6710 #### [facility] [address] [place], [address] Eosinophils/100 WBC (Bld) 4.6 % Normal 0-5 [facility] Comment on above: Order Comment: Order Date: 09/22/24 Order Info: 0184-1 - CBCD Performed By: #### L 100.0100, L500.4050, L501.2450, L501.5200, L501.6710 #### [facility] [address] [place], [address] Erythrocyte distribution width (RBC) [Ratio] 12.2 % Normal 11.6-14.6 [facility] Comment on above: Order Comment: Order Date: 09/22/24 Order Info: 0184-1 - CBCD Performed By: #### L 100.0100, L500.4050, L501.2450, L501.5200, L501.6710 #### [facility] [address] [place], [address] Hematocrit (Bld) [Volume fraction] 47.6 % Normal 40-54 [facility] Comment on above: Order Comment: Order Date: 09/22/24 Order Info: 0184-1 - CBCD Performed By: #### L 100.0100, L500.4050, L501.2450, L501.5200, L501.6710 #### [facility] [address] [place], [address] Hemoglobin (Bld) [Mass/Vol] 15.7 g/dL Normal 13.0-16.5 [facility] Comment on above: Order Comment: Order Date: 09/22/24 Order Info: 0184-1 - CBCD Performed By: #### L 100.0100, L500.4050, L501.2450, L501.5200, L501.6710 #### [facility] [address] [place], [address] IG% 0.300 Normal 0.0-0.9 [facility] Comment on above: Order Comment: Order Date: 09/22/24 Order Info: 0184-1 - CBCD Result Comment: IG% - Immature Granulocytes (promyelocytes, myelocytes and metamyelocytes) > 1% indicates that a LEFT SHIFT is Present. Performed By: #### L 100.0100, L500.4050, L501.2450, L501.5200, L501.6710 #### [facility] [address] [place], [address] Lymphocytes/100 WBC (Bld) 19.5 % Normal 19-41 [facility] Comment on above: Order Comment: Order Date: 09/22/24 Order Info: 0184-1 - CBCD Performed By: #### L 100.0100, L500.4050, L501.2450, L501.5200, L501.6710 #### [facility] [address] [place], [address] MCH (RBC) [Entitic mass] 30.3 pg Normal 27.0-32.0 [facility] Comment on above: Order Comment: Order Date: 09/22/24 Order Info: 0184-1 - CBCD Performed By: #### L 100.0100, L500.4050, L501.2450, L501.5200, L501.6710 #### [facility] [address] [place], [address] MCHC (RBC) [Mass/Vol] 33.0 g/dL Normal 32-36 [facility] Comment on above: Order Comment: Order Date: 09/22/24 Order Info: 0184-1 - CBCD Performed By: #### L 100.0100, L500.4050, L501.2450, L501.5200, L501.6710 #### [facility] [address] [place], [address] MCV (RBC) [Entitic vol] 91.9 fL Normal 80-94 [facility] Comment on above: Order Comment: Order Date: 09/22/24 Order Info: 0184-1 - CBCD Performed By: #### L 100.0100, L500.4050, L501.2450, L501.5200, L501.6710 #### [facility] [address] [place], [address] Monocytes/100 WBC (Bld) 9.2 % Normal 0-10 [facility] Comment on above: Order Comment: Order Date: 09/22/24 Order Info: 0184-1 - CBCD Performed By: #### L 100.0100, L500.4050, L501.2450, L501.5200, L501.6710 #### [facility] [address] [place], [address] Neutrophils/100 WBC (Bld) 65.9 % Normal 47-70 [facility] Comment on above: Order Comment: Order Date: 09/22/24 Order Info: 0184-1 - CBCD Performed By: #### L 100.0100, L500.4050, L501.2450, L501.5200, L501.6710 #### [facility] [address] [place], [address] Nucleated RBC (Bld) [#/Vol] 0 10*3/uL Normal 0-5 [facility] Comment on above: Order Comment: Order Date: 09/22/24 Order Info: 0184-1 - CBCD Performed By: #### L 100.0100, L500.4050, L501.2450, L501.5200, L501.6710 #### [facility] [address] [place], [address] Platelet mean volume (Bld) [Entitic vol] 10.4 fL Normal 6.2-12.0 [facility] Comment on above: Order Comment: Order Date: 09/22/24 Order Info: 0184-1 - CBCD Performed By: #### L 100.0100, L500.4050, L501.2450, L501.5200, L501.6710 #### [facility] [facility] [address] [place], [address] Platelets (Bld) [#/Vol] 251 10*3/uL Normal 150-450 [facility] Comment on above: Order Comment: Order Date: 09/22/24 Order Info: 0184-1 - CBCD Performed By: #### L 100.0100, L500.4050, L501.2450, L501.5200, L501.6710 #### [facility] [address] [place], [address] RBC (Bld) [#/Vol] 5.18 10*6/uL Normal 4.6-6.2 [facility] Comment on above: Order Comment: Order Date: 09/22/24 Order Info: 0184-1 - CBCD Performed By: #### L 100.0100, L500.4050, L501.2450, L501.5200, L501.6710 #### [facility] [address] [place], [address] RDW SD 41.2 fl Normal 35.1-43.9 [facility] Comment on above: Order Comment: Order Date: 09/22/24 Order Info: 0184-1 - CBCD Performed By: #### L 100.0100, L500.4050, L501.2450, L501.5200, L501.6710 #### [facility] [address] [place], [address] WBC (Bld) [#/Vol] 6.3 10*3/uL Normal 4.4-11.[address] [facility] Comment on above: Order Comment: Order Date: 09/22/24 Order Info: 0184-1 - CBCD Performed By: #### L 100.0100, L500.4050, L501.2450, L501.5200, L501.6710 #### [facility] [address] [place], [address] CRPon 09-22-2024 C-REACTIVE PROT < 2.90 Normal 0.0-3.0 [facility] Comment on above: Order Comment: Order Date: 09/22/24 Order Info: 0786-1 - CMP Order Info: 3040-3 - LIPASE Order Info: 97905-0 - MG Order Info: [id number] - CRP Result Comment: C-Re active Protein (CRP) provides useful information for the diagnosis, therapy and monitoring of inflammatory processes and associated diseases. For the evaluation of Relative Risk for Cardiovascular Disease, a High Sensitivity CRP (HSCRP) should be ordered. Performed By: #### L 100.0100, L500.4050, L501.2450, L501.5200, L501.6710 #### [facility] [address] [place], [address] Comprehensive Metabolic Prof ilon 09-22-2024 Albumin [Mass/Vol] 4.1 g/dL Normal 3.2-5.[address] [facility] Comment on above: Order Comment: Order Date: 09/22/24 Order Info: 0786-1 - CMP Order Info: 3040-3 - LIPASE Order Info: 55515-2 - MG Order Info: 30950-6 - CRP Performed By: #### L 100.0100, L500.4050, L501.2450, L501.5200, L501.6710 #### [facility] [address] [place], [address] Albumin/Globulin [Mass ratio] 1.3 {ratio} Normal 0.9-2.4 [facility] Comment on above: Order Comment: Order Date: 09/22/24 Order Info: 0786-1 - CMP Order Info: 3040-3 - LIPASE Order Info: 36100-5 - MG Order Info: 81456-0 - CRP Performed By: #### L 100.0100, L500.4050, L501.2450, L501.5200, L501.6710 #### [facility] [address] [place], [address] ALK P 90 U/L Normal 45-117 [facility] Comment on above: Order Comment: Order Date: 09/22/24 Order Info: 0786-1 - CMP Order Info: 3040-3 - LIPASE Order Info: 60226-9 - MG Order Info: 94304-6 - CRP Performed By: #### L 100.0100, L500.4050, L501.2450, L501.5200, L501.6710 #### [facility] [address] [place], [address] ALT [Catalytic activity/Vol] 27 U/L Normal 16-61 [facility] Comment on above: Order Comment: Order Date: 09/22/24 Order Info: 0786-1 - CMP Order Info: 3040-3 - LIPASE Order Info: 98748-2 - MG Order Info: 69454-3 - CRP Performed By: #### L 100.0100, L500.4050, L501.2450, L501.5200, L501.6710 #### [facility] [address] [place], [address] AST [Catalytic activity/Vol] 13 U/L Low 15-37 [facility] Comment on above: Order Comment: Order Date: 09/22/24 Order Info: 0786-1 - CMP Order Info: 3040-3 - LIPASE Order Info: 97626-8 - MG Order Info: 41392-8 - CRP Performed By: #### L 100.0100, L500.4050, L501.2450, L501.5200, L501.6710 #### [facility] [address] [place], [address] Bilirubin [Mass/Vol] 1.20 mg/dL High 0.20-1.00 [facility] Comment on above: Order Comment: Order Date: 09/22/24 Order Info: 0786-1 - CMP Order Info: 3040-3 - LIPASE Order Info: 97716-9 - MG Order Info: 10688-7 - CRP Result Comment: For patients on eltrombopag therapy, use of Dimension [place] TBIL is not recommended. Performed By: #### L 100.0100, L500.4050, L501.2450, L501.5200, L501.6710 #### [facility] [address] [place], [address] BUN/CRE 16.3 RATIO Normal 10-20 [facility] Comment on above: Order Comment: Order Date: 09/22/24 Order Info: 0786-1 - CMP Order Info: 3040-3 - LIPASE Order Info: 18828-0 - MG Order Info: 72651-5 - CRP Performed By: #### L 100.0100, L500.4050, L501.2450, L501.5200, L501.6710 #### [facility] [address] [place], [address] CA,Total 9.4 mg/dL Normal 8.5-10.1 [facility] Comment on above: Order Comment: Order Date: 09/22/24 Order Info: 0786-1 - CMP Order Info: 3040-3 - LIPASE Order Info: 99063-3 - MG Order Info: 15851-8 - CRP Performed By: #### L 100.0100, L500.4050, L501.2450, L501.5200, L501.6710 #### [facility] [address] [place], [address] Chloride [Moles/Vol] 108 mmol/L High 98-107 [facility] Comment on above: Order Comment: Order Date: 09/22/24 Order Info: 0786-1 - CMP Order Info: 3040-3 - LIPASE Order Info: 09777-6 - MG Order Info: 76326-9 - CRP Performed By: #### L 100.0100, L500.4050, L501.2450, L501.5200, L501.6710 #### [facility] [address] [place], [address] CO2 [Moles/Vol] 23.0 mmol/L Normal 21.0-32.0 [facility] Comment on above: Order Comment: Order Date: 09/22/24 Order Info: 0786-1 - CMP Order Info: 3040-3 - LIPASE Order Info: 39295-3 - MG Order Info: 32272-4 - CRP Performed By: #### L 100.0100, L500.4050, L501.2450, L501.5200, L501.6710 #### [facility] [address] [place], [address] Creatinine [Mass/Vol] 1.23 mg/dL Normal 0.70-1.30 [facility] Comment on above: Order Comment: Order Date: 09/22/24 Order Info: 0786-1 - CMP Order Info: 3040-3 - LIPASE Order Info: 25764-1 - MG Order Info: 98297-5 - CRP Result Comment: The validity of the calculated GFR GFRAA in patients over 70 years has not been determined. Clinical correlation is essential. Performed By: #### L 100.0100, L500.4050, L501.2450, L501.5200, L501.6710 #### [facility] [address] [place], [address] EST GFR - AA 77 mL/min Normal >60 [facility] Comment on above: Order Comment: Order Date: 09/22/24 Order Info: 0786-1 - CMP Order Info: 3040-3 - LIPASE Order Info: 47954-4 - MG Order Info: 82442-1 - CRP Result Comment: Afri can Estonian GFR Calc Performed By: #### L 100.0100, L500.4050, L501.2450, L501.5200, L501.6710 #### [facility] [address] [place], [place], [address] GAP 6 Normal 5-15 [facility] Comment on above: Order Comment: Order Date: 09/22/24 Order Info: 0786-1 - CMP Order Info: 3040-3 - LIPASE Order Info: 53687-3 - MG Order Info: 63528-7 - CRP Performed By: #### L 100.0100, L500.4050, L501.2450, L501.5200, L501.6710 #### [facility] [address] [place], [place], [address] GFR/1.73 sq M.predicted among non-blacks MDRD (S/P/Bld) [Vol rate/Area] 64 mL/min/{1.73_m2} Normal >60 [facility] Comment on above: Order Comment: Order Date: 09/22/24 Order Info: 0786-1 - CMP Order Info: 3040-3 - LIPASE Order Info: 19419-7 - MG Order Info: 98378-1 - CRP Result Comment: Non- GFR Calc Performed By: #### L 100.0100, L500.4050, L501.2450, L501.5200, L501.6710 #### [facility] [address] [place], [address] Globulin (S) [Mass/Vol] 3.2 g/dL Normal 2.2-4.2 [facility] Comment on above: Order Comment: Order Date: 09/22/24 Order Info: 0786-1 - CMP Order Info: 3040-3 - LIPASE Order Info: 44749-4 - MG Order Info: 16578-2 - CRP Performed By: #### L 100.0100, L500.4050, L501.2450, L501.5200, L501.6710 #### [facility] [address] [place], [address] Glucose [Mass/Vol] 121 mg/dL High 74-[address] [facility] Comment on above: Order Comment: Order Date: 09/22/24 Order Info: 0786-1 - CMP Order Info: 3040-3 - LIPASE Order Info: 58252-2 - MG Order Info: 99993-7 - CRP Result Comment: Fast ing Glucose result from 100 to 125 mg/dL suggests IMPAIRED HOMEOSTASIS per A.D.A. criteria. Performed By: #### L 100.0100, L500.4050, L501.2450, L501.5200, L501.6710 #### [facility] [address] [place], [address] Potassium [Moles/Vol] 3.9 mmol/L Normal 3.5-5.1 [facility] Comment on above: Order Comment: Order Date: 09/22/24 Order Info: 0786-1 - CMP Order Info: 3040-3 - LIPASE Order Info: 63147-0 - MG Order Info: 43765-5 - CRP Performed By: #### L 100.0100, L500.4050, L501.2450, L501.5200, L501.6710 #### [facility] [address] [place], [address] Sodium [Moles/Vol] 137 mmol/L Normal 136-[address] [facility] Comment on above: Order Comment: Order Date: 09/22/24 Order Info: 86-1 - CMP Order Info: 3040-3 - LIPASE Order Info: 91751-2 - MG Order Info: 61049-8 - CRP Performed By: #### L 100.0100, L500.4050, L501.2450, L501.5200, L501.6710 #### [facility] [address] [place], [address] T PROT 7.3 g/dL Normal 6.4-8.2 [facility] Comment on above: Order Comment: Order Date: 09/22/24 Order Info: 86-1 - CMP Order Info: 3040-3 - LIPASE Order Info: 72768-7 - MG Order Info: 32432-4 - CRP Performed By: #### L 100.0100, L500.4050, L501.2450, L501.5200, L501.6710 #### [facility] [address] [place], [address] Urea nitrogen [Mass/Vol] 20 mg/dL High 7-18 [facility] Comment on above: Order Comment: Order Date: 09/22/24 Order Info: 86-1 - CMP Order Info: 3040-3 - LIPASE Order Info: 52899-4 - MG Order Info: 14284-0 - CRP Performed By: #### L 100.0100, L500.4050, L501.2450, L501.5200, L501.6710 #### [facility] [address] [place], [address] Lipaseon 09-22-2024 Lipase [Catalytic activity/Vol] 54 U/L Normal 13-75 [facility] Comment on above: Order Comment: Order Date: 09/22/24 Order Info: 0786-1 - CMP Order Info: 3040-3 - LIPASE Order Info: 42215-6 - MG Order Info: 84507-4 - CRP Result Comment: Mary fitzpatrick note: LIPASE revised reference range effective 22. New Lipase methodology. Expected to produce lower values than the previous assay method. NEW Reference Range: 13 - 75 U/L Performed By: #### L 100.0100, L500.4050, L501.2450, L501.5200, L501.6710 #### [facility] [address] [place], [address] Magnesiumon 09-22-2024 Magnesium [Mass/Vol] 2.3 mg/dL Normal 1.6-2.6 [facility] Comment on above: Order Comment: Order Date: 09/22/24 Order Info: 0786-1 - CMP Order Info: 3040-3 - LIPASE Order Info: 49619-2 - MG Order Info: 48875-0 - CRP Performed By: #### L 100.0100, L500.4050, L501.2450, L501.5200, L501.6710 #### [facility] [address] [place], [place], [address] PT D/C Summary (1)on 024 PT D/C Summary (1) [facility] [address] [place] [address] / REHABILITATION SERVICES DISCHARGE SUMMARY MR#: [id number] Acct: [id number] Name: SANTOS ROSADO Rep #: [id number] : 1965 59 From: Luis Soriano PT, Cert. MD Zimmerman, [facility] Referring DrAshley: MELONIE Villegas Status: REG R [...] please feel free to call me at [phone]. Thank you for the referral of this patient. Sincerely, Luis Soriano PT, Cert T, OCS Balance/Gait/Functio nal tests Balance/Special Test Scores Quick DASH Score: 22.7250 Improvement % Improvement: 09/08/24 1410 CC: MELONIE Villegas; Dr. Ceferino Perez MD JLA Signed Normal [facility] Inital Evaluation (1) - PTon 08-22-2024 Inital Evaluation (1) - PT [facility] [address] [place] [address] [address] [place] [address] / REHABILITATION SERVICES INITIAL EVALUATION MR#: [id number] Acct: [id number] Name: SANTOS ROSADO Rep #: [id number] : 1965 58 From: Luis Soriano PT, [...] us at (more content not included)... Normal [facility] PT D/C Summary (1)on 024 PT D/C Summary (1) [facility] [address] [place] [address] / REHABILITATION SERVICES DISCHARGE SUMMARY MR#: [id number] Acct: [id number] Name: SANTOS ROSADO Rep #: [id number] : 1965 58 From: Luis Soriano PT, [...] please feel free to call me at [phone]. Thank you for the referral of this patient. Sincerely, Luis Soriano, ADIEL, Cert MDT, OCS Balance/Gait/Functio nal tests Balance/Special Test Scores Quick DASH Score: 38.6350 08/15/24 1420 CC: Dr. Foreign Baig MD; Dr. Ceferino Perez MD BERNARDA Signed Normal [facility] Abdomen/Pelvis W IV Cont ONL Yon 07-03-2024 Abdomen/Pelvis W IV Cont ONLY [facility] Imaging Services [address] [place] [address] Abdomen/Pelvis W IV Cont ONLY MR#: [id number] Acct: [id number] Name: SANTOS ROSADO Rep #: [id number] : 1965 M 58 From: Burt Bender PCP: Dr. Ceferino Perez MD Status: REG ER Study: Abdomen/Pelvis W IV Cont ONLY Date of Exam: Exam# [id number] Ordering Dr: Dangelo Quintero DO [id number] STUDY: CT ABDOMEN AND PELVIS WITH CONTRAST [...] Dangelo Quintero DO; Dr. Ceferino Perez MD Hem Marker: Signed Normal [facility] Basic Metabolic Profile (BMP )on 07-03-2024 BUN/CRE 15.1 RATIO Normal 07-02 [facility] Comment on above: Performed By: #### L 100.0100, L500.4050, L501.2450, L501.5200, L501.6710 #### [facility] [address] [place], [address] CA,Total 9.6 mg/dL Normal 8.5-10.1 [facility] Comment on above: Performed By: #### L 100.0100, L500.4050, L501.2450, L501.5200, L501.6710 #### [facility] [address] [place], [address] Chloride [Moles/Vol] 109 mmol/L High 98-107 [facility] Comment on above: Performed By: #### L 100.0100, L500.4050, L501.2450, L501.5200, L501.6710 #### [facility] [address] [place], [address] CO2 [Moles/Vol] 27.0 mmol/L Normal 21.0-32.0 [facility] Comment on above: Performed By: #### L 100.0100, L500.4050, L501.2450, L501.5200, L501.6710 #### [facility] [address] [place], [address] Creatinine [Mass/Vol] 1.00 mg/dL Normal 0.70-1.30 [facility] Comment on above: Result Comment: The validity of the calculated GFR GFRAA in patients over 70 years has not been determined. Clinical correlation is essential. Performed By: #### L 100.0100, L500.4050, L501.2450, L501.5200, L501.6710 #### [facility] [address] [place], [address] ECRCL 79.07 ml/min Normal [facility] Comment on above: Performed By: #### L 100.0100, L500.4050, L501.2450, L501.5200, L501.6710 #### [facility] [address] [place], [address] EST GFR - AA 99 mL/min Normal >60 [facility] Comment on above: Result Comment: Afri can Estonian GFR Calc Performed By: #### L 100.0100, L500.4050, L501.2450, L501.5200, L501.6710 #### [facility] [address] [place], [address] GAP 6 Normal 5-15 [facility] Comment on above: Performed By: #### L 100.0100, L500.4050, L501.2450, L501.5200, L501.6710 #### [facility] [address] [place], [address] GFR/1.73 sq M.predicted among non-blacks MDRD (S/P/Bld) [Vol rate/Area] 82 mL/min/{1.73_m2} Normal >60 [facility] Comment on above: Result Comment: Non- GFR Calc Performed By: #### L 100.0100, L500.4050, L501.2450, L501.5200, L501.6710 #### [facility] [address] [place], [address] Glucose [Mass/Vol] 112 mg/dL High 74-[address] [facility] Comment on above: Result Comment: Fast ing Glucose result from 100 to 125 mg/dL suggests IMPAIRED HOMEOSTASIS per A.D.A. criteria. Performed By: #### L 100.0100, L500.4050, L501.2450, L501.5200, L501.6710 #### [facility] [address] [place], [address] Potassium [Moles/Vol] 4.2 mmol/L Normal 3.5-5.1 [facility] Comment on above: Performed By: #### L 100.0100, L500.4050, L501.2450, L501.5200, L501.6710 #### [facility] [address] [place], [address] Sodium [Moles/Vol] 141 mmol/L Normal 136-[address] [facility] Comment on above: Performed By: #### L 100.0100, L500.4050, L501.2450, L501.5200, L501.6710 #### [facility] [address] [place], [address] Urea nitrogen [Mass/Vol] 15 mg/dL Normal 7-18 [facility] Comment on above: Performed By: #### L 100.0100, L500.4050, L501.2450, L501.5200, L501.6710 #### [facility] [address] [place], [address] CBC W/Diff, Automatedon 10-2 Absolute Lymph 1.34 X10 3/uL Normal 0.83-4.51 [facility] Comment on above: Performed By: #### L 100.0100, L500.4050, L501.2450, L501.5200, L501.6710 #### [facility] [address] [place], [address] Absolute Neut 3.2 X10 3/uL Normal 2.0-7.7 [facility] Comment on above: Performed By: #### L 100.0100, L500.4050, L501.2450, L501.5200, L501.6710 #### [facility] [address] [place], [address] Basophils/100 WBC (Bld) 0.4 % Normal 0-1 [facility] Comment on above: Performed By: #### L 100.0100, L500.4050, L501.2450, L501.5200, L501.6710 #### [facility] [address] [place], [address] Eosinophils/100 WBC (Bld) 4.2 % Normal 0-5 [facility] Comment on above: Performed By: #### L 100.0100, L500.4050, L501.2450, L501.5200, L501.6710 #### [facility] [address] [place], [address] Erythrocyte distribution width (RBC) [Ratio] 12.7 % Normal 11.6-14.6 [facility] Comment on above: Performed By: #### L 100.0100, L500.4050, L501.2450, L501.5200, L501.6710 #### [facility] [address] [place], [address] Hematocrit (Bld) [Volume fraction] 41.2 % Normal 40-54 [facility] Comment on above: Performed By: #### L 100.0100, L500.4050, L501.2450, L501.5200, L501.6710 #### [facility] [address] [place], [address] Hemoglobin (Bld) [Mass/Vol] 15.2 g/dL Normal 13.0-16.5 [facility] Comment on above: Performed By: #### L 100.0100, L500.4050, L501.2450, L501.5200, L501.6710 #### [facility] [address] [place], [address] IG% 0.000 Normal 0.0-0.9 [facility] Comment on above: Result Comment: IG% - Immature Granulocytes (promyelocytes, myelocytes and metamyelocytes) > 1% indicates that a LEFT SHIFT is Present. Performed By: #### L 100.0100, L500.4050, L501.2450, L501.5200, L501.6710 #### [facility] [address] [place], [address] Lymphocytes/100 WBC (Bld) 25.5 % Normal 19-41 [facility] Comment on above: Performed By: #### L 100.0100, L500.4050, L501.2450, L501.5200, L501.6710 #### [facility] [address] [place], [address] MCH (RBC) [Entitic mass] 33.4 pg High 27.0-32.0 [facility] Comment on above: Performed By: #### L 100.0100, L500.4050, L501.2450, L501.5200, L501.6710 #### [facility] [address] [place], [address] MCHC (RBC) [Mass/Vol] 36.9 g/dL High 32-36 [facility] Comment on above: Performed By: #### L 100.0100, L500.4050, L501.2450, L501.5200, L501.6710 #### [facility] [address] [place], [address] MCV (RBC) [Entitic vol] 90.5 fL Normal 80-94 [facility] Comment on above: Performed By: #### L 100.0100, L500.4050, L501.2450, L501.5200, L501.6710 #### [facility] [address] [place], [address] Monocytes/100 WBC (Bld) 9.1 % Normal 0-10 [facility] Comment on above: Performed By: #### L 100.0100, L500.4050, L501.2450, L501.5200, L501.6710 #### [facility] [address] [place], [address] Neutrophils/100 WBC (Bld) 60.8 % Normal 47-70 [facility] Comment on above: Performed By: #### L 100.0100, L500.4050, L501.2450, L501.5200, L501.6710 #### [facility] [address] [place], [address] Nucleated RBC (Bld) [#/Vol] 0 10*3/uL Normal 0-5 [facility] Comment on above: Performed By: #### L 100.0100, L500.4050, L501.2450, L501.5200, L501.6710 #### [facility] [address] [place], [address] Platelet mean volume (Bld) [Entitic vol] 10.8 fL Normal 6.2-12.0 [facility] Comment on above: Performed By: #### L 100.0100, L500.4050, L501.2450, L501.5200, L501.6710 #### [facility] [address] [place], [address] Platelets (Bld) [#/Vol] 288 10*3/uL Normal 150-450 [facility] Comment on above: Performed By: #### L 100.0100, L500.4050, L501.2450, L501.5200, L501.6710 #### [facility] [address] [place], [address] RBC (Bld) [#/Vol] 4.55 10*6/uL Low 4.6-6.2 [facility] Comment on above: Performed By: #### L 100.0100, L500.4050, L501.2450, L501.5200, L501.6710 #### [facility] [address] [place], [address] RDW SD 41.3 fl Normal 35.1-43.9 [facility] Comment on above: Performed By: #### L 100.0100, L500.4050, L501.2450, L501.5200, L501.6710 #### [facility] [address] [place], [address] WBC (Bld) [#/Vol] 5.3 10*3/uL Normal 4.4-11.[address] [facility] Comment on above: Performed By: #### L 100.0100, L500.4050, L501.2450, L501.5200, L501.6710 #### [facility] [address] [place], [address] Emergency Department Summary on 07-03-2024 Emergency Department Summary [facility] Medical Records Department [address] [place] [address] Emergency Department Summary 07/03/24 MR#: [id number] Acct: [id number] Name: SANTOS ROSADO Rep #: [id number] : 1965 58 From: Dangelo Quintero DO [...] No other abdominal surgeries per the patient [facility] Medical History Wears glasses Alcohol use [...] 07/03/24 12:07 (more content not included)... Normal [facility] Liver Profileon 07-03-2024 Albumin [Mass/Vol] 3.8 g/dL Normal 3.2-5.[address] [facility] Comment on above: Performed By: #### L 100.0100, L500.4050, L501.2450, L501.5200, L501.6710 #### [facility] [address] [place], [address] ALK P 81 U/L Normal 45-117 [facility] Comment on above: Performed By: #### L 100.0100, L500.4050, L501.2450, L501.5200, L501.6710 #### [facility] [address] [place], [address] ALT [Catalytic activity/Vol] 35 U/L Normal 16-61 [facility] Comment on above: Performed By: #### L 100.0100, L500.4050, L501.2450, L501.5200, L501.6710 #### [facility] [address] [place], [address] AST [Catalytic activity/Vol] 14 U/L Low 15-37 [facility] Comment on above: Performed By: #### L 100.0100, L500.4050, L501.2450, L501.5200, L501.6710 #### [facility] [address] [place], [address] Bilirubin [Mass/Vol] 0.60 mg/dL Normal 0.20-1.00 [facility] Comment on above: Result Comment: For patients on eltrombopag therapy, use of Dimension [place] TBIL is not recommended. Performed By: #### L 100.0100, L500.4050, L501.2450, L501.5200, L501.6710 #### [facility] [address] [place], [address] Bilirubin.direct [Mass/Vol] 0.20 mg/dL Normal 0.00-0.30 [facility] Comment on above: Performed By: #### L 100.0100, L500.4050, L501.2450, L501.5200, L501.6710 #### [facility] [address] [place], [address] Globulin (S) [Mass/Vol] 2.9 g/dL Normal 2.2-4.2 [facility] Comment on above: Performed By: #### L 100.0100, L500.4050, L501.2450, L501.5200, L501.6710 #### [facility] [address] [place], [address] T PROT 6.7 g/dL Normal 6.4-8.2 [facility] Comment on above: Performed By: #### L 100.0100, L500.4050, L501.2450, L501.5200, L501.6710 #### [facility] [address] [place], [address] Urinalysis, Completeon 07-03 BACTERIA 0 SEEN Normal None Seen [facility] Comment on above: Order Comment: Order Date: 09/22/24 Order Info: [id number] - CMP Order Info: 3040-3 - LIPASE Order Info: [id number] - MG Order Info: [id number] - CRP Performed By: #### L 100.0100, L500.4050, L501.2450, L501.5200, L501.6710 #### [facility] [address] [place], [address] EPI,SQUAMOUS 0 SEEN Normal 0-5 [facility] Comment on above: Order Comment: Order Date: 09/22/24 Order Info: [id number] - CMP Order Info: [id number] - LIPASE Order Info: [id number] - MG Order Info: [id number] - CRP Performed By: #### L 100.0100, L500.4050, L501.2450, L501.5200, L501.6710 #### [facility] [address] [place], [address] Mucus Ql (Urine sed) 0 SEEN Normal [facility] Comment on above: Order Comment: Order Date: 09/22/24 Order Info: [id number] - CMP Order Info: [id number] - LIPASE Order Info: [id number] - MG Order Info: [id number] - CRP Performed By: #### L 100.0100, L500.4050, L501.2450, L501.5200, L501.6710 #### [facility] [address] [place], [address] RBC 0 SEEN Normal 0-5 [facility] Comment on above: Order Comment: Order Date: 09/22/24 Order Info: [id number] - CMP Order Info: [id number] - LIPASE Order Info: [id number] - MG Order Info: [id number] - CRP Performed By: #### L 100.0100, L500.4050, L501.2450, L501.5200, L501.6710 #### [facility] [address] [place], [address] WBC 0 SEEN Normal 0-5 [facility] Comment on above: Order Comment: Order Date: 09/22/24 Order Info: [id number] - CMP Order Info: [id number] - LIPASE Order Info: [id number] - MG Order Info: [id number] - CRP Performed By: #### L 100.0100, L500.4050, L501.2450, L501.5200, L501.6710 #### [facility] [address] [place], [place], [id number] Absolute lymphocyte countOrd ered By: Ceferino Perez on 01-15-2024 Lymphocytes Auto (Unsp spec) [#/Vol] 1.67 10*3/uL 0.83-4.51 [facility] Automated lymphocyte count a s percentage of total leukocytesOrdered By: Ceferino Perez on 01-15-2024 Lymphocytes/100 WBC Auto (Unsp spec) 29.0 % 19-41 [facility] Basophil percentageOrdered B y: Ceferino Perez on 01-15-2024 Basophil percentage 4.53 ng/mL 0.0-4.0 [facility] Comment on above: This test was perfor med using the TPSA assay method for the[employer] chemistry system. Values obtained with differentassay methods cannot be used interchangably.When changing PSA assays in the course of monitoring apatient, additional sequential testing should be carriedout to confirm baseline values. Basophils/100 WBC (Bld) 0.5 % 0-1 [facility] Bilirubin [Mass/Vol] 0.80 mg/dL 0.20-1.00 [facility] Comment on above: For patients on eltr ombopag therapy, use of Dimension [place] TBIL is not recommended. Chloride [Moles/Vol] 107 mmol/L 98-107 [facility] Cholesterol [Mass/Vol] 247 mg/dL <200 [facility] Comment on above: <200 mg/dL Desirable 200-240 mg/dL Borderline >240 mg/dL High Risk Eosinophils/100 WBC (Bld) 9.4 % 0-5 [facility] Glucose [Mass/Vol] 119 mg/dL 74-[address] [facility] Comment on above: Fasting Glucose resu lt from 100 to 125 mg/dL suggests IMPAIRED HOMEOSTASIS per A.D.A. criteria. Hemoglobin (Bld) [Mass/Vol] 15.5 g/dL 13.0-16.5 [facility] Monocytes/100 WBC (Bld) 11.1 % 0-10 [facility] Neutrophils (Bld) [#/Vol] 2.9 10*3/uL 2.0-7.7 [facility] Neutrophils/100 WBC (Bld) 49.7 % 47-70 [facility] Potassium [Moles/Vol] 4.5 mmol/L 3.5-5.1 [facility] Protein [Mass/Vol] 7.3 g/dL 6.4-8.[address] [facility] Sodium [Moles/Vol] 139 mmol/L 136-[address] [facility] Triglyceride [Mass/Vol] 99 mg/dL <199 [facility] Comment on above: The drugs N-Acetylcy steine and Metamizole may falsely depress this assay.Serum Triglycerides Reference Interval Normal <150 mg/dL Borderline high 150 - 199 mg/dL High 200 - 499 mg/dL Very High > or = 500 mg/dL WBC (Bld) [#/Vol] 5.8 10*3/uL 4.4-11.[address] [facility] Determination of erythrocyte mean corpuscular volume (MCV)Ordered By: Ceferino Perez on 01-15-2024 MCV (RBC) [Entitic vol] 91.4 fL 80-94 [facility] Erythrocyte distribution wid th ratioOrdered By: Ceferino Perez on 01-15-2024 Erythrocyte distribution width (RBC) [Ratio] 12.5 % 11.6-14.6 [facility] Erythrocyte distribution wid th standard deviationOrdered By: Ceferino Perez on 01-15-2024 Erythrocyte distribution width (RBC) [Entitic vol] 41.1 fL 35.1-43.9 [facility] Hematocrit Auto (Bld) [Volum e fraction]Ordered By: Ceferino Perez on 01-15-2024 Hematocrit (Bld) [Volume fraction] 45.9 % 40-54 [facility] Immature granulocytes/100 WB C Auto (Bld)Ordered By: Ceferino Perez on 01-15-2024 Immature granulocytes/100 WBC (Bld) 0.300 % 0.0-0.9 [facility] Comment on above: IG% - Immature Granu locytes (promyelocytes, myelocytes and metamyelocytes) > 1% indicates that a LEFT SHIFT is Present. Laboratory - Chemistry and C hemistry - challengeOrdered By: Ceferino Perez on 01-15-2024 Albumin/Globulin [Mass ratio] 1.2 {ratio} 0.9-2.4 [facility] ALP [Catalytic activity/Vol] 80 U/L 45-117 [facility] ALT [Catalytic activity/Vol] 40 U/L 16-61 [facility] Cholesterol in HDL [Mass/Vol] 52 mg/dL >40 [facility] Comment on above: The drugs N-Acetylcy steine and Metamizole may falsely depress this assay. Reference Range HDL <40 mg/dL Low HDL Cholesterol HDL >or= 60 mg/dL High HDL Cholesterol Cholesterol in LDL [Mass/Vol] 175 mg/dL 0-130 [facility] CO2 [Moles/Vol] 28.0 mmol/L 21.0-32.0 [facility] Globulin (S) [Mass/Vol] 3.3 g/dL 2.2-4.2 [facility] Urea nitrogen/Creatinine [Mass ratio] 15.3 mg/mg 10-20 [facility] - Hematology and Cell countsOrdered By: Ceferino Perez on 01-15-2024 MCH (RBC) [Entitic mass] 30.9 pg 27.0-32.0 [facility] MCHC (RBC) [Mass/Vol] 33.8 g/dL 32-36 [facility] Nucleated RBC/100 WBC (Bld) [Ratio] 0 % 0-5 [facility] Platelet mean volume (Bld) [Entitic vol] 10.1 fL 6.2-12.0 [facility] Platelets (Bld) [#/Vol] 286 10*3/uL 150-450 [facility] No Panel InformationOrdered By: Ceferino Perez on 01-15-2024 Estimated GFR (MDRD) Amer 77 mL/min >60 [facility] Comment on above: GFR Calc Estimated GFR (MDRD) Non-Af Amer 63 mL/min >60 [facility] Comment on above: Non- GFR Calc Urine Microalbumin/Creatinine Ratio 11.0 mg/g CRE <30 [facility] VLDL Cholesterol 20 mg/dL 5-40 [facility] RBC Auto (Bld) [#/Vol]Ordere d By: Ceferino Perez on 01-15-2024 RBC (Bld) [#/Vol] 5.02 10*6/uL 4.6-6.2 [facility] Serum or plasma calcium hanny urement (mass/volume)Ordered By: Ceferino Perez on 01-15-2024 Calcium [Mass/Vol] 9.7 mg/dL 8.5-10.[address] [facility] Serum or plasma creatinine m easurement (mass/volume)Ordered By: Ceferino Perez on 01-15-2024 Creatinine [Mass/Vol] 1.24 mg/dL 0.70-1.30 [facility] Comment on above: The validity of the calculated GFR & GFRAA in patients over 70 years has not been determined. Clinical correlation is essential. Serum or plasma urea nitroge n measurement (mass/volume)Ordered By: Ceferino Perez on 01-15-2024 Urea nitrogen [Mass/Vol] 19 mg/dL 7-18 [facility] Thin prep Papanicolaou smear with manual screeningOrdered By: Ceferino Perez on 01-15-2024 Thin prep Papanicolaou smear with manual screening 4.0 g/dL 3.2-5.0 [facility] Thin prep Papanicolaou smear with manual screening 20 U/L 15-37 [facility] Thin prep Papanicolaou smear with manual screening 4 5-15 [facility] Thin prep Papanicolaou smear with manual screening 15.7 mg/L NO RANGE EST. [facility] Urine creatinine measurement (mass/volume)Ordered By: Ceferino Perez on 01-15-2024 Creatinine (U) [Mass/Vol] 143.00 mg/dL NO RANGE EST. [facility] Absolute lymphocyte countOrd ered By: Ceferino Perez on 07-13-2023 Lymphocytes Auto (Unsp spec) [#/Vol] 1.31 10*3/uL 0.83-4.51 [facility] Basophil percentageOrdered B y: Ceferino Perez on 07-13-2023 Basophils/100 WBC (Bld) 0.8 % 0-1 [facility] Bilirubin [Mass/Vol] 0.60 mg/dL 0.20-1.00 [facility] Comment on above: For patients on eltr ombopag therapy, use of Dimension [place] TBIL is not recommended. Chloride [Moles/Vol] 109 mmol/L 98-107 [facility] Eosinophils/100 WBC (Bld) 14.5 % 0-5 [facility] Glucose [Mass/Vol] 112 mg/dL 74-[address] [facility] Comment on above: Fasting Glucose resu lt from 100 to 125 mg/dL suggests IMPAIRED HOMEOSTASIS per A.D.A. criteria. Neutrophils (Bld) [#/Vol] 2.5 10*3/uL 2.0-7.7 [facility] Neutrophils/100 WBC (Bld) 48.7 % 47-70 [facility] Potassium [Moles/Vol] 4.1 mmol/L 3.5-5.1 [facility] Protein [Mass/Vol] 7.3 g/dL 6.4-8.[address] [facility] Sodium [Moles/Vol] 136 mmol/L 136-[address] [facility] WBC (Bld) [#/Vol] 5.1 10*3/uL 4.4-11.[address] [facility] Blood erythrocytes count (nu mber/volume)Ordered By: Ceferino Perez on 07-13-2023 RBC (Bld) [#/Vol] 4.73 10*6/uL 4.6-6.2 [facility] Blood hemoglobin measurement (mass/volume)Ordered By: Ceferino Perez on 07-13-2023 Hemoglobin (Bld) [Mass/Vol] 14.7 g/dL 13.0-16.5 [facility] Blood lymphocytes/100 leukoc ytesOrdered By: Ceferino Perez on 07-13-2023 Lymphocytes/100 WBC (Bld) 25.6 % 19-41 [facility] Blood monocytes/100 leukocyt esOrdered By: Ceferino Perez on 07-13-2023 Monocytes/100 WBC (Bld) 10.0 % 0-10 [facility] Blood platelet mean volumeOr dered By: Ceferino Perez on 07-13-2023 Platelet mean volume (Bld) [Entitic vol] 10.6 fL 6.2-12.0 [facility] Determination of erythrocyte mean corpuscular volume (MCV)Ordered By: Ceferino Perez on 07-13-2023 MCV (RBC) [Entitic vol] 92.8 fL 80-94 [facility] Hematocrit Auto (Bld) [Volum e fraction]Ordered By: Ceferino Perez on 07-13-2023 Hematocrit (Bld) [Volume fraction] 43.9 % 40-54 [facility] - Chemistry and C hemistry - challengeOrdered By: Ceferino Perez on 07-13-2023 ALP [Catalytic activity/Vol] 78 U/L 45-117 [facility] ALT [Catalytic activity/Vol] 58 U/L 16-61 [facility] CO2 [Moles/Vol] 24.0 mmol/L 21.0-32.0 [facility] Globulin (S) [Mass/Vol] 3.6 g/dL 2.2-4.2 [facility] Urea nitrogen/Creatinine [Mass ratio] 17.3 mg/mg 10-20 [facility] - Hematology and Cell countsOrdered By: Ceferino Perez on 07-13-2023 Erythrocyte distribution width (RBC) [Entitic vol] 42.5 fL 35.1-43.9 [facility] Erythrocyte distribution width (RBC) [Ratio] 12.5 % 11.6-14.6 [facility] Immature granulocytes/100 WBC (Bld) 0.400 % 0.0-0.9 [facility] Comment on above: IG% - Immature Granu locytes (promyelocytes, myelocytes and metamyelocytes) > 1% indicates that a LEFT SHIFT is Present. MCH (RBC) [Entitic mass] 31.1 pg 27.0-32.0 [facility] Nucleated RBC/100 WBC (Bld) [Ratio] 0 % 0-5 [facility] MCHC Auto (RBC) [Mass/Vol]Or dered By: Ceferino Perez on 07-13-2023 MCHC (RBC) [Mass/Vol] 33.5 g/dL 32-36 [facility] No Panel InformationOrdered By: Ceferino Perez on 07-13-2023 Estimated GFR (MDRD) Amer 75 mL/min >60 [facility] Comment on above: GFR Calc Estimated GFR (MDRD) Non-Af Amer 62 mL/min >60 [facility] Comment on above: Non- GFR Calc Prostate Specific Antigen Total 4.93 ng/mL 0.0-4.0 [facility] Comment on above: This test was perfor med using the TPSA assay method [facility]. Values obtained with differentassay methods cannot be used interchangably.When changing PSA assays in the course of monitoring apatient, additional sequential testing should be carriedout to confirm baseline values. Urine Microalbumin/Creatinine Ratio TNP [facility] Comment on above: Test not performed Platelets bldOrdered By: Jeanine Perez on 07-13-2023 Platelets (Bld) [#/Vol] 253 10*3/uL 150-450 [facility] Serum or plasma albumin hanny urement (mass/volume)Ordered By: Ceferino Perez on 07-13-2023 Albumin [Mass/Vol] 3.7 g/dL 3.2-5.[address] [facility] Serum or plasma albumin/glob ulin mass ratioOrdered By: Ceferino Perez on 07-13-2023 Albumin/Globulin [Mass ratio] 1.0 {ratio} 0.9-2.4 [facility] Serum or plasma calcium hanny urement (mass/volume)Ordered By: Ceferino Perez on 07-13-2023 Calcium [Mass/Vol] 9.5 mg/dL 8.5-10.[address] [facility] Serum or plasma creatinine m easurement (mass/volume)Ordered By: Ceferino Perez on 07-13-2023 Creatinine [Mass/Vol] 1.27 mg/dL 0.70-1.30 [facility] Comment on above: The validity of the calculated GFR & GFRAA in patients over 70 years has not been determined. Clinical correlation is essential. Serum or plasma urea nitroge n measurement (mass/volume)Ordered By: Ceferino Perez on 07-13-2023 Urea nitrogen [Mass/Vol] 22 mg/dL 7-18 [facility] Thin prep Papanicolaou smear with manual screeningOrdered By: Ceferino Perez on 07-13-2023 Thin prep Papanicolaou smear with manual screening 26 U/L 15-37 [facility] Thin prep Papanicolaou smear with manual screening 3 5-15 [facility] Thin prep Papanicolaou smear with manual screening < 5.0 mg/L NO RANGE EST. [facility] Urine creatinine measurement (mass/volume)Ordered By: Ceferino Perez on 07-13-2023 Creatinine (U) [Mass/Vol] 47.10 mg/dL NO RANGE EST. [facility] Basophil percentageOrdered B y: Michael Bocanegra on 02-16-2023 Basophil percentage < 0.9 mg/dL 0.70-1.30 [facility] No Panel InformationOrdered By: Michael Bocanegra on 02-16-2023 Bedside Estimated GFR (eGFR) > 60.0000 mL/min >60 [facility] No Panel InformationOrdered By: Michael Bocanegra on 02-04-2023 Prostate Specific Antigen Total 3.98 ng/mL 0.0-4.0 [facility] Comment on above: This test was perfor med using the TPSA assay method for the[facility]. Values obtained with differentassay methods cannot be used interchangably.When changing PSA assays in the course of monitoring apatient, additional sequential testing should be carriedout to confirm baseline values. Absolute lymphocyte countOrd ered By: Dr. Perez on 10-31-2022 Lymphocytes Auto (Unsp spec) [#/Vol] 1.53 10*3/uL 0.83-4.51 [facility] Basophil percentageOrdered B y: Dr. Perez on 10-31-2022 Basophils/100 WBC (Bld) 0.5 % 0-1 [facility] Bilirubin [Mass/Vol] 0.50 mg/dL 0.20-1.00 [facility] Comment on above: For patients on eltr ombopag therapy, use of Dimension [place] TBIL is not recommended. Chloride [Moles/Vol] 107 mmol/L 98-107 [facility] Cholesterol [Mass/Vol] 215 mg/dL <200 [facility] Comment on above: <200 mg/dL Desirable 200-240 mg/dL Borderline >240 mg/dL High Risk Eosinophils/100 WBC (Bld) 6.7 % 0-5 [facility] Glucose [Mass/Vol] 116 mg/dL 74-[address] [facility] Comment on above: Fasting Glucose resu lt from 100 to 125 mg/dL suggests IMPAIRED HOMEOSTASIS per A.D.A. criteria. Neutrophils (Bld) [#/Vol] 3.2 10*3/uL 2.0-7.7 [facility] Neutrophils/100 WBC (Bld) 55.8 % 47-70 [facility] Potassium [Moles/Vol] 4.5 mmol/L 3.5-5.1 [facility] Protein [Mass/Vol] 7.0 g/dL 6.4-8.[address] [facility] Sodium [Moles/Vol] 141 mmol/L 136-[address] [facility] Triglyceride [Mass/Vol] 119 mg/dL <199 [facility] Comment on above: The drugs N-Acetylcy steine and Metamizole may falsely depress this assay.Serum Triglycerides Reference Interval Normal <150 mg/dL Borderline high 150 - 199 mg/dL High 200 - 499 mg/dL Very High > or = 500 mg/dL WBC (Bld) [#/Vol] 5.7 10*3/uL 4.4-11.[address] [facility] Blood erythrocytes count (nu mber/volume)Ordered By: Dr. Perez on 10-31-2022 RBC (Bld) [#/Vol] 4.77 10*6/uL 4.6-6.2 [facility] Blood hemoglobin measurement (mass/volume)Ordered By: Dr. Perez on 10-31-2022 Hemoglobin (Bld) [Mass/Vol] 14.9 g/dL 13.0-16.5 [facility] Blood lymphocytes/100 leukoc ytesOrdered By: Dr. Perez on 10-31-2022 Lymphocytes/100 WBC (Bld) 26.8 % 19-41 [facility] Blood monocytes/100 leukocyt esOrdered By: Dr. Perez on 10-31-2022 Monocytes/100 WBC (Bld) 9.8 % 0-10 [facility] Blood platelet mean volumeOr dered By: Dr. Perez on 10-31-2022 Platelet mean volume (Bld) [Entitic vol] 10.4 fL 6.2-12.0 [facility] Determination of erythrocyte mean corpuscular volume (MCV)Ordered By: Dr. Perez on 10-31-2022 MCV (RBC) [Entitic vol] 92.7 fL 80-94 [facility] Hematocrit Auto (Bld) [Volum e fraction]Ordered By: Dr. Perez on 10-31-2022 Hematocrit (Bld) [Volume fraction] 44.2 % 40-54 [facility] - Chemistry and C hemistry - challengeOrdered By: Dr. Perez on 10-31-2022 ALP [Catalytic activity/Vol] 74 U/L 45-117 [facility] ALT [Catalytic activity/Vol] 27 U/L 16-61 [facility] CO2 [Moles/Vol] 27.0 mmol/L 21.0-32.0 [facility] Globulin (S) [Mass/Vol] 3.4 g/dL 2.2-4.2 [facility] Urea nitrogen/Creatinine [Mass ratio] 12.7 mg/mg 10-20 [facility] - Hematology and Cell countsOrdered By: Dr. Perez on 10-31-2022 Erythrocyte distribution width (RBC) [Entitic vol] 41.9 fL 35.1-43.9 [facility] Erythrocyte distribution width (RBC) [Ratio] 12.4 % 11.6-14.6 [facility] Immature granulocytes/100 WBC (Bld) 0.400 % 0.0-0.9 [facility] Comment on above: IG% - Immature Granu locytes (promyelocytes, myelocytes and metamyelocytes) > 1% indicates that a LEFT SHIFT is Present. MCH (RBC) [Entitic mass] 31.2 pg 27.0-32.0 [facility] Nucleated RBC/100 WBC (Bld) [Ratio] 0 % 0-5 [facility] MCHC Auto (RBC) [Mass/Vol]Or dered By: Dr. Perez on 10-31-2022 MCHC (RBC) [Mass/Vol] 33.7 g/dL 32-36 [facility] No Panel InformationOrdered By: Dr. Perez on 10-31-2022 Estimated GFR (MDRD) Amer 76 mL/min >60 [facility] Comment on above: GFR Calc Estimated GFR (MDRD) Non-Af Amer 62 mL/min >60 [facility] Comment on above: Non- GFR Calc Prostate Specific Antigen Screen 5.09 ng/mL 0.00-4.00 [facility] Comment on above: This test was perfor med using the TPSA assay method [facility]. Values obtained with differentassay methods cannot be used interchangably.When changing PSA assays in the course of monitoring apatient, additional sequential testing should be carriedout to confirm baseline values. Thyroid Stimulating Hormone (TSH) 1.60 uIU/mL 0.358-3.74 [facility] Urine Microalbumin/Creatinine Ratio 10.6 mg/g CRE <30 [facility] Vitamin D 25-Hydroxy 76.8 ng/mL [facility] Comment on above: Vitamin D 25(OH) Sta tus Range Deficiency <20 ng/mL (50nmol/L) Insufficiency 20 - 30 ng/mL (50 - 75 nmol/L) Sufficiency 30 - 100 ng/mL (75 - 250 nmol/L) Toxicity >100 ng/mL (>250 nmol/L) Platelets bldOrdered By: Dr. Perez on 10-31-2022 Platelets (Bld) [#/Vol] 283 10*3/uL 150-450 [facility] Serum or plasma albumin hanny urement (mass/volume)Ordered By: Dr. Perez on 10-31-2022 Albumin [Mass/Vol] 3.6 g/dL 3.2-5.[address] [facility] Serum or plasma albumin/glob ulin mass ratioOrdered By: Dr. Perez on 10-31-2022 Albumin/Globulin [Mass ratio] 1.1 {ratio} 0.9-2.4 [facility] Serum or plasma calcium hanny urement (mass/volume)Ordered By: Dr. Perez on 10-31-2022 Calcium [Mass/Vol] 9.5 mg/dL 8.5-10.[address] [facility] Serum or plasma cholesterol in HDL measurement (mass/volume)Ordered By: Dr. Perez on 10-31-2022 Cholesterol in HDL [Mass/Vol] 67 mg/dL >40 [facility] Comment on above: The drugs N-Acetylcy steine and Metamizole may falsely depress this assay. Reference Range HDL <40 mg/dL Low HDL Cholesterol HDL >or= 60 mg/dL High HDL Cholesterol Serum or plasma cholesterol in VLDL measurement (mass/volume)Ordered By: Dr. Perez on 10-31-2022 Cholesterol in VLDL [Mass/Vol] 24 mg/dL 5-40 [facility] Serum or plasma creatinine m easurement (mass/volume)Ordered By: Dr. Perez on 10-31-2022 Creatinine [Mass/Vol] 1.26 mg/dL 0.70-1.30 [facility] Comment on above: The validity of the calculated GFR & GFRAA in patients over 70 years has not been determined. Clinical correlation is essential. Serum or plasma low density lipoprotein (LDL) cholesterol measurement (mass/volume)Ordered By: Dr. Perez on 10-31-2022 Cholesterol in LDL [Mass/Vol] 124 mg/dL 0-130 [facility] Serum or plasma urea nitroge n measurement (mass/volume)Ordered By: Dr. Perez on 10-31-2022 Urea nitrogen [Mass/Vol] 16 mg/dL 7-18 [facility] Thin prep Papanicolaou smear with manual screeningOrdered By: Dr. Perez on 10-31-2022 Thin prep Papanicolaou smear with manual screening 16 U/L 15-37 [facility] Thin prep Papanicolaou smear with manual screening 7 5-15 [facility] Thin prep Papanicolaou smear with manual screening 15.2 mg/L NO RANGE EST. [facility] Urine creatinine measurement (mass/volume)Ordered By: Dr. Perez on 10-31-2022 Creatinine (U) [Mass/Vol] 144.00 mg/dL NO RANGE EST. [facility] Whole blood hemoglobin A1c/t otal hemoglobin ratio (mass fraction)Ordered By: Dr. Perez on 10-31-2022 HbA1c (Bld) [Mass fraction] 5.5 % 3.8-5.6 [facility] Comment on above: Normal < 5.7 % Predi abetic 5.7 - 6.4 % Diabetic >or= 6.5 % Please note range changes. Absolute lymphocyte counton 04-16-2022 Lymphocytes Auto (Unsp spec) [#/Vol] 1.90 10*3/uL 0.83-4.51 [facility] Work Phone: Basophil percentageon 2021 Basophils/100 WBC (Bld) 0.7 % 0-1 [facility] Work Phone: [phone] Eosinophils/100 WBC (Bld) 8.8 % 0-5 [facility] Work Phone: [phone] Neutrophils (Bld) [#/Vol] 3.5 10*3/uL 2.0-7.7 [facility] Work Phone: Neutrophils/100 WBC (Bld) 51.5 % 47-70 [facility] Work Phone: WBC (Bld) [#/Vol] 6.7 10*3/uL 4.4-11.[address] [facility] Work Phone: [phone] Blood erythrocytes count (nu mber/volume)on 04-16-2022 RBC (Bld) [#/Vol] 4.94 10*6/uL 4.6-6.2 [facility] Work Phone: Blood hemoglobin measurement (mass/volume)on 04-16-2022 Hemoglobin (Bld) [Mass/Vol] 15.2 g/dL 13.0-16.5 [facility] Work Phone: Blood lymphocytes/100 leukoc yteson 04-16-2022 Lymphocytes/100 WBC (Bld) 28.4 % 19-41 [facility] Work Phone: Blood monocytes/100 leukocyt eson 04-16-2022 Monocytes/100 WBC (Bld) 10.3 % 0-10 [facility] Work Phone: Blood platelet mean volumeon 04-16-2022 Platelet mean volume (Bld) [Entitic vol] 10.5 fL 6.2-12.0 [facility] Work Phone: Determination of erythrocyte mean corpuscular volume (MCV)on 04-16-2022 MCV (RBC) [Entitic vol] 91.3 fL 80-94 [facility] Work Phone: Hematocrit Auto (Bld) [Volum e fraction]on 04-16-2022 Hematocrit (Bld) [Volume fraction] 45.1 % 40-54 [facility] Work Phone: Laboratory - Hematology and Cell countson 04-16-2022 Erythrocyte distribution width (RBC) [Entitic vol] 40.5 fL 35.1-43.9 [facility] Work Phone: Erythrocyte distribution width (RBC) [Ratio] 12.2 % 11.6-14.6 [facility] Work Phone: Immature granulocytes/100 WBC (Bld) 0.300 % 0.0-0.9 [facility] Work Phone: Comment on above: IG% - Immature Granu locytes (promyelocytes, myelocytes and metamyelocytes) > 1% indicates that a LEFT SHIFT is Present. MCH (RBC) [Entitic mass] 30.8 pg 27.0-32.0 [facility] Work Phone: Nucleated RBC/100 WBC (Bld) [Ratio] 0 % 0-5 [facility] Work Phone: MCHC Auto (RBC) [Mass/Vol]on 04-16-2022 MCHC (RBC) [Mass/Vol] 33.7 g/dL 32-36 [facility] Work Phone: Platelets bldon 04-16-2022 Platelets (Bld) [#/Vol] 253 10*3/uL 150-450 [facility] Work Phone: Basophil percentageon 2021 Bilirubin [Mass/Vol] 0.50 mg/dL 0.20-1.00 [facility] Work Phone: Comment on above: For patients on eltr ombopag therapy, use of Dimension [place] TBIL is not recommended. Chloride [Moles/Vol] 106 mmol/L 98-107 [facility] Work Phone: Cholesterol [Mass/Vol] 197 mg/dL <200 [facility] Work Phone: Comment on above: <200 mg/dL Desirable 200-240 mg/dL Borderline >240 mg/dL High Risk Glucose [Mass/Vol] 112 mg/dL 74-[address] [facility] Work Phone: Comment on above: Fasting Glucose resu lt from 100 to 125 mg/dL suggests IMPAIRED HOMEOSTASIS per A.D.A. criteria. Potassium [Moles/Vol] 3.7 mmol/L 3.5-5.1 [facility] Work Phone: Protein [Mass/Vol] 7.0 g/dL 6.4-8.[address] [facility] Work Phone: Sodium [Moles/Vol] 139 mmol/L 136-[address] [facility] Work Phone: Triglyceride [Mass/Vol] 73 mg/dL <199 [facility] Work Phone: Comment on above: The drugs N-Acetylcy steine and Metamizole may falsely depress this assay.Serum Triglycerides Reference Interval Normal <150 mg/dL Borderline high 150 - 199 mg/dL High 200 - 499 mg/dL Very High > or = 500 mg/dL Laboratory - Chemistry and C hemistry - challengeon 01-12-2022 ALP [Catalytic activity/Vol] 78 U/L 45-117 [facility] Work Phone: ALT [Catalytic activity/Vol] 23 U/L 16-61 [facility] Work Phone: CO2 [Moles/Vol] 29.0 mmol/L 21.0-32.0 [facility] Work Phone: Globulin (S) [Mass/Vol] 3.2 g/dL 2.2-4.2 [facility] Work Phone: Urea nitrogen/Creatinine [Mass ratio] 17.1 mg/mg 10-20 [facility] Work Phone: No Panel Informationon 01-12 Estimated GFR (MDRD) Amer 74 mL/min >60 [facility] Work Phone: Comment on above: GFR Calc Estimated GFR (MDRD) Non-Af Amer 61 mL/min >60 [facility] Work Phone: Comment on above: Non- GFR Calc Urine Microalbumin/Creatinine Ratio 3.6 mg/g CRE <30 [facility] Work Phone: Serum or plasma albumin hanny urement (mass/volume)on 01-12-2022 Albumin [Mass/Vol] 3.8 g/dL 3.2-5.[address] [facility] Work Phone: Serum or plasma albumin/glob ulin mass ratioon 01-12-2022 Albumin/Globulin [Mass ratio] 1.2 {ratio} 0.9-2.4 [facility] Work Phone: Serum or plasma calcium hanny urement (mass/volume)on 01-12-2022 Calcium [Mass/Vol] 9.2 mg/dL 8.5-10.[address] [facility] Work Phone: Serum or plasma cholesterol in HDL measurement (mass/volume)on 01-12-2022 Cholesterol in HDL [Mass/Vol] 64 mg/dL >40 [facility] Work Phone: Comment on above: The drugs N-Acetylcy steine and Metamizole may falsely depress this assay. Reference Range HDL <40 mg/dL Low HDL Cholesterol HDL >or= 60 mg/dL High HDL Cholesterol Serum or plasma cholesterol in VLDL measurement (mass/volume)on 01-12-2022 Cholesterol in VLDL [Mass/Vol] 15 mg/dL 5-40 [facility] Work Phone: Serum or plasma creatinine m easurement (mass/volume)on 01-12-2022 Creatinine [Mass/Vol] 1.29 mg/dL 0.70-1.30 [facility] Work Phone: Comment on above: The validity of the calculated GFR & GFRAA in patients over 70 years has not been determined. Clinical correlation is essential. Serum or plasma low density lipoprotein (LDL) cholesterol measurement (mass/volume)on 01-12-2022 Cholesterol in LDL [Mass/Vol] 118 mg/dL 0-130 [facility] Work Phone: Serum or plasma urea nitroge n measurement (mass/volume)on 01-12-2022 Urea nitrogen [Mass/Vol] 22 mg/dL 7-18 [facility] Work Phone: Thin prep Papanicolaou smear with manual screeningon 01-12-2022 Thin prep Papanicolaou smear with manual screening 15 U/L 15-37 [facility] Work Phone: Thin prep Papanicolaou smear with manual screening 4 5-15 [facility] Work Phone: Thin prep Papanicolaou smear with manual screening 7.7 mg/L NO RANGE EST. [facility] Work Phone: Urine creatinine measurement (mass/volume)on 01-12-2022 Creatinine (U) [Mass/Vol] 215.00 mg/dL NO RANGE EST. [facility] Work Phone: CNOVon 10-20-2019 CNOV Office Visit (UCWSTR) SANTOS ROSADO ([id number]) 1965 M Date Time Provider Department 10/20/19 6:00 PM ALYSSA LEON ([facility] During your visit today, we recorded the [...] Patient agreeable to treatment plan. Alyssa Leon APRN.ENVIRONMENTAL FIELD OFFICE MANAGER Referring Provider: SELF [200] Allergies As of [...] Status:Closed by ALYSSA LEON CNP on 10/20/19 [facility] PROGRESSon 10-20-2019 PROGRESS HNO ID: [id number] Author: Alyssa (Mary) Service: ? Author Type: [...] Laterality Date - COLONOSCOP W/ OR W/O [facility] SPEC 02/22/02 Colonoscopy - COLONOSCOPY 2013 [...] Patient agreeable to treatment plan. Alyssa Leon APRN.ENVIRONMENTAL FIELD OFFICE MANAGER Normal [facility] Vital Signs Date Time Vital Sign Value Performing Clinician Pushpa ellison 06-18-2025 08:12-0400 Body height 165.[address] Ceferino Perez MD Work Phone: [facility] 06-18-2025 08:12-0400 Body mass index (BMI) [Ratio] 31.6 kg/m2 Dr. Ceferino Perez MD Work Phone: [facility] 06-18-2025 08:12-0400 Body temperature 98.2 [degF] Dr. Ceferino Perez MD Work Phone: [facility] 06-18-2025 08:12-0400 Body weight 86.[address] Ceferino Perez MD Work Phone: [facility] 06-18-2025 08:12-0400 Diastolic blood pressure 72 mm[Hg] Dr. Ceferino Perez MD Work Phone: [facility] 06-18-2025 08:12-0400 Heart rate 72 /min Dr. Ceferino Perez MD Work Phone: [facility] 06-18-2025 08:12-0400 Respiratory rate 18 /min Dr. Ceferino Perez MD Work Phone: [facility] 06-18-2025 08:12-0400 SaO2% (BldA) [Mass fraction] 98 % Dr. Ceferino Perez MD Work Phone: [facility] 06-18-2025 08:12-0400 Systolic blood pressure 137 mm[Hg] Dr. Ceferino Perez MD Work Phone: [facility] 03-28-2023 17:39-0400 Diastolic blood pressure 75 mm[Hg] [facility] 03-28-2023 17:39-0400 Systolic blood pressure 138 mm[Hg] [facility] 03-28-2023 15:50-0400 Body height 165.1 cm [facility] 03-28-2023 15:50-0400 Body mass index (BMI) [Ratio] 31.9 kg/m2 [facility] 03-28-2023 15:50-0400 Body temperature 98.7 [degF] [facility] 03-28-2023 15:50-0400 Body weight 87.08 kg [facility] 03-28-2023 15:50-0400 Heart rate 107 /min [facility] 03-28-2023 15:50-0400 Respiratory rate 18 /min [facility] 03-28-2023 15:50-0400 SaO2% (BldA) [Mass fraction] 98 % [facility] Encounters Encounter Date Encounter Type Care Provider Facility Start: 06-26-2025 ambulatory Ceferino Perez Facility:[facility] Start: 06-26-2025 End: 06-26-2025 ambulatory Ceferino Perez Facility:[facility] Start: 06-18-2025 End: 06-18-[address] Fredrick Evans MD -[facility] Work Phone: Start: 06-18-2025 End: 06-18-[address] Ceferino Perez MD Work Phone: -[facility] Start: 02-07-2025 Encounter for preprocedural cardiovascular examination Jonny Burch [facility] Start: 01-31-2025 End: 01-31-2025 Non-patient / Non-visit Dr. Thom Mendoza MD -[facility] Work Phone: Start: 01-31-2025 End: 01-31-[address] Ceferino Perez MD Work Phone: [facility] Work Phone: Start: 01-31-2025 End: 01-31-[address] Jonny Burch DO -Pulmonary Services/Neurology Work Phone: Start: 01-31-2025 End: 01-31-2025 ambulatory Ceferino Perez Facility:[facility] Start: 09-22-2024 End: 09-22-2024 ambulatory Ceferino Perez Facility:[facility] Start: 09-07-2024 End: 09-07-2024 ambulatory Lei RICO Facility:[facility] Start: 07-04-2024 End: 07-04-2024 ambulatory Ceferino Perez Facility:[facility] Start: 07-03-2024 End: 07-03-2024 Emergency department patient visit Ceferino Perez Facility:[facility] Start: 01-15-2024 End: 01-15-2024 ambulatory [facility] Work Phone: Start: 01-15-2024 End: 01-15-2024 Patient encounter procedure [facility] Work Phone: Start: 07-13-2023 End: 07-13-2023 ambulatory [facility] Work Phone: Start: 07-13-2023 End: 07-13-2023 [facility] Start: 03-28-2023 End: 03-28-2023 [facility] Start: 02-16-2023 End: 02-16-2023 Patient encounter procedure [facility] Work Phone: Start: 02-04-2023 End: 02-04-2023 ambulatory [facility] Work Phone: Start: 02-04-2023 End: 02-04-2023 [facility] Start: 10-31-2022 End: 10-31-2022 ambulatory [facility] Work Phone: Start: 10-31-2022 End: 10-31-2022 [facility] Start: 10-13-2022 End: 10-13-2022 [facility] Start: 07-28-2022 End: 07-28-2022 ambulatory [facility] Work Phone: Start: 07-28-2022 End: 07-28-2022 [facility] Start: 04-16-2022 End: 04-16-2022 [facility] Start: 01-12-2022 End: 01-12-2022 [facility] Date Procedure Procedure Detail Performing Clinician Start: 02-16-2023 MRI of pelvis with contrast Start: 10-13-2022 Plain chest X-ray Start: 07-28-2022 Plain chest X-ray Plan of Treatment Date Care Activity Detail Author Start: 06-18-2025 Colonoscopy [facility] Start: 03-28-2023 Smpl repair scalp/neck/ax/genit/trun k 2.6-7.5cm RPR S/N/AX/GEN/TRNK2.6-7. 5CM [facility] Patient Education ED Laceration: All Closures [facility] Work Phone: Patient referral [facility] Work Phone: Payers Date Payer Category Payer Self-pay [id number] 2011 Unknown [id number] Unknown [id number] 2.16.8 [id number] Unknown [id number] 2.16.8 [id number] Unknown [id number] 2.16.8 [id number] Unknown [id number] 2.16.8 [id number] Unknown [id number] 2.16.8 [id number] Unknown [id number] 2.16.8 [id number] Unknown [id number] 2.16.8 [id number] Unknown [id number] 2.16.8 [id number] Unknown [id number] 2.16.8 [id number] Social History Date Type Detail Facility Start: 02-21-2021 End: 03-28-2023 Tobacco smoking status NHIS Unknown if ever smoked [facility] Start: 01-24-2019 Non-smoker [facility] Start: 1965 Sex Assigned At Male [facility] Start: 07-03-2024 End: 06-18-2025 Tobacco smoking status NHIS Never smoked tobacco (finding) [facility] Sex Male [facility] Medical Equipment Procedure Code Equipment [...] Date & Type Note Facility 06-26-2025 Note [facility] [address] [place] [address] History Physical Exam 06/26/25 0805 MR#: [id number] Acct: [id number] Name: SANTOS ROSADO Rep #: [id number] : 1965 59 From: Fredrick Evans MD PCP: Dr. Ceferino Perez MD Status:[facility] Location: [place] [address] History and Physical Date of Admission: 06/26/25 [...] (From Viibryd) Allergy (Verified 06/18/25 08:13) Hives [facility] Medical History (Updated 06/18/25 @ 08:11 [...] infection. I e (more content not included)... [facility] Progress note 06-18-2025 Note Date & Type Note Facility 06-18-2025 Progress note [facility] Discharge instructions 03-30-2023 Note Date & Type Note Facility 03-30-2023 Hospital Discharg e instructions Additional Instructions Have stitches removed in 7 to 10 days. Please return or follow-up with PCP sooner for any signs of infection such as increased redness, swelling, purulent discharge, or fever. [facility] Work Phone: Hospital Discharge instructions 03-28-2023 Note Date & Type Note Facility 03-28-2023 Hospital Discharg e instructions Additional Instructions Have stitches removed in 7 to 10 days. Please return or follow-up with PCP sooner for any signs of infection such as increased redness, swelling, purulent discharge, or fever. [facility] Work Phone: Evaluation note Note Date & Type Note Facility Evaluation note No assessment information availa ble [facility] Work Phone: Evaluation note Note Date & Type Note Facility Evaluation note Diagnosis Onset Date Resolution Blood in stool acute June 7:59am [facility] Work Phone: Progress note Note Date & Type Note Facility Progress note Note Date/Time June 18, 2025 8:16am [facility] [address] [place] [address] OFFICE VISIT Date of Service: 06/18/25 MR#: [id number] Acct: [id number] Name: SANTOS ROSADO Rep #: [id number] : 1965 Provider: Dr. Brian Evans MD Age/Sex: 59/M Location: [facility] Status: Signed Intake Vital Signs 07/03/24 10:07 [...] HCl (From Viibryd) Allergy (Verified 06/18/25 08:13) [facility] Medical History (Updated 06/18/25 @ 08:11 [...] proceed with procedure. Fredrick Evans MD Pager: [facility] [address] [place] [address], [address] [place] [address] Office: Orders: Orders Colonoscopy Today Coding Level of Care Code Off vis,new,level 3 Diagnoses Blood in stool K92.1 06/18/25 0816 <Electronically signed by Fredrick rod MD> Date _ Fredrick Evans MD Cosign Signature: Date (if applicable) CC: ~ [facility] Work Phone: Reason for referral (narrative) Note Date & Type Note Facility Reason for referral (narrative) No reason for referral information available [facility] Work Phone: Summary Purpose Family History No [...] Yes February 21, 2021 11:38am Power of Strategic Business Development Yes February 21 11:38am Advance Directive Response Recorded Date/ Time Advance Directives Yes December 18 6:23am Living Will Yes February 21, 2021 10:38am Power of Strategic Business Development Yes February 21 10:38am Advance Directive Response Recorded Date/ Time Name of Medical Power of Strategic Business Development Ashly March 28, 2023 3:58pm Advance Directives Yes December 18 7:23am Living Will Yes March 28, 2023 3:58pm Power of Strategic Business Development Yes March 28 3:58pm Advance Directive Response Recorded Date/ Time Advance Directives Yes December 18 7:23am Living Will Yes March 28, 2023 3:58pm Power of Strategic Business Development Yes March 28 3:58pm Name of Medical Power of Strategic Business Development Ashly March 28, 2023 3:58pm Advance Directive Response Recorded Date/ Time Advance Directives Yes December 18 7:23am Living Will Yes March 28, 2023 3:58pm Power of Strategic Business Development Yes March 28 3:58pm Advance Directive Response [...] section and content) DATE CREATED AUTHOR 10/20/[address] [facility] DATE CREATED AUTHOR AUTHOR'S ORGANIZ ATION [facility]/26/20[facility] Goals (unrecognized section and content) Goals may [...] BE BASED ON THE PRIMARY CLINICAL RECORDS. [facility] [employer]kicker [facility]. provides no warranty or guarantee of the accuracy or completeness of information in this document.
[2025-06-28 07:27] LABS: Hematocrit 43.6 % (40-54); Hemoglobin 15.3 g/dL (13.0-16.5); Immature Granulocytes Count 0.020 X10^3/uL (0.0-0.0); Mean Corp Hgb Conc 35.1 g/dL (32-36); Mean Corpuscular Volume 92.0 fL (80-94); Mean Platelet Vol. 10.1 fl (6.2-12.0); NRBC Flagged by Analyzer 0 % (0-5); Platelet Count 227 K/mm3 (150-450); RBC Distribution Width CV 12.4 % (11.6-14.6); RBC Distribution Width SD 41.7 fl (35.1-43.9); Red Blood Count 4.74 M/mm3 (4.6-6.2); White Blood Count 7.2 K/mm3 (4.4-11.0)
[2025-06-28 08:32] LABS: Creatinine, Urine (random) 242.00 mg/dL (39.00-259.00); Microalbumin,Random Urine < 12.0 mg/L (<20 mg/L)
[2025-06-28 08:39] LABS: Cholesterol 185 mg/dL (<=200); Low Density Lipoprotein Calc. 97 mg/dL; PSA,Total- Diagnostic 5.51 ng/mL (0.00-4.00); Triglycerides 188 mg/dL; Very Low Density Lipoprotein 38 mg/dL (5-40); cholesterol:hdl ratio screen 3.65
[2025-06-28 08:41] LABS: AST(SGOT) 23 U/L (<=37); Alanine Aminotransfer ALT/SGPT 22 U/L (<=46); Albumin, Serum 4.3 g/dL (3.4-4.8); Alkaline Phosphatase 81 U/L (40-129); Anion Gap 11 (5-15); BUN 22 mg/dL (4-19); BUN/Creat Ratio 22.3 RATIO (10-20); Calcium,Total 9.3 mg/dL (7.6-11.0); Carbon Dioxide 22.3 mmol/L (21.0-32.0); Chloride 107 mmol/L (98-108); Globulin 2.3 g/dL (2.2-4.2); Glucose 103 mg/dL (70-99); Potassium 4.3 mmol/L (3.3-5.1)
== END | disposition home or self-care (01) ==
LOC: LAB 06:10
PROVIDERS: PCP Family Medicine; Referring Provider Family Medicine; Visit Provider Family Medicine
DX: K76.0 Fatty (change of) liver, not elsewhere classified (principal); E03.9 Hypothyroidism, unspecified; E78.5 Hyperlipidemia, unspecified; R97.20 Elevated prostate specific antigen [PSA]; M79.7 Fibromyalgia; I10 Essential (primary) hypertension
CPT/HCPCS: 36415; 80053; 80061; 82043; 82570; 83036; 84153; 84443; 85025